=== PATIENT | female | born 1940 | race Caucasian/White ===

== ENCOUNTER → 2016-09-11 | Outpatient (CLI) | payer OTHER ==
[~2016-09-11] MED LIST: ANT25 PO; APR50 PO; ATOR-54 PO; GLC/500 PO; GLIM1TAB2 PO; LISI20TA55 PO; METO50TA17 PO
[2016-09-11 12:42] LABS: BASO % 0.5 %; BASO ABS # 0.03 K/uL (0-0.2); COMPLETE YES; EOS % 3.3 %; HEMATOCRIT 39.8 % (37-47); IG% 0.3 %; LYMPH % 35.4 %; LYMPH ABS # 2.14 K/uL (1.2-3.4); MEAN CELL VOLUME 91.1 fL (80-100); MEAN CORPUSCULAR HEMOGLOBIN 28.4 pg (25-34); MEAN CORPUSCULAR HGB CONC 31.2 g/dl (32-36); MEAN PLATELET VOLUME 11.3 fL (7.4-10.4); MONO % 8.3 %; NEUT % 52.2 %; PLATELET COUNT 181 K/uL (130-400); RED BLOOD COUNT 4.37 M/uL (4.2-5.4); WHITE BLOOD COUNT 6.04 K/uL (4.8-10.8)
[2016-09-11 13:23] LABS: ALT/SGPT 33 U/L (12-78); AST/SGOT 18 U/L (15-37); BLOOD UREA NITROGEN 16 mg/dl (7-18); BUN/CREATININE RATIO 13.5 (10-20); CALCIUM 9.6 mg/dl (8.5-10.1); CARBON DIOXIDE 25 mmol/L (21-32); CHLORIDE 109 mmol/L (98-107); GLUCOSE 134 mg/dl (70-99); POTASSIUM 3.9 mmol/L (3.5-5.1); SODIUM 143 mmol/L (136-145)
[2016-09-11 13:34] LABS: ALB/GLOB RATIO 1.2 (0.9-2); ALKALINE PHOSPHATASE 76 U/L (45-117); CHOLESTEROL 122 mg/dl (0-200); CHOLESTEROL/HDL RATIO 2.2; HDL CHOLESTEROL 56 mg/dl; LDL CHOLESTEROL CALCULATED 42 mg/dl; THYROID STIMULATING HORMONE 0.634 uIu/ml (0.300-4.500); TRIGLYCERIDES 119 mg/dl (0-150); VERY LOW DENSITY LIPOPROT CALC 24 mg/dl
[2016-09-11 13:39] LABS: ESTIMATED AVERAGE GLUCOSE 140 mg/dl; HA1C FLAG Normal (Normal)
== END | disposition home or self-care (01) ==
LOC: C.LABBFT 09:30
PROVIDERS: ATTEND Internal Medicine
DX: E11.9 Type 2 diabetes mellitus without complications (principal)

== ENCOUNTER → 2016-10-07 | Outpatient (CLI) | payer OTHER | END | disposition home or self-care (01) | LOC: C.MAMM 14:25 | PROVIDERS: ATTEND Nurse Practitioner | DX: M85.88 Other specified disorders of bone density and structure, other site (principal); M85.851 Other specified disorders of bone density and structure, right thigh; M85.852 Other specified disorders of bone density and structure, left thigh ==

== ENCOUNTER → 2017-05-15 | Outpatient (CLI) | payer OTHER ==
[2017-05-15 13:21] LABS: HEMOGLOBIN A1C 6.6 % (4.5-5.6)
[2017-05-15 13:54] LABS: ALBUMIN 3.6 gm/dl (3.4-5.0); ALT/SGPT 32 U/L (12-78); BLOOD UREA NITROGEN 19 mg/dl (7-18); CALCIUM 9.5 mg/dl (8.5-10.1); CARBON DIOXIDE 28 mmol/L (21-32); CHOLESTEROL 107 mg/dl (0-200); CREATININE 1.12 mg/dl (0.60-1.20); GLUCOSE 142 mg/dl (70-99); POTASSIUM 4.2 mmol/L (3.5-5.1); SODIUM 142 mmol/L (136-145)
[2017-05-15 13:57] LABS: ALKALINE PHOSPHATASE 81 U/L (45-117); AST/SGOT 15 U/L (15-37); LDL CHOLESTEROL CALCULATED 32 mg/dl
== END | disposition home or self-care (01) ==
LOC: C.LABBFT 10:11
PROVIDERS: ATTEND Nurse Practitioner
DX: E11.9 Type 2 diabetes mellitus without complications (principal)

== ENCOUNTER → 2017-06-29 | Day surgery (SDC) | payer OTHER ==
[2017-06-18 11:32] VITALS: Ht 160 cm; Wt 97.7 kg
[~2017-06-29] VITALS: Ht 160 cm; Wt 97.7 kg
[~2017-06-29] MED LIST changes: +500ML BSS 0.3ML EPI 1:1000PF IRRIG ONE; +ACETAMINOPHEN 325 MG TAB PO PRN; +AMLO-110 PO; +AMVISC PLUS 0.8ML SYRINGE INT OCU ONE; -ANT25 PO; -APR50 PO; +ATOR-22 PO; -ATOR-54 PO; +ATROPINE SULFATE 0.1 MG/ML 5ML SYR IV PRN; +BRIMONIDINE TART 0.2% OP SOLN PER DROP CHARGE ONE; +BSS FLUSH ONE; +ENDOCOAT 0.85ML SYRINGE INT OCU ONE; +EpHEDrine SULFATE INJ 50 MG/ML AMP IV PRN; +EpINEphrine INJ 1MG/ML AMP 1 MG/ML AMP ONE; -GLC/500 PO; +HYDR-4717 PO; +LACTATED RINGER'S 1000ML 500 ML IV SCH; +LIDOCAINE 4% OP SOLN DROP CHARGE ONE; +LIDOCAINE 4% OP SOLN DROP CHARGE OPL SCH; +LIDOCAINE HCL 1% MPF 2 ML VIAL ONE; +METF-384 PO; +METO50TA16 PO; -METO50TA17 PO; +MIDAZOLAM HCL 1 MG/ML 2ML VIAL ONE; +MOXIFLOXACIN OPH SOLN PER DROP CHARGE ONE; +MULTCAP7 PO; +POVIDONE-IODINE OP SOLN 30 ML BTL ONE; +PROPARACAINE 0.5% OP SOLN PER DROP CHARGE OPL SCH; +TOBRAMYCIN/DEXAMETHASONE OPH OINT PER APPLN CHARGE ONE
[2017-06-29] MEDS: PHENYLEPHRINE HCL 2.5% OP SOLN PER DROP CHARGE OPL SCH ×2 (06:51→06:56)
[2017-06-29] MEDS: TROPICAMIDE 1% OP SOLN PER DROP CHARGE OPL SCH ×2 (06:52→06:57)
[2017-06-29] MEDS: CYCLOPENTOLATE HCL 1% OP SOLN PER DROP CHARGE OPL SCH ×2 (06:53→06:58)
[2017-06-29] MEDS: KETOROLAC 0.5% OP SOLN PER DROP CHARGE OPL SCH ×2 (06:54→06:59)
--- NOTE | 2017-06-29 06:54 | History & Physical Bridge - SC ---
H&P Re-Evaluation Bridge Note: I have examined the patient, reviewed the History & Physical and in the interval since the performance of the History & Physical I have noted the following changes of clinical significance: No changes noted
[2017-06-29] MEDS: MOXIFLOXACIN OPH SOLN PER DROP CHARGE OPL SCH ×2 (06:55→07:05)
--- NOTE | 2017-06-29 07:59 | [facility] Operative Report ---
Operative Report Operative Date Jun 29, 2017. Pre-Operative Diagnosis Left Eye Cataracy Post-Operative Diagnosis same Procedure(s) Performed Left Cataract Phacoemulsification With Intraocular Lens Implant Surgeon Dr. Troy Day Coremaking Supervisor Surgeon(s) 0 Estimated Blood Loss 0 Findings cataract left eye Fluids see anesthesia record Specimens none Drains None Anesthesia Type MAC Complication(s) none Disposition no Recovery Room / PACU Indications decreased vision left eye Description of Procedure After informed consent was obtained in the holding area the patient was wheeled back to the operating room where cardiac monitoring leads and oxygen by nasal cannula was administered by Anesthesia. Gentle IV sedation was given, and the patient's left eye was prepped and draped in usual sterile fashion. A wire lid speculum was placed into the left eye and the operating microscope was swung into position. Using 0.12 forceps and a Supersharp blade a paracentesis port was made 2 o'clock hours away from the 3 o'clock position of the patient's left eye. 1% non-preserved Lidocaine was then injected into the anterior chamber for anesthesia. A 2.0 mm keratotome blade was then used to make a shelved clear corneal incision at the 3 o'clock position of the left eye. Amvisc was injected into the anterior chamber and a cystotome and Utrata forceps were used to perform a curvilinear capsulorrhexis. BSS on a hydrodissection cannula was used to hydrodissect the lens nucleus away from the capsular bag. The phacoemulsification handpiece was then used in a stop and chop fashion to remove the lens nucleus. The irrigation and aspiration handpiece was then used to remove the residual cortical material. Amvisc was injected into the capsular bag and anterior chamber and a Bausch [employer] Lomb MX60 18.5 Diopter intraocular lens was injected into the capsular bag. Irrigation and aspiration handpiece was used to remove the residual viscoelastic material. The wounds were hydrated and noted to be watertight. The wire lid speculum was removed from the eye. Vigamox, Brimonidine, and TobraDex ointment were placed on the eye and it was shielded. It should be noted that EndoCoat was used extensively during the case to protect the cornea endothelium. DISPOSITION: The patient tolerated the procedure well and was wheeled to the post anesthesia care unit in stable condition. I attest to the content of the Intraoperative Record and any orders documented therein. Any exceptions are noted below. I attest to the content of the Intraoperative Record and any orders documented therein. Any exceptions are noted below.
--- NOTE | 2017-06-29 08:00 | Discharge Instructions-SurgCtr ---
Discharge Instructions Date of Service Jun 29, 2017. Visit Reason for Visit: Cataract Left Eye Discharge Discharge Diagnosis / Problem: cataract left eye Discharge Goals Goal(s): Improve function Medications Stopped Medications Name(s): metformin Activity Recommendations Activity Limitations: per Instructions/Follow-up section Lifting Limitations: no more than 5 pounds Anesthesia . Post Anesthesia Instructions: If you have had General Anesthesia or IV Sedation: * Do not drive today. * Resume driving when surgeon permits. * Do not make important decisions or sign legal documents today. * Call surgeon for: 1. Temperature elevations greater than 101 degrees F. 2. Uncontrollable pain. 3. Excessive bleeding. 4. Persistent nausea and vomiting. 5. Medication intolerance (nausea, vomiting or rash). * For nausea and vomiting use only clear liquids such as: tea, soda, bouillon until nausea subsides, then gradually increase diet as tolerated. * If you have any concerns or questions, call your surgeon's office. If physician is unavailable and it is an emergency, call 911 or go to the nearest emergency room. . Instructions / Follow-Up Instructions / Follow-Up ACTIVITY RECOMMENDATIONS: * Light activities * You may walk outside, read, watch television. * Mild irritation and blurred vision are common for the first few days, redness around the white part of the eye is common. MEDICATIONS: Resume previous medications unless instructed otherwise by your surgeon. Eye drops (today and tomorrow): Vigamox - one drop in operative eye every 2 hours while awake Prednisolone 1% - one drop in operative eye every 2 hours while awake Prolensa - one drop operative eye 1 times daily SPECIAL CARE INSTRUCTIONS: * If any problems or concerns, please call Dr. Day's office at . * Keep plastic shield taped over eye to sleep at night. * Keep plastic shield taped over eye except to administer eye drops. * Keep plastic shield on until office visit the following day. FOLLOW UP VISIT: Follow-up with Dr. Day in the [place] office as scheduled. If not already scheduled, please call the office at . Diet Recommendations Home Diet: resume previous diet Procedures Procedures Performed: Left Cataract Phacoemulsification With Intraocular Lens Implant Pending Studies Studies pending at discharge: no Medical Emergencies . Who to Call and When: Medical Emergencies: If at any time you feel your situation is an emergency, please call 911 immediately. . Non-Emergent Contact Non-Emergency issues call your: Police Officer Booking . . "Provider Documentation" section prepared by Ishmael Day. .
[2017-06-29 08:02] VITALS: TEMP 36.8
--- NOTE | 2017-06-29 08:23 | Anesthesiology Progress Note ---
Anesthesia Post Op Note Date & Time Jun 29, 2017 at 08:23 Vital Signs Pain Intensity: 0 Vital Signs Past 12 Hours Date Time Temp Pulse Resp B/P (MAP) Pulse Ox O2 Delivery O2 Flow Rate FiO2 06/29/17 08:02 36.8 64 16 169/84 (112) 97 Room Air 06/29/17 06:38 36.9 64 18 172/68 (102) 98 Room Air Notes Mental Status: alert / awake / arousable, participated in evaluation Nausea / Vomiting: adequately controlled Pain: adequately controlled Airway Patency, RR, SpO2: stable & adequate BP & HR: stable & adequate Hydration State: stable & adequate Anesthetic Complications: no major complications apparent
[2017-06-29 08:27] VITALS: BP 151/73; PULSE 55; O2SAT 97
== END | disposition home or self-care (01) ==
LOC: X.SURG 06:26
PROVIDERS: ATTEND Ophthalmology
DX: H25.12 Age-related nuclear cataract, left eye (principal); E11.9 Type 2 diabetes mellitus without complications; I10 Essential (primary) hypertension; E66.9 Obesity, unspecified; E78.00 Pure hypercholesterolemia, unspecified; Z87.891 Personal history of nicotine dependence; Z79.899 Other long term (current) drug therapy

== ENCOUNTER 2020-02-11 11:43 | Inpatient (IN) ==
--- NOTE | 2020-02-11 12:14 | Emergency Department Note ---
History of Present Illness General Chief complaint: Illness Stated complaint: WEAKNESS, SYNCOPE Time Seen by Provider: 02/11/20 12:02 Source: patient, RN notes reviewed and old records reviewed Mode of arrival: EMS Limitations: no limitations History of Present Illness This patient comes in after feeling weak since Thursday. She has had a dry cough as well. No fever or chills. No loss of taste or smell. No nausea vomiting or diarrhea. No dysuria hematuria. No fall or trauma. No chest pain or shortness of breath. She said that she was going to get Covid tested but she was too weak she is just diffusely weak all over. Nonfocal is not left versus right. No headache neck pain or stiffness. No blood or melena in her stool. Her daughter is also sick and had a Covid test however it was inconclusive and she had to get retested. The ambulance had been called out for weakness and when they got there and stood her up, she had a near syncopal/presyncopal episode she feels better at present when she is just sitting there in bed. The nurse came and got me to see her as she was concerned that she had new onset A. fib/flutter Home Medications Medication Instructions Recorded Confirmed Type vitamins A,C,F-lfnn-srlxjl 1 cap PO QAM 09/18/18 02/11/20 History [PreserVision AREDS] metoprolol tartrate 50 mg tablet 50 mg PO BID #180 tab 03/08/19 02/11/20 Rx metformin 500 mg tablet 1,000 mg PO BID #360 tab 06/07/19 02/11/20 Rx atorvastatin 20 mg tablet 20 mg PO HS #90 tab 01/10/20 02/11/20 Rx hydralazine 50 mg tablet 50 mg PO BID #180 tab 01/10/20 02/11/20 Rx glimepiride 1 mg PO QAM 02/11/20 02/11/20 History lisinopril-hydrochlorothiazide 1 tab PO QAM 02/11/20 02/11/20 History Allergies Allergy/AdvReac Type Severity Reaction Status Date / Time No Known Allergies Allergy Verified 02/11/20 13:06 Past Med/Surg History Medical History (Updated 02/11/20 @ 15:15 by Edwin Hall MD) Diabetes type 2, controlled Hyperlipidemia Hypertension DESTINEY (obstructive sleep apnea) Surgical History History of salpingectomy History of Salpingectomy for ectopic Family History Father Coronary heart disease Myocardial infarction Mother Tobacco use Daughter Melanoma Denies family history of Ovarian cancer Prostate cancer Breast cancer Colorectal cancer Social History Smoking Status: Former smoker Tobacco Type: Cigarettes Second Hand Exposure: No; Hx Alcohol Use: No Hx Substance Use: No Preferred Language: Emir[place] Visual Impairment: No Limitations Hearing Ability: Normal marital status: Single Current Living Situation: Family current occupational status: retired Feels Safe at Home: Yes Dental Care, Regularly: Yes Physical Activity Frequency: Does not Exercise Seatbelt Use: always Review of Systems A total of 10 systems reviewed and were otherwise negative Physical Exam Vital Signs Vital Signs - 24 hr 02/11/20 11:55 02/11/20 12:00 02/11/20 12:02 Temperature 36.9 C Temperature Source Oral Pulse Rate 95 H 109 H 98 H Pulse Rate from SpO2 Sensor 94 H 100 H Pulse Rhythm Irregular Respiratory Rate 21 19 21 Respiratory Effort / Characteristics Non-Labored Spontaneous Respiratory Depth Normal Respiratory Pattern Regular Blood Pressure 131/70 135/103 H 131/70 Blood Pressure Mean 90 109 93 Blood Pressure Position Lying Pulse Oximetry 94 95 96 Oxygen Delivery Method Room Air Room Air Room Air Sepsis Recent Fever Within 48 Hours No Sepsis New/Unexplained Change in Mental Status No Sepsis Action Taken by Nursing No Action Required 02/11/20 12:09 Temperature Temperature Source Pulse Rate Pulse Rate from SpO2 Sensor Pulse Rhythm Respiratory Rate Respiratory Effort / Characteristics Respiratory Depth Respiratory Pattern Blood Pressure Blood Pressure Mean Blood Pressure Position Pulse Oximetry 94 Oxygen Delivery Method Room Air Sepsis Recent Fever Within 48 Hours Sepsis New/Unexplained Change in Mental Status Sepsis Action Taken by Nursing General: Well developed well nourished not ill-appearing older female who in no acute distress, breathing comfortably on room air. Normal speech HEENT: Normal cephalic atraumatic. Pupils are equal round and reactive to light. Extraocular movements are intact. Oropharynx is pink with moist mucous membranes. No swelling of the mouth lips or tongue. Neck: Supple with a midline trachea. No meningeal signs or stiffness, no JVD or bruits. No Stridor. Chest: Clear to auscultation bilaterally. No wheezes or rhonchi. No increased work of breathing. Heart: Irregularly rate and rhythm without murmurs or gallops. Abdomen: Soft nontender, nondistended without rebound guarding or rigidity. Extremities: No cyanosis clubbing or edema. No calf tenderness or assymetry Spine/Back. Non tender to palpation. No CVA tenderness Skin: Good turgor without rashes. Neurologic exam: Cranial nerves two through 12 are intact. Motor and sensation are intact and symmetrical throughout. Course Administered Medications Discontinued Medications Sodium Chloride (Nss 1000ml) 1,000 mls @ 999 mls/hr IV .Q1H1M SINCERE Stop: 02/11/20 13:15 Last Infusion: 02/11/20 13:34 Dose: 0 mls/hr Documented by: [id number] Admin: 02/11/20 12:30 Dose: 999 mls/hr Documented by: [id number] Magnesium Sulfate/Dextrose (Magnesium Sulfate / D5w) 1 gm in 100 mls @ 50 mls/hr IV ONE ONE Stop: 02/11/20 15:44 Last Admin: 02/11/20 14:30 Dose: 50 mls/hr Documented by: [id number] Medical Decision Making Differential Diagnosis Covid, arrhythmia, electrolyte or metabolic abnormality, acute coronary syndrome, pulmonary disease, dehydration, electrolyte or metabolic abnormality, need Medical Records Attestation: I reviewed the patient's medical records. Home Medications Current Medication List: was personally reviewed by me Laboratory Data Attestation: I reviewed the patient's lab results. Result diagrams: 02/11/20 12:11 02/11/20 12:11 Lab Results 02/11/20 02/11/20 02/11/20 Range/Units 12:11 12:11 12:24 WBC 5.04 (4.8-10.8) K/uL RBC 4.70 (4.2-5.4) M/uL Hgb 13.5 (12.0-16.0) g/dL Hct 42.3 (37-47) % MCV 90.0 (80-100) fL MCH 28.7 (25-34) pg MCHC 31.9 L (32-36) g/dL RDW Std Deviation 44.8 (36.4-46.3) fL RDW Coeff of Charlene 13.4 (11.5-14.5) % Plt Count 148 (130-400) K/uL MPV 11.7 H (7.4-10.4) fL Immature Gran % (Auto) 0.0 % Neut % (Auto) 81.1 % Lymph % (Auto) 13.9 % [place] % (Auto) 5.0 % Eos % (Auto) 0.0 % Baso % (Auto) 0.0 % Neut # (Auto) 4.09 (1.4-6.5) K/uL Lymph # (Auto) 0.70 L (1.2-3.4) K/uL [place] # (Auto) 0.25 (0.11-0.59) K/uL Eos # (Auto) 0.00 (0-0.5) K/uL Baso # (Auto) 0.00 (0-0.2) K/uL Immature Gran # (Auto) 0.00 (0.00-0.02) K/uL Sodium 138 (136-145) mmol/L Potassium 3.8 (3.5-5.1) mmol/L Chloride 104 (98-107) mmol/L Carbon Dioxide 25 (21-32) mmol/L Anion Gap 9.0 (3-11) BUN 31 H (7-18) mg/dl Creatinine 1.66 H (0.6-1.2) mg/dl Est Cr Clr Drug Dosing 29.5 ml/min Est GFR ( Amer) 33.4 Est GFR (Non-Af Amer) 28.8 BUN/Creatinine Ratio 18.5 (10-20) Glucose 246 H (70-99) mg/dl Lactate 1.8 (0.4-2.0) mmol/L Calcium 9.1 (8.5-10.1) mg/dl Magnesium 1.7 L (1.8-2.4) mg/dl Total Bilirubin 0.5 (0.2-1) mg/dl AST 35 (15-37) U/L ALT 32 (12-78) U/L Alkaline Phosphatase 87 (45-117) U/L Troponin I < 0.015 (0-0.045) ng/ml Total Protein 7.4 (6.4-8.2) gm/dl Albumin 3.3 L (3.4-5.0) gm/dl Globulin 4.1 H (2.5-4.0) gm/dl Albumin/Globulin Ratio 0.8 L (0.9-2) TSH 0.634 (0.300-4.500) uIu/ml Urine Color Urine Appearance (Clear) Urine pH (4.5-7.5) Ur Specific [place] (1.000-1.030) Urine Protein (Negative) Urine Glucose (UA) (Negative) Urine Ketones (Negative) Urine Blood (Negative) Urine Nitrite (Negative) Urine Bilirubin (Negative) Urine Urobilinogen (Negative) Ur Leukocyte Esterase (Negative) Urine WBC (Auto) (0-5) /hpf Urine RBC (Auto) (0-4) /hpf U Hyaline Cast (Auto) (0-5) /lpf U Epithel Cells (Auto) (0-5) /lpf Urine Bacteria (Auto) (Negative) COVID-19 Eval Order SARS-CoV-2, RNA, NAAT (NEGATIVE) 02/11/20 02/11/20 02/11/20 Range/Units 13:35 13:35 14:25 WBC (4.8-10.8) K/uL RBC (4.2-5.4) M/uL Hgb (12.0-16.0) g/dL Hct (37-47) % MCV (80-100) fL MCH (25-34) pg MCHC (32-36) g/dL RDW Std Deviation (36.4-46.3) fL RDW Coeff of Charlene (11.5-14.5) % Plt Count (130-400) K/uL MPV (7.4-10.4) fL Immature Gran % (Auto) % Neut % (Auto) % Lymph % (Auto) % [place] % (Auto) % Eos % (Auto) % Baso % (Auto) % Neut # (Auto) (1.4-6.5) K/uL Lymph # (Auto) (1.2-3.4) K/uL [place] # (Auto) (0.11-0.59) K/uL Eos # (Auto) (0-0.5) K/uL Baso # (Auto) (0-0.2) K/uL Immature Gran # (Auto) (0.00-0.02) K/uL Sodium (136-145) mmol/L Potassium (3.5-5.1) mmol/L Chloride (98-107) mmol/L Carbon Dioxide (21-32) mmol/L Anion Gap (3-11) BUN (7-18) mg/dl Creatinine (0.6-1.2) mg/dl Est Cr Clr Drug Dosing ml/min Est GFR ( Amer) Est GFR (Non-Af Amer) BUN/Creatinine Ratio (10-20) Glucose (70-99) mg/dl Lactate (0.4-2.0) mmol/L Calcium (8.5-10.1) mg/dl Magnesium (1.8-2.4) mg/dl Total Bilirubin (0.2-1) mg/dl AST (15-37) U/L ALT (12-78) U/L Alkaline Phosphatase (45-117) U/L Troponin I (0-0.045) ng/ml Total Protein (6.4-8.2) gm/dl Albumin (3.4-5.0) gm/dl Globulin (2.5-4.0) gm/dl Albumin/Globulin Ratio (0.9-2) TSH (0.300-4.500) uIu/ml Urine Color Yellow Urine Appearance Clear (Clear) Urine pH 5.0 (4.5-7.5) Ur Specific [place] 1.020 (1.000-1.030) Urine Protein Trace H (Negative) Urine Glucose (UA) Trace H (Negative) Urine Ketones 2+ H (Negative) Urine Blood Negative (Negative) Urine Nitrite Negative (Negative) Urine Bilirubin Negative (Negative) Urine Urobilinogen Negative (Negative) Ur Leukocyte Esterase Negative (Negative) Urine WBC (Auto) 1-5 (0-5) /hpf Urine RBC (Auto) 0-4 (0-4) /hpf U Hyaline Cast (Auto) 1-5 (0-5) /lpf U Epithel Cells (Auto) 20-30 H (0-5) /lpf Urine Bacteria (Auto) Negative (Negative) COVID-19 Eval Order Covid19 IDNow atMVTC SARS-CoV-2, RNA, NAAT POSITIVE A* (NEGATIVE) Imaging Data Attestation: I personally reviewed and interpreted this imaging study as follows: My Impression: Chest x-ray: No acute infiltrate, failure, pneumothorax with exception of there is some opacities in the left upper lobe Radiologist's Impression: SINGLE VIEW CHEST CLINICAL HISTORY: Generalized weakness. FINDINGS: An AP, portable, upright chest radiograph is compared to study dated 09/18/2018. The heart is enlarged noting atherosclerotic calcification of the thoracic aorta. The pulmonary vasculature is noncongested. Chronic interstitial thickening is similar to previous. There are subpleural airspace opacities in the left upper lobe as well as mild bibasilar opacities. No large pleural effusion or pneumothorax is seen. The skeletal structures are osteopenic. The bony thorax is grossly intact. IMPRESSION: 1. Cardiomegaly without radiographic evidence of congestive failure. 2. There are mild subpleural opacities in the left upper lobe as well as bibasilar opacities. This could represent atelectasis versus a mild infectious/inflammatory pneumonitis. Clinical correlation will be required. ECG Data Attestation: I personally reviewed and interpreted this ECG as follows: Indication: + weakness Rate (beats per minute): 110 Rhythm: + atrial flutter ECG Intervals/blocks: + Normal QRS and + Normal QT ECG [place]: + Normal ECG ST segments: + Normal ST segments ECG Findings: no PACs and no PVCs Comparison ECG Date: from (09/18/18 ) Change: the following changes noted (a flutter is now present) MDM Narrative This patient comes in as described above. She was placed on a skirt clipper and room C8. Given her recent illness of weakness and cough, we did put her on isolation and tested for Covid. She was placed on a skirt clipper. IV access established multiple blood testing was obtained as well. She was reassessed frequently. She remained stable. She was noted to be in new onset a flutter which was rate controlled. Her creatinine is 1.66 which is up compared to 1.3, this may be prerenal as her BUN is also elevated. She has no white count or fever to suggest infection. She is anemic. Chest x-ray does not suggest congestive heart failure, pneumonia, or pneumothorax. Her troponin was negative and does not suggest acute coronary syndrome. Her blood sugar is mildly elevated at 246 however she is not acidotic. The patient is feeling better, I did talk to her daughter as well on the phone. Her Covid test did come back positive. I do think she needs to be admitted/observed for treatment evaluation she had a weakness and near syncope. I was also repleted her magnesium with 1 g IV. I have consulted the [facility] hospitalist ,Dr. Kitchen, to see the patient in ER for these measures. Continuous cardiac monitoring: An order was placed in the EMR for continuous skirt clipper and was noted to have rate controlled a flutter with variable block with a rate of 98. Impression & Plan COVID-19, Weakness, Atrial flutter, Hypomagnesemia, Syncope Discharge Plan Visit Data Chief Complaint: Illness Stated Complaint: WEAKNESS, SYNCOPE ED Provider: Edwin Hall Discharge Problem: COVID-19, Weakness, Atrial flutter, Hypomagnesemia, Syncope Forms Stand Alone Forms: My [facility] Prescriptions Prescriptions: No Action metoprolol tartrate 50 mg tablet 50 mg PO BID Qty: 180 RF: 3 metformin 500 mg tablet 1,000 mg PO BID Qty: 360 RF: 3 atorvastatin 20 mg tablet 20 mg PO HS Qty: 90 RF: 3 hydralazine 50 mg tablet 50 mg PO BID Qty: 180 RF: 3 PreserVision AREDS [id number] Capsule 1 cap PO QAM RF: 0 glimepiride 1 mg tablet 1 mg PO QAM RF: 0 lisinopril-hydrochlorothiazide 20-25 mg tablet 1 tab PO QAM RF: 0 Discharge Problem: Atrial flutter Qualifiers: Atrial flutter type: unspecified Qualified Code(s): I48.92 - Unspecified atrial flutter Syncope Qualifiers: Syncope type: unspecified Qualified Code(s): R55 - Syncope and collapse
[2020-02-11] MEDS ORDERED: SODIUM CHLORIDE 0.9% 1000ML 1,000 ML IV SCH (12:15)
[2020-02-11 12:47] LABS: Hematocrit (blood only) 42.3 % (37-47); Hemoglobin 13.5 g/dL (12.0-16.0); Lymphocytes % (auto) 13.9 %; Mean Corpuscular Hemoglobin 28.7 pg (25-34); Mean Corpuscular Hgb Conc 31.9 g/dL (32-36); Mean Platelet Volume 11.7 fL (7.4-10.4); Monocytes # (auto) 0.25 K/uL (0.11-0.59); Neutrophils # (auto) 4.09 K/uL (1.4-6.5); Neutrophils % (auto) 81.1 %; Platelet Count 148 K/uL (130-400); RDW Coefficient of Variation 13.4 % (11.5-14.5); RDW Standard Deviation 44.8 fL (36.4-46.3); White Blood Count 5.04 K/uL (4.8-10.8)
--- NOTE | 2020-02-11 13:03 | XRay Report ---
SINGLE VIEW CHEST CLINICAL HISTORY: Generalized weakness. FINDINGS: An AP, portable, upright chest radiograph is compared to study dated 09/18/2018. The heart i s enlarged noting atherosclerotic calcification of the thoracic aorta. The pulmonary vasculature is n oncongested. Chronic interstitial thickening is similar to previous. There are subpleural airspace op acities in the left upper lobe as well as mild bibasilar opacities. No large pleural effusion or pneu mothorax is seen. The skeletal structures are osteopenic. The bony thorax is grossly intact. IMPRESSION: 1. Cardiomegaly without radiographic evidence of congestive failure. 2. There are mild subpleural opacities in the left upper lobe as well as bibasilar opacities. This co uld represent atelectasis versus a mild infectious/inflammatory pneumonitis. Clinical correlation zeke l be required. ACT 112: Negative or not required by law. Electronically signed by: Booker Mendez M.D. 02/11/2020 1:02 PM
[2020-02-11 13:18] LABS: Alanine Aminotransferase 32 U/L (12-78); Albumin Level 3.3 gm/dl (3.4-5.0); Aspartate Aminotransferase 35 U/L (15-37); BUN Creatinine Ratio 18.5 (10-20); Blood Urea Nitrogen 31 mg/dl (7-18); Calcium 9.1 mg/dl (8.5-10.1); Carbon Dioxide 25 mmol/L (21-32); Chloride 104 mmol/L (98-107); Creatinine Clr Calc Pharmacy 29.5 ml/min; Est GFR (African American) 33.4; Est GFR (Non-African American) 28.8; Glucose 246 mg/dl (70-99); Magnesium 1.7 mg/dl (1.8-2.4); Potassium 3.8 mmol/L (3.5-5.1); Sodium 138 mmol/L (136-145)
[2020-02-11 13:30] LABS: Albumin Globulin Ratio 0.8 (0.9-2); Alkaline Phosphatase 87 U/L (45-117); Bilirubin,Total 0.5 mg/dl (0.2-1); Globulin 4.1 gm/dl (2.5-4.0); Thyroid Stimulating Hormone 0.634 uIu/ml (0.300-4.500); Total Protein 7.4 gm/dl (6.4-8.2); Troponin I < 0.015 ng/ml (0-0.045)
[2020-02-11] MEDS ORDERED: MAGNESIUM SULFATE / D5W 1 GM/100 ML BAG IV ONE (13:45)
[2020-02-11 14:40] LABS: Appearance Urine Clear (Clear); Bacteria Urine Automated Negative (Negative); Bilirubin Urine Negative (Negative); Blood Urine Negative (Negative); Color Urine Yellow; Epithelial Cell Urine Auto 20-30 /lpf (0-5); Glucose Urine UA Trace (Negative); Ketones Urine 2+ (Negative); Leukocyte Esterase Urine Negative (Negative); Nitrite Urine Negative (Negative); Protein Urine Trace (Negative); RBC Urine Automated 0-4 /hpf (0-4); Urobilinogen Urine Negative (Negative)
--- NOTE | 2020-02-11 14:52 | History & Physical Report ---
Date of Service February 11, 2020 Assessment & Plan (1) New onset atrial flutter: In setting of SARS-CoV-2 Not yet taken her usual metoprolol today therefore will continue on her usual dose of this for rate control. Anticoagulation to be determined depending on ultrasound venous Doppler TTE TSH 0.634 (2) Severe acute respiratory syndrome coronavirus 2 (SARS-CoV-2) RNA detected: No significant pulmonary symptoms or hypoxia. Generalized fatigue and myalgias. No steroids, remdesivir, convalescent plasma needed. (3) Diabetes type 2, controlled: HbA1c 6.7 in November. HbA1C with AM labs Continue glimepiride 1mg PO daily Hold metformin 1000mg PO BID Novolog for correction coverage (4) Syncope: Monitor for arrhythmia/pauses on telemetry TTE (5) Hypertension: Continue hydralazine 50mg PO BID Hold lisinopril/HCTZ due to raised creatinine and dehydrated state Metoprolol as above (6) DESTINEY (obstructive sleep apnea): Patient denies this diagnosis. Not on CPAP at home. (7) Hyperlipidemia: Continue atorvastatin 20mg PO daily (8) Bilateral calf pain: US venous doppler b/l to r/o DVT (9) DVT prophylaxis: Pending US venous doppler Admission and Anticipated Discharge Date Admission Date: 02/11/2020 History of Present Illness Primary Care Provider: Neville Craig MD Melany Macias is an 79 year old female who presents to the ER with generalized fatigue and weakness. She reports her symptoms ongoing for 1 week including myalgias, sore throat, fatigue, nasal congestion, mild non-productive cough. She reports her daughter who she lives with has a terrible cough and has been tested for COVID-19 but results are not back yet. She denies any fever, chills, abdominal pain or diarrhea. She reports main reason for coming to the ER with just how weak she has become over the last 2 days. Reports this is bilateral, no change in speech/hearing/vision. In the ER she was noted to have atrial flutter which is new onset with a variable block and she was tested positive for SARS-COV-2. She has not taken her medications for a few days. She also reports having asyncopal event when EMS arrived although unable to elaborate on details of this. She denies any chest pain, shortness of breath, palpitaions, claudications or leg swelling. She was referred to medicine for admission and ongoing management of COVID-19 Allergies Allergy/AdvReac Type Severity Reaction Status Date / Time No Known Allergies Allergy Verified 02/11/20 13:06 Home Medications Medication Instructions Recorded Confirmed Type vitamins A,C,[id number] 1 cap PO QAM 09/18/18 02/11/20 History [[facility]er[facility] AREDS] metoprolol tartrate 50 mg tablet 50 mg PO BID #180 tab 03/08/19 02/11/20 Rx metformin 500 mg tablet 1,000 mg PO BID #360 tab 06/07/19 02/11/20 Rx atorvastatin 20 mg tablet 20 mg PO HS #90 tab 01/10/20 02/11/20 Rx hydralazine 50 mg tablet 50 mg PO BID #180 tab 01/10/20 02/11/20 Rx glimepiride 1 mg PO QAM 02/11/20 02/11/20 History lisinopril-hydrochlorothiazide 1 tab PO QAM 02/11/20 02/11/20 History Past Med/Surg History Medical History (Updated 02/12/20 @ 08:07 by Tiago Kitchen MD) Diabetes type 2, controlled Hyperlipidemia Hypertension DESTINEY (obstructive sleep apnea) Surgical History History of salpingectomy History of Salpingectomy for ectopic Family History Father Coronary heart disease Myocardial infarction Mother Tobacco use Daughter Melanoma Denies family history of Ovarian cancer Prostate cancer Breast cancer Colorectal cancer Social History Smoking Status: Former smoker Tobacco Type: Cigarettes Second Hand Exposure: No; Hx Alcohol Use: No Hx Substance Use: No Preferred Language: [place] Island[place] Visual Impairment: No Limitations Hearing Ability: Normal Beliefs That Will Affect Care: None marital status: Single Current Living Situation: Family Current Living Situation Comment: [facility] current occupational status: retired Feels Safe at Home: Yes Dental Care, Regularly: Yes Physical Activity Frequency: Does not Exercise Seatbelt Use: always Assistive Devices: Glasses and Oxygen - Continuous Review of Systems Review of Systems: All systems reviewed & are unremarkable except as noted in HPI & below Constitutional: + body aches, + fatigue and + weakness; no fever and no chills Respiratory: + cough (mild non productive) Physical Exam Constitutional: well developed, well nourished and + obese; no acute distress Eyes: + anicteric sclerae; normal pupil size ENMT: external ear and nose normal, oropharynx normal Neck: trachea midline, no thyromegaly Respiratory: normal respiratory effort, lungs clear to auscultation Cardiovascular: Rate/Rhythm: + tachycardic and + irregularly irregular Heart Sounds: no murmur Vessels: normal peripheral pulses; no JVD Extremities: normal capillary refill and + pedal edema (trace ankle b/l equal) Gastrointestinal (Abdomen): normal bowel sounds, soft, nontender, no he patosplenomegaly Musculoskeletal: no cyanosis or clubbing, extremities motor strength 5/5 Skin: no rashes, warm and dry Neurologic: moves all extremities and awake; no focal motor deficits and not confused Psychiatric: A+Ox3, euthymic affect Genitourinary: no CVA tenderness Results & Data Results & Data ([facility]) Vital Signs (Past 12 Hours) Vital Signs Temp Pulse Resp BP Pulse Ox 02/11/20 12:09 94 02/11/20 12:02 98 H 21 131/70 96 02/11/20 12:00 109 H 19 135/103 H 95 02/11/20 11:55 36.9 C 95 H 21 131/70 94 Diagnostic Findings SINGLE VIEW CHEST IMPRESSION: 1. Cardiomegaly without radiographic evidence of congestive failure. 2. There are mild subpleural opacities in the left upper lobe as well as bibasilar opacities. This could represent atelectasis versus a mild infectious/inflammatory pneumonitis. Clinical correlation will be required. Medications Administered ER Medications given: Magnesium sulphate 1g IV NSS 1L bolus ECG Rate (beats per minute): 110 Rhythm: atrial flutter Findings: no acute ischemic change Comparison ECG Date: from (September 18, 2018) Change: no significant change Code Status & VTE Plan Code Status DNR/DNI as per patient wishes VTE Prophylaxis Plan VTE Prophylaxis will be ordered: Yes PG Care Time/CCT Total # of Minutes Spent Total Time Spent with Patient: Total time spent is greater than 50% in coordination of care (as documented) at patient's floor/unit and/or counseling patient: Coding Level of Care Code 66755 Initial Inpt Care Lvl 3 Diagnoses New onset atrial flutter I48.92 Severe acute respiratory syndrome coronavirus 2 (SARS-CoV-2) RNA detected U07.1 Diabetes type 2, controlled E11.9 Syncope R55 Syncope type: unspecified Hypertension I10 DESTINEY (obstructive sleep apnea) G47.33 Hyperlipidemia E78.5 Bilateral calf pain M79.661; M79.662 DVT prophylaxis Z29.9 (1) Syncope Syncope type: unspecified Qualified Code(s): R55 - Syncope and collapse
[2020-02-11] MEDS ORDERED: METOPROLOL TARTRATE 50 MG TAB PO STA (15:20)
--- NOTE | 2020-02-11 17:38 | Ultrasound Report ---
ULTRASOUND BILATERAL LOWER EXTREMITY VENOUS CLINICAL HISTORY: Bilateral leg pain. COMPARISON STUDY: Right lower extremity venous ultrasound dated 09/18/2018. TECHNIQUE: Portable real-time, grayscale, and color Doppler sonography of the deep veins of the right and left lower extremity was performed from the inguinal crease to the calf. Compression and augment ation were utilized. FINDINGS: There is no sonographic evidence of deep venous thrombosis identified in the right or left lower extremity. The common femoral, superficial femoral, and popliteal veins are patent and normally compressible bilaterally. The greater saphenous vein and the profunda femoris vein at the junction w ith the common femoral vein are clear in both legs. The visualized calf veins are patent bilaterally. IMPRESSION: There is no sonographic evidence of deep venous thrombosis identified in the right or lef t lower extremity. ACT 112: Negative or not required by law. Electronically signed by: Booker Mendez M.D. 02/11/2020 5:36 PM
[2020-02-11] MEDS ORDERED: METOPROLOL TARTRATE 50 MG TAB ONE (18:09)
[2020-02-11] MEDS: APIXABAN 2.5 MG TAB PO SCH (21:01)
[2020-02-11] MEDS: ATORVASTATIN 20 MG TAB PO SCH (21:01)
[2020-02-11] MEDS: METOPROLOL TARTRATE 50 MG TAB PO SCH (21:01)
[2020-02-11] MEDS: hydrALAZINE TAB 50 MG TAB PO SCH (21:01)
[2020-02-12] MEDS: GLIMEPIRIDE 2 MG TAB PO SCH ×2 (07:48→08:39)
[2020-02-12] MEDS ORDERED: GLUCOSE 10 TABS/TUBE PO PRN (07:55)
[2020-02-12] MEDS ORDERED: GLUCOSE 40% GEL 15 GM TUBE PO PRN (07:55)
[2020-02-12] MEDS ORDERED: CARBOHYDRATES FOR HYPOGLYCEMIA PO PRN (07:55)
[2020-02-12] MEDS ORDERED: GLUCAGON FOR INJ 1 MG VIAL SQ PRN (07:55)
[2020-02-12] MEDS ORDERED: DEXTROSE 50% 50 ML SYRINGE IV PRN (07:55)
[2020-02-12 08:58] LABS: Hematocrit (blood only) 35.5 % (37-47); Hemoglobin 11.5 g/dL (12.0-16.0); Immature Granulocytes # (auto) 0.01 K/uL (0.00-0.02); Immature Granulocytes % (auto) 0.2 %; Lymphocytes # (auto) 0.88 K/uL (1.2-3.4); Lymphocytes % (auto) 17.7 %; Mean Corpuscular Hemoglobin 29.2 pg (25-34); Mean Corpuscular Volume 90.1 fL (80-100); Monocytes # (auto) 0.33 K/uL (0.11-0.59); Monocytes % (auto) 6.6 %; Neutrophils # (auto) 3.75 K/uL (1.4-6.5); Neutrophils % (auto) 75.5 %; Platelet Count 141 K/uL (130-400); RDW Coefficient of Variation 13.7 % (11.5-14.5); RDW Standard Deviation 45.7 fL (36.4-46.3); Red Blood Count 3.94 M/uL (4.2-5.4); White Blood Count 4.97 K/uL (4.8-10.8)
[2020-02-12] MEDS ORDERED: LISINOPRIL/HCTZ 20/25MG 1 TAB PO SCH (09:00)
[2020-02-12] MEDS ORDERED: GLIMEPIRIDE 2 MG TAB PO SCH (09:00)
[2020-02-12 09:14] LABS: BUN Creatinine Ratio 17.8 (10-20); C Reactive Protein 9.45 mg/dl (0-0.29); Creatinine Clr Calc Pharmacy 33.6 ml/min; Est GFR (Non-African American) 34.5; Magnesium 1.8 mg/dl (1.8-2.4); Potassium 3.6 mmol/L (3.5-5.1)
[2020-02-12 09:18] LABS: Mean Corpuscular Hgb Conc 32.4 g/dL (32-36); Troponin I 0.031 ng/ml (0-0.045)
[2020-02-12 09:24] LABS: D Dimer 820 ug/L FEU (0-500)
[2020-02-12] MEDS: hydrALAZINE TAB 50 MG TAB PO SCH ×2 (09:52→20:41)
[2020-02-12] MEDS: APIXABAN 2.5 MG TAB PO SCH ×2 (09:52→20:40)
[2020-02-12] MEDS: CEROVITE ADV FORMULA TAB PO SCH (09:52)
[2020-02-12] MEDS: METOPROLOL TARTRATE 50 MG TAB PO SCH ×2 (09:53→20:41)
[2020-02-12] MEDS: INSULIN ASPART 100 UNITS/ML 3 ML PEN SC SCH ×3 (12:25→20:48)
--- NOTE | 2020-02-12 12:44 | Hospitalist Progress Note ---
Date of Service February 12, 2020 Assessment & Plan (1) New onset atrial flutter: In setting of SARS-CoV-2. TSH was 0.634. - Continue metoprolol 50 mg PO BID -> HR under control at present. - Started anticoagulation with apixaban - TTE pending (2) Severe acute respiratory syndrome coronavirus 2 (SARS-CoV-2) RNA detected: No significant pulmonary symptoms or hypoxia. Generalized fatigue and myalgias. - No steroids, remdesivir, convalescent plasma needed. (3) Diabetes type 2, controlled: HbA1c 6.7 in November. HbA1C with AM labs. - Hold oral meds - Novolog for correction coverage (4) Syncope: Monitor for arrhythmia/pauses on telemetry. - TTE as above (5) Hypertension: BP is 145/80 today. - Continue hydralazine 50mg PO BID - Hold lisinopril/HCTZ due to raised creatinine and dehydrated state - Metoprolol as above (6) Hyperlipidemia: - Continue atorvastatin 20mg PO daily (7) DVT prophylaxis: Apixaban Admission and Anticipated Discharge Date Admission Date: February 11, 2020 Subjective Diarrhea and some nausea. Reports no fevers/chills, chest pain, shortness of breath, abdominal pain, nausea, or vomiting. Physical Exam Constitutional: WD/WN, vitals as above Eyes: EOM intact bilaterally; no conjunctival abnormality ENMT: external ear and nose normal, oropharynx normal Neck: trachea midline, no thyromegaly normal visual inspection Respiratory: normal respiratory effort, lungs clear to auscultation no respiratory distress Cardiovascular: RRR, no murmur, no edema Gastrointestinal (Abdomen): Inspection/Auscultation: abdomen normal to inspection; abdomen not distended Musculoskeletal: no cyanosis or clubbing, extremities motor strength 5/5 Skin: no rashes, warm and dry Neurologic: moves all extremities and awake Psychiatric: Orientation: alert, oriented to person and cooperative Results & Data Results & Data ([facility]) Vital Signs (Past 12 Hours) Vital Signs Temp Pulse Pulse Resp BP Pulse Ox 02/12/20 11:43 37.7 C H 74 19 143/80 H 93 02/12/20 07:30 37.3 C 72 94 H 22 147/85 H 96 02/12/20 04:00 36.9 C 87 18 145/89 H 95 02/12/20 02:30 100 H PG Care Time/CCT Total # of Minutes Spent Total Time Spent with Patient: Total time spent is greater than 50% in coordination of care (as documented) at patient's floor/unit and/or counseling patient: Coding Level of Care Code 51763 Subseq Hosp Care Lvl 2 Diagnoses New onset atrial flutter I48.92 Severe acute respiratory syndrome coronavirus 2 (SARS-CoV-2) RNA detected U07.1 Diabetes type 2, controlled E11.9 Syncope R55 Syncope type: unspecified Hypertension I10 Hyperlipidemia E78.5 DVT prophylaxis Z29.9 (1) Syncope Syncope type: unspecified Qualified Code(s): R55 - Syncope and collapse
[2020-02-12] MEDS ORDERED: NORMOSOL-R 500 ML IV ONE (16:31)
[2020-02-12] MEDS: LOPERAMIDE HCL 2 MG CAP PO PRN (16:43)
[2020-02-12] MEDS: ACETAMINOPHEN 325 MG TAB PO PRN (17:33)
[2020-02-12] MEDS: ATORVASTATIN 20 MG TAB PO SCH (20:41)
--- NOTE | 2020-02-13 06:26 | Electrocardiogram Report ---
Test Reason : Blood Pressure : / mmHG Vent. Rate : 110 BPM Atrial Rate : 394 BPM P-R Int : 000 ms QRS Dur : 082 ms QT Int : 348 ms P-R-T Axes : 000 -22 048 degrees QTc Int : 470 ms Atrial fibrillation with rapid ventricular response Left ventricular hypertrophy with repolarization abnormality Abnormal ECG When compared with ECG of 18-SEP-2018 18:09, Atrial fibrillation has replaced Sinus rhythm Non-specific change in ST segment in Inferior leads Confirmed by Messi Louis ([id number]) on 02/13/2020 6:26:34 AM Referred By: ED Confirmed By:Messi Louis
[2020-02-13 06:29] LABS: Estimated Average Glucose 163 mg/dl; Hemoglobin A1C 7.3 % (4.5-5.6)
[2020-02-13 08:32] LABS: Hematocrit (blood only) 37.9 % (37-47); Hemoglobin 12.2 g/dL (12.0-16.0); Mean Corpuscular Hgb Conc 32.2 g/dL (32-36); Mean Corpuscular Volume 90.2 fL (80-100); Mean Platelet Volume 11.8 fL (7.4-10.4); Platelet Count 153 K/uL (130-400); RDW Coefficient of Variation 13.7 % (11.5-14.5); RDW Standard Deviation 45.7 fL (36.4-46.3); White Blood Count 6.94 K/uL (4.8-10.8)
[2020-02-13 09:01] LABS: BUN Creatinine Ratio 16.6 (10-20); Calcium 9.7 mg/dl (8.5-10.1); Creatinine Clr Calc Pharmacy 35.2 ml/min; Est GFR (African American) 42.5; Est GFR (Non-African American) 36.7; Magnesium 1.8 mg/dl (1.8-2.4); Potassium 3.7 mmol/L (3.5-5.1)
[2020-02-13] MEDS: INSULIN ASPART 100 UNITS/ML 3 ML PEN SC SCH ×4 (09:07→21:30)
[2020-02-13] MEDS: METOPROLOL TARTRATE 50 MG TAB PO SCH ×2 (09:09→21:24)
[2020-02-13] MEDS: APIXABAN 2.5 MG TAB PO SCH ×2 (09:10→21:24)
[2020-02-13] MEDS: hydrALAZINE TAB 50 MG TAB PO SCH ×2 (09:10→21:24)
[2020-02-13] MEDS: CEROVITE ADV FORMULA TAB PO SCH (09:10)
--- NOTE | 2020-02-13 14:35 | Hospitalist Progress Note ---
Date of Service February 13, 2020 Assessment & Plan (1) New onset atrial flutter: In setting of SARS-CoV-2. TSH was 0.634. - Continue metoprolol 50 mg PO BID -> HR under control at present. - Started anticoagulation with apixaban - TTE pending - Presently holding off due to Covid. (2) Severe acute respiratory syndrome coronavirus 2 (SARS-CoV-2) RNA detected: Now with hypoxemia, though not much shortness of breath. Generalized fatigue and myalgias. - Start dexamethasone 6 mg PO daily - No remdesivir, convalescent plasma needed. (3) Diabetes type 2, controlled: HbA1c 6.7 in November. HbA1C with AM labs. - Hold oral meds - Novolog for correction coverage - Sugars stable today. Will monitor on steroids. (4) Syncope: Monitor for arrhythmia/pauses on telemetry. - TTE as above (5) Hypertension: BP is 170/80 today. - Continue hydralazine 50mg PO BID - Hold lisinopril/HCTZ due to raised creatinine and dehydrated state - Metoprolol as above (6) Hyperlipidemia: - Continue atorvastatin 20mg PO daily (7) DVT prophylaxis: Apixaban Admission and Anticipated Discharge Date Admission Date: February 11, 2020 Subjective Very tired today. No other complaints. Reports no fevers/chills, chest pain, shortness of breath, abdominal pain, nausea, or vomiting. Physical Exam Constitutional: WD/WN, vitals as above Eyes: EOM intact bilaterally; no conjunctival abnormality ENMT: external ear and nose normal, oropharynx normal Neck: trachea midline, no thyromegaly normal visual inspection Respiratory: normal respiratory effort, lungs clear to auscultation no respiratory distress Cardiovascular: RRR, no murmur, no edema Gastrointestinal (Abdomen): Inspection/Auscultation: abdomen normal to inspection; abdomen not distended Musculoskeletal: no cyanosis or clubbing, extremities motor strength 5/5 Skin: no rashes, warm and dry Neurologic: moves all extremities and awake Psychiatric: Orientation: alert, oriented to person and cooperative Results & Data Results & Data ([facility]) Vital Signs (Past 12 Hours) Vital Signs Temp Pulse Pulse Pulse Resp BP Pulse Ox 02/13/20 10:59 36.6 C 101 H 19 168/73 H 93 02/13/20 08:00 86 02/13/20 07:37 37.1 C 98 H 23 143/99 H 90 02/13/20 04:50 159/88 H 02/13/20 03:58 37.0 C 99 H 18 184/71 H 92 PG Care Time/CCT Total # of Minutes Spent Total Time Spent with Patient: Total time spent is greater than 50% in coordination of care (as documented) at patient's floor/unit and/or counseling patient: Coding Level of Care Code 71400 Subseq Hosp Care Lvl 3 Diagnoses New onset atrial flutter I48.92 Severe acute respiratory syndrome coronavirus 2 (SARS-CoV-2) RNA detected U07.1 Diabetes type 2, controlled E11.9 Syncope R55 Syncope type: unspecified Hypertension I10 Hyperlipidemia E78.5 DVT prophylaxis Z29.9 (1) Syncope Syncope type: unspecified Qualified Code(s): R55 - Syncope and collapse
[2020-02-13] MEDS: ACETAMINOPHEN 325 MG TAB PO PRN (17:24)
[2020-02-13] MEDS: dexAMETHasone 4 MG TAB PO SCH (17:24)
[2020-02-13] MEDS: hydrOXYzine HCl 10 MG TAB PO PRN (21:24)
[2020-02-13] MEDS: ATORVASTATIN 20 MG TAB PO SCH (21:24)
[2020-02-14 07:07] LABS: Hematocrit (blood only) 37.6 % (37-47); Hemoglobin 11.9 g/dL (12.0-16.0); Mean Corpuscular Hemoglobin 28.3 pg (25-34); Mean Corpuscular Hgb Conc 31.6 g/dL (32-36); Mean Corpuscular Volume 89.5 fL (80-100); Mean Platelet Volume 10.8 fL (7.4-10.4); Platelet Count 161 K/uL (130-400); RDW Coefficient of Variation 13.6 % (11.5-14.5); RDW Standard Deviation 44.8 fL (36.4-46.3); White Blood Count 9.49 K/uL (4.8-10.8)
[2020-02-14 07:25] LABS: BUN Creatinine Ratio 22.7 (10-20); Calcium 9.2 mg/dl (8.5-10.1); Creatinine Clr Calc Pharmacy 35.7 ml/min; Est GFR (African American) 43.6; Est GFR (Non-African American) 37.7; Magnesium 1.8 mg/dl (1.8-2.4); Potassium 3.8 mmol/L (3.5-5.1)
[2020-02-14] MEDS: INSULIN ASPART 100 UNITS/ML 3 ML PEN SC SCH ×4 (09:22→21:13)
[2020-02-14] MEDS: hydrALAZINE TAB 50 MG TAB PO SCH ×2 (09:23→21:11)
[2020-02-14] MEDS: APIXABAN 2.5 MG TAB PO SCH (09:24)
[2020-02-14] MEDS: dexAMETHasone 4 MG TAB PO SCH (09:24)
[2020-02-14] MEDS: CEROVITE ADV FORMULA TAB PO SCH (09:24)
[2020-02-14] MEDS: METOPROLOL TARTRATE 50 MG TAB PO SCH ×2 (09:24→21:10)
[2020-02-14] MEDS: LOPERAMIDE HCL 2 MG CAP PO PRN (13:01)
--- NOTE | 2020-02-14 18:26 | Hospitalist Progress Note ---
Date of Service February 14, 2020 Assessment & Plan (1) New onset atrial flutter: In setting of SARS-CoV-2. TSH was 0.634. - Continue metoprolol 50 mg PO BID -> HR under control at present. - Started anticoagulation with apixaban - TTE pending - Presently holding off due to Covid. (2) Severe acute respiratory syndrome coronavirus 2 (SARS-CoV-2) RNA detected: Now with hypoxemia, though not much shortness of breath. Generalized fatigue and myalgias. - Start dexamethasone 6 mg PO daily - No remdesivir, convalescent plasma needed as she is >1 week from symptom onset. (3) Diabetes type 2, controlled: HbA1c was 6.7% in November. HbA1C was 7.3% this admission. - Hold oral meds - Novolog for correction coverage - Sugars higher today. Will tighten sliding scale. (4) Syncope: Monitor for arrhythmia/pauses on telemetry. - TTE as above (5) Hypertension: BP is 155/75 today. - Continue hydralazine 50mg PO BID - Hold lisinopril/HCTZ due to raised creatinine and dehydrated state - Metoprolol as above (6) Hyperlipidemia: - Continue atorvastatin 20mg PO daily (7) DVT prophylaxis: Apixaban Admission and Anticipated Discharge Date Admission Date: February 11, 2020 Subjective Still with upset stomach and diarrhea. Reports no fevers/chills, chest pain, shortness of breath, or vomiting. Physical Exam Constitutional: WD/WN, vitals as above Eyes: EOM intact bilaterally; no conjunctival abnormality ENMT: external ear and nose normal, oropharynx normal Neck: trachea midline, no thyromegaly normal visual inspection Respiratory: normal respiratory effort, lungs clear to auscultation no respiratory distress Cardiovascular: RRR, no murmur, no edema Gastrointestinal (Abdomen): Inspection/Auscultation: abdomen normal to inspection; abdomen not distended Musculoskeletal: no cyanosis or clubbing, extremities motor strength 5/5 Skin: no rashes, warm and dry Neurologic: moves all extremities and awake Psychiatric: Orientation: alert, oriented to person and cooperative Results & Data Results & Data ([place]) Vital Signs (Past 12 Hours) Vital Signs Temp Pulse Pulse Pulse Resp BP Pulse Ox 02/14/20 16:10 73 02/14/20 15:06 36.6 C 90 18 155/76 H 95 02/14/20 11:58 37.1 C 77 18 161/54 H 93 02/14/20 07:46 37.3 C 81 18 154/76 H 95 PG Care Time/CCT Total # of Minutes Spent Total Time Spent with Patient: Total time spent is greater than 50% in coordination of care (as documented) at patient's floor/unit and/or counseling patient: Coding Level of Care Code 95645 Subseq Hosp Care Lvl 3 Diagnoses New onset atrial flutter I48.92 Severe acute respiratory syndrome coronavirus 2 (SARS-CoV-2) RNA detected U07.1 Diabetes type 2, controlled E11.9 Syncope R55 Syncope type: unspecified Hypertension I10 Hyperlipidemia E78.5 DVT prophylaxis Z29.9 (1) Syncope Syncope type: unspecified Qualified Code(s): R55 - Syncope and collapse
[2020-02-14] MEDS: ATORVASTATIN 20 MG TAB PO SCH (21:10)
[2020-02-14] MEDS: APIXABAN 5 MG TABLET PO SCH (21:11)
[2020-02-15 07:52] LABS: Hematocrit (blood only) 36.4 % (37-47); Hemoglobin 11.9 g/dL (12.0-16.0); Mean Corpuscular Hemoglobin 29.3 pg (25-34); Mean Corpuscular Hgb Conc 32.7 g/dL (32-36); Mean Corpuscular Volume 89.7 fL (80-100); Mean Platelet Volume 11.5 fL (7.4-10.4); Platelet Count 179 K/uL (130-400); RDW Coefficient of Variation 13.5 % (11.5-14.5); RDW Standard Deviation 44.4 fL (36.4-46.3); Red Blood Count 4.06 M/uL (4.2-5.4); White Blood Count 10.94 K/uL (4.8-10.8)
[2020-02-15 07:58] LABS: BUN Creatinine Ratio 30.1 (10-20); Calcium 9.7 mg/dl (8.5-10.1); Creatinine Clr Calc Pharmacy 32.5 ml/min; Est GFR (African American) 38.7; Est GFR (Non-African American) 33.4; Magnesium 2.1 mg/dl (1.8-2.4); Phosphorus 2.8 mg/dl (2.5-4.9); Potassium 4.1 mmol/L (3.5-5.1)
[2020-02-15] MEDS: INSULIN ASPART 100 UNITS/ML 3 ML PEN SC SCH ×4 (08:47→22:07)
[2020-02-15] MEDS: hydrALAZINE TAB 50 MG TAB PO SCH ×2 (08:49→19:59)
[2020-02-15] MEDS: METOPROLOL TARTRATE 50 MG TAB PO SCH ×2 (08:49→19:59)
[2020-02-15] MEDS: APIXABAN 5 MG TABLET PO SCH ×2 (08:49→20:00)
[2020-02-15] MEDS: dexAMETHasone 4 MG TAB PO SCH (08:50)
[2020-02-15] MEDS: CEROVITE ADV FORMULA TAB PO SCH (08:50)
--- NOTE | 2020-02-15 14:32 | Hospitalist Progress Note ---
Date of Service February 15, 2020 Assessment & Plan (1) Severe acute respiratory syndrome coronavirus 2 (SARS-CoV-2) RNA detected: Now with hypoxemia, though not much shortness of breath. Generalized fatigue and myalgias. - Start dexamethasone 6 mg PO daily - No remdesivir, convalescent plasma needed as she is >1 week from symptom onset. - Worse today. She is now needing supplemental O2 which is new for her. (2) New onset atrial flutter: In setting of SARS-CoV-2. TSH was 0.634. - Continue metoprolol 50 mg PO BID -> HR under control at present. Back in sinus. - Started anticoagulation with apixaban - TTE pending - Presently holding off due to Covid. (3) Diabetes type 2, controlled: HbA1c was 6.7% in November. HbA1C was 7.3% this admission. - Hold oral meds - Novolog for correction coverage - Sugars higher today: 225 - 275. Will tighten sliding scale. (4) Syncope: Monitor for arrhythmia/pauses on telemetry. - TTE as above (5) Hypertension: BP is 145/55 today. - Continue hydralazine 50mg PO BID - Hold lisinopril/HCTZ due to raised creatinine and dehydrated state - Metoprolol as above (6) Hyperlipidemia: - Continue atorvastatin 20mg PO daily (7) DVT prophylaxis: Apixaban Admission and Anticipated Discharge Date Admission Date: February 11, 2020 Subjective Appetite better, but now needing O2 to breath. No shortness of breath. Physical Exam Constitutional: WD/WN, vitals as above Eyes: EOM intact bilaterally; no conjunctival abnormality ENMT: external ear and nose normal, oropharynx normal Neck: trachea midline, no thyromegaly normal visual inspection Respiratory: normal respiratory effort, lungs clear to auscultation no respiratory distress Cardiovascular: RRR, no murmur, no edema Gastrointestinal (Abdomen): Inspection/Auscultation: abdomen normal to inspection; abdomen not distended Musculoskeletal: no cyanosis or clubbing, extremities motor strength 5/5 Skin: no rashes, warm and dry Neurologic: moves all extremities and awake Psychiatric: Orientation: alert, oriented to person and cooperative Results & Data Results & Data ([facility]) Vital Signs (Past 12 Hours) Vital Signs Temp Pulse Pulse Resp BP Pulse Ox 02/15/20 11:45 36.9 C 65 18 142/54 H 97 02/15/20 08:15 36.7 C 78 19 125/55 L 99 02/15/20 07:47 68 02/15/20 04:42 36.6 C 68 18 133/50 L 93 PG Care Time/CCT Total # of Minutes Spent Total Time Spent with Patient: Total time spent is greater than 50% in coordination of care (as documented) at patient's floor/unit and/or counseling patient: Coding Level of Care Code 71698 Subseq Hosp Care Lvl 2 Diagnoses Severe acute respiratory syndrome coronavirus 2 (SARS-CoV-2) RNA detected U07.1 New onset atrial flutter I48.92 Diabetes type 2, controlled E11.9 Syncope R55 Syncope type: unspecified Hypertension I10 Hyperlipidemia E78.5 DVT prophylaxis Z29.9 (1) Syncope Syncope type: unspecified Qualified Code(s): R55 - Syncope and collapse
[2020-02-15] MEDS: ATORVASTATIN 20 MG TAB PO SCH (19:59)
[2020-02-15] MEDS: hydrOXYzine HCl 10 MG TAB PO PRN (19:59)
[2020-02-16 07:01] LABS: Hematocrit (blood only) 37.8 % (37-47); Mean Corpuscular Hemoglobin 28.6 pg (25-34); Mean Corpuscular Hgb Conc 31.7 g/dL (32-36); Mean Platelet Volume 11.5 fL (7.4-10.4); Platelet Count 213 K/uL (130-400); RDW Coefficient of Variation 13.4 % (11.5-14.5); RDW Standard Deviation 44.7 fL (36.4-46.3); White Blood Count 7.85 K/uL (4.8-10.8)
[2020-02-16 07:30] LABS: BUN Creatinine Ratio 37.1 (10-20); Calcium 10.3 mg/dl (8.5-10.1); Est GFR (African American) 35.2; Est GFR (Non-African American) 30.3; Magnesium 2.3 mg/dl (1.8-2.4); Potassium 4.2 mmol/L (3.5-5.1)
[2020-02-16] MEDS: hydrALAZINE TAB 50 MG TAB PO SCH ×2 (08:42→20:28)
[2020-02-16] MEDS: dexAMETHasone 4 MG TAB PO SCH (08:42)
[2020-02-16] MEDS: CEROVITE ADV FORMULA TAB PO SCH (08:42)
[2020-02-16] MEDS: METOPROLOL TARTRATE 50 MG TAB PO SCH ×2 (08:42→20:29)
[2020-02-16] MEDS: APIXABAN 5 MG TABLET PO SCH ×2 (08:42→20:28)
[2020-02-16] MEDS: INSULIN ASPART 100 UNITS/ML 3 ML PEN SC SCH ×4 (09:33→22:04)
[2020-02-16] MEDS ORDERED: BENZONATATE 100 MG CAPSULE PO PRN (09:56)
[2020-02-16] MEDS ORDERED: NORMOSOL-R 1,000 ML IV ONE (09:56)
--- NOTE | 2020-02-16 18:21 | Hospitalist Progress Note ---
Date of Service February 16, 2020 Assessment & Plan (1) Severe acute respiratory syndrome coronavirus 2 (SARS-CoV-2) RNA detected: Now with hypoxemia, though not much shortness of breath. Generalized fatigue and myalgias. - Start dexamethasone 6 mg PO daily - No remdesivir, convalescent plasma needed as she is >1 week from symptom onset. - She is needing supplemental O2 which is new for her. However, stable today. (2) New onset atrial flutter: In setting of SARS-CoV-2. TSH was 0.634. - Continue metoprolol 50 mg PO BID -> HR under control at present. Back in sinus. - Started anticoagulation with apixaban - TTE pending - Presently holding off due to Covid. (3) Diabetes type 2, controlled: HbA1c was 6.7% in November. HbA1C was 7.3% this admission. - Hold oral meds - Novolog for correction coverage - Sugars higher today: 225 - 285. Will tighten sliding scale again. (4) Syncope: Monitor for arrhythmia/pauses on telemetry. - TTE as above (5) Hypertension: BP is 160/60 today. - Continue hydralazine 50mg PO BID - Hold lisinopril/HCTZ due to raised creatinine and dehydrated state - Metoprolol as above (6) Hyperlipidemia: - Continue atorvastatin 20mg PO daily (7) DVT prophylaxis: Apixaban Admission and Anticipated Discharge Date Admission Date: February 11, 2020 Subjective Doing well today. Hanging in there with good O2 sats. Reports no fevers/chills, chest pain, shortness of breath, abdominal pain, nausea, or vomiting. Physical Exam Constitutional: WD/WN, vitals as above Eyes: EOM intact bilaterally; no conjunctival abnormality ENMT: external ear and nose normal, oropharynx normal Neck: trachea midline, no thyromegaly normal visual inspection Respiratory: normal respiratory effort, lungs clear to auscultation no respiratory distress Cardiovascular: RRR, no murmur, no edema Gastrointestinal (Abdomen): Inspection/Auscultation: abdomen normal to inspection; abdomen not distended Musculoskeletal: no cyanosis or clubbing, extremities motor strength 5/5 Skin: no rashes, warm and dry Neurologic: moves all extremities and awake Psychiatric: Orientation: alert, oriented to person and cooperative Results & Data Results & Data ([facility]) Vital Signs (Past 12 Hours) Vital Signs Temp Pulse Pulse Resp BP Pulse Ox 02/16/20 15:47 36.8 C 73 19 161/61 H 95 02/16/20 11:17 36.6 C 65 20 147/65 H 90 02/16/20 07:39 36.7 C 66 16 147/58 H 94 PG Care Time/CCT Total # of Minutes Spent Total Time Spent with Patient: Total time spent is greater than 50% in coordination of care (as documented) at patient's floor/unit and/or counseling patient: Coding Level of Care Code 42417 Subseq Hosp Care Lvl 2 Diagnoses Severe acute respiratory syndrome coronavirus 2 (SARS-CoV-2) RNA detected U07.1 New onset atrial flutter I48.92 Diabetes type 2, controlled E11.9 Syncope R55 Syncope type: unspecified Hypertension I10 Hyperlipidemia E78.5 DVT prophylaxis Z29.9 (1) Syncope Syncope type: unspecified Qualified Code(s): R55 - Syncope and collapse
[2020-02-16] MEDS: ATORVASTATIN 20 MG TAB PO SCH (20:29)
[2020-02-17 08:12] LABS: Hematocrit (blood only) 37.8 % (37-47); Mean Corpuscular Hemoglobin 28.7 pg (25-34); Mean Corpuscular Hgb Conc 31.7 g/dL (32-36); Mean Corpuscular Volume 90.4 fL (80-100); Mean Platelet Volume 11.1 fL (7.4-10.4); Platelet Count 224 K/uL (130-400); RDW Coefficient of Variation 13.2 % (11.5-14.5); RDW Standard Deviation 43.6 fL (36.4-46.3); Red Blood Count 4.18 M/uL (4.2-5.4); White Blood Count 8.32 K/uL (4.8-10.8)
[2020-02-17 08:43] LABS: BUN Creatinine Ratio 38.3 (10-20); Calcium 10.5 mg/dl (8.5-10.1); Creatinine Clr Calc Pharmacy 34.3 ml/min; Est GFR (African American) 41.4; Est GFR (Non-African American) 35.7; Magnesium 2.3 mg/dl (1.8-2.4); Potassium 4.2 mmol/L (3.5-5.1)
[2020-02-17] MEDS: METOPROLOL TARTRATE 50 MG TAB PO SCH ×2 (09:13→20:58)
[2020-02-17] MEDS: hydrALAZINE TAB 50 MG TAB PO SCH ×2 (09:14→20:57)
[2020-02-17] MEDS: CEROVITE ADV FORMULA TAB PO SCH (09:14)
[2020-02-17] MEDS: dexAMETHasone 4 MG TAB PO SCH (09:14)
[2020-02-17] MEDS: APIXABAN 5 MG TABLET PO SCH ×2 (09:14→20:59)
[2020-02-17] MEDS: INSULIN ASPART 100 UNITS/ML 3 ML PEN SC SCH ×4 (09:16→20:59)
--- NOTE | 2020-02-17 14:53 | Hospitalist Progress Note ---
Date of Service February 17, 2020 Assessment & Plan (1) Severe acute respiratory syndrome coronavirus 2 (SARS-CoV-2) RNA detected: Now with hypoxemia, though not much shortness of breath. Generalized fatigue and myalgias. - Started dexamethasone 6 mg PO daily when she became hypoxemic (End date: 02/22/2020) - No remdesivir, convalescent plasma needed as she is >1 week from symptom onset. - She is needing supplemental O2 which is new for her. However, mostly going back and forth on it from room air to 2L. Will get nocturnal O2 test to check for overnight hypoxemia. - Dispo: I think she is largely ready to go. She felt it was "too soon" today. Hopefully over the weekend either with/without O2. (2) New onset atrial flutter: In setting of SARS-CoV-2. TSH was 0.634. - Continue home metoprolol 50 mg PO BID -> HR under control at present. Back in sinus. - TTE pending - Presently holding off due to Covid. - Started anticoagulation with apixaban -> Would consider Holter on discharge. If she only had one episode of afib due to Covid, she could potentially stop anticoagulation after 6 weeks, but if she has continued paroxysmal afib, she will likely need lifelong AC. (3) Diabetes type 2, controlled: HbA1c was 6.7% in November. HbA1C was 7.3% this admission. - Hold oral meds - Novolog for correction coverage - Sugars stable today: 180 - 285. Will tighten sliding scale again. - Given nearly at-goal A1c, will likely return to home meds on discharge. (4) CKD (chronic kidney disease) stage 3, GFR 30-59 ml/min: Baseline Cr ~1.3 - 1.4 in most recent testing. - At baseline (5) Hypertension: BP is 110/60 today. - Continue hydralazine 50mg PO BID - Hold lisinopril/HCTZ due to raised creatinine and dehydrated state - Metoprolol as above (6) Syncope: Monitor for arrhythmia/pauses on telemetry. - TTE as above (7) Hyperlipidemia: - Continue atorvastatin 20mg PO daily (8) DVT prophylaxis: Apixaban Admission and Anticipated Discharge Date Admission Date: February 11, 2020 Subjective Feeling even better today. More energy. Less shortness of breath. Reports no fevers/chills, chest pain, abdominal pain, nausea, or vomiting. Physical Exam Constitutional: WD/WN, vitals as above Eyes: EOM intact bilaterally; no conjunctival abnormality ENMT: external ear and nose normal, oropharynx normal Neck: trachea midline, no thyromegaly normal visual inspection Respiratory: normal respiratory effort, lungs clear to auscultation no respiratory distress Cardiovascular: RRR, no murmur, no edema Gastrointestinal (Abdomen): Inspection/Auscultation: abdomen normal to inspection; abdomen not distended Musculoskeletal: no cyanosis or clubbing, extremities motor strength 5/5 Skin: no rashes, warm and dry Neurologic: moves all extremities and awake Psychiatric: Orientation: alert, oriented to person and cooperative Results & Data Results & Data ([facility]) Vital Signs (Past 12 Hours) Vital Signs Temp Pulse Resp BP Pulse Ox 02/17/20 11:39 36.5 C 62 20 112/58 L 96 02/17/20 10:26 94 02/17/20 10:07 95 02/17/20 07:30 35.8 C L 70 20 175/64 H 98 02/17/20 03:50 36.6 C 69 20 181/90 H 97 PG Care Time/CCT Total # of Minutes Spent Total Time Spent with Patient: Total time spent is greater than 50% in coordination of care (as documented) at patient's floor/unit and/or counseling patient: Coding Level of Care Code 69193 Subseq Hosp Care Lvl 3 Diagnoses Severe acute respiratory syndrome coronavirus 2 (SARS-CoV-2) RNA detected U07.1 New onset atrial flutter I48.92 Diabetes type 2, controlled E11.9 CKD (chronic kidney disease) stage 3, GFR 30-59 ml/min N18.30 Hypertension I10 Syncope R55 Syncope type: unspecified Hyperlipidemia E78.5 DVT prophylaxis Z29.9 (1) Syncope Syncope type: unspecified Qualified Code(s): R55 - Syncope and collapse
[2020-02-17] MEDS: ATORVASTATIN 20 MG TAB PO SCH (20:57)
--- NOTE | 2020-02-17 23:01 | Electrocardiogram Report ---
Test Reason : Blood Pressure : / mmHG Vent. Rate : 067 BPM Atrial Rate : 067 BPM P-R Int : 140 ms QRS Dur : 088 ms QT Int : 392 ms P-R-T Axes : 005 -22 011 degrees QTc Int : 414 ms Normal sinus rhythm Premature atrial complexes Moderate voltage criteria for LVH, may be normal variant Borderline ECG When compared with ECG of 11-FEB-2020 11:56, Sinus rhythm has replaced Atrial fibrillation Vent. rate has decreased BY 43 BPM QT has shortened Confirmed by Yahir Wray ([id number]) on 02/17/2020 11:00:48 PM Referred By: REFERRED SELF Confirmed By:Yahir Wray
[2020-02-18 07:00] LABS: Calcium 10.3 mg/dl (8.5-10.1); Creatinine Clr Calc Pharmacy 33.6 ml/min; Est GFR (African American) 40.3; Est GFR (Non-African American) 34.8; Magnesium 1.9 mg/dl (1.8-2.4); Potassium 4.2 mmol/L (3.5-5.1)
[2020-02-18 07:11] LABS: Hematocrit (blood only) 37.1 % (37-47); Hemoglobin 11.8 g/dL (12.0-16.0); Mean Corpuscular Hemoglobin 28.6 pg (25-34); Mean Corpuscular Hgb Conc 31.8 g/dL (32-36); Mean Corpuscular Volume 89.8 fL (80-100); Platelet Count 251 K/uL (130-400); RDW Coefficient of Variation 13.1 % (11.5-14.5); RDW Standard Deviation 43.7 fL (36.4-46.3); Red Blood Count 4.13 M/uL (4.2-5.4); White Blood Count 6.75 K/uL (4.8-10.8)
[2020-02-18] MEDS: hydrALAZINE TAB 50 MG TAB PO SCH ×2 (08:37→20:18)
[2020-02-18] MEDS: dexAMETHasone 4 MG TAB PO SCH (08:37)
[2020-02-18] MEDS: CEROVITE ADV FORMULA TAB PO SCH (08:38)
[2020-02-18] MEDS: METOPROLOL TARTRATE 50 MG TAB PO SCH ×2 (08:38→20:19)
[2020-02-18] MEDS: APIXABAN 5 MG TABLET PO SCH ×2 (08:38→20:18)
[2020-02-18] MEDS: INSULIN ASPART 100 UNITS/ML 3 ML PEN SC SCH ×4 (08:40→20:29)
--- NOTE | 2020-02-18 11:28 | Hospitalist Progress Note ---
Date of Service February 18, 2020 Assessment & Plan (1) Severe acute respiratory syndrome coronavirus 2 (SARS-CoV-2) RNA detected: Now with hypoxemia, though not much shortness of breath. Generalized fatigue and myalgias. - Started dexamethasone 6 mg PO daily when she became hypoxemic (End date: 02/22/2020) - No remdesivir, convalescent plasma needed as she is >1 week from symptom onset. - over night pulse ox showed that she needs 2L while sleeping plan for two step tomorrow and discharge to home, she is not feeling well today, nauseated (2) New onset atrial flutter: In setting of SARS-CoV-2. TSH was 0.634. - Continue home metoprolol 50 mg PO BID -> HR under control at present. Back in sinus. downgrade to medical floor today - TTE pending - Presently holding off due to Covid. - Started anticoagulation with apixaban -> Would consider Holter on discharge. If she only had one episode of afib due to Covid, she could potentially stop anticoagulation after 6 weeks, but if she has continued paroxysmal afib, she will likely need lifelong AC. (3) Diabetes type 2, controlled: HbA1c was 6.7% in November. HbA1C was 7.3% this admission. - Hold oral meds - Novolog for correction coverage - Sugar 192 this morning correction factor tightened yesterday, will see how it goes today (4) CKD (chronic kidney disease) stage 3, GFR 30-59 ml/min: Baseline Cr ~1.3 - 1.4 in most recent testing. - At baseline, 1.4 today (5) Hypertension: - Continue hydralazine 50mg PO BID - Metoprolol as above resume Lisinopril (6) Syncope: Monitor for arrhythmia/pauses on telemetry. - TTE as above (7) Hyperlipidemia: - Continue atorvastatin 20mg PO daily (8) DVT prophylaxis: Apixaban Admission and Anticipated Discharge Date Admission Date: February 11, 2020 Subjective patient says "I don't feel well today" when asked why, she said "I don't know, maybe I'm okay" she says she has some nausea, did not want breakfast, says she ate well yesterday no dyspnea at rest, she has a dry cough she had a BM yesterday, no abdominal pain reviewed chart, she had overnight pulse ox that showed she needed 2L oxygen at night reviewed notes, tentative plan to get home this weekend discussed with her about going home tomorrow with oxygen, she thinks that is reasonable Review of Systems Review of Systems: All systems reviewed & are unremarkable except as noted in Subjective Physical Exam Constitutional: WD/WN, vitals as above Neck: trachea midline, no thyromegaly Respiratory: normal respiratory effort, lungs clear to auscultation Cardiovascular: RRR, no murmur, no edema Gastrointestinal (Abdomen): normal bowel sounds, soft, nontender, no hepatosplenomegaly Musculoskeletal: no cyanosis or clubbing, extremities motor strength 5/5 Skin: no rashes, warm and dry Neurologic: patellar DTR's 2+ bilat, sensation intact and PERRL, EOMI, accommodation nl, no face palsy, no dysarthria Psychiatric: A+Ox3, euthymic affect Lymphatic: no cervical or axillary lymphadenopathy Results & Data Results & Data ([facility]) Vital Signs (Past 12 Hours) Vital Signs Temp Pulse Pulse Pulse Resp BP Pulse Ox 02/18/20 07:48 36.6 C 80 18 169/79 H 91 02/18/20 05:41 66 02/18/20 04:11 36.6 C 68 19 166/70 H 91 02/18/20 02:15 64 02/18/20 01:13 67 02/18/20 00:22 37.0 C 60 19 149/62 H 92 Pulse Ox 02/18/20 07:48 02/18/20 05:41 88 L 02/18/20 04:11 02/18/20 02:15 88 L 02/18/20 01:13 02/18/20 00:22 Laboratory Results Laboratory Results - last 24 hr 02/17/20 02/17/20 02/17/20 11:26 16:28 20:30 WBC RBC Hgb Hct MCV MCH MCHC RDW Std Deviation RDW Coeff of Charlene Plt Count MPV Sodium Potassium Chloride Carbon Dioxide Anion Gap BUN Creatinine Est Cr Clr Drug Dosing Est GFR ( Amer) Est GFR (Non-Af Amer) BUN/Creatinine Ratio Glucose POC Glucose 229 H 275 H 239 H Calcium Magnesium 02/18/20 02/18/20 02/18/20 06:03 06:03 07:46 WBC 6.75 RBC 4.13 L Hgb 11.8 L Hct 37.1 MCV 89.8 MCH 28.6 MCHC 31.8 L RDW Std Deviation 43.7 RDW Coeff of Charlene 13.1 Plt Count 251 MPV 11.0 H Sodium 145 Potassium 4.2 Chloride 109 H Carbon Dioxide 31 Anion Gap 5.0 BUN 45 H Creatinine 1.42 H Est Cr Clr Drug Dosing 33.6 Est GFR ( Amer) 40.3 Est GFR (Non-Af Amer) 34.8 BUN/Creatinine Ratio 32.0 H Glucose 197 H POC Glucose 192 H Calcium 10.3 H Magnesium 1.9 Medications Administered Current Inpatient Medications Acetaminophen (Acetaminophen 325 Mg Tab) 650 mg PO Q4H PRN PRN Reason: Pain or Fever Stop: 03/12/20 19:09 Last Admin: 02/13/20 17:24 Dose: 650 mg Documented by: Apixaban (Apixaban 5 Mg Tablet) 5 mg PO BID [facility] Stop: 03/15/20 20:59 Last Admin: 02/18/20 08:38 Dose: 5 mg Documented by: Atorvastatin Calcium (Atorvastatin 20 Mg Tab) 20 mg PO HS [facility] Stop: 03/12/20 20:59 Last Admin: 02/17/20 20:57 Dose: 20 mg Documented by: Benzonatate (Benzonatate 100 Mg Capsule) 100 mg PO TID PRN PRN Reason: Cough Stop: 03/17/20 13:59 Dexamethasone (Dexamethasone 4 Mg Tab) 6 mg PO DAILY [facility] Stop: 03/14/20 14:44 Last Admin: 02/18/20 08:37 Dose: 6 mg Documented by: Dextrose (Dextrose 50% 50 Ml Syringe) 25 - 50 ml IV UD PRN; Protocol PRN Reason: Hypoglycemia Protocol Stop: 03/13/20 07:54 Glucagon (Glucagon For Inj 1 Mg Vial) 1 mg SQ UD PRN; Protocol PRN Reason: Hypoglycemia Protocol Stop: 03/13/20 07:54 Glucose (Glucose 10 Tabs/Tube) 4 - 8 tabs PO UD PRN; Protocol PRN Reason: Hypoglycemia Protocol Stop: 03/13/20 07:54 Glucose (Glucose 40% Gel 15 Gm Tube) 15 - 30 gm PO UD PRN; Protocol PRN Reason: Hypoglycemia Protocol Stop: 03/13/20 07:54 Guaifenesin/Codeine Phosphate (Guaifenesin/Codeine 200mg/20mg 10ml Udc) 10 ml PO Q6H PRN PRN Reason: Cough Stop: 03/17/20 09:55 Hydralazine HCl (Hydralazine Tab 50 Mg Tab) 50 mg PO BID [facility] Stop: 03/12/20 20:59 Last Admin: 02/18/20 08:37 Dose: 50 mg Documented by: Hydroxyzine HCl (Hydroxyzine Hcl 10 Mg Tab) 10 mg PO TID PRN PRN Reason: Anxiety/Agitation Stop: 03/14/20 16:38 Last Admin: 02/15/20 19:59 Dose: 10 mg Documented by: Insulin Aspart (Insulin Aspart 100 Units/Ml 3 Ml Pen) 0 units SC ACHS [facility] Stop: 03/13/20 11:29 Last Admin: 02/18/20 08:40 Dose: 7 units Documented by: Loperamide HCl (Loperamide Hcl 2 Mg Cap) 2 mg PO TID PRN PRN Reason: Diarrhea Stop: 03/13/20 16:30 Last Admin: 02/14/20 13:01 Dose: 2 mg Documented by: Metoprolol Tartrate (Metoprolol Tartrate 50 Mg Tab) 50 mg PO BID [facility] Stop: 03/12/20 20:59 Last Admin: 02/18/20 08:38 Dose: 50 mg Documented by: Miscellaneous (Carbohydrates For Hypoglycemia ) 15 - 30 gm PO UD PRN PRN Reason: Hypoglycemia Protocol Stop: 03/13/20 07:54 Multivitamins/Minerals (Cerovite Adv Formula Tab) 1 tab PO QAM [facility] Stop: 03/13/20 08:59 Last Admin: 02/18/20 08:38 Dose: 1 tab Documented by: PG Care Time/CCT Total # of Minutes Spent Total Time Spent with Patient: Total time spent is greater than 50% in coordination of care (as documented) at patient's floor/unit and/or counseling patient: Coding Level of Care Code 76339 Subseq Hosp Care Lvl 2 Diagnoses Severe acute respiratory syndrome coronavirus 2 (SARS-CoV-2) RNA detected U07.1 New onset atrial flutter I48.92 Diabetes type 2, controlled E11.9 CKD (chronic kidney disease) stage 3, GFR 30-59 ml/min N18.30 Hypertension I10 Syncope R55 Syncope type: unspecified Hyperlipidemia E78.5 DVT prophylaxis Z29.9 (1) Syncope Syncope type: unspecified Qualified Code(s): R55 - Syncope and collapse
[2020-02-18] MEDS: lisinopril 20 MG TAB PO SCH (13:07)
[2020-02-18] MEDS: ATORVASTATIN 20 MG TAB PO SCH (20:19)
[2020-02-19] MEDS: dexAMETHasone 4 MG TAB PO SCH (08:34)
[2020-02-19] MEDS: hydrALAZINE TAB 50 MG TAB PO SCH ×2 (08:34→21:03)
[2020-02-19] MEDS: CEROVITE ADV FORMULA TAB PO SCH (08:35)
[2020-02-19] MEDS: METOPROLOL TARTRATE 50 MG TAB PO SCH ×2 (08:35→21:03)
[2020-02-19] MEDS: APIXABAN 5 MG TABLET PO SCH ×2 (08:35→21:03)
[2020-02-19] MEDS: lisinopril 20 MG TAB PO SCH (08:35)
[2020-02-19] MEDS: INSULIN ASPART 100 UNITS/ML 3 ML PEN SC SCH ×4 (08:50→21:04)
--- NOTE | 2020-02-19 09:53 | Hospitalist Progress Note ---
Date of Service February 19, 2020 Assessment & Plan (1) Severe acute respiratory syndrome coronavirus 2 (SARS-CoV-2) RNA detected: presented with hypoxemia, though not much shortness of breath. Generalized fatigue and myalgias. - treat with dexamethasone 6 mg PO daily (End date: 02/22/2020) - No remdesivir, convalescent plasma needed as she is >1 week from symptom onset. - over night pulse ox showed that she needs 2L while sleeping feeling better but still too weak and scared to go home plan for two step once I know she will be going home, stable on room air at rest right now (2) New onset atrial flutter: In setting of SARS-CoV-2. TSH was 0.634. - Continue home metoprolol 50 mg PO BID -> HR under control at present. Back in sinus. downgrade to medical floor when bed is available - TTE pending - Presently holding off due to Covid. - Started anticoagulation with apixaban -> Would consider Holter on discharge. If she only had one episode of afib due to Covid, she could potentially stop anticoagulation after 6 weeks, but if she has continued paroxysmal afib, she will likely need lifelong AC. (3) Diabetes type 2, controlled: HbA1c was 6.7% in November. HbA1C was 7.3% this admission. - Hold oral meds - Novolog for correction coverage - glucose 140-290 past 24 hours correction factor tightened (4) CKD (chronic kidney disease) stage 3, GFR 30-59 ml/min: Baseline Cr ~1.3 - 1.4 in most recent testing. - At baseline, 1.4 yesterday (5) Hypertension: - Continue hydralazine 50mg PO BID - Metoprolol as above resume Lisinopril, BP better this morning (6) Syncope: Monitor for arrhythmia/pauses on telemetry. - TTE as above (7) Hyperlipidemia: - Continue atorvastatin 20mg PO daily (8) DVT prophylaxis: Apixaban Admission and Anticipated Discharge Date Admission Date: February 11, 2020 Subjective patient says she is better than yesterday, breathing easy, eating better, no nausea she is planning on walking with therapy discussed going home today, she says she is far too weak, very scared to go home no labs today medical status, awaiting a bed upstairs Review of Systems Review of Systems: All systems reviewed & are unremarkable except as noted in Subjective Constitutional: + fatigue and + weakness; no fever Respiratory: + dyspnea on exertion; no cough and no dyspnea Gastrointestinal: no abdominal pain, no nausea, no vomiting, no constipation and no diarrhea/loose stools Physical Exam Constitutional: WD/WN, vitals as above Neck: trachea midline, no thyromegaly Respiratory: normal respiratory effort, lungs clear to auscultation Cardiovascular: RRR, no murmur, no edema Gastrointestinal (Abdomen): normal bowel sounds, soft, nontender, no hepatosplenomegaly Musculoskeletal: no cyanosis or clubbing, extremities motor strength 5/5 Skin: no rashes, warm and dry Neurologic: patellar DTR's 2+ bilat, sensation intact and PERRL, EOMI, accommodation nl, no face palsy, no dysarthria Psychiatric: A+Ox3, euthymic affect Lymphatic: no cervical or axillary lymphadenopathy Results & Data Results & Data ([facility]) Vital Signs (Past 12 Hours) Vital Signs Temp Pulse Resp BP Pulse Ox 02/19/20 08:08 36.4 C L 77 19 150/76 H 92 02/19/20 00:00 37.0 C 63 19 91/65 L 93 Laboratory Results Laboratory Results - last 24 hr 02/18/20 02/18/20 02/18/20 11:26 16:37 20:28 POC Glucose 156 H 294 H 245 H 02/19/20 08:10 POC Glucose 142 H Medications Administered Current Inpatient Medications Acetaminophen (Acetaminophen 325 Mg Tab) 650 mg PO Q4H PRN PRN Reason: Pain or Fever Stop: 03/12/20 19:09 Last Admin: 02/13/20 17:24 Dose: 650 mg Documented by: Apixaban (Apixaban 5 Mg Tablet) 5 mg PO BID [facility] Stop: 03/15/20 20:59 Last Admin: 02/19/20 08:35 Dose: 5 mg Documented by: Atorvastatin Calcium (Atorvastatin 20 Mg Tab) 20 mg PO HS [facility] Stop: 03/12/20 20:59 Last Admin: 02/18/20 20:19 Dose: 20 mg Documented by: Benzonatate (Benzonatate 100 Mg Capsule) 100 mg PO TID PRN PRN Reason: Cough Stop: 03/17/20 13:59 Dexamethasone (Dexamethasone 4 Mg Tab) 6 mg PO DAILY [facility] Stop: 03/14/20 14:44 Last Admin: 02/19/20 08:34 Dose: 6 mg Documented by: Dextrose (Dextrose 50% 50 Ml Syringe) 25 - 50 ml IV UD PRN; Protocol PRN Reason: Hypoglycemia Protocol Stop: 03/13/20 07:54 Glucagon (Glucagon For Inj 1 Mg Vial) 1 mg SQ UD PRN; Protocol PRN Reason: Hypoglycemia Protocol Stop: 03/13/20 07:54 Glucose (Glucose 10 Tabs/Tube) 4 - 8 tabs PO UD PRN; Protocol PRN Reason: Hypoglycemia Protocol Stop: 03/13/20 07:54 Glucose (Glucose 40% Gel 15 Gm Tube) 15 - 30 gm PO UD PRN; Protocol PRN Reason: Hypoglycemia Protocol Stop: 03/13/20 07:54 Guaifenesin/Codeine Phosphate (Guaifenesin/Codeine 200mg/20mg 10ml Udc) 10 ml PO Q6H PRN PRN Reason: Cough Stop: 03/17/20 09:55 Hydralazine HCl (Hydralazine Tab 50 Mg Tab) 50 mg PO BID COUNTS INCLUDE 234 BEDS AT THE [facility] Stop: 03/12/20 20:59 Last Admin: 02/19/20 08:34 Dose: 50 mg Documented by: Hydroxyzine HCl (Hydroxyzine Hcl 10 Mg Tab) 10 mg PO TID PRN PRN Reason: Anxiety/Agitation Stop: 03/14/20 16:38 Last Admin: 02/15/20 19:59 Dose: 10 mg Documented by: Insulin Aspart (Insulin Aspart 100 Units/Ml 3 Ml Pen) 0 units SC ACHS COUNTS INCLUDE 234 BEDS AT THE [facility] Stop: 03/13/20 11:29 Last Admin: 02/19/20 08:50 Dose: 3 units Documented by: Lisinopril (Lisinopril 20 Mg Tab) 20 mg PO QAM COUNTS INCLUDE 234 BEDS AT THE [facility] Stop: 03/19/20 11:59 Last Admin: 02/19/20 08:35 Dose: 20 mg Documented by: Loperamide HCl (Loperamide Hcl 2 Mg Cap) 2 mg PO TID PRN PRN Reason: Diarrhea Stop: 03/13/20 16:30 Last Admin: 02/14/20 13:01 Dose: 2 mg Documented by: Metoprolol Tartrate (Metoprolol Tartrate 50 Mg Tab) 50 mg PO BID COUNTS INCLUDE 234 BEDS AT THE [facility] Stop: 03/12/20 20:59 Last Admin: 02/19/20 08:35 Dose: 50 mg Documented by: Miscellaneous (Carbohydrates For Hypoglycemia ) 15 - 30 gm PO UD PRN PRN Reason: Hypoglycemia Protocol Stop: 03/13/20 07:54 Multivitamins/Minerals (Cerovite Adv Formula Tab) 1 tab PO QAM [facility] Stop: 03/13/20 08:59 Last Admin: 02/19/20 08:35 Dose: 1 tab Documented by: PG Care Time/CCT Total # of Minutes Spent Total Time Spent with Patient: Total time spent is greater than 50% in coordination of care (as documented) at patient's floor/unit and/or counseling patient: Coding Level of Care Code 82990 Subseq Hosp Care Lvl 2 Diagnoses Severe acute respiratory syndrome coronavirus 2 (SARS-CoV-2) RNA detected U07.1 New onset atrial flutter I48.92 Diabetes type 2, controlled E11.9 CKD (chronic kidney disease) stage 3, GFR 30-59 ml/min N18.30 Hypertension I10 Syncope R55 Syncope type: unspecified Hyperlipidemia E78.5 DVT prophylaxis Z29.9 (1) Syncope Syncope type: unspecified Qualified Code(s): R55 - Syncope and collapse
[2020-02-19] MEDS: LOPERAMIDE HCL 2 MG CAP PO PRN (14:07)
[2020-02-19] MEDS: ATORVASTATIN 20 MG TAB PO SCH (21:03)
[2020-02-20] MEDS: METOPROLOL TARTRATE 50 MG TAB PO SCH ×2 (08:39→20:48)
[2020-02-20] MEDS: hydrALAZINE TAB 50 MG TAB PO SCH ×2 (08:39→20:48)
[2020-02-20] MEDS: dexAMETHasone 4 MG TAB PO SCH (08:39)
[2020-02-20] MEDS: lisinopril 20 MG TAB PO SCH (08:40)
[2020-02-20] MEDS: CEROVITE ADV FORMULA TAB PO SCH (08:40)
[2020-02-20] MEDS: APIXABAN 5 MG TABLET PO SCH ×2 (08:40→20:48)
[2020-02-20] MEDS: INSULIN ASPART 100 UNITS/ML 3 ML PEN SC SCH ×4 (08:42→20:49)
[2020-02-20 09:07] LABS: Creatinine Clr Calc Pharmacy 32.9 ml/min; Est GFR (Non-African American) 34.5
--- NOTE | 2020-02-20 16:38 | Hospitalist Progress Note ---
Date of Service February 20, 2020 Assessment & Plan (1) Severe acute respiratory syndrome coronavirus 2 (SARS-CoV-2) RNA detected: presented with hypoxemia, though not much shortness of breath. Generalized fatigue and myalgias. - treat with dexamethasone 6 mg PO daily (End date: 02/22/2020) - No remdesivir, convalescent plasma needed as she is >1 week from symptom onset. - over night pulse ox showed that she needs 2L while sleeping stable on room air the past two days, no distress PT/OT today, ambulated 140 feet but needs max assist with ADL she lives with her daughter will see if she is better tomorrow to go home (2) New onset atrial flutter: In setting of SARS-CoV-2. TSH was 0.634. - Continue home metoprolol 50 mg PO BID -> HR under control at present. Back in sinus. downgrade to medical floor 02/18 - TTE pending - Presently holding off due to Covid. - Started anticoagulation with apixaban -> Would consider Holter on discharge. If she only had one episode of afib due to Covid, she could potentially stop anticoagulation after 6 weeks, but if she has continued paroxysmal afib, she will likely need lifelong AC. (3) Diabetes type 2, controlled: HbA1c was 6.7% in November. HbA1C was 7.3% this admission. - Hold oral meds - Novolog for correction coverage - glucose 160-270 today correction factor tightened (4) CKD (chronic kidney disease) stage 3, GFR 30-59 ml/min: Baseline Cr ~1.3 - 1.4 in most recent testing. - At baseline, 1.4 today (5) Hypertension: - Continue hydralazine 50mg PO BID - Metoprolol as above resume Lisinopril, BP stable today (6) Syncope: Monitor for arrhythmia/pauses on telemetry. - TTE as above (7) Hyperlipidemia: - Continue atorvastatin 20mg PO daily (8) DVT prophylaxis: Apixaban Admission and Anticipated Discharge Date Admission Date: February 11, 2020 Subjective patient was willing to do therapy today, ambulated 140 feet she did a little worse with OT, they recommended SNF level of care/rehab she was oriented and cooperative this morning spoke with her daughter this afternoon, she had concerns about the patient being confused discussed likelihood of hospital delirium vitals stable, no fever, breathing well on room air still I updated her daughter, see how she is doing tomorrow, evaluate for discharge Review of Systems Review of Systems: All systems reviewed & are unremarkable except as noted in Subjective Constitutional: + fatigue and + weakness; no fever Respiratory: no cough and no dyspnea Cardiovascular: no chest pain and no edema Gastrointestinal: no abdominal pain, no nausea, no vomiting, no constipation and no diarrhea/loose stools Physical Exam Constitutional: WD/WN, vitals as above Neck: trachea midline, no thyromegaly Respiratory: normal respiratory effort, lungs clear to auscultation Cardiovascular: RRR, no murmur, no edema Gastrointestinal (Abdomen): normal bowel sounds, soft, nontender, no hepatosplenomegaly Musculoskeletal: no cyanosis or clubbing, extremities motor strength 5/5 Skin: no rashes, warm and dry Neurologic: patellar DTR's 2+ bilat, sensation intact and PERRL, EOMI, accommodation nl, no face palsy, no dysarthria Psychiatric: A+Ox3, euthymic affect Lymphatic: no cervical or axillary lymphadenopathy Results & Data Results & Data ([facility]) Vital Signs (Past 12 Hours) Vital Signs Temp Pulse Resp BP Pulse Ox 02/20/20 16:28 37 C 64 16 119/77 92 02/20/20 12:58 124/71 02/20/20 07:58 36.5 C 73 16 167/61 H 91 Laboratory Results Laboratory Results - last 24 hr 02/19/20 02/20/20 02/20/20 20:37 07:36 07:57 Creatinine 1.43 H Est Cr Clr Drug Dosing 32.9 Est GFR ( Amer) 40.0 Est GFR (Non-Af Amer) 34.5 POC Glucose 224 H 169 H 02/20/20 02/20/20 02/20/20 11:55 17:21 20:27 Creatinine Est Cr Clr Drug Dosing Est GFR ( Amer) Est GFR (Non-Af Amer) POC Glucose 260 H 274 H 213 H Medications Administered Current Inpatient Medications Acetaminophen (Acetaminophen 325 Mg Tab) 650 mg PO Q4H PRN PRN Reason: Pain or Fever Stop: 03/12/20 19:09 Last Admin: 02/13/20 17:24 Dose: 650 mg Documented by: Apixaban (Apixaban 5 Mg Tablet) 5 mg PO BID [facility] Stop: 03/15/20 20:59 Last Admin: 02/20/20 08:40 Dose: 5 mg Documented by: Atorvastatin Calcium (Atorvastatin 20 Mg Tab) 20 mg PO HS [facility] Stop: 03/12/20 20:59 Last Admin: 02/19/20 21:03 Dose: 20 mg Documented by: Benzonatate (Benzonatate 100 Mg Capsule) 100 mg PO TID PRN PRN Reason: Cough Stop: 03/17/20 13:59 Dexamethasone (Dexamethasone 4 Mg Tab) 6 mg PO DAILY [facility] Stop: 03/14/20 14:44 Last Admin: 02/20/20 08:39 Dose: 6 mg Documented by: Dextrose (Dextrose 50% 50 Ml Syringe) 25 - 50 ml IV UD PRN; Protocol PRN Reason: Hypoglycemia Protocol Stop: 03/13/20 07:54 Glucagon (Glucagon For Inj 1 Mg Vial) 1 mg SQ UD PRN; Protocol PRN Reason: Hypoglycemia Protocol Stop: 03/13/20 07:54 Glucose (Glucose 10 Tabs/Tube) 4 - 8 tabs PO UD PRN; Protocol PRN Reason: Hypoglycemia Protocol Stop: 03/13/20 07:54 Glucose (Glucose 40% Gel 15 Gm Tube) 15 - 30 gm PO UD PRN; Protocol PRN Reason: Hypoglycemia Protocol Stop: 03/13/20 07:54 Guaifenesin/Codeine Phosphate (Guaifenesin/Codeine 200mg/20mg 10ml Udc) 10 ml PO Q6H PRN PRN Reason: Cough Stop: 03/17/20 09:55 Hydralazine HCl (Hydralazine Tab 50 Mg Tab) 50 mg PO BID [facility] Stop: 03/12/20 20:59 Last Admin: 02/20/20 08:39 Dose: 50 mg Documented by: Hydroxyzine HCl (Hydroxyzine Hcl 10 Mg Tab) 10 mg PO TID PRN PRN Reason: Anxiety/Agitation Stop: 03/14/20 16:38 Last Admin: 02/15/20 19:59 Dose: 10 mg Documented by: Insulin Aspart (Insulin Aspart 100 Units/Ml 3 Ml Pen) 0 units SC ACHS [facility] Stop: 03/13/20 11:29 Last Admin: 02/20/20 18:39 Dose: 11 units Documented by: Lisinopril (Lisinopril 20 Mg Tab) 20 mg PO QAM [facility] Stop: 03/19/20 11:59 Last Admin: 02/20/20 08:40 Dose: 20 mg Documented by: Loperamide HCl (Loperamide Hcl 2 Mg Cap) 2 mg PO TID PRN PRN Reason: Diarrhea Stop: 03/13/20 16:30 Last Admin: 02/19/20 14:07 Dose: 2 mg Documented by: Metoprolol Tartrate (Metoprolol Tartrate 50 Mg Tab) 50 mg PO BID [facility] Stop: 03/12/20 20:59 Last Admin: 02/20/20 08:39 Dose: 50 mg Documented by: Miscellaneous (Carbohydrates For Hypoglycemia ) 15 - 30 gm PO UD PRN PRN Reason: Hypoglycemia Protocol Stop: 03/13/20 07:54 Multivitamins/Minerals (Cerovite Adv Formula Tab) 1 tab PO QAM [facility] Stop: 03/13/20 08:59 Last Admin: 02/20/20 08:40 Dose: 1 tab Documented by: PG Care Time/CCT Total # of Minutes Spent Total Time Spent with Patient: Total time spent is greater than 50% in coordination of care (as documented) at patient's floor/unit and/or counseling patient: Coding Level of Care Code 31078 Subseq Hosp Care Lvl 2 Diagnoses Severe acute respiratory syndrome coronavirus 2 (SARS-CoV-2) RNA detected U07.1 New onset atrial flutter I48.92 Diabetes type 2, controlled E11.9 CKD (chronic kidney disease) stage 3, GFR 30-59 ml/min N18.30 Hypertension I10 Syncope R55 Syncope type: unspecified Hyperlipidemia E78.5 DVT prophylaxis Z29.9 (1) Syncope Syncope type: unspecified Qualified Code(s): R55 - Syncope and collapse
[2020-02-20] MEDS: ATORVASTATIN 20 MG TAB PO SCH (20:48)
[2020-02-21] MEDS: INSULIN ASPART 100 UNITS/ML 3 ML PEN SC SCH ×4 (08:52→21:23)
[2020-02-21] MEDS: dexAMETHasone 4 MG TAB PO SCH (08:53)
[2020-02-21] MEDS: lisinopril 20 MG TAB PO SCH (08:53)
[2020-02-21] MEDS: hydrALAZINE TAB 50 MG TAB PO SCH ×2 (08:53→21:22)
[2020-02-21] MEDS: CEROVITE ADV FORMULA TAB PO SCH (08:53)
[2020-02-21] MEDS: APIXABAN 5 MG TABLET PO SCH ×2 (08:54→21:22)
[2020-02-21] MEDS: METOPROLOL TARTRATE 50 MG TAB PO SCH ×2 (08:54→21:22)
[2020-02-21 09:05] LABS: Hematocrit (blood only) 38.6 % (37-47); Hemoglobin 12.3 g/dL (12.0-16.0); Mean Corpuscular Hemoglobin 28.7 pg (25-34); Mean Corpuscular Hgb Conc 31.9 g/dL (32-36); Platelet Count 287 K/uL (130-400); RDW Coefficient of Variation 13.3 % (11.5-14.5); RDW Standard Deviation 43.2 fL (36.4-46.3); Red Blood Count 4.29 M/uL (4.2-5.4); White Blood Count 9.41 K/uL (4.8-10.8)
[2020-02-21 09:40] LABS: Alanine Aminotransferase 39 U/L (12-78); Aspartate Aminotransferase 23 U/L (15-37)
--- NOTE | 2020-02-21 16:08 | Hospitalist Progress Note ---
Date of Service February 21, 2020 Assessment & Plan (1) Severe acute respiratory syndrome coronavirus 2 (SARS-CoV-2) RNA detected: presented with hypoxemia, though not much shortness of breath. Generalized fatigue and myalgias. - treat with dexamethasone 6 mg PO daily (End date: 02/22/2020) - No remdesivir, convalescent plasma needed as she is >1 week from symptom onset. - over night pulse ox showed that she needs 2L while sleeping stable on room air the past three days, no distress PT/OT today, ambulated 140 feet but needs max assist with ADL she lives with her daughter make referrals to rehab facilities as she is too weak to be by herself at this time (2) New onset atrial flutter: In setting of SARS-CoV-2. TSH was 0.634. - Continue home metoprolol 50 mg PO BID -> HR under control at present. Back in sinus. downgrade to medical floor 02/18 - TTE pending - Presently holding off due to Covid. - Started anticoagulation with apixaban -> Would consider Holter on discharge. If she only had one episode of afib due to Covid, she could potentially stop anticoagulation after 6 weeks, but if she has continued paroxysmal afib, she will likely need lifelong AC. (3) Diabetes type 2, controlled: HbA1c was 6.7% in November. HbA1C was 7.3% this admission. - Hold oral meds - Novolog for correction coverage - glucose 160-270 today correction factor tightened (4) CKD (chronic kidney disease) stage 3, GFR 30-59 ml/min: Baseline Cr ~1.3 - 1.4 in most recent testing. - At baseline, 1.4 yesterday (5) Hypertension: - Continue hydralazine 50mg PO BID - Metoprolol as above resume Lisinopril, BP stable today 111/62 (6) Syncope: Monitor for arrhythmia/pauses on telemetry. - TTE as above (7) Hyperlipidemia: - Continue atorvastatin 20mg PO daily (8) DVT prophylaxis: Apixaban Admission and Anticipated Discharge Date Admission Date: February 11, 2020 Subjective patient is feeling a little better, eating more, no dyspnea but she is a lot weaker than baseline PT/OT recommend rehab, she and her daughter agree making referrals, stable to go medically Review of Systems Review of Systems: All systems reviewed & are unremarkable except as noted in Subjective Constitutional: + fatigue and + weakness; no fever Respiratory: no cough, no dyspnea and no dyspnea on exertion Gastrointestinal: + early satiety; no abdominal pain, no nausea, no vomiting, no constipation and no diarrhea/loose stools Physical Exam Constitutional: WD/WN, vitals as above Neck: trachea midline, no thyromegaly Respiratory: normal respiratory effort, lungs clear to auscultation Cardiovascular: RRR, no murmur, no edema Gastrointestinal (Abdomen): normal bowel sounds, soft, nontender, no hepatosplenomegaly Musculoskeletal: no cyanosis or clubbing, extremities motor strength 5/5 Skin: no rashes, warm and dry Neurologic: patellar DTR's 2+ bilat, sensation intact and PERRL, EOMI, accommodation nl, no face palsy, no dysarthria Psychiatric: A+Ox3, euthymic affect Lymphatic: no cervical or axillary lymphadenopathy Results & Data Results & Data ([facility]) Vital Signs (Past 12 Hours) Vital Signs Temp Pulse Pulse Resp BP BP Pulse Ox 02/21/20 15:30 37 C 61 16 111/62 94 02/21/20 07:14 37 C 64 18 156/75 H 91 Laboratory Results Laboratory Results - last 24 hr 02/20/20 02/20/20 02/21/20 17:21 20:27 08:01 WBC 9.41 RBC 4.29 Hgb 12.3 Hct 38.6 MCV 90.0 MCH 28.7 MCHC 31.9 L RDW Std Deviation 43.2 RDW Coeff of Charlene 13.3 Plt Count 287 MPV 11.0 H POC Glucose 274 H 213 H AST ALT 02/21/20 02/21/20 02/21/20 08:01 08:19 11:55 WBC RBC Hgb Hct MCV MCH MCHC RDW Std Deviation RDW Coeff of Charlene Plt Count MPV POC Glucose 132 H 246 H AST 23 ALT 39 Medications Administered Current Inpatient Medications Acetaminophen (Acetaminophen 325 Mg Tab) 650 mg PO Q4H PRN PRN Reason: Pain or Fever Stop: 03/12/20 19:09 Last Admin: 02/13/20 17:24 Dose: 650 mg Documented by: Apixaban (Apixaban 5 Mg Tablet) 5 mg PO BID [facility] Stop: 03/15/20 20:59 Last Admin: 02/21/20 08:54 Dose: 5 mg Documented by: Atorvastatin Calcium (Atorvastatin 20 Mg Tab) 20 mg PO HS [facility] Stop: 03/12/20 20:59 Last Admin: 02/20/20 20:48 Dose: 20 mg Documented by: Benzonatate (Benzonatate 100 Mg Capsule) 100 mg PO TID PRN PRN Reason: Cough Stop: 03/17/20 13:59 Dexamethasone (Dexamethasone 4 Mg Tab) 6 mg PO DAILY [facility] Stop: 03/14/20 14:44 Last Admin: 02/21/20 08:53 Dose: 6 mg Documented by: Dextrose (Dextrose 50% 50 Ml Syringe) 25 - 50 ml IV UD PRN; Protocol PRN Reason: Hypoglycemia Protocol Stop: 03/13/20 07:54 Glucagon (Glucagon For Inj 1 Mg Vial) 1 mg SQ UD PRN; Protocol PRN Reason: Hypoglycemia Protocol Stop: 03/13/20 07:54 Glucose (Glucose 10 Tabs/Tube) 4 - 8 tabs PO UD PRN; Protocol PRN Reason: Hypoglycemia Protocol Stop: 03/13/20 07:54 Glucose (Glucose 40% Gel 15 Gm Tube) 15 - 30 gm PO UD PRN; Protocol PRN Reason: Hypoglycemia Protocol Stop: 03/13/20 07:54 Guaifenesin/Codeine Phosphate (Guaifenesin/Codeine 200mg/20mg 10ml Udc) 10 ml PO Q6H PRN PRN Reason: Cough Stop: 03/17/20 09:55 Hydralazine HCl (Hydralazine Tab 50 Mg Tab) 50 mg PO BID [facility] Stop: 03/12/20 20:59 Last Admin: 02/21/20 08:53 Dose: 50 mg Documented by: Hydroxyzine HCl (Hydroxyzine Hcl 10 Mg Tab) 10 mg PO TID PRN PRN Reason: Anxiety/Agitation Stop: 03/14/20 16:38 Last Admin: 02/15/20 19:59 Dose: 10 mg Documented by: Insulin Aspart (Insulin Aspart 100 Units/Ml 3 Ml Pen) 0 units SC ACHS [facility] Stop: 03/13/20 11:29 Last Admin: 02/21/20 13:02 Dose: 13 units Documented by: Lisinopril (Lisinopril 20 Mg Tab) 20 mg PO QAM [facility] Stop: 03/19/20 11:59 Last Admin: 02/21/20 08:53 Dose: 20 mg Documented by: Loperamide HCl (Loperamide Hcl 2 Mg Cap) 2 mg PO TID PRN PRN Reason: Diarrhea Stop: 03/13/20 16:30 Last Admin: 02/19/20 14:07 Dose: 2 mg Documented by: Metoprolol Tartrate (Metoprolol Tartrate 50 Mg Tab) 50 mg PO BID [facility] Stop: 03/12/20 20:59 Last Admin: 02/21/20 08:54 Dose: 50 mg Documented by: Miscellaneous (Carbohydrates For Hypoglycemia ) 15 - 30 gm PO UD PRN PRN Reason: Hypoglycemia Protocol Stop: 03/13/20 07:54 Multivitamins/Minerals (Cerovite Adv Formula Tab) 1 tab PO QAM [facility] Stop: 03/13/20 08:59 Last Admin: 02/21/20 08:53 Dose: 1 tab Documented by: PG Care Time/CCT Total # of Minutes Spent Total Time Spent with Patient: Total time spent is greater than 50% in coordination of care (as documented) at patient's floor/unit and/or counseling patient: Coding Level of Care Code 79212 Subseq Hosp Care Lvl 2 Diagnoses Severe acute respiratory syndrome coronavirus 2 (SARS-CoV-2) RNA detected U07.1 New onset atrial flutter I48.92 Diabetes type 2, controlled E11.9 CKD (chronic kidney disease) stage 3, GFR 30-59 ml/min N18.30 Hypertension I10 Syncope R55 Syncope type: unspecified Hyperlipidemia E78.5 DVT prophylaxis Z29.9 (1) Syncope Syncope type: unspecified Qualified Code(s): R55 - Syncope and collapse
[2020-02-21] MEDS: ATORVASTATIN 20 MG TAB PO SCH (21:22)
[2020-02-22] MEDS: CEROVITE ADV FORMULA TAB PO SCH (09:15)
[2020-02-22] MEDS: APIXABAN 5 MG TABLET PO SCH ×2 (09:15→20:47)
[2020-02-22] MEDS: METOPROLOL TARTRATE 50 MG TAB PO SCH ×2 (09:15→20:47)
[2020-02-22] MEDS: lisinopril 20 MG TAB PO SCH (09:15)
[2020-02-22] MEDS: hydrALAZINE TAB 50 MG TAB PO SCH ×2 (09:15→21:11)
[2020-02-22] MEDS: dexAMETHasone 4 MG TAB PO SCH (09:15)
[2020-02-22] MEDS: INSULIN ASPART 100 UNITS/ML 3 ML PEN SC SCH ×5 (09:17→20:52)
[2020-02-22] MEDS ORDERED: ONDANSETRON INJ 2 MG/ML 2 ML VIAL IV STA (10:29)
[2020-02-22] MEDS ORDERED: SODIUM CHLORIDE 0.9% 1000ML 500 ML IV ONE (10:29)
--- NOTE | 2020-02-22 14:10 | Hospitalist Progress Note ---
Date of Service February 22, 2020 Assessment & Plan (1) Syncope and collapse: occurred 02/21 when walking did not strike head says that her knees/legs gave out, very weak will check CBC and CMP HR and BP stable immediately afterwards would not suspect PE as she is on Eliquis (2) Severe acute respiratory syndrome coronavirus 2 (SARS-CoV-2) RNA detected: presented with hypoxemia, though not much shortness of breath. Generalized fatigue and myalgias. - treat with dexamethasone 6 mg PO daily x 10 days, last day is today - No remdesivir, convalescent plasma needed as she is >1 week from symptom onset. - over night pulse ox showed that she needs 2L while sleeping patient is too weak to go home, plan for rehab on 2L today at rest, try to titrate off eating and drinking better today, food tastes better (3) New onset atrial flutter: In setting of SARS-CoV-2. TSH was 0.634. - Continue home metoprolol 50 mg PO BID -> HR under control at present. Back in sinus. downgrade to medical floor 02/18 - TTE pending - Presently holding off due to Covid. - Started anticoagulation with apixaban -> Would consider Holter on discharge. If she only had one episode of afib due to Covid, she could potentially stop anticoagulation after 6 weeks, but if she has continued paroxysmal afib, she will likely need lifelong AC. (4) Diabetes type 2, controlled: HbA1c was 6.7% in November. HbA1C was 7.3% this admission. - Hold oral meds - Novolog for correction coverage - glucose more elevated today stopping Decadron today so that should help (5) CKD (chronic kidney disease) stage 3, GFR 30-59 ml/min: Baseline Cr ~1.3 - 1.4 in most recent testing. - At baseline, 1.4 yesterday (6) Hypertension: - Continue hydralazine 50mg PO BID - Metoprolol as above resume Lisinopril, BP stable today 111/62 (7) Hyperlipidemia: - Continue atorvastatin 20mg PO daily (8) DVT prophylaxis: Apixaban Admission and Anticipated Discharge Date Admission Date: February 11, 2020 Subjective patient had a brief syncopal episode today when trying to walk she says her knees feel "like rubber" no strength her breathing is stable, no distress, she is on 2L today her appetite is a lot better, she says it is the best food has tasted in a while no labs today, will check CBC and CMP with her syncopal event discussed that we will continue to look for rehab facility Review of Systems Review of Systems: All systems reviewed & are unremarkable except as noted in Subjective Constitutional: + fatigue and + weakness; no fever Respiratory: no cough and no dyspnea Cardiovascular: + syncope; no chest pain Physical Exam Constitutional: WD/WN, vitals as above Neck: trachea midline, no thyromegaly Respiratory: normal respiratory effort, lungs clear to auscultation Cardiovascular: RRR, no murmur, no edema Gastrointestinal (Abdomen): normal bowel sounds, soft, nontender, no hepatosplenomegaly Musculoskeletal: no cyanosis or clubbing, extremities motor strength 5/5 Skin: no rashes, warm and dry Neurologic: patellar DTR's 2+ bilat, sensation intact and PERRL, EOMI, accommodation nl, no face palsy, no dysarthria Psychiatric: A+Ox3, euthymic affect Lymphatic: no cervical or axillary lymphadenopathy Results & Data Results & Data ([facility]) Vital Signs (Past 12 Hours) Vital Signs Temp Pulse Pulse Resp BP Pulse Ox 02/22/20 10:27 92 02/22/20 10:26 36.7 C 82 16 125/61 88 L 02/22/20 07:26 37.1 C 54 L 18 120/72 91 Medications Administered Current Inpatient Medications Acetaminophen (Acetaminophen 325 Mg Tab) 650 mg PO Q4H PRN PRN Reason: Pain or Fever Stop: 03/12/20 19:09 Last Admin: 02/13/20 17:24 Dose: 650 mg Documented by: Apixaban (Apixaban 5 Mg Tablet) 5 mg PO BID [facility] Stop: 03/15/20 20:59 Last Admin: 02/22/20 09:15 Dose: 5 mg Documented by: Atorvastatin Calcium (Atorvastatin 20 Mg Tab) 20 mg PO HS [facility] Stop: 03/12/20 20:59 Last Admin: 02/21/20 21:22 Dose: 20 mg Documented by: Benzonatate (Benzonatate 100 Mg Capsule) 100 mg PO TID PRN PRN Reason: Cough Stop: 03/17/20 13:59 Dexamethasone (Dexamethasone 4 Mg Tab) 6 mg PO DAILY [facility] Stop: 03/14/20 14:44 Last Admin: 02/22/20 09:15 Dose: 6 mg Documented by: Dextrose (Dextrose 50% 50 Ml Syringe) 25 - 50 ml IV UD PRN; Protocol PRN Reason: Hypoglycemia Protocol Stop: 03/13/20 07:54 Glucagon (Glucagon For Inj 1 Mg Vial) 1 mg SQ UD PRN; Protocol PRN Reason: Hypoglycemia Protocol Stop: 03/13/20 07:54 Glucose (Glucose 10 Tabs/Tube) 4 - 8 tabs PO UD PRN; Protocol PRN Reason: Hypoglycemia Protocol Stop: 03/13/20 07:54 Glucose (Glucose 40% Gel 15 Gm Tube) 15 - 30 gm PO UD PRN; Protocol PRN Reason: Hypoglycemia Protocol Stop: 03/13/20 07:54 Guaifenesin/Codeine Phosphate (Guaifenesin/Codeine 200mg/20mg 10ml Udc) 10 ml PO Q6H PRN PRN Reason: Cough Stop: 03/17/20 09:55 Hydralazine HCl (Hydralazine Tab 50 Mg Tab) 50 mg PO BID [facility] Stop: 03/12/20 20:59 Last Admin: 02/22/20 09:15 Dose: 50 mg Documented by: Hydroxyzine HCl (Hydroxyzine Hcl 10 Mg Tab) 10 mg PO TID PRN PRN Reason: Anxiety/Agitation Stop: 03/14/20 16:38 Last Admin: 02/15/20 19:59 Dose: 10 mg Documented by: Insulin Aspart (Insulin Aspart 100 Units/Ml 3 Ml Pen) 0 units SC ACHS [facility] Stop: 03/13/20 11:29 Last Admin: 02/22/20 12:53 Dose: 16 units Documented by: Lisinopril (Lisinopril 20 Mg Tab) 20 mg PO QAM [facility] Stop: 03/19/20 11:59 Last Admin: 02/22/20 09:15 Dose: 20 mg Documented by: Loperamide HCl (Loperamide Hcl 2 Mg Cap) 2 mg PO TID PRN PRN Reason: Diarrhea Stop: 03/13/20 16:30 Last Admin: 02/19/20 14:07 Dose: 2 mg Documented by: Metoprolol Tartrate (Metoprolol Tartrate 50 Mg Tab) 50 mg PO BID [facility] Stop: 03/12/20 20:59 Last Admin: 02/22/20 09:15 Dose: Not Given Documented by: Miscellaneous (Carbohydrates For Hypoglycemia ) 15 - 30 gm PO UD PRN PRN Reason: Hypoglycemia Protocol Stop: 03/13/20 07:54 Multivitamins/Minerals (Cerovite Adv Formula Tab) 1 tab PO QAM [facility] Stop: 03/13/20 08:59 Last Admin: 02/22/20 09:15 Dose: 1 tab Documented by: PG Care Time/CCT Total # of Minutes Spent Total Time Spent with Patient: Total time spent is greater than 50% in coordination of care (as documented) at patient's floor/unit and/or counseling patient: Coding Level of Care Code 66589 Subseq Hosp Care Lvl 2 Diagnoses Syncope and collapse R55 Severe acute respiratory syndrome coronavirus 2 (SARS-CoV-2) RNA detected U07.1 New onset atrial flutter I48.92 Diabetes type 2, controlled E11.9 CKD (chronic kidney disease) stage 3, GFR 30-59 ml/min N18.30 Hypertension I10 Hyperlipidemia E78.5 DVT prophylaxis Z29.9
[2020-02-22 15:48] LABS: Hematocrit (blood only) 37.9 % (37-47); Mean Corpuscular Hemoglobin 28.6 pg (25-34); Mean Corpuscular Hgb Conc 31.7 g/dL (32-36); Mean Corpuscular Volume 90.5 fL (80-100); Mean Platelet Volume 11.5 fL (7.4-10.4); Platelet Count 257 K/uL (130-400); RDW Coefficient of Variation 13.5 % (11.5-14.5); RDW Standard Deviation 44.5 fL (36.4-46.3); Red Blood Count 4.19 M/uL (4.2-5.4); White Blood Count 12.35 K/uL (4.8-10.8)
[2020-02-22 16:19] LABS: Albumin Globulin Ratio 0.7 (0.9-2); Albumin Level 2.6 gm/dl (3.4-5.0); BUN Creatinine Ratio 22.1 (10-20); Bilirubin,Total 0.4 mg/dl (0.2-1); Calcium 9.2 mg/dl (8.5-10.1); Creatinine Clr Calc Pharmacy 24.1 ml/min; Est GFR (African American) 27.8; Globulin 3.6 gm/dl (2.5-4.0); Total Protein 6.2 gm/dl (6.4-8.2)
[2020-02-22 16:29] LABS: Beta-Hydroxybutyrate 1.71 mg/dl (0.2-2.81)
[2020-02-22] MEDS: ATORVASTATIN 20 MG TAB PO SCH (20:47)
[2020-02-23] MEDS: hydrALAZINE TAB 50 MG TAB PO SCH ×2 (08:48→20:00)
[2020-02-23] MEDS: APIXABAN 5 MG TABLET PO SCH ×2 (08:48→20:00)
[2020-02-23] MEDS: METOPROLOL TARTRATE 50 MG TAB PO SCH ×2 (08:48→20:00)
[2020-02-23] MEDS: CEROVITE ADV FORMULA TAB PO SCH (08:48)
[2020-02-23] MEDS: lisinopril 20 MG TAB PO SCH (08:49)
[2020-02-23] MEDS: INSULIN ASPART 100 UNITS/ML 3 ML PEN SC SCH ×4 (08:49→21:23)
[2020-02-23 08:57] LABS: Creatinine Clr Calc Pharmacy 30.7 ml/min; Est GFR (African American) 37.2; Est GFR (Non-African American) 32.1
--- NOTE | 2020-02-23 16:32 | Hospitalist Progress Note ---
Date of Service February 23, 2020 Assessment & Plan (1) Syncope and collapse: occurred 02/21 when walking did not strike head says that her knees/legs gave out, very weak CBC and CMP stable HR and BP stable immediately afterwards would not suspect PE as she is on Eliquis no issues today (2) Severe acute respiratory syndrome coronavirus 2 (SARS-CoV-2) RNA detected: presented with hypoxemia, though not much shortness of breath. Generalized fatigue and myalgias. - treat with dexamethasone 6 mg PO daily x 10 days, last day was 02/21 - No remdesivir, convalescent plasma needed as she is >1 week from symptom onset. - over night pulse ox showed that she needs 2L while sleeping patient is too weak to go home, plan for rehab on room air today, 96% eating and drinking better today, food tastes better stable for discharge, awaiting placement (3) New onset atrial flutter: In setting of SARS-CoV-2. TSH was 0.634. - Continue home metoprolol 50 mg PO BID -> HR under control at present. Back in sinus. downgrade to medical floor 02/18 - TTE pending - Presently holding off due to Covid. - Started anticoagulation with apixaban -> Would consider Holter on discharge. If she only had one episode of afib due to Covid, she could potentially stop anticoagulation after 6 weeks, but if she has continued paroxysmal afib, she will likely need lifelong AC. (4) Diabetes type 2, controlled: HbA1c was 6.7% in November. HbA1C was 7.3% this admission. - Hold oral meds - Novolog for correction coverage stopping Decadron 02/21, sugars are better today, < 200 (5) CKD (chronic kidney disease) stage 3, GFR 30-59 ml/min: Baseline Cr ~1.3 - 1.4 in most recent testing. - At baseline, 1.5 today, was up to 1.9 yesterday, gave her 500cc bolus (6) Hypertension: - Continue hydralazine 50mg PO BID - Metoprolol as above resume Lisinopril, BP stable today 139/84 (7) Hyperlipidemia: - Continue atorvastatin 20mg PO daily (8) DVT prophylaxis: Apixaban Admission and Anticipated Discharge Date Admission Date: February 11, 2020 Subjective patient is feeling much better, much stronger today she says she is eating better her grand daughter has one request, wants her to be home by 03/03/20 to watch [employer] game spoke with CM, referrals made to [facility] and [facility], awaiting answer told CM that she is stable for discharge Review of Systems Review of Systems: All systems reviewed & are unremarkable except as noted in Subjective Physical Exam Constitutional: WD/WN, vitals as above Neck: trachea midline, no thyromegaly Respiratory: normal respiratory effort, lungs clear to auscultation Cardiovascular: RRR, no murmur, no edema Gastrointestinal (Abdomen): normal bowel sounds, soft, nontender, no hepatosplenomegaly Musculoskeletal: no cyanosis or clubbing, extremities motor strength 5/5 Skin: no rashes, warm and dry Neurologic: patellar DTR's 2+ bilat, sensation intact and PERRL, EOMI, accom modation nl, no face palsy, no dysarthria Psychiatric: A+Ox3, euthymic affect Lymphatic: no cervical or axillary lymphadenopathy Results & Data Results & Data ([facility]) Vital Signs (Past 12 Hours) Vital Signs Temp Pulse Resp BP Pulse Ox 02/23/20 10:55 96 02/23/20 07:52 36.6 C 93 H 16 130/67 93 Laboratory Results Laboratory Results - last 24 hr 02/22/20 02/22/20 02/22/20 15:27 17:16 20:50 Creatinine Est Cr Clr Drug Dosing Est GFR ( Amer) Est GFR (Non-Af Amer) POC Glucose 291 H 170 H Beta-Hydroxybutyric Acd 1.71 02/23/20 02/23/20 02/23/20 06:58 08:08 12:03 Creatinine 1.51 H D Est Cr Clr Drug Dosing 30.7 Est GFR ( Amer) 37.2 Est GFR (Non-Af Amer) 32.1 POC Glucose 114 H 196 H Beta-Hydroxybutyric Acd Medications Administered Current Inpatient Medications Acetaminophen (Acetaminophen 325 Mg Tab) 650 mg PO Q4H PRN PRN Reason: Pain or Fever Stop: 03/12/20 19:09 Last Admin: 02/13/20 17:24 Dose: 650 mg Documented by: Apixaban (Apixaban 5 Mg Tablet) 5 mg PO BID [facility] Stop: 03/15/20 20:59 Last Admin: 02/23/20 08:48 Dose: 5 mg Documented by: Atorvastatin Calcium (Atorvastatin 20 Mg Tab) 20 mg PO HS [facility] Stop: 03/12/20 20:59 Last Admin: 02/22/20 20:47 Dose: 20 mg Documented by: Benzonatate (Benzonatate 100 Mg Capsule) 100 mg PO TID PRN PRN Reason: Cough Stop: 03/17/20 13:59 Dextrose (Dextrose 50% 50 Ml Syringe) 25 - 50 ml IV UD PRN; Protocol PRN Reason: Hypoglycemia Protocol Stop: 03/13/20 07:54 Glucagon (Glucagon For Inj 1 Mg Vial) 1 mg SQ UD PRN; Protocol PRN Reason: Hypoglycemia Protocol Stop: 03/13/20 07:54 Glucose (Glucose 10 Tabs/Tube) 4 - 8 tabs PO UD PRN; Protocol PRN Reason: Hypoglycemia Protocol Stop: 03/13/20 07:54 Glucose (Glucose 40% Gel 15 Gm Tube) 15 - 30 gm PO UD PRN; Protocol PRN Reason: Hypoglycemia Protocol Stop: 03/13/20 07:54 Guaifenesin/Codeine Phosphate (Guaifenesin/Codeine 200mg/20mg 10ml Udc) 10 ml PO Q6H PRN PRN Reason: Cough Stop: 03/17/20 09:55 Hydralazine HCl (Hydralazine Tab 50 Mg Tab) 50 mg PO BID [facility] Stop: 03/12/20 20:59 Last Admin: 02/23/20 08:48 Dose: 50 mg Documented by: Hydroxyzine HCl (Hydroxyzine Hcl 10 Mg Tab) 10 mg PO TID PRN PRN Reason: Anxiety/Agitation Stop: 03/14/20 16:38 Last Admin: 02/15/20 19:59 Dose: 10 mg Documented by: Insulin Aspart (Insulin Aspart 100 Units/Ml 3 Ml Pen) 0 units SC ACHS [facility] Stop: 03/13/20 11:29 Last Admin: 02/23/20 13:21 Dose: 11 units Documented by: Lisinopril (Lisinopril 20 Mg Tab) 20 mg PO QAM [facility] Stop: 03/19/20 11:59 Last Admin: 02/23/20 08:49 Dose: 20 mg Documented by: Loperamide HCl (Loperamide Hcl 2 Mg Cap) 2 mg PO TID PRN PRN Reason: Diarrhea Stop: 03/13/20 16:30 Last Admin: 02/19/20 14:07 Dose: 2 mg Documented by: Metoprolol Tartrate (Metoprolol Tartrate 50 Mg Tab) 50 mg PO BID [facility] Stop: 03/12/20 20:59 Last Admin: 02/23/20 08:48 Dose: 50 mg Documented by: Miscellaneous (Carbohydrates For Hypoglycemia ) 15 - 30 gm PO UD PRN PRN Reason: Hypoglycemia Protocol Stop: 03/13/20 07:54 Multivitamins/Minerals (Cerovite Adv Formula Tab) 1 tab PO QAM [facility] Stop: 03/13/20 08:59 Last Admin: 02/23/20 08:48 Dose: 1 tab Documented by: PG Care Time/CCT Total # of Minutes Spent Total Time Spent with Patient: Total time spent is greater than 50% in coordination of care (as documented) at patient's floor/unit and/or counseling patient: Coding Level of Care Code 74328 Subseq Hosp Care Lvl 2 Diagnoses Syncope and collapse R55 Severe acute respiratory syndrome coronavirus 2 (SARS-CoV-2) RNA detected U07.1 New onset atrial flutter I48.92 Diabetes type 2, controlled E11.9 CKD (chronic kidney disease) stage 3, GFR 30-59 ml/min N18.30 Hypertension I10 Hyperlipidemia E78.5 DVT prophylaxis Z29.9
[2020-02-23] MEDS: ATORVASTATIN 20 MG TAB PO SCH (20:00)
[2020-02-24] MEDS: METOPROLOL TARTRATE 50 MG TAB PO SCH ×2 (08:47→22:14)
[2020-02-24] MEDS: lisinopril 20 MG TAB PO SCH (08:47)
[2020-02-24] MEDS: hydrALAZINE TAB 50 MG TAB PO SCH ×2 (08:47→22:14)
[2020-02-24] MEDS: CEROVITE ADV FORMULA TAB PO SCH (08:47)
[2020-02-24] MEDS: APIXABAN 5 MG TABLET PO SCH ×2 (08:47→22:15)
[2020-02-24] MEDS: INSULIN ASPART 100 UNITS/ML 3 ML PEN SC SCH ×4 (08:50→22:16)
--- NOTE | 2020-02-24 12:45 | Hospitalist Progress Note ---
Date of Service February 24, 2020 Assessment & Plan (1) Syncope and collapse: occurred 02/21 when walking did not strike head says that her knees/legs gave out, very weak CBC and CMP stable HR and BP stable immediately afterwards would not suspect PE as she is on Eliquis no issues for two days plan for rehab facility on discharge (2) Severe acute respiratory syndrome coronavirus 2 (SARS-CoV-2) RNA detected: presented with hypoxemia, though not much shortness of breath. Generalized fatigue and myalgias. - treat with dexamethasone 6 mg PO daily x 10 days, last day was 02/21 - No remdesivir, convalescent plasma needed as she is >1 week from symptom onset. - over night pulse ox showed that she needs 2L while sleeping patient is too weak to go home, plan for rehab on room air for days eating and drinking better, food tastes better stable for discharge, awaiting placement (3) New onset atrial flutter: In setting of SARS-CoV-2. TSH was 0.634. - Continue home metoprolol 50 mg PO BID -> HR under control at present. Back in sinus. downgrade to medical floor 02/18 - TTE pending - Presently holding off due to Covid. - Started anticoagulation with apixaban -> Would consider Holter on discharge. If she only had one episode of afib due to Covid, she could potentially stop anticoagulation after 6 weeks, but if she has continued paroxysmal afib, she will likely need lifelong AC. (4) Diabetes type 2, controlled: HbA1c was 6.7% in November. HbA1C was 7.3% this admission. - Hold oral meds - Novolog for correction coverage stopping Decadron 02/21, sugars are 150-250 today (5) CKD (chronic kidney disease) stage 3, GFR 30-59 ml/min: Baseline Cr ~1.3 - 1.4 in most recent testing. - At baseline, 1.5 02/22 (6) Hypertension: - Continue hydralazine 50mg PO BID - Metoprolol as above resume Lisinopril, BP stable today 125/66 (7) Hyperlipidemia: - Continue atorvastatin 20mg PO daily (8) DVT prophylaxis: Apixaban Admission and Anticipated Discharge Date Admission Date: February 11, 2020 Subjective patient says she feels a little worse than yesterday, has ups and downs she had some diarrhea this morning, attributes it to possible dairy in hot chocolate as she is lactose intolerant she is eating okay, no fever, breathing well on room air discussed possible discharge this weekend if accepted to rehab Review of Systems Review of Systems: All systems reviewed & are unremarkable except as noted in Subjective Respiratory: no cough and no dyspnea Cardiovascular: no chest pain Gastrointestinal: + diarrhea/loose stools; no abdominal pain, no nausea, no vomiting and no constipation Physical Exam Constitutional: WD/WN, vitals as above Neck: trachea midline, no thyromegaly Respiratory: normal respiratory effort, lungs clear to auscultation Cardiovascular: RRR, no murmur, no edema Gastrointestinal (Abdomen): normal bowel sounds, soft, nontender, no hepat osplenomegaly Musculoskeletal: no cyanosis or clubbing, extremities motor strength 5/5 Skin: no rashes, warm and dry Neurologic: patellar DTR's 2+ bilat, sensation intact and PERRL, EOMI, accommodation nl, no face palsy, no dysarthria Psychiatric: A+Ox3, euthymic affect Lymphatic: no cervical or axillary lymphadenopathy Results & Data Results & Data ([facility]) Vital Signs (Past 12 Hours) Vital Signs Temp Pulse BP Pulse Ox 02/24/20 08:07 36.6 C 61 125/66 92 Laboratory Results Laboratory Results - last 24 hr 02/23/20 02/23/20 02/24/20 16:51 20:53 08:32 POC Glucose 135 H 122 H 158 H 02/24/20 12:13 POC Glucose 250 H Medications Administered Current Inpatient Medications Acetaminophen (Acetaminophen 325 Mg Tab) 650 mg PO Q4H PRN PRN Reason: Pain or Fever Stop: 03/12/20 19:09 Last Admin: 02/13/20 17:24 Dose: 650 mg Documented by: Apixaban (Apixaban 5 Mg Tablet) 5 mg PO BID [facility] Stop: 03/15/20 20:59 Last Admin: 02/24/20 08:47 Dose: 5 mg Documented by: Atorvastatin Calcium (Atorvastatin 20 Mg Tab) 20 mg PO HS [facility] Stop: 03/12/20 20:59 Last Admin: 02/23/20 20:00 Dose: 20 mg Documented by: Benzonatate (Benzonatate 100 Mg Capsule) 100 mg PO TID PRN PRN Reason: Cough Stop: 03/17/20 13:59 Dextrose (Dextrose 50% 50 Ml Syringe) 25 - 50 ml IV UD PRN; Protocol PRN Reason: Hypoglycemia Protocol Stop: 03/13/20 07:54 Glucagon (Glucagon For Inj 1 Mg Vial) 1 mg SQ UD PRN; Protocol PRN Reason: Hypoglycemia Protocol Stop: 03/13/20 07:54 Glucose (Glucose 10 Tabs/Tube) 4 - 8 tabs PO UD PRN; Protocol PRN Reason: Hypoglycemia Protocol Stop: 03/13/20 07:54 Glucose (Glucose 40% Gel 15 Gm Tube) 15 - 30 gm PO UD PRN; Protocol PRN Reason: Hypoglycemia Protocol Stop: 03/13/20 07:54 Guaifenesin/Codeine Phosphate (Guaifenesin/Codeine 200mg/20mg 10ml Udc) 10 ml PO Q6H PRN PRN Reason: Cough Stop: 03/17/20 09:55 Hydralazine HCl (Hydralazine Tab 50 Mg Tab) 50 mg PO BID [facility] Stop: 03/12/20 20:59 Last Admin: 02/24/20 08:47 Dose: 50 mg Documented by: Hydroxyzine HCl (Hydroxyzine Hcl 10 Mg Tab) 10 mg PO TID PRN PRN Reason: Anxiety/Agitation Stop: 03/14/20 16:38 Last Admin: 02/15/20 19:59 Dose: 10 mg Documented by: Insulin Aspart (Insulin Aspart 100 Units/Ml 3 Ml Pen) 0 units SC ACHS [facility] Stop: 03/13/20 11:29 Last Admin: 02/24/20 08:50 Dose: 4 units Documented by: Lisinopril (Lisinopril 20 Mg Tab) 20 mg PO QAM [facility] Stop: 03/19/20 11:59 Last Admin: 02/24/20 08:47 Dose: 20 mg Documented by: Loperamide HCl (Loperamide Hcl 2 Mg Cap) 2 mg PO TID PRN PRN Reason: Diarrhea Stop: 03/13/20 16:30 Last Admin: 02/19/20 14:07 Dose: 2 mg Documented by: Metoprolol Tartrate (Metoprolol Tartrate 50 Mg Tab) 50 mg PO BID [facility] Stop: 03/12/20 20:59 Last Admin: 02/24/20 08:47 Dose: 50 mg Documented by: Miscellaneous (Carbohydrates For Hypoglycemia ) 15 - 30 gm PO UD PRN PRN Reason: Hypoglycemia Protocol Stop: 03/13/20 07:54 Multivitamins/Minerals (Cerovite Adv Formula Tab) 1 tab PO QAM [facility] Stop: 03/13/20 08:59 Last Admin: 02/24/20 08:47 Dose: 1 tab Documented by: PG Care Time/CCT Total # of Minutes Spent Total Time Spent with Patient: Total time spent is greater than 50% in coordination of care (as documented) at patient's floor/unit and/or counseling patient: Coding Level of Care Code 55912 Subseq Hosp Care Lvl 2 Diagnoses Syncope and collapse R55 Severe acute respiratory syndrome coronavirus 2 (SARS-CoV-2) RNA detected U07.1 New onset atrial flutter I48.92 Diabetes type 2, controlled E11.9 CKD (chronic kidney disease) stage 3, GFR 30-59 ml/min N18.30 Hypertension I10 Hyperlipidemia E78.5 DVT prophylaxis Z29.9
[2020-02-24] MEDS: ATORVASTATIN 20 MG TAB PO SCH (22:15)
[2020-02-25] MEDS: APIXABAN 5 MG TABLET PO SCH ×2 (08:05→21:28)
[2020-02-25] MEDS: hydrALAZINE TAB 50 MG TAB PO SCH (08:06)
[2020-02-25] MEDS: CEROVITE ADV FORMULA TAB PO SCH (08:06)
[2020-02-25] MEDS: lisinopril 20 MG TAB PO SCH (08:06)
[2020-02-25] MEDS: METOPROLOL TARTRATE 50 MG TAB PO SCH ×2 (08:07→21:30)
[2020-02-25] MEDS: INSULIN ASPART 100 UNITS/ML 3 ML PEN SC SCH ×4 (09:01→21:29)
--- NOTE | 2020-02-25 15:44 | Hospitalist Progress Note ---
Date of Service February 25, 2020 Assessment & Plan (1) Syncope and collapse: occurred 02/21 when walking in the hospital did not strike head says that her knees/legs gave out, very weak CBC and CMP stable HR and BP stable immediately afterwards would not suspect PE as she is on Eliquis no issues for several days plan for rehab facility on discharge No recurrence, no lightheadedness Showered independently today (2) Severe acute respiratory syndrome coronavirus 2 (SARS-CoV-2) RNA detected: presented with hypoxemia, though not much shortness of breath. Generalized fatigue and myalgias. - treated with dexamethasone 6 mg PO daily x 10 days, last day was 02/21 - No remdesivir, convalescent plasma needed as she was >1 week from symptom onset. - over night pulse ox showed that she needs 2L while sleeping patient is too weak to go home, plan for rehab on room air for days eating and drinking better, food tastes better stable for discharge, awaiting placement (3) New onset atrial flutter: In setting of SARS-CoV-2. TSH was 0.634. - Continue home metoprolol 50 mg PO BID -> HR under control at present. Back in sinus. downgrade to medical floor 02/18 - TTE pending - Presently holding off due to Covid. Needs ECHO as outpatient - Started anticoagulation with apixaban -> Would consider Holter on discharge. If she only had one episode of afib due to Covid, she could potentially stop anticoagulation after 6 weeks, but if she has continued paroxysmal afib, she will likely need lifelong AC. (4) Diabetes type 2, controlled: HbA1c was 6.7% in November. HbA1C was 7.3% this admission. - Hold oral meds - Novolog for correction coverage stopped Decadron 02/21, sugars are improving Could restart metformin on discharge (5) CKD (chronic kidney disease) stage 3, GFR 30-59 ml/min: Baseline Cr ~1.3 - 1.4 in most recent testing. - At baseline, 1.5 02/22 -Avoid nephrotoxins -renally dose meds when appropriate -follow BMP periodically (6) Hypertension: BPs were high initially, now quite low at times - can lower hydralazine to 25mg PO BID - Metoprolol as above resumed Lisinopril, but still holding HCTZ (7) Hyperlipidemia: - Continue atorvastatin 20mg PO daily (8) DVT prophylaxis: Apixaban Dispo-stable medically for discharge--> awaiting rehabplacement, insurance closed over the weekend Admission and Anticipated Discharge Date Admission Date: February 11, 2020 Subjective Doing very well today, having a great day. Denies CP or SOB, no abd pain or nausea, no diarrhea. Is eating and drinking, ambulating, feels stronger. Took a shower today Review of Systems Review of Systems: All systems reviewed & are unremarkable except as noted in HPI & below Physical Exam Constitutional: WD/WN, vitals as above Eyes: + anicteric sclerae ENMT: external ear and nose normal, oropharynx normal Neck: trachea midline, no thyromegaly Respiratory: normal respiratory effort, lungs clear to auscultation Cardiovascular: RRR, no murmur, no edema Chest (Breasts): Chest: normal inspection of chest Gastrointestinal (Abdomen): normal bowel sounds, soft, nontender, no hepatosplenomegaly Musculoskeletal: Extremities: extremities normal to inspection; no cyanosis and no clubbing Skin: no rashes, warm and dry Neurologic: moves all extremities and awake; no focal motor deficits Psychiatric: A+Ox3, euthymic affect Lymphatic: no lymphedema Results & Data Results & Data ([facility]) Vital Signs (Past 12 Hours) Vital Signs Temp Pulse Pulse Resp BP BP Pulse Ox 02/25/20 15:23 37.1 C 65 16 104/54 L 97 02/25/20 13:04 67 101/67 98 02/25/20 07:25 36.7 C 85 20 114/75 94 Laboratory Results 02/25/20 02/25/20 02/24/20 Range/Units 12:15 07:57 20:39 POC Glucose 224 H 171 H 175 H (70-99) mg/dl 02/24/20 Range/Units 17:13 POC Glucose 108 H (70-99) mg/dl PG Care Time/CCT Total # of Minutes Spent Total Time Spent with Patient: Total time spent is greater than 50% in coordination of care (as documented) at patient's floor/unit and/or counseling patient: Coding Level of Care Code 99005 Subseq Hosp Care Lvl 2 Diagnoses Syncope and collapse R55 Severe acute respiratory syndrome coronavirus 2 (SARS-CoV-2) RNA detected U07.1 New onset atrial flutter I48.92 Diabetes type 2, controlled E11.9 CKD (chronic kidney disease) stage 3, GFR 30-59 ml/min N18.30 Hypertension I10 Hyperlipidemia E78.5 DVT prophylaxis Z29.9
[2020-02-25] MEDS: ATORVASTATIN 20 MG TAB PO SCH (21:28)
[2020-02-25] MEDS: hydrALAZINE HCL 25 MG TAB PO SCH (21:30)
[2020-02-25] MEDS ORDERED: MICONAZOLE NITRATE POWDER 43 GM EXT PRN (22:11)
[2020-02-26] MEDS: INSULIN ASPART 100 UNITS/ML 3 ML PEN SC SCH ×4 (08:40→20:30)
[2020-02-26] MEDS: APIXABAN 5 MG TABLET PO SCH ×2 (08:42→20:16)
[2020-02-26] MEDS: METOPROLOL TARTRATE 50 MG TAB PO SCH ×2 (08:43→20:16)
[2020-02-26] MEDS: hydrALAZINE HCL 25 MG TAB PO SCH ×2 (08:43→20:16)
[2020-02-26] MEDS: CEROVITE ADV FORMULA TAB PO SCH (08:44)
[2020-02-26] MEDS: lisinopril 20 MG TAB PO SCH (08:44)
[2020-02-26 09:31] LABS: Creatinine Clr Calc Pharmacy 30.1 ml/min; Est GFR (African American) 36.3; Est GFR (Non-African American) 31.3
[2020-02-26] MEDS: ATORVASTATIN 20 MG TAB PO SCH (20:15)
[2020-02-26] MEDS: ACETAMINOPHEN 325 MG TAB PO PRN (20:18)
--- NOTE | 2020-02-26 21:33 | Hospitalist Progress Note ---
Date of Service February 26, 2020 Assessment & Plan (1) Syncope and collapse: occurred 02/21 when walking in the hospital did not strike head says that her knees/legs gave out, very weak CBC and CMP stable HR and BP stable immediately afterwards would not suspect PE as she is on Eliquis no issues for several days plan for rehab facility on discharge No recurrence, no lightheadedness (2) Severe acute respiratory syndrome coronavirus 2 (SARS-CoV-2) RNA detected: presented with hypoxemia, though not much shortness of breath. Generalized fatigue and myalgias. - treated with dexamethasone 6 mg PO daily x 10 days, last day was 02/21 - No remdesivir, convalescent plasma needed as she was >1 week from symptom onset. - over night pulse ox showed that she needs 2L while sleeping, however she has not been using this lately and is doing well patient is too weak to go home, plan for rehab on room air for days eating and drinking better, food tastes better stable for discharge, awaiting placement She can now come off precautions as symptoms have been ongoing since 02/03 approximately (3) New onset atrial flutter: In setting of SARS-CoV-2. TSH was 0.634. - Continue home metoprolol 50 mg PO BID -> HR under control at present. Back in sinus on examination. downgraded to medical floor 02/18 - TTE pending - Presently holding off due to Covid. Needs ECHO as outpatient - Started anticoagulation with apixaban -> Would consider Holter on discharge. If she only had one episode of afib due to Covid, she could potentially stop anticoagulation after 6 weeks, but if she has continued paroxysmal afib, she will likely need lifelong AC. (4) Diabetes type 2, controlled: HbA1c was 6.7% in November. HbA1C was 7.3% this admission. - Hold oral meds - Novolog for correction coverage stopped Decadron 02/21, sugars are improving Could restart metformin on discharge (5) CKD (chronic kidney disease) stage 3, GFR 30-59 ml/min: Baseline Cr ~1.3 - 1.4 in most recent testing. - At baseline, 1.5 02/22 -Avoid nephrotoxins -renally dose meds when appropriate -follow BMP periodically (6) Hypertension: BPs were high initially, then were quite low at times -Decreased dose of hydralazine to 25mg PO BID and now blood pressures are normal - Metoprolol as above resumed Lisinopril, but still holding HCTZ (7) Hyperlipidemia: - Continue atorvastatin 20mg PO daily (8) DVT prophylaxis: Apixaban Dispo-stable medically for discharge--> awaiting rehab placement, insurance closed over the weekend Admission and Anticipated Discharge Date Admission Date: February 11, 2020 Subjective Feels very well. Denies chest pain or shortness of breath, not lightheaded. Feels stronger than yesterday. Review of Systems Review of Systems: All systems reviewed & are unremarkable except as noted in HPI & below Physical Exam Constitutional: WD/WN, vitals as above Eyes: + anicteric sclerae Neck: trachea midline, no thyromegaly Respiratory: normal respiratory effort, lungs clear to auscultation Cardiovascular: RRR, no murmur, no edema Chest (Breasts): Chest: normal inspection of chest Gastrointestinal (Abdomen): normal bowel sounds, soft, nontender, no hepatosplenomegaly Musculoskeletal: Extremities: extremities normal to inspection; no cyanosis and no clubbing Skin: no rashes, warm and dry Neurologic: moves all extremities and awake; no focal motor deficits Psychiatric: A+Ox3, euthymic affect Lymphatic: no lymphedema Results & Data Results & Data ([facility]) Vital Signs (Past 12 Hours) Vital Signs Temp Pulse Pulse Resp BP Pulse Ox 02/26/20 20:12 36.6 C 75 18 120/75 95 02/26/20 15:12 37 C 69 18 119/60 94 02/26/20 13:27 66 101/36 L PG Care Time/CCT Total # of Minutes Spent Total Time Spent with Patient: Total time spent is greater than 50% in coordination of care (as documented) at patient's floor/unit and/or counseling patient: Coding Level of Care Code 81539 Subseq Hosp Care Lvl 2 Diagnoses Syncope and collapse R55 Severe acute respiratory syndrome coronavirus 2 (SARS-CoV-2) RNA detected U07.1 New onset atrial flutter I48.92 Diabetes type 2, controlled E11.9 CKD (chronic kidney disease) stage 3, GFR 30-59 ml/min N18.30 Hypertension I10 Hyperlipidemia E78.5 DVT prophylaxis Z29.9
[2020-02-27] MEDS: hydrALAZINE HCL 25 MG TAB PO SCH ×2 (08:26→21:24)
[2020-02-27] MEDS: APIXABAN 5 MG TABLET PO SCH ×2 (08:27→21:24)
[2020-02-27] MEDS: lisinopril 20 MG TAB PO SCH (08:27)
[2020-02-27] MEDS: METOPROLOL TARTRATE 50 MG TAB PO SCH ×2 (08:27→21:24)
[2020-02-27] MEDS: CEROVITE ADV FORMULA TAB PO SCH (08:27)
[2020-02-27] MEDS: INSULIN ASPART 100 UNITS/ML 3 ML PEN SC SCH ×4 (08:29→21:26)
[2020-02-27] MEDS: ATORVASTATIN 20 MG TAB PO SCH (21:24)
--- NOTE | 2020-02-27 22:42 | Hospitalist Progress Note ---
Date of Service February 27, 2020 Assessment & Plan (1) Severe acute respiratory syndrome coronavirus 2 (SARS-CoV-2) RNA detected: presented with hypoxemia, though not much shortness of breath. Generalized fatigue and myalgias. - treated with dexamethasone 6 mg PO daily x 10 days, last day was 02/21 - No remdesivir, convalescent plasma needed as she was >1 week from symptom onset. - over night pulse ox showed that she needs 2L while sleeping, however she has not been using this lately and is doing well She became generally deconditioned and weak due to her illness and prolonged hospitalization-plan for rehab on room air for days eating and drinking better, food tastes better stable for discharge, awaiting placement She has since come off airborne and contact precautions as symptoms have been ongoing since 02/03 approximately (2) New onset atrial flutter: In setting of SARS-CoV-2. TSH was 0.634. - Continue home metoprolol 50 mg PO BID -> HR under control at present. Back in sinus on examination. downgraded to medical floor 02/18 - TTE pending - Presently holding off due to Covid. Needs ECHO now that she is off airborne precautions-we will check tomorrow - Started anticoagulation with apixaban -> Would consider Holter on discharge. If she only had one episode of afib due to Covid, she could potentially stop anticoagulation after 6 weeks, but if she has continued paroxysmal afib, she will likely need lifelong AC. (3) Syncope and collapse: occurred 02/21 when walking in the hospital did not strike head says that her knees/legs gave out, very weak CBC and CMP stable HR and BP stable immediately afterwards would not suspect PE as she is on Eliquis no issues for several days plan for rehab facility on discharge No recurrence, no lightheadedness (4) Diabetes type 2, controlled: HbA1c was 6.7% in November. HbA1C was 7.3% this admission. - Hold oral meds - Novolog for correction coverage is going to be taken down today given hyperglycemia Will restart metformin tomorrow-creatinine is 1.5 (5) CKD (chronic kidney disease) stage 3, GFR 30-59 ml/min: Baseline Cr ~1.3 - 1.4 in most recent testing. - At baseline, 1.5 02/25 -Avoid nephrotoxins -renally dose meds when appropriate -follow BMP periodically (6) Hypertension: BPs were high initially, then were quite low at times -Decreased dose of hydralazine to 25mg PO BID and now blood pressures are normal -Continue metoprolol as above resumed Lisinopril, but still holding HCTZ (7) Hyperlipidemia: - Continue atorvastatin 20mg PO daily (8) DVT prophylaxis: Apixaban Dispo-stable medically for discharge--> awaiting rehab placement, referral made to [facility] and [facility] PT/OT repeat evaluations needed Admission and Anticipated Discharge Date Admission Date: February 11, 2020 Subjective Patient feeling very well today. No chest pain or shortness of breath. She is eating well. No nausea. She is ambulating to the bathroom and back but has not worked with physical therapy in many days. No lightheadedness. Review of Systems Review of Systems: All systems reviewed & are unremarkable except as noted in HPI & below Physical Exam Constitutional: WD/WN, vitals as above Eyes: + anicteric sclerae Neck: trachea midline, no thyromegaly Respiratory: normal respiratory effort, lungs clear to auscultation Cardiovascular: RRR, no murmur, no edema Chest (Breasts): Chest: normal inspection of chest Gastrointestinal (Abdomen): normal bowel sounds, soft, nontender, no hepatosplenomegaly Musculoskeletal: Extremities: extremities normal to inspection; no cyanosis and no clubbing Skin: no rashes, warm and dry Neurologic: moves all extremities and awake; no focal motor deficits Psychiatric: A+Ox3, euthymic affect Lymphatic: no lymphedema Results & Data Results & Data ([facility]) Vital Signs (Past 12 Hours) Vital Signs Temp Pulse Resp BP BP Pulse Ox 02/27/20 21:23 64 116/56 L 02/27/20 15:48 36.9 C 70 16 123/63 93 Laboratory Results 02/27/20 02/27/20 02/27/20 Range/Units 20:31 18:15 08:02 POC Glucose 246 H 110 H 199 H (70-99) mg/dl PG Care Time/CCT Total # of Minutes Spent Total Time Spent with Patient: Total time spent is greater than 50% in coordination of care (as documented) at patient's floor/unit and/or counseling patient: Coding Level of Care Code 86424 Subseq Hosp Care Lvl 2 Diagnoses Severe acute respiratory syndrome coronavirus 2 (SARS-CoV-2) RNA detected U07.1 New onset atrial flutter I48.92 Syncope and collapse R55 Diabetes type 2, controlled E11.9 CKD (chronic kidney disease) stage 3, GFR 30-59 ml/min N18.30 Hypertension I10 Hyperlipidemia E78.5 DVT prophylaxis Z29.9
[2020-02-28 06:49] LABS: Basophils # (auto) 0.01 K/uL (0-0.2); Basophils % (auto) 0.2 %; Eosinophils # (auto) 0.09 K/uL (0-0.5); Eosinophils % (auto) 1.5 %; Hematocrit (blood only) 33.8 % (37-47); Hemoglobin 10.9 g/dL (12.0-16.0); Immature Granulocytes # (auto) 0.03 K/uL (0.00-0.02); Immature Granulocytes % (auto) 0.5 %; Lymphocytes # (auto) 1.55 K/uL (1.2-3.4); Lymphocytes % (auto) 26.5 %; Mean Corpuscular Hemoglobin 29.3 pg (25-34); Mean Corpuscular Hgb Conc 32.2 g/dL (32-36); Mean Corpuscular Volume 90.9 fL (80-100); Mean Platelet Volume 12.2 fL (7.4-10.4); Monocytes # (auto) 0.46 K/uL (0.11-0.59); Monocytes % (auto) 7.9 %; Neutrophils % (auto) 63.4 %; Platelet Count 186 K/uL (130-400); RDW Coefficient of Variation 14.2 % (11.5-14.5); RDW Standard Deviation 46.9 fL (36.4-46.3); Red Blood Count 3.72 M/uL (4.2-5.4); White Blood Count 5.84 K/uL (4.8-10.8)
[2020-02-28 07:23] LABS: BUN Creatinine Ratio 22.1 (10-20); Calcium 8.9 mg/dl (8.5-10.1); Creatinine Clr Calc Pharmacy 29.1 ml/min; Est GFR (African American) 34.9; Est GFR (Non-African American) 30.1; Potassium 4.1 mmol/L (3.5-5.1)
[2020-02-28] MEDS: hydrALAZINE HCL 25 MG TAB PO SCH ×2 (08:07→21:13)
[2020-02-28] MEDS: lisinopril 20 MG TAB PO SCH (08:07)
[2020-02-28] MEDS: METOPROLOL TARTRATE 50 MG TAB PO SCH ×2 (08:07→21:13)
[2020-02-28] MEDS: APIXABAN 5 MG TABLET PO SCH ×2 (08:07→21:13)
[2020-02-28] MEDS: CEROVITE ADV FORMULA TAB PO SCH (08:07)
[2020-02-28] MEDS: metFORMIN HCL 500 MG TAB PO SCH ×2 (08:26→17:38)
[2020-02-28] MEDS: INSULIN ASPART 100 UNITS/ML 3 ML PEN SC SCH ×4 (08:35→21:19)
--- NOTE | 2020-02-28 17:06 | XCELERA ---
[id number]
[2020-02-28] MEDS ORDERED: ZOLPIDEM TARTRATE 5 MG TAB PO PRN (21:00)
[2020-02-28] MEDS: ATORVASTATIN 20 MG TAB PO SCH (21:13)
--- NOTE | 2020-02-28 21:49 | Hospitalist Progress Note ---
Date of Service February 28, 2020 Assessment & Plan (1) Severe acute respiratory syndrome coronavirus 2 (SARS-CoV-2) RNA detected: presented with hypoxemia, though not much shortness of breath. Generalized fatigue and myalgias. - treated with dexamethasone 6 mg PO daily x 10 days, last day was 02/21 - No remdesivir, convalescent plasma needed as she was >1 week from symptom onset. - over night pulse ox showed that she needs 2L while sleeping, however she has not been using this lately and is doing well now off oxygen She became generally deconditioned and weak due to her illness and prolonged hospitalization-plan for rehab on room air for many days eating and drinking better, food tastes better stable for discharge, awaiting placement She has since come off airborne and contact precautions as symptoms have been ongoing since 02/03 approximately (2) New onset atrial flutter: In setting of SARS-CoV-2. TSH was 0.634. - Continue home metoprolol 50 mg PO BID -> HR under control at present. Back in sinus on examination. downgraded to medical floor 02/18 -Echo is normal - Started anticoagulation with apixaban -> Would consider Holter on discharge. If she only had one episode of afib due to Covid, she could potentially stop anticoagulation after 6 weeks, but if she has continued paroxysmal afib, she will likely need lifelong AC. (3) Syncope and collapse: occurred 02/21 when walking in the hospital did not strike head says that her knees/legs gave out, very weak CBC and CMP stable HR and BP stable immediately afterwards would not suspect PE as she is on Eliquis no issues for several days plan for rehab facility on discharge No recurrence, no lightheadedness (4) Diabetes type 2, controlled: HbA1c was 6.7% in November. HbA1C was 7.3% this admission. - Novolog for correction coverage Restarted metformin -creatinine is 1.5 (5) CKD (chronic kidney disease) stage 3, GFR 30-59 ml/min: Baseline Cr ~1.3 - 1.4 in most recent testing. - At baseline, 1.5 02/25 -Avoid nephrotoxins -renally dose meds when appropriate -follow BMP periodically as an outpatient (6) Hypertension: BPs were high initially, then were quite low at times -Decreased dose of hydralazine to 25mg PO BID and now blood pressures are normal -Continue metoprolol as above resumed Lisinopril, but still holding HCTZ (7) Hyperlipidemia: - Continue atorvastatin 20mg PO daily (8) DVT prophylaxis: Apixaban Dispo-stable medically for discharge--> awaiting rehab placement, referral made to [facility] and [facility]-awaiting insurance authorization approval PT/OT evaluations appreciated-recommending rehab Admission and Anticipated Discharge Date Admission Date: February 11, 2020 Subjective Patient was seen twice today. In the first occasion in the morning she was doing very well and had no complaints at all. Denies chest pain heart palpitations, shortness of breath. No nausea or vomiting. She is ambulating with some imbalance. She still feels generally much weaker than her baseline. I then was called back to see her in the evening as she was quite frustrated with not being discharged to rehab yet and was considering leaving the hospital and going home. We talked for a while about her frustration and she decided she would stay and wait for placement in rehab. She was also requesting something for sleep. Review of Systems Review of Systems: All systems reviewed & are unremarkable except as noted in HPI & below Physical Exam Constitutional: WD/WN, vitals as above Eyes: + anicteric sclerae Neck: trachea midline, no thyromegaly Respiratory: normal respiratory effort, lungs clear to auscultation Cardiovascular: RRR, no murmur, no edema Chest (Breasts): Chest: normal inspection of chest Gastrointestinal (Abdomen): normal bowel sounds, soft, nontender, no hepatosplenomegaly Musculoskeletal: Extremities: extremities normal to inspection; no cyanosis and no clubbing Skin: no rashes, warm and dry Neurologic: moves all extremities and awake; no focal motor deficits Psychiatric: A+Ox3, euthymic affect Lymphatic: no lymphedema Results & Data Results & Data ([facility]) Vital Signs (Past 12 Hours) Vital Signs Temp Pulse Resp BP BP Pulse Ox 02/28/20 21:05 66 105/64 02/28/20 15:36 36.8 C 62 17 104/65 96 Laboratory Results 02/28/20 02/28/20 02/28/20 Range/Units 20:37 17:04 12:05 WBC (4.8-10.8) K/uL RBC (4.2-5.4) M/uL Hgb (12.0-16.0) g/dL Hct (37-47) % MCV (80-100) fL MCH (25-34) pg MCHC (32-36) g/dL RDW Std Deviation (36.4-46.3) fL RDW Coeff of Charlene (11.5-14.5) % Plt Count (130-400) K/uL MPV (7.4-10.4) fL Immature Gran % (Auto) % Neut % (Auto) % Lymph % (Auto) % [place] % (Auto) % Eos % (Auto) % Baso % (Auto) % Neut # (Auto) (1.4-6.5) K/uL Lymph # (Auto) (1.2-3.4) K/uL [place] # (Auto) (0.11-0.59) K/uL Eos # (Auto) (0-0.5) K/uL Baso # (Auto) (0-0.2) K/uL Immature Gran # (Auto) (0.00-0.02) K/uL Sodium (136-145) mmol/L Potassium (3.5-5.1) mmol/L Chloride (98-107) mmol/L Carbon Dioxide (21-32) mmol/L Anion Gap (3-11) BUN (7-18) mg/dl Creatinine (0.6-1.2) mg/dl Est Cr Clr Drug Dosing ml/min Est GFR ( Amer) Est GFR (Non-Af Amer) BUN/Creatinine Ratio (10-20) Glucose (70-99) mg/dl POC Glucose 127 H 168 H 137 H (70-99) mg/dl Calcium (8.5-10.1) mg/dl 02/28/20 02/28/20 02/28/20 Range/Units 08:00 05:50 05:50 WBC 5.84 (4.8-10.8) K/uL RBC 3.72 L (4.2-5.4) M/uL Hgb 10.9 L (12.0-16.0) g/dL Hct 33.8 L (37-47) % MCV 90.9 (80-100) fL MCH 29.3 (25-34) pg MCHC 32.2 (32-36) g/dL RDW Std Deviation 46.9 H (36.4-46.3) fL RDW Coeff of Charlene 14.2 (11.5-14.5) % Plt Count 186 (130-400) K/uL MPV 12.2 H (7.4-10.4) fL Immature Gran % (Auto) 0.5 % Neut % (Auto) 63.4 % Lymph % (Auto) 26.5 % [place] % (Auto) 7.9 % Eos % (Auto) 1.5 % Baso % (Auto) 0.2 % Neut # (Auto) 3.70 (1.4-6.5) K/uL Lymph # (Auto) 1.55 (1.2-3.4) K/uL [place] # (Auto) 0.46 (0.11-0.59) K/uL Eos # (Auto) 0.09 (0-0.5) K/uL Baso # (Auto) 0.01 (0-0.2) K/uL Immature Gran # (Auto) 0.03 H (0.00-0.02) K/uL Sodium 142 (136-145) mmol/L Potassium 4.1 (3.5-5.1) mmol/L Chloride 112 H (98-107) mmol/L Carbon Dioxide 26 (21-32) mmol/L Anion Gap 4.0 (3-11) BUN 35 H (7-18) mg/dl Creatinine 1.59 H (0.6-1.2) mg/dl Est Cr Clr Drug Dosing 29.1 ml/min Est GFR ( Amer) 34.9 Est GFR (Non-Af Amer) 30.1 BUN/Creatinine Ratio 22.1 H (10-20) Glucose 168 H (70-99) mg/dl POC Glucose 220 H (70-99) mg/dl Calcium 8.9 (8.5-10.1) mg/dl PG Care Time/CCT Total # of Minutes Spent Total Time Spent with Patient: Total time spent is greater than 50% in coordination of care (as documented) at patient's floor/unit and/or counseling patient: Coding Level of Care Code 94175 Subseq Hosp Care Lvl 2 Diagnoses Severe acute respiratory syndrome coronavirus 2 (SARS-CoV-2) RNA detected U07.1 New onset atrial flutter I48.92 Syncope and collapse R55 Diabetes type 2, controlled E11.9 CKD (chronic kidney disease) stage 3, GFR 30-59 ml/min N18.30 Hypertension I10 Hyperlipidemia E78.5 DVT prophylaxis Z29.9
[2020-02-29] MEDS: INSULIN ASPART 100 UNITS/ML 3 ML PEN SC SCH ×4 (08:48→20:59)
[2020-02-29] MEDS: APIXABAN 5 MG TABLET PO SCH ×2 (08:49→20:57)
[2020-02-29] MEDS: METOPROLOL TARTRATE 50 MG TAB PO SCH ×2 (08:49→20:57)
[2020-02-29] MEDS: hydrALAZINE HCL 25 MG TAB PO SCH ×2 (08:50→20:57)
[2020-02-29] MEDS: CEROVITE ADV FORMULA TAB PO SCH (08:50)
[2020-02-29] MEDS: lisinopril 20 MG TAB PO SCH (08:50)
[2020-02-29] MEDS: metFORMIN HCL 500 MG TAB PO SCH ×2 (08:50→17:50)
--- NOTE | 2020-02-29 19:10 | Hospitalist Progress Note ---
Date of Service February 29, 2020 Assessment & Plan (1) Severe acute respiratory syndrome coronavirus 2 (SARS-CoV-2) RNA detected: presented with hypoxemia, though not much shortness of breath. Generalized fatigue and myalgias. - treated with dexamethasone 6 mg PO daily x 10 days, last day was 02/21 - No remdesivir, convalescent plasma needed as she was >1 week from symptom onset. - over night pulse ox showed that she needs 2L while sleeping, however she has not been using this lately and is doing well now off oxygen She became generally deconditioned and weak due to her illness and prolonged hospitalization-plan for rehab on room air for many days eating and drinking better, food tastes better stable for discharge, awaiting placement She has since come off airborne and contact precautions as symptoms have been ongoing since 02/03 approximately (2) New onset atrial flutter: In setting of SARS-CoV-2. TSH was 0.634. - Continue home metoprolol 50 mg PO BID -> HR under control at present. Back in sinus on examination. downgraded to medical floor 02/18 -Echo is normal - Started anticoagulation with apixaban -> Plan for Holter on discharge. If she only had one episode of afib due to Covid, she could potentially stop anticoagulation after 6 weeks, but if she has continued paroxysmal afib, she will likely need lifelong AC. (3) Syncope and collapse: occurred 02/21 when walking in the hospital did not strike head says that her knees/legs gave out, very weak CBC and CMP stable HR and BP stable immediately afterwards would not suspect PE as she is on Eliquis no issues for several days plan for rehab facility on discharge No recurrence, no lightheadedness (4) Diabetes type 2, controlled: HbA1c was 6.7% in November. HbA1C was 7.3% this admission. - Novolog for correction coverage Restarted metformin -creatinine is 1.5 (5) CKD (chronic kidney disease) stage 3, GFR 30-59 ml/min: Baseline Cr ~1.3 - 1.4 in most recent testing. - At baseline, 1.5 02/25 -Avoid nephrotoxins -renally dose meds when appropriate -follow BMP periodically as an outpatient (6) Hypertension: BPs were high initially, then were quite low at times -Decreased dose of hydralazine to 25mg PO BID and now blood pressures are normal -Continue metoprolol as above resumed Lisinopril, but discontinued HCTZ (7) Hyperlipidemia: - Continue atorvastatin 20mg PO daily (8) DVT prophylaxis: Apixaban Dispo-stable medically for discharge--> awaiting rehab placement, referral made to [facility]-awaiting insurance authorization approval PT/OT evaluations appreciated-recommending rehab Admission and Anticipated Discharge Date Admission Date: February 11, 2020 Subjective Pt feeling well, nothing new. No CP/SOB, no nausea, eating well, remains frustrated that she is not going to rehab yet Review of Systems Review of Systems: All systems reviewed & are unremarkable except as noted in HPI & below Physical Exam Constitutional: WD/WN, vitals as above Eyes: + anicteric sclerae Neck: trachea midline, no thyromegaly Respiratory: normal respiratory effort, lungs clear to auscultation Cardiovascular: RRR, no murmur, no edema Chest (Breasts): Chest: normal inspection of chest Gastrointestinal (Abdomen): normal bowel sounds, soft, nontender, no hepatosplenomegaly Musculoskeletal: Extremities: extremities normal to inspection; no cyanosis and no clubbing Skin: no rashes, warm and dry Neurologic: moves all extremities and awake; no focal motor deficits Psychiatric: A+Ox3, euthymic affect Lymphatic: no lymphedema Results & Data Results & Data ([facility]) Vital Signs (Past 12 Hours) Vital Signs Temp Pulse Resp BP Pulse Ox 02/29/20 07:36 36.7 C 61 16 148/77 H 95 Laboratory Results 02/28/20 05:50 02/28/20 05:50 PG Care Time/CCT Total # of Minutes Spent Total Time Spent with Patient: Total time spent is greater than 50% in coordination of care (as documented) at patient's floor/unit and/or counseling patient: Coding Level of Care Code 14249 Subseq Hosp Care Lvl 1 Diagnoses Severe acute respiratory syndrome coronavirus 2 (SARS-CoV-2) RNA detected U07.1 New onset atrial flutter I48.92 Syncope and collapse R55 Diabetes type 2, controlled E11.9 CKD (chronic kidney disease) stage 3, GFR 30-59 ml/min N18.30 Hypertension I10 Hyperlipidemia E78.5 DVT prophylaxis Z29.9
[2020-02-29] MEDS: ATORVASTATIN 20 MG TAB PO SCH (20:57)
[2020-03-01 07:34] VITALS: TEMP 98.1; O2SAT 95
[2020-03-01] MEDS: lisinopril 20 MG TAB PO SCH (08:32)
[2020-03-01] MEDS: METOPROLOL TARTRATE 50 MG TAB PO SCH (08:32)
[2020-03-01] MEDS: APIXABAN 5 MG TABLET PO SCH (08:33)
[2020-03-01] MEDS: CEROVITE ADV FORMULA TAB PO SCH (08:33)
[2020-03-01] MEDS: hydrALAZINE HCL 25 MG TAB PO SCH (08:33)
[2020-03-01] MEDS: metFORMIN HCL 500 MG TAB PO SCH (08:33)
[2020-03-01] MEDS: INSULIN ASPART 100 UNITS/ML 3 ML PEN SC SCH ×2 (08:48→12:46)
[2020-03-01] MEDS: LOPERAMIDE HCL 2 MG CAP PO PRN (12:46)
--- NOTE | 2020-03-01 12:46 | Discharge Summary ---
Date of Service March 01, 2020 Admission HPI Per Admitting Provider Melany Macias is an 79 year old female who presents to the ER with generalized fatigue and weakness. She reports her symptoms ongoing for 1 week including myalgias, sore throat, fatigue, nasal congestion, mild non-productive cough. She reports her daughter who she lives with has a terrible cough and has been tested for COVID-19 but results are not back yet. She denies any fever, chills, abdominal pain or diarrhea. She reports main reason for coming to the ER with just how weak she has become over the last 2 days. Reports this is bilateral, no change in speech/hearing/vision. In the ER she was noted to have atrial flutter which is new onset with a variable block and she was tested positive for SARS-COV-2. She has not taken her medications for a few days. She also reports having asyncopal event when EMS ar rived although unable to elaborate on details of this. She denies any chest pain, shortness of breath, palpitaions, claudications or leg swelling. She was referred to medicine for admission and ongoing management of COVID-19 Principal Diagnosis Covid-19 pneumonia, acute respiratory failure with hypoxia, new onset atrial flutter Discharge Exam Constitutional WD/WN, vitals as above Eyes + anicteric sclerae Neck trachea midline, no thyromegaly Respiratory normal respiratory effort, lungs clear to auscultation Cardiovascular RRR, no murmur, no edema Chest (Breasts) Chest: normal inspection of chest Gastrointestinal (Abdomen) normal bowel sounds, soft, nontender, no hepatosplenomegaly Musculoskeletal Extremities: extremities normal to inspection; no cyanosis and no clubbing Skin no rashes, warm and dry Neurologic moves all extremities and awake; no focal motor deficits Psychiatric A+Ox3, euthymic affect Lymphatic no lymphedema Discharge Data Allergies Allergy/AdvReac Type Severity Reaction Status Date / Time No Known Allergies Allergy Verified 02/11/20 13:06 Consultations 02/11/20 13:56 ED Decision to Admit Stat Ordered Studies 02/11/20 15:33 US venous doppler LE BI Stat Chest x-ray Echocardiogram Hospital Course (1) Severe acute respiratory syndrome coronavirus 2 (SARS-CoV-2) RNA detected: presented with hypoxemia, though not much shortness of breath. Generalized fatigue and myalgias. - treated with dexamethasone 6 mg PO daily x 10 days, last day was 02/21 - No remdesivir, convalescent plasma needed as she was >1 week from symptom onset. - over night pulse ox showed that she needs 2L while sleeping, however she has not been using this lately and is doing well now off oxygen She became generally deconditioned and weak due to her illness and prolonged hospitalization-plan for rehab on room air for many days eating and drinking better, food tastes better stable for discharge, going to rehab today She has since come off airborne and contact precautions as symptoms have been ongoing since 02/03 approximately (2) New onset atrial flutter: In setting of SARS-CoV-2. TSH was 0.634. - Continue home metoprolol 50 mg PO BID -> HR under control at present. Back in sinus on examination. downgraded to medical floor 02/18 -Echo is normal - Started anticoagulation with apixaban -> Plan for Holter after discharge. If she only had one episode of afib due to Covid, she could potentially stop anticoagulation after 6 weeks, but if she has continued paroxysmal afib, she will likely need lifelong AC. (3) Syncope and collapse: occurred 02/21 when walking in the hospital did not strike head says that her knees/legs gave out, very weak CBC and CMP stable HR and BP stable immediately afterwards would not suspect PE as she is on Eliquis no issues for several days plan for rehab facility on discharge No recurrence, no lightheadedness (4) Diabetes type 2, controlled: HbA1c was 6.7% in November. HbA1C was 7.3% this admission. - Novolog for correction coverage Restarted metformin -creatinine is 1.5 (5) CKD (chronic kidney disease) stage 3, GFR 30-59 ml/min: Baseline Cr ~1.3 - 1.4 in most recent testing. - At baseline, 1.5 02/25 -Avoid nephrotoxins -renally dose meds when appropriate -follow BMP periodically as an outpatient (6) Hypertension: BPs were high initially, then were quite low at times -Decreased dose of hydralazine to 25mg PO BID and now blood pressures are normal -Continue metoprolol as above resumed Lisinopril, but discontinued HCTZ (7) Hyperlipidemia: - Continue atorvastatin 20mg PO daily (8) DVT prophylaxis: Apixaban Dispo-stable medically for discharge--> going to [facility] today Total Time Total Time Spent Total Time Spent (In Minutes): 35 minutes Total Time Includes: Examination of the Patient, Discharge Planning and Medication Reconciliation Discharge Plan Discharge Items Patient Disposition: Transfer Custodial Fac Reason For Visit: NEW ONSET ATRIAL FLUTTER, SARS-COV-2 POSITIVE Discharge Diagnosis: Atrial flutter, COVID-19 Pneumonia, Acute respiratory failure with hypoxia Condition on Discharge: Good Activity: As commented below Lifting: Gradually increase as tolerated Exercise/Sports: Gradually increase as tolerated Weightbearing: Full weightbearing Non-emergency contact: Primary Care Provider Call non-emergency contact if: you have any medication questions Follow-up/Referrals: Neville Craig III, MD [Primary Care Provider] - Diet: Heart Healthy Addtl Attending Provider Instructions: You were admitted for COVID Pneumonia and atrial flutter. You had improvement in both and now need rehab to improve your generalized weakness. Please follow up with your PCP after discharge from rehab. It is recommended that you have a 30 day cardiac event monitor to look for more atrial flutter to see if you need to continue on the blood thinner or not. Pending Studies at Discharge: No Stand-Alone Forms: My [facility] Skilled Items Patient informed of condition?: Yes DNR: Yes Discharge Level of Care: Skilled Communicable Disease: No Discharge Prognosis: Improving Lines: None Urinary Catheter: No Medications and DC Order Prescriptions: New Eliquis 5 mg Tablet 5 mg PO BID Qty: 60 RF: 0 lisinopril 20 mg Tablet 20 mg PO QAM Qty: 30 RF: 0 hydralazine 25 mg Tablet 25 mg PO BID Qty: 60 RF: 0 Continued metoprolol tartrate 50 mg tablet 50 mg PO BID Qty: 180 RF: 3 metformin 500 mg tablet 1,000 mg PO BID Qty: 360 RF: 3 atorvastatin 20 mg tablet 20 mg PO HS Qty: 90 RF: 3 PreserVision AREDS [id number] Capsule 1 cap PO QAM RF: 0 glimepiride 1 mg tablet 1 mg PO QAM RF: 0 Discontinued hydralazine 50 mg tablet 50 mg PO BID Qty: 180 RF: 3 lisinopril-hydrochlorothiazide 20-25 mg tablet 1 tab PO QAM RF: 0 Discharge Orders: Discharge Order (Routine); Ordered 03/01/20 Ordered By: Claudia Pena/Other Patient Handouts: Managing Type 2 Diabetes, Apixaban oral tablets Admission Data Admit Date/Time: 02/11/20 14:58 Attending Provider: Claudia Brewer Admit Provider: Tiago Kitchen Primary Care Provider: Neville Craig III Other Providers: Bharat Canales ; Tiago Kitchen ; [facility] ; [facility], ; [place] Other Interventions: Discharge Summary Assessment (RN) Last Done: 03/01/20 14:18 Coding Level of Care Code D/C Day Management >30 mins Diagnoses Severe acute respiratory syndrome coronavirus 2 (SARS-CoV-2) RNA detected U07.1 New onset atrial flutter I48.92 Syncope and collapse R55 Diabetes type 2, controlled E11.9 CKD (chronic kidney disease) stage 3, GFR 30-59 ml/min N18.30 Hypertension I10 Hyperlipidemia E78.5 DVT prophylaxis Z29.9
[2020-03-01 14:22] VITALS: BP 106/67; PULSE 71
== END 2020-03-01 15:55 | DRG 308 ==
LOC: ED 11:43 → 2E 14:58 → SUATTDRO 14:58 → 2E 18:24 → 3E 02-19 13:13 → 3W 02-26 21:27

== ENCOUNTER 2021-01-04 05:53 | Observation (INO) ==
[2021-01-04] MEDS ORDERED: ACETAMINOPHEN 500 MG TAB PO STA (06:30)
[2021-01-04 07:05] LABS: Basophils # (auto) 0.02 K/uL (0-0.2); Basophils % (auto) 0.3 %; Eosinophils # (auto) 0.18 K/uL (0-0.5); Eosinophils % (auto) 2.3 %; Hematocrit (blood only) 36.4 % (37-47); Hemoglobin 11.5 g/dL (12.0-16.0); Immature Granulocytes # (auto) 0.02 K/uL (0.00-0.02); Immature Granulocytes % (auto) 0.3 %; Lymphocytes # (auto) 1.25 K/uL (1.2-3.4); Lymphocytes % (auto) 15.6 %; Mean Corpuscular Hemoglobin 28.5 pg (25-34); Mean Corpuscular Hgb Conc 31.6 g/dL (32-36); Mean Corpuscular Volume 90.1 fL (80-100); Mean Platelet Volume 11.1 fL (7.4-10.4); Monocytes # (auto) 0.49 K/uL (0.11-0.59); Monocytes % (auto) 6.1 %; Neutrophils # (auto) 6.03 K/uL (1.4-6.5); Neutrophils % (auto) 75.4 %; Platelet Count 216 K/uL (130-400); RDW Coefficient of Variation 14.2 % (11.5-14.5); RDW Standard Deviation 47.2 fL (36.4-46.3); Red Blood Count 4.04 M/uL (4.2-5.4); White Blood Count 7.99 K/uL (4.8-10.8)
[2021-01-04 07:15] LABS: Partial Thromboplastin Ratio 0.9; Partial Thromboplastin Time 22.8 Seconds (21.0-31.0); Prothrombin Time 10.2 Seconds (9.0-12.0)
--- NOTE | 2021-01-04 07:18 | Emergency Department Note ---
Impression & Plan Hypoxia, Headache, SOB (shortness of breath), Hypomagnesemia ED Provider Note NAME: ALEKSANDRA GARCIA AGE: 80 SEX: F : 1940 ARRIVES VIA: Ambulance INFORMANT: Patient, EMS ED PROVIDER(S): Keven Genao DO CHIEF COMPLAINT: Headache HPI: The patient is an 80-year-old female who presented to the emergency department by ambulance for an evaluation of headache. Patient noticed a headache which was occipital in nature. She denies having any fever. The patient has a history of COVID-19 infection in January of last year. She has had no recent trauma. She called 911 this morning. She denies having any chest pain or difficulty breathing. She denies having any abdominal discomfort but does complain of nausea. She denies having any unilateral weakness. The patient has not been seen by her primary care physician for the symptoms. She states that this time her headache is mild. She did receive nitroglycerin prior to arrival and was noted to have elevated blood pressure. ROS: See above HPI for pertinent positives & negatives. A total of 10 systems reviewed and were otherwise negative. PAST MEDICAL HISTORY: See Below PAST SURGICAL HISTORY: See Below FAMILY HISTORY: See Below SOCIAL HISTORY: See Below HOME MEDICATIONS: See Below ALLERGIES: See Below VITALS: See Below PHYSICAL EXAMINATION: GENERAL: Patient is awake alert in no acute distress patient is resting comfortably and showing no signs of anxiety EYES: The conjunctivae are clear. The pupils are round and reactive. EARS, NOSE, MOUTH AND THROAT: The nose is without any evidence of any deformity. NECK: The neck is nontender and supple. RESPIRATORY: Diminished breath sounds are noted throughout. There is no tachypn ea or conversational dyspnea. Fine rales noted at both bases. CARDIOVASCULAR: Regular rate and rhythm noted there no murmurs rubs or gallops normal S1 normal S2. GASTROINTESTINAL: The abdomen is soft. Abdomen is nontender. MUSCULOSKELETAL/EXTREMITIES: There is no evidence of gross deformity full range of motion is noted in the hips and shoulders. SKIN: Trace pedal edema was noted bilaterally. NEUROLOGIC: Patient is awake alert and oriented x3 strength is symmetric patellar reflexes are 2+ bilaterally MEDICAL DECISION MAKING: The patient is an 80-year-old female who presented to the emergency department for an evaluation of difficulty breathing and headache. The patient has a history of COVID-19 infection and thought that that was the reason why she was having the symptoms. She denied having any nausea or vomiting. Lung sounds did reveal some rales at both bases. She was very hypertensive. She was ordered her outpatient medications. She was also treated with IV magnesium in the emergency department. I discussed the patient's laboratory and radiographic studies with her. She continued to have hypoxia and her chest x-ray did not show a clear reason for this. For this reason CT of the chest was obtained after D-dimer was found to be elevated. Given her continued hypoxia [facility] have agreed to evaluate the patient in the emergency department for further management and disposition. Triage Nursing notes reviewed. Prior medical records reviewed Vital Signs: reviewed and remarkable for hypoxia and hypertension. Differential diagnosis: Migraine headache, meningitis, sinusitis, CO exposure, ICH, SAH, infection, tumor, headache, sinus thrombosis, arterial dissection, as well as other pathologies. ER treatment provided: See below Diagnostics interpreted by me: ECG: EKG was obtained in the emergency department. My interpretation is normal sinus rhythm at 92 bpm. There is no ectopy. There is no acute ST segment abnormalities noted. This was compared to a tracing from February 152019. No significant changes were noted. Cardiac Monitoring: An order was placed for continuous cardiac monitoring. The monitor shows a rate of 70 bpm with sinus rhythm. Laboratory studies: As stated above and show below. Imaging studies: See below Consultation(s): I discussed this case with Dr. Epperson who is on-call with the [facility] hospitalist group. They will evaluate the patient in the emergency department. Past Med/Surg History Medical History (Updated 01/04/21 @ 13:39 by Keven Genao DO) Atrial flutter (02/11/20) Paroxysmal COVID-19 (02/11/20) required hospitalization [facility] x 3 weeks Diabetes type 2, controlled History of basal cell carcinoma (11/2018) Hyperlipidemia Hypertension Lipoma of back s/p removal Morbid obesity Nontoxic multinodular goiter DESTINEY (obstructive sleep apnea) Osteopenia Surgical History (Updated 01/04/21 @ 12:16 by Tiago Epperson) History of salpingectomy History of Salpingectomy for ectopic Hx laparoscopic cholecystectomy Family History (Updated 01/04/21 @ 12:18 by Tiago Epperson) Father , age 69 Coronary heart disease Myocardial infarction Mother , age 92 Tobacco use Lung cancer suspected just prior to her Daughter Melanoma Grandmother (Paternal) Stroke Denies family history of Ovarian cancer Prostate cancer Breast cancer FH: brain aneurysm Colorectal cancer Social History (Updated 01/04/21 @ 12:19 by Tiago Epperson) Smoking Status: Never smoker Tobacco Type: Cigarettes Second Hand Exposure: No; Hx Alcohol Use: No Hx Substance Use: No Preferred Language: Indonesian Visual Impairment: No Limitations Hearing Ability: Normal Beliefs That Will Affect Care: None marital status: Current Living Situation: Family Current Living Situation Comment: Daughter Jocelyne current occupational status: retired 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 [employer] How many Children do You have: 3 Feels Safe at Home: Yes Dental Care, Regularly: Yes Physical Activity Frequency: Does not Exercise Seatbelt Use: always Assistive Devices: Glasses Allergies Allergies Allergy/AdvReac Type Severity Reaction Status Date / Time No Known Allergies Allergy Verified 01/04/21 07:30 Home Meds Home Medications Medication Instructions Recorded Confirmed vitamins A,C,A-wspc-fiawnr 14,320 1 cap PO QAM 09/18/18 01/04/21 unit-226 mg-200 unit capsule (PreserVision AREDS) glimepiride 1 mg tablet 1 mg PO QAM 01/04/21 01/04/21 Previous Rx's Medication Instructions Recorded metoprolol tartrate 50 mg tablet 50 mg PO BID #180 tab 04/06/20 metformin 500 mg tablet 1,000 mg PO BID #360 tab 07/05/20 lisinopril 20 mg tablet 20 mg PO QAM #90 tab 11/23/20 atorvastatin 20 mg tablet 20 mg PO HS #90 tab 01/03/21 hydralazine 25 mg tablet 25 mg PO BID #60 tab 01/03/21 Results & Data (ED) Vital Signs Vital Signs - 24 hr 01/04/21 06:03 01/04/21 06:07 01/04/21 06:33 Temperature 37 C Temperature Source Oral Pulse Rate 91 H 69 Pulse Rate [Finger] 82 Pulse Rate from SpO2 Sensor Respiratory Rate 18 18 18 Respiratory Effort / Characteristics Non-Labored Spontaneous Non-Labored Spontaneous Respiratory Depth Normal Normal Respiratory Pattern Regular Blood Pressure 190/84 H Blood Pressure [Left Arm] 190/84 H Blood Pressure Mean 119 Blood Pressure Mean [Left Arm] 119 Blood Pressure Position [Left Arm] Pulse Oximetry 97 97 99 Oxygen Delivery Method Nasal Cannula Nasal Cannula Nasal Cannula Oxygen Flow Rate 4 4 4 Sepsis Recent Fever Within 48 Hours No Sepsis New/Unexplained Change in Mental Status N/A Sepsis Action Taken by Nursing No Action Required 01/04/21 07:12 01/04/21 07:20 01/04/21 07:23 Temperature Temperature Source Pulse Rate 70 59 L Pulse Rate [Finger] 63 Pulse Rate from SpO2 Sensor 71 59 L Respiratory Rate 27 H 17 18 Respiratory Effort / Characteristics Respiratory Depth Respiratory Pattern Blood Pressure Blood Pressure [Left Arm] 176/72 H Blood Pressure Mean Blood Pressure Mean [Left Arm] 106 Blood Pressure Position [Left Arm] Pulse Oximetry 100 100 99 Oxygen Delivery Method Nasal Cannula Oxygen Flow Rate 4 Sepsis Recent Fever Within 48 Hours Sepsis New/Unexplained Change in Mental Status Sepsis Action Taken by Nursing 01/04/21 07:30 01/04/21 07:40 01/04/21 07:50 Temperature Temperature Source Pulse Rate 69 65 63 Pulse Rate [Finger] Pulse Rate from SpO2 Sensor 69 64 63 Respiratory Rate 15 21 21 Respiratory Effort / Characteristics Respiratory Depth Respiratory Pattern Blood Pressure Blood Pressure [Left Arm] Blood Pressure Mean Blood Pressure Mean [Left Arm] Blood Pressure Position [Left Arm] Pulse Oximetry 100 100 100 Oxygen Delivery Method Oxygen Flow Rate Sepsis Recent Fever Within 48 Hours Sepsis New/Unexplained Change in Mental Status Sepsis Action Taken by Nursing 01/04/21 08:00 01/04/21 08:10 01/04/21 08:20 Temperature Temperature Source Pulse Rate 75 65 72 Pulse Rate [Finger] Pulse Rate from SpO2 Sensor 71 67 67 Respiratory Rate 23 18 21 Respiratory Effort / Characteristics Respiratory Depth Respiratory Pattern Blood Pressure Blood Pressure [Left Arm] Blood Pressure Mean Blood Pressure Mean [Left Arm] Blood Pressure Position [Left Arm] Pulse Oximetry 100 98 92 Oxygen Delivery Method Oxygen Flow Rate Sepsis Recent Fever Within 48 Hours Sepsis New/Unexplained Change in Mental Status Sepsis Action Taken by Nursing 01/04/21 08:24 01/04/21 08:30 01/04/21 08:40 Temperature Temperature Source Pulse Rate 67 63 Pulse Rate [Finger] 66 Pulse Rate from SpO2 Sensor 69 63 Respiratory Rate 16 25 H 24 Respiratory Effort / Characteristics Respiratory Depth Respiratory Pattern Blood Pressure Blood Pressure [Left Arm] 188/71 H Blood Pressure Mean Blood Pressure Mean [Left Arm] 110 Blood Pressure Position [Left Arm] Pulse Oximetry 97 92 93 Oxygen Delivery Method Room Air Oxygen Flow Rate Sepsis Recent Fever Within 48 Hours Sepsis New/Unexplained Change in Mental Status Sepsis Action Taken by Nursing 01/04/21 08:50 01/04/21 09:00 01/04/21 09:10 Temperature Temperature Source Pulse Rate 70 64 71 Pulse Rate [Finger] Pulse Rate from SpO2 Sensor 66 64 67 Respiratory Rate 23 18 22 Respiratory Effort / Characteristics Respiratory Depth Respiratory Pattern Blood Pressure 207/73 H Blood Pressure [Left Arm] Blood Pressure Mean 117 Blood Pressure Mean [Left Arm] Blood Pressure Position [Left Arm] Pulse Oximetry 97 99 99 Oxygen Delivery Method Oxygen Flow Rate Sepsis Recent Fever Within 48 Hours Sepsis New/Unexplained Change in Mental Status Sepsis Action Taken by Nursing 01/04/21 09:20 01/04/21 09:30 01/04/21 09:40 Temperature Temperature Source Pulse Rate 65 66 62 Pulse Rate [Finger] Pulse Rate from SpO2 Sensor 61 64 61 Respiratory Rate 23 23 22 Respiratory Effort / Characteristics Respiratory Depth Respiratory Pattern Blood Pressure Blood Pressure [Left Arm] Blood Pressure Mean Blood Pressure Mean [Left Arm] Blood Pressure Position [Left Arm] Pulse Oximetry 99 100 99 Oxygen Delivery Method Oxygen Flow Rate Sepsis Recent Fever Within 48 Hours Sepsis New/Unexplained Change in Mental Status Sepsis Action Taken by Nursing 01/04/21 09:50 01/04/21 10:09 01/04/21 10:10 Temperature Temperature Source Pulse Rate 61 Pulse Rate [Finger] 80 Pulse Rate from SpO2 Sensor 61 77 Respiratory Rate 22 18 Respiratory Effort / Characteristics Respiratory Depth Respiratory Pattern Blood Pressure Blood Pressure [Left Arm] 196/84 H Blood Pressure Mean Blood Pressure Mean [Left Arm] 121 Blood Pressure Position [Left Arm] Pulse Oximetry 99 98 95 Oxygen Delivery Method Room Air Oxygen Flow Rate Sepsis Recent Fever Within 48 Hours Sepsis New/Unexplained Change in Mental Status Sepsis Action Taken by Nursing 01/04/21 10:11 01/04/21 11:00 01/04/21 11:10 Temperature Temperature Source Pulse Rate 70 Pulse Rate [Finger] Pulse Rate from SpO2 Sensor 75 80 73 Respiratory Rate 24 Respiratory Effort / Characteristics Respiratory Depth Respiratory Pattern Blood Pressure Blood Pressure [Left Arm] Blood Pressure Mean Blood Pressure Mean [Left Arm] Blood Pressure Position [Left Arm] Pulse Oximetry 97 96 98 Oxygen Delivery Method Oxygen Flow Rate Sepsis Recent Fever Within 48 Hours Sepsis New/Unexplained Change in Mental Status Sepsis Action Taken by Nursing 01/04/21 11:11 01/04/21 11:27 01/04/21 11:30 Temperature Temperature Source Pulse Rate 63 61 Pulse Rate [Finger] 78 Pulse Rate from SpO2 Sensor 67 58 L Respiratory Rate 16 22 18 Respiratory Effort / Characteristics Respiratory Depth Respiratory Pattern Blood Pressure Blood Pressure [Left Arm] 220/89 H Blood Pressure Mean Blood Pressure Mean [Left Arm] 132 Blood Pressure Position [Left Arm] Lying Pulse Oximetry 94 98 96 Oxygen Delivery Method Room Air Oxygen Flow Rate Sepsis Recent Fever Within 48 Hours Sepsis New/Unexplained Change in Mental Status Sepsis Action Taken by Nursing 01/04/21 11:40 01/04/21 11:50 01/04/21 12:00 Temperature Temperature Source Pulse Rate 66 60 63 Pulse Rate [Finger] Pulse Rate from SpO2 Sensor 62 60 61 Respiratory Rate 21 21 18 Respiratory Effort / Characteristics Respiratory Depth Respiratory Pattern Blood Pressure Blood Pressure [Left Arm] Blood Pressure Mean Blood Pressure Mean [Left Arm] Blood Pressure Position [Left Arm] Pulse Oximetry 88 L 88 L 92 Oxygen Delivery Method Oxygen Flow Rate Sepsis Recent Fever Within 48 Hours Sepsis New/Unexplained Change in Mental Status Sepsis Action Taken by Nursing 01/04/21 12:11 01/04/21 12:20 01/04/21 12:30 Temperature Temperature Source Pulse Rate 71 66 75 Pulse Rate [Finger] Pulse Rate from SpO2 Sensor 69 65 72 Respiratory Rate 20 28 H 22 Respiratory Effort / Characteristics Respiratory Depth Respiratory Pattern Blood Pressure 248/101 H Blood Pressure [Left Arm] Blood Pressure Mean 150 Blood Pressure Mean [Left Arm] Blood Pressure Position [Left Arm] Pulse Oximetry 97 97 97 Oxygen Delivery Method Oxygen Flow Rate Sepsis Recent Fever Within 48 Hours Sepsis New/Unexplained Change in Mental Status Sepsis Action Taken by Nursing 01/04/21 12:40 01/04/21 13:32 Temperature Temperature Source Pulse Rate 70 Pulse Rate [Finger] Pulse Rate from SpO2 Sensor Respiratory Rate 17 Respiratory Effort / Characteristics Respiratory Depth Respiratory Pattern Blood Pressure 190/78 H Blood Pressure [Left Arm] Blood Pressure Mean 115 Blood Pressure Mean [Left Arm] Blood Pressure Position [Left Arm] Pulse Oximetry Oxygen Delivery Method Oxygen Flow Rate Sepsis Recent Fever Within 48 Hours Sepsis New/Unexplained Change in Mental Status Sepsis Action Taken by Longterm Medications Current Medication List: was personally reviewed by me Laboratory Data Attestation: I reviewed the patient's lab results. Result diagrams: 01/04/21 06:10 01/04/21 06:10 Lab Results 01/04/21 01/04/21 01/04/21 Range/Units 06:10 06:10 06:10 WBC 7.99 (4.8-10.8) K/uL RBC 4.04 L (4.2-5.4) M/uL Hgb 11.5 L (12.0-16.0) g/dL Hct 36.4 L (37-47) % MCV 90.1 (80-100) fL MCH 28.5 (25-34) pg MCHC 31.6 L (32-36) g/dL RDW Std Deviation 47.2 H (36.4-46.3) fL RDW Coeff of Charlene 14.2 (11.5-14.5) % Plt Count 216 (130-400) K/uL MPV 11.1 H (7.4-10.4) fL Immature Gran % (Auto) 0.3 % Neut % (Auto) 75.4 % Lymph % (Auto) 15.6 % Garza % (Auto) 6.1 % Eos % (Auto) 2.3 % Baso % (Auto) 0.3 % Neut # (Auto) 6.03 (1.4-6.5) K/uL Lymph # (Auto) 1.25 (1.2-3.4) K/uL Garza # (Auto) 0.49 (0.11-0.59) K/uL Eos # (Auto) 0.18 (0-0.5) K/uL Baso # (Auto) 0.02 (0-0.2) K/uL Immature Gran # (Auto) 0.02 (0.00-0.02) K/uL PT 10.2 (9.0-12.0) Seconds INR 1.0 (0.9-1.1) APTT 22.8 (21.0-31.0) Seconds PTT Ratio 0.9 D-Dimer (0-500) ug/L FEU Sodium 141 (136-145) mmol/L Potassium 4.0 (3.5-5.1) mmol/L Chloride 109 H (98-107) mmol/L Carbon Dioxide 24 (21-32) mmol/L Anion Gap 8.0 (3-11) BUN 16 (7-18) mg/dl Creatinine 1.24 H (0.6-1.2) mg/dl Est Cr Clr Drug Dosing 39.6 ml/min Est GFR ( Amer) 47.2 ml/min Est GFR (Non-Af Amer) 40.7 ml/min BUN/Creatinine Ratio 12.8 (10-20) Glucose 209 H (70-99) mg/dl Calcium 9.8 (8.5-10.1) mg/dl Magnesium 1.5 L (1.8-2.4) mg/dl Total Bilirubin 0.5 (0.2-1) mg/dl AST 30 (15-37) U/L ALT 40 (12-78) U/L Alkaline Phosphatase 88 (45-117) U/L Troponin I 0.024 (0-0.045) ng/ml Total Protein 7.0 (6.4-8.2) gm/dl Albumin 3.4 (3.4-5.0) gm/dl Globulin 3.6 (2.5-4.0) gm/dl Albumin/Globulin Ratio 0.9 (0.9-2) TSH 0.825 (0.300-4.500) uIu/ml Urine Color Urine Appearance (Clear) Urine pH (4.5-7.5) Ur Specific [place] (1.000-1.030) Urine Protein (Negative) Urine Glucose (UA) (Negative) Urine Ketones (Negative) Urine Blood (Negative) Urine Nitrite (Negative) Urine Bilirubin (Negative) Urine Urobilinogen (Negative) Ur Leukocyte Esterase (Negative) Urine WBC (Auto) (0-5) /hpf Urine RBC (Auto) (0-4) /hpf U Hyaline Cast (Auto) (0-5) /lpf U Epithel Cells (Auto) (0-5) /lpf Urine Bacteria (Auto) (Negative) COVID-19 Eval Order SARS-CoV-2 (PCR) (Negative) Influenza Type A Ag (Neg) Influ A Molecular Assay Influenza Type B Ag (Neg) Influ B Molecular Assay RSV (Molecular) (Negative) 01/04/21 01/04/21 01/04/21 Range/Units 06:10 08:02 12:06 WBC (4.8-10.8) K/uL RBC (4.2-5.4) M/uL Hgb (12.0-16.0) g/dL Hct (37-47) % MCV (80-100) fL MCH (25-34) pg MCHC (32-36) g/dL RDW Std Deviation (36.4-46.3) fL RDW Coeff of Charlene (11.5-14.5) % Plt Count (130-400) K/uL MPV (7.4-10.4) fL Immature Gran % (Auto) % Neut % (Auto) % Lymph % (Auto) % Garza % (Auto) % Eos % (Auto) % Baso % (Auto) % Neut # (Auto) (1.4-6.5) K/uL Lymph # (Auto) (1.2-3.4) K/uL Garza # (Auto) (0.11-0.59) K/uL Eos # (Auto) (0-0.5) K/uL Baso # (Auto) (0-0.2) K/uL Immature Gran # (Auto) (0.00-0.02) K/uL PT (9.0-12.0) Seconds INR (0.9-1.1) APTT (21.0-31.0) Seconds PTT Ratio D-Dimer 1120 H* (0-500) ug/L FEU Sodium (136-145) mmol/L Potassium (3.5-5.1) mmol/L Chloride (98-107) mmol/L Carbon Dioxide (21-32) mmol/L Anion Gap (3-11) BUN (7-18) mg/dl Creatinine (0.6-1.2) mg/dl Est Cr Clr Drug Dosing ml/min Est GFR ( Amer) ml/min Est GFR (Non-Af Amer) ml/min BUN/Creatinine Ratio (10-20) Glucose (70-99) mg/dl Calcium (8.5-10.1) mg/dl Magnesium (1.8-2.4) mg/dl Total Bilirubin (0.2-1) mg/dl AST (15-37) U/L ALT (12-78) U/L Alkaline Phosphatase (45-117) U/L Troponin I (0-0.045) ng/ml Total Protein (6.4-8.2) gm/dl Albumin (3.4-5.0) gm/dl Globulin (2.5-4.0) gm/dl Albumin/Globulin Ratio (0.9-2) TSH (0.300-4.500) uIu/ml Urine Color Yellow Urine Appearance Clear (Clear) Urine pH 6.0 (4.5-7.5) Ur Specific [place] 1.013 (1.000-1.030) Urine Protein Trace H (Negative) Urine Glucose (UA) Negative (Negative) Urine Ketones Trace H (Negative) Urine Blood Negative (Negative) Urine Nitrite Negative (Negative) Urine Bilirubin Negative (Negative) Urine Urobilinogen Negative (Negative) Ur Leukocyte Esterase Negative (Negative) Urine WBC (Auto) 1-5 (0-5) /hpf Urine RBC (Auto) 0-4 (0-4) /hpf U Hyaline Cast (Auto) 1-5 (0-5) /lpf U Epithel Cells (Auto) 5-10 H (0-5) /lpf Urine Bacteria (Auto) Negative (Negative) COVID-19 Eval Order SARS-CoV-2 (PCR) (Negative) Influenza Type A Ag (Neg) Influ A Molecular Assay Cancelled Influenza Type B Ag (Neg) Influ B Molecular Assay Cancelled RSV (Molecular) Negative (Negative) 01/04/21 01/04/21 01/04/21 Range/Units 12:06 Unknown Unknown WBC (4.8-10.8) K/uL RBC (4.2-5.4) M/uL Hgb (12.0-16.0) g/dL Hct (37-47) % MCV (80-100) fL MCH (25-34) pg MCHC (32-36) g/dL RDW Std Deviation (36.4-46.3) fL RDW Coeff of Charlene (11.5-14.5) % Plt Count (130-400) K/uL MPV (7.4-10.4) fL Immature Gran % (Auto) % Neut % (Auto) % Lymph % (Auto) % Garza % (Auto) % Eos % (Auto) % Baso % (Auto) % Neut # (Auto) (1.4-6.5) K/uL Lymph # (Auto) (1.2-3.4) K/uL Garza # (Auto) (0.11-0.59) K/uL Eos # (Auto) (0-0.5) K/uL Baso # (Auto) (0-0.2) K/uL Immature Gran # (Auto) (0.00-0.02) K/uL PT (9.0-12.0) Seconds INR (0.9-1.1) APTT (21.0-31.0) Seconds PTT Ratio D-Dimer (0-500) ug/L FEU Sodium (136-145) mmol/L Potassium (3.5-5.1) mmol/L Chloride (98-107) mmol/L Carbon Dioxide (21-32) mmol/L Anion Gap (3-11) BUN (7-18) mg/dl Creatinine (0.6-1.2) mg/dl Est Cr Clr Drug Dosing ml/min Est GFR ( Amer) ml/min Est GFR (Non-Af Amer) ml/min BUN/Creatinine Ratio (10-20) Glucose (70-99) mg/dl Calcium (8.5-10.1) mg/dl Magnesium (1.8-2.4) mg/dl Total Bilirubin (0.2-1) mg/dl AST (15-37) U/L ALT (12-78) U/L Alkaline Phosphatase (45-117) U/L Troponin I (0-0.045) ng/ml Total Protein (6.4-8.2) gm/dl Albumin (3.4-5.0) gm/dl Globulin (2.5-4.0) gm/dl Albumin/Globulin Ratio (0.9-2) TSH (0.300-4.500) uIu/ml Urine Color Urine Appearance (Clear) Urine pH (4.5-7.5) Ur Specific [place] (1.000-1.030) Urine Protein (Negative) Urine Glucose (UA) (Negative) Urine Ketones (Negative) Urine Blood (Negative) Urine Nitrite (Negative) Urine Bilirubin (Negative) Urine Urobilinogen (Negative) Ur Leukocyte Esterase (Negative) Urine WBC (Auto) (0-5) /hpf Urine RBC (Auto) (0-4) /hpf U Hyaline Cast (Auto) (0-5) /lpf U Epithel Cells (Auto) (0-5) /lpf Urine Bacteria (Auto) (Negative) COVID-19 Eval Order Covid19 at [facility] SARS-CoV-2 (PCR) NEGATIVE (Negative) Influenza Type A Ag Neg for Influ A (Neg) Influ A Molecular Assay Influenza Type B Ag Neg for Influ B (Neg) Influ B Molecular Assay RSV (Molecular) (Negative) Administered Medications Discontinued Medications Acetaminophen (Acetaminophen 500 Mg Tab) 1,000 mg PO NOW STA Stop: 01/04/21 06:31 Last Admin: 01/04/21 06:39 Dose: 1,000 mg Documented by: [id number] Hydralazine HCl (Hydralazine Hcl 25 Mg Tab) 25 mg PO NOW STA Stop: 01/04/21 11:55 Last Admin: 01/04/21 12:28 Dose: 25 mg Documented by: [id number] Magnesium Sulfate/Dextrose (Magnesium Sulfate / D5w) 1 gm in 100 mls @ 100 mls/hr IV Q1H SINCERE Stop: 01/04/21 10:03 Last Infusion: 01/04/21 10:20 Dose: 0 mls/hr Documented by: [id number] Admin: 01/04/21 09:20 Dose: 100 mls/hr Documented by: [id number] Infusion: 01/04/21 09:20 Dose: 0 mls/hr Documented by: [id number] Admin: 01/04/21 08:20 Dose: 100 mls/hr Documented by: [id number] Ioversol (Optiray 320 125ml) 120 ml IV ONCE ONE Stop: 01/04/21 10:53 Last Admin: 01/04/21 11:12 Dose: Not Given Documented by: [id number] Ioversol (Optiray 320 125ml) 120 ml IV ONCE ONE Stop: 01/04/21 10:55 Last Admin: 01/04/21 10:54 Dose: 120 ml Documented by: [id number] Lisinopril (Lisinopril 20 Mg Tab) 20 mg PO NOW STA Stop: 01/04/21 11:55 Last Admin: 01/04/21 12:28 Dose: 20 mg Documented by: [id number] Metoprolol Tartrate (Metoprolol Tartrate 50 Mg Tab) 50 mg PO NOW STA Stop: 01/04/21 11:55 Last Admin: 01/04/21 12:28 Dose: 50 mg Documented by: [id number] Imaging Data Radiologist's Impression: Head CT 01/04/21 06:30 CT head/brain wo con CLINICAL HISTORY: ALMEIDA Technique: Contiguous axial CT images of the head were acquired from the base of the skull to the vertex without intravenous contrast administration. Images were viewed in brain, subdural and bone windows. Automated dose lowering techniques and/or adjustment according to patient size were utilized for this exam. Comparison: Comparison is made to CT head 09/18/2018 Findings: Areas of decreased attenuation are present in the periventricular and subcortical white matter bilaterally consistent with small vessel ischemic disease. Generalized cerebral atrophy with commensurate enlargement of the ventricles, sulci, and cisterns is also present. There is no acute intracranial hemorrhage or evidence of acute territorial infarction. No shift of the midline structures, mass effect, or extra-axial abnormalities are shown. Atherosclerotic calcifications are present in the intracranial segments of the internal carotid arteries. A mucous retention cyst seen on the left. The orbits appear normal. There are no acute fractures of the calvaria or scalp swelling. Impression: No acute intracranial hemorrhage, no evidence of acute territorial infarction or other acute intracranial disease process. ACT 112: Negative or not required by law. Electronically signed by: Vj Villatoro M.D. 01/04/2021 7:27 AM Chest X-Ray 01/04/21 06:31 XR chest 1V portable HISTORY: 80 years-old Female weakness acute weakness COMPARISON: Chest radiograph 02/11/2020 TECHNIQUE: Portable AP view of the chest FINDINGS: Cardiac silhouette is enlarged, unchanged. Calcified plaque of the thoracic aorta. Mild interstitial coarsening of the lung bases. No pneumothorax, large pleural effusion or overt pulmonary edema. Degenerative changes of the shoulders and spine. IMPRESSION: 1. Cardiomegaly without pulmonary edema. 2. Interstitial coarsening of the lung bases suggests atelectasis/scarring, mildly progressed from comparison. Pneumonitis considered less likely. ACT 112: Negative or not required by law. The above report was generated using voice recognition software. It may contain grammatical, syntax or spelling errors. Electronically signed by: Edward Chapa M.D. 01/04/2021 8:05 AM Chest CTA 01/04/21 09:32 CT angio chest PE protocol CLINICAL HISTORY: PE TECHNIQUE: Multidetector row helical CT of the chest was performed. Coronal and sagittal reformations were obtained. Automated dose lowering techniques and/or adjustment according to patient size were utilized for this exam. Comparison: None available at the time of this dictation. FINDINGS: Lungs and pleura: Atelectasis is seen in the dependent portion of the bilateral lungs. Tracheomalacia is seen. Heart and pericardium: There is cardiomegaly without evidence of pericardial effusion. Vessels: No evidence of pulmonary embolism. Mediastinum and derrell: Multiple mediastinal lymph nodes are seen, largest measu ring 12 mm in short axis. Chest wall and lower neck: A large calcified right thyroid nodule is seen measuring 24 mm. Abdomen: Patient is status post cholecystectomy. A hiatal hernia is seen. Bones: Degenerative changes in the thoracic spine. IMPRESSION: 1. No evidence of pulmonary embolism. 2. Cardiomegaly is noted. 3. Multiple enlarged mediastinal lymph nodes, clinical correlation is recommended. 4. Multiple thyroid nodules. If not previously evaluated, a nonemergent thyroid ultrasound can be performed. ACT 112: Negative or not required by law. Electronically signed by: Vj Villatoro M.D. 01/04/2021 11:08 AM Discharge Plan Visit Data Chief Complaint: Shortness of Breath/Dyspnea Stated Complaint: RESP DISTRESS ED Provider: Keven Genao ED Midlevel Provider: Jaciel Barnard Discharge Problem: Hypoxia, Headache, SOB (shortness of breath), Hypomagnesemia Patient Disposition: Being Evaluated by Hospitalist Forms Stand Alone Forms: My [employer] Prescriptions Prescriptions: No Action metoprolol tartrate 50 mg tablet 50 mg PO BID Qty: 180 RF: 3 metformin 500 mg tablet 1,000 mg PO BID Qty: 360 RF: 3 lisinopril 20 mg tablet 20 mg PO QAM Qty: 90 RF: 3 atorvastatin 20 mg tablet 20 mg PO HS Qty: 90 RF: 3 hydralazine 25 mg tablet 25 mg PO BID Qty: 60 RF: 5 PreserVision AREDS [id number] Capsule 1 cap PO QAM RF: 0 glimepiride 1 mg tablet 1 mg PO QAM RF: 0 Referrals Referrals: Neville Craig III, MD [Primary Care Provider] -
--- NOTE | 2021-01-04 07:29 | CT Scan Report ---
CT head/brain wo con CLINICAL HISTORY: ALMEIDA Technique: Contiguous axial CT images of the head were acquired from the base of the skull to the reymundo phylicia without intravenous contrast administration. Images were viewed in brain, subdural and bone [facility] . Automated dose lowering techniques and/or adjustment according to patient size were utilized for this exam. Comparison: Comparison is made to CT head 09/18/2018 Findings: Areas of decreased attenuation are present in the periventricular and subcortical white matter bilate rally consistent with small vessel ischemic disease. Generalized cerebral atrophy with commensurate e nlargement of the ventricles, sulci, and cisterns is also present. There is no acute intracranial hem orrhage or evidence of acute territorial infarction. No shift of the midline structures, mass effect, or extra-axial abnormalities are shown. Atherosclerotic calcifications are present in the intracran ial segments of the internal carotid arteries. A mucous retention cyst seen on the left. The orbits appear normal. There are no acute fractures of the calvaria or scalp swelling. Impression: No acute intracranial hemorrhage, no evidence of acute territorial infarction or other acute intracra nial disease process. ACT 112: Negative or not required by law. Electronically signed by: Vj Villatoro M.D. 01/04/2021 7:27 AM
[2021-01-04 07:30] LABS: Albumin Level 3.4 gm/dl (3.4-5.0); BUN Creatinine Ratio 12.8 (10-20); Calcium 9.8 mg/dl (8.5-10.1); Creatinine Clr Calc Pharmacy 39.6 ml/min; Est GFR (African American) 47.2 ml/min; Est GFR (Non-African American) 40.7 ml/min; Magnesium 1.5 mg/dl (1.8-2.4)
[2021-01-04 07:41] LABS: Albumin Globulin Ratio 0.9 (0.9-2); Bilirubin,Total 0.5 mg/dl (0.2-1); Globulin 3.6 gm/dl (2.5-4.0); Thyroid Stimulating Hormone 0.825 uIu/ml (0.300-4.500); Troponin I 0.024 ng/ml (0-0.045)
--- NOTE | 2021-01-04 08:06 | XRay Report ---
XR chest 1V portable HISTORY: 80 years-old Female weakness acute weakness COMPARISON: Chest radiograph 02/11/2020 TECHNIQUE: Portable AP view of the chest FINDINGS: Cardiac silhouette is enlarged, unchanged. Calcified plaque of the thoracic aorta. Mild interstitial coarsening of the lung bases. No pneumothorax, large pleural effusion or overt pulmonary edema. Degen erative changes of the shoulders and spine. IMPRESSION: 1. Cardiomegaly without pulmonary edema. 2. Interstitial coarsening of the lung bases suggests atelectasis/scarring, mildly progressed from co mparison. Pneumonitis considered less likely. ACT 112: Negative or not required by law. The above report was generated using voice recognition software. It may contain grammatical, syntax o r spelling errors. Electronically signed by: Edward Chapa M.D. 01/04/2021 8:05 AM
[2021-01-04] MEDS: MAGNESIUM SULFATE / D5W 1 GM/100 ML BAG IV SCH ×2 (08:20→09:20)
[2021-01-04 08:47] LABS: Appearance Urine Clear (Clear); Bacteria Urine Automated Negative (Negative); Bilirubin Urine Negative (Negative); Blood Urine Negative (Negative); Color Urine Yellow; Glucose Urine UA Negative (Negative); Ketones Urine Trace (Negative); Leukocyte Esterase Urine Negative (Negative); Nitrite Urine Negative (Negative); Protein Urine Trace (Negative); RBC Urine Automated 0-4 /hpf (0-4); Specific Gravity Urine 1.013 (1.000-1.030); Urobilinogen Urine Negative (Negative)
[2021-01-04 09:31] LABS: D Dimer 1120 ug/L FEU (0-500)
[2021-01-04] MEDS ORDERED: OPTIRAY 320 125ml IV ONE ×2 (10:52→10:54)
--- NOTE | 2021-01-04 11:10 | CT Scan Report ---
CT angio chest PE protocol CLINICAL HISTORY: PE TECHNIQUE: Multidetector row helical CT of the chest was performed. Coronal and sagittal reformations were obtained. Automated dose lowering techniques and/or adjustment according to patient size were u tilized for this exam. Comparison: None available at the time of this dictation. FINDINGS: Lungs and pleura: Atelectasis is seen in the dependent portion of the bilateral lungs. Tracheomalacia is seen. Heart and pericardium: There is cardiomegaly without evidence of pericardial effusion. Vessels: No evidence of pulmonary embolism. Mediastinum and derrell: Multiple mediastinal lymph nodes are seen, largest measuring 12 mm in short axi s. Chest wall and lower neck: A large calcified right thyroid nodule is seen measuring 24 mm. Abdomen: Patient is status post cholecystectomy. A hiatal hernia is seen. Bones: Degenerative changes in the thoracic spine. IMPRESSION: 1. No evidence of pulmonary embolism. 2. Cardiomegaly is noted. 3. Multiple enlarged mediastinal lymph nodes, clinical correlation is recommended. 4. Multiple thyroid nodules. If not previously evaluated, a nonemergent thyroid ultrasound can be pe rformed. ACT 112: Negative or not required by law. Electronically signed by: Vj Villatoro M.D. 01/04/2021 11:08 AM
[2021-01-04] MEDS ORDERED: METOPROLOL TARTRATE 50 MG TAB PO STA (11:54)
[2021-01-04] MEDS ORDERED: hydrALAZINE HCL 25 MG TAB PO STA (11:54)
[2021-01-04] MEDS ORDERED: lisinopril 20 MG TAB PO STA (11:54)
--- NOTE | 2021-01-04 12:01 | History & Physical Report ---
Date of Service January 04, 2021 Assessment & Plan (1) Hypertensive emergency: Plan: BPs are markedly elevated at time of ER presentation. A review of her record shows mild elevations in the past but nothing like today. She had a significant salt load yesterday evening which may have precipitated this. Her headache was likely a manifestation of her HTN emergency. Will need serial troponins to ensure no ACS. Fortunately her creatinine is stable. Was given all of her 3 home BP meds in ER. Reassess her response to such. May need IV therapy if refractory. See #2 below regarding suspicion of acute diastolic CHF in the setting of her HTN emergency. (2) Acute diastolic CHF (congestive heart failure): Plan: I suspect she has mild hypervolemia in the setting of a salt load yesterday and uncontrolled HTN. Last echo was 01/2020 showing preserved EF but grade 1 diastolic dysfunction. Repeat echo requested. Control the HTN. Resume her usual BP meds. Lasix 20mg IV x 1. Follow response. I suspect her nocturnal wheezing overnight may have been pulmonary edema - she does have bibasilar rales on exam, along with peripheral edema. (3) Headache: Plan: Suspect this was due to severe BP elevation at presentation. The headache is now improved s/p magnesium IV and tylenol. She has a normal CT head. She has a normal neurological exam. Monitor carefully for recurrence and consider more imaging (MRI, CTAs, etc) if needed. Control the HTN. COVID neg. RSV/flu neg. I don't believe she is in the beginning of an illness. CTA chest does not show pneumonia or findings suggestive of bronchitis. (4) CKD (chronic kidney disease) stage 3, GFR 30-59 ml/min: Plan: Baseline CrCL 30s; thus, stage 3B. BMP in am given IV contrast given, uncontrolled HTN, etc. (5) Type 2 diabetes mellitus with stage 3 chronic kidney disease and hype rtension: Plan: Does not check BSGs at home. She has elevated glucose of 200 at presentation. Check a1c. Hold metformin. Hold glimepiride. Start lantus 10 units HS - adjust as needed. Start novolog SSI - correction factor 45, carb ratio 1:15. T2DM diet. BSGs ac/hs. (6) Hyperlipidemia: Plan: Cont statin. LDL in 05/2020 was <70. LFTs wnl. (7) Hypertension: Plan: With HTN emergency - see #1 above. Was given her usual meds in the ER by ER attending - metoprolol, lisinopril, and hydralazine. Follow response in ER while awaiting her bed. She may need adjustments in her BP meds. Ideally Mrs Macias is on daily aspirin given her multiple risk factors for CVA, CAD, etc. Start asa 81mg daily. (8) Goiter: Plan: TSH wnl. One of the nodules is calcified and >2cm in size. Should see Endocrinology as outpatient - may need biopsy. I counseled her about the nodules and that she will need an u/s, endo referral, etc in the future. (9) Morbid obesity with BMI of 40.0-44.9, adult: Plan: BMI 40.7 (10) Hypomagnesemia: Plan: was given 2 grams mag sulfate x 1 in ER for mag level 1.5. will recheck mag level in am. (11) DVT prophylaxis: Plan: heparin 7500 units TID due to morbid obesity, weight 101 kg (12) Atrial flutter: Plan: h/o - 01/2020 during her admission for COVID-19 pneumonia. No a.flutter or fib since arrival. Monitor on telemetry. She is not on chronic anticoagulation. History of Present Illness Chief Complaint: headache, nausea, dizzy, weak Primary Care Provider: Neville Craig MD 80yo female with T2DM, h/o paroxysmal a flutter, HTN, and COVID-19 infection 2019 requiring hospitalization. She presents to the hospital with severe headache. It woke her out of her sleep overnight. Location - posterior occiput and neck. She is not one to get headaches. Denies any paresthesias or focal motor weakness although had generalized weakness. Denies any visual change. NO vertigo. NO falls or true ataxia. The headache is now resolved. Had associated nausea - now resolved. No vomiting. No chest pain or abd pain. She felt wheezy in the middle of the night - now improved. Has slight cough - but nothing prominent. Denies myalgias. Denies dysuria or skin rashes. No sick contacts. No travel. Did not take any BP meds before coming. She admits to eating a large bowl of salt and vinegar potato chips right before going to bed last evening. Allergies Allergy/AdvReac Type Severity Reaction Status Date / Time No Known Allergies Allergy Verified 01/04/21 07:30 Home Medications Medication Instructions Recorded Confirmed Type vitamins A,C,H-osbq-zesmwm 14,320 1 cap PO QAM 09/18/18 01/04/21 History unit-226 mg-200 unit capsule (PreserVision AREDS) metoprolol tartrate 50 mg tablet 50 mg PO BID #180 tab 04/06/20 01/04/21 Rx metformin 500 mg tablet 1,000 mg PO BID #360 tab 07/05/20 01/04/21 Rx lisinopril 20 mg tablet 20 mg PO QAM #90 tab 11/23/20 01/04/21 Rx atorvastatin 20 mg tablet 20 mg PO HS #90 tab 01/03/21 01/04/21 Rx hydralazine 25 mg tablet 25 mg PO BID #60 tab 01/03/21 01/04/21 Rx glimepiride 1 mg tablet 1 mg PO QAM 01/04/21 01/04/21 History Past Med/Surg History Medical History (Updated 01/04/21 @ 14:01 by Tiago Epperson) Atrial flutter (02/11/20) Paroxysmal COVID-19 (02/11/20) required hospitalization [facility] x 3 weeks Diabetes type 2, controlled History of basal cell carcinoma (11/2018) Hyperlipidemia Hypertension Lipoma of back s/p removal Morbid obesity Nontoxic multinodular goiter DESTINEY (obstructive sleep apnea) Osteopenia Surgical History (Updated 01/04/21 @ 12:16 by Tiago Epperson) History of salpingectomy History of Salpingectomy for ectopic Hx laparoscopic cholecystectomy Family History (Updated 01/04/21 @ 12:18 by Tiago Epperson) Father , age 69 Coronary heart disease Myocardial infarction Mother , age 92 Tobacco use Lung cancer suspected just prior to her Daughter Melanoma Grandmother (Paternal) Stroke Denies family history of Ovarian cancer Prostate cancer Breast cancer FH: brain aneurysm Colorectal cancer Social History (Updated 01/04/21 @ 12:19 by Tiago Epperson) Smoking Status: Never smoker Tobacco Type: Cigarettes Second Hand Exposure: No; Hx Alcohol Use: No Hx Substance Use: No Preferred Language: Yakut Visual Impairment: No Limitations Hearing Ability: Normal Beliefs That Will Affect Care: None marital status: Current Living Situation: Family Current Living Situation Comment: Daughter Jocelyne current occupational status: retired 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 [employer] How many Children do You have: 3 Feels Safe at Home: Yes Dental Care, Regularly: Yes Physical Activity Frequency: Does not Exercise Seatbelt Use: always Assistive Devices: Glasses Review of Systems Constitutional: + chills (had such early this AM ) and + weakness; no fever, no body aches and no anorexia Eyes: no discharge and no worsening vision Ear, Nose, Mouth, Throat: no ear pain, no nasal discharge and no sore throat Respiratory: + cough (slight) and + dyspnea (slight ) Cardiovascular: + edema (ankles ); no chest pain Gastrointestinal: + nausea; no abdominal pain, no vomiting and no diarrhea/loose stools Genitourinary: no dysuria Musculoskeletal: no joint pain and no myalgia Integumentary: no rash Neurologic: + headache(s); no localized weakness and no loss of sensation Psychiatric: no depression and no anxiety Endocrine: BSGs - does not test Hematologic / Lymphatic: no easy bleeding and no easy bruising Physical Exam Physical Exam: Gen - NAD, pleasant, a/o x 3; obese Eyes - PERRL, lens implants b/l, EOMI, conjunctiva clear HENT - TMs clear b/l, nose clear, throat clear, MMM; no tenderness to palpation on back of head/occiput Neck - mild JVD present, multiple nodules palpated in thyroid; no meningismus or tenderness to palpation or with active ROM Heart - RRR, s1 s2, no murmur Lungs - bibasilar rales, no wheeze, no increased work of breath Abd - soft, NT, ND, BS+, no HSM Ext - 1+ edema b/l, pulses 2+ b/l Neuro - no facial droop, EOMI, speech clear/fluent, strength 5/5 x 4 exts; DTRs 2+ b/l upper and lower extremities; finger/nose/finger maneuver w/o dysmetria b/l; gait not tested Skin - no rash Psych - a/o x 3 Lymph - no cervical lymph nodes b/l Results & Data Results & Data ([facility]) Vital Signs (Past 12 Hours) Vital Signs Temp Pulse Pulse Resp BP BP Pulse Ox 01/04/21 11:11 78 16 220/89 H 94 01/04/21 10:10 80 18 196/84 H 95 01/04/21 08:24 66 16 188/71 H 97 01/04/21 07:23 63 18 176/72 H 99 01/04/21 06:33 69 18 99 01/04/21 06:07 82 18 190/84 H 97 01/04/21 06:03 37 C 91 H 18 190/84 H 97 Laboratory Results Laboratory Results - last 24 hr 01/04/21 01/04/21 01/04/21 06:10 06:10 06:10 WBC 7.99 RBC 4.04 L Hgb 11.5 L Hct 36.4 L MCV 90.1 MCH 28.5 MCHC 31.6 L RDW Std Deviation 47.2 H RDW Coeff of Charlene 14.2 Plt Count 216 MPV 11.1 H Immature Gran % (Auto) 0.3 Neut % (Auto) 75.4 Lymph % (Auto) 15.6 Emanuel % (Auto) 6.1 Eos % (Auto) 2.3 Baso % (Auto) 0.3 Neut # (Auto) 6.03 Lymph # (Auto) 1.25 Emanuel # (Auto) 0.49 Eos # (Auto) 0.18 Baso # (Auto) 0.02 Immature Gran # (Auto) 0.02 PT 10.2 INR 1.0 APTT 22.8 PTT Ratio 0.9 D-Dimer Sodium 141 Potassium 4.0 Chloride 109 H Carbon Dioxide 24 Anion Gap 8.0 BUN 16 Creatinine 1.24 H Est Cr Clr Drug Dosing 39.6 Est GFR ( Amer) 47.2 Est GFR (Non-Af Amer) 40.7 BUN/Creatinine Ratio 12.8 Glucose 209 H Calcium 9.8 Magnesium 1.5 L Total Bilirubin 0.5 AST 30 ALT 40 Alkaline Phosphatase 88 Troponin I 0.024 Total Protein 7.0 Albumin 3.4 Globulin 3.6 Albumin/Globulin Ratio 0.9 TSH 0.825 Urine Color Urine Appearance Urine pH Ur Specific Conklin Urine Protein Urine Glucose (UA) Urine Ketones Urine Blood Urine Nitrite Urine Bilirubin Urine Urobilinogen Ur Leukocyte Esterase Urine WBC (Auto) Urine RBC (Auto) U Hyaline Cast (Auto) U Epithel Cells (Auto) Urine Bacteria (Auto) COVID-19 Eval Order SARS-CoV-2 (PCR) Influenza Type A Ag Influ A Molecular Assay Influenza Type B Ag Influ B Molecular Assay RSV (Molecular) 01/04/21 01/04/21 01/04/21 06:10 08:02 12:06 WBC RBC Hgb Hct MCV MCH MCHC RDW Std Deviation RDW Coeff of Charlene Plt Count MPV Immature Gran % (Auto) Neut % (Auto) Lymph % (Auto) Emanuel % (Auto) Eos % (Auto) Baso % (Auto) Neut # (Auto) Lymph # (Auto) Emanuel # (Auto) Eos # (Auto) Baso # (Auto) Immature Gran # (Auto) PT INR APTT PTT Ratio D-Dimer 1120 H* Sodium Potassium Chloride Carbon Dioxide Anion Gap BUN Creatinine Est Cr Clr Drug Dosing Est GFR ( Amer) Est GFR (Non-Af Amer) BUN/Creatinine Ratio Glucose Calcium Magnesium Total Bilirubin AST ALT Alkaline Phosphatase Troponin I Total Protein Albumin Globulin Albumin/Globulin Ratio TSH Urine Color Yellow Urine Appearance Clear Urine pH 6.0 Ur Specific Conklin 1.013 Urine Protein Trace H Urine Glucose (UA) Negative Urine Ketones Trace H Urine Blood Negative Urine Nitrite Negative Urine Bilirubin Negative Urine Urobilinogen Negative Ur Leukocyte Esterase Negative Urine WBC (Auto) 1-5 Urine RBC (Auto) 0-4 U Hyaline Cast (Auto) 1-5 U Epithel Cells (Auto) 5-10 H Urine Bacteria (Auto) Negative COVID-19 Eval Order SARS-CoV-2 (PCR) Influenza Type A Ag Influ A Molecular Assay Cancelled Influenza Type B Ag Influ B Molecular Assay Cancelled RSV (Molecular) Negative 01/04/21 01/04/21 01/04/21 12:06 Unknown Unknown WBC RBC Hgb Hct MCV MCH MCHC RDW Std Deviation RDW Coeff of Charlene Plt Count MPV Immature Gran % (Auto) Neut % (Auto) Lymph % (Auto) Emanuel % (Auto) Eos % (Auto) Baso % (Auto) Neut # (Auto) Lymph # (Auto) Emanuel # (Auto) Eos # (Auto) Baso # (Auto) Immature Gran # (Auto) PT INR APTT PTT Ratio D-Dimer Sodium Potassium Chloride Carbon Dioxide Anion Gap BUN Creatinine Est Cr Clr Drug Dosing Est GFR ( Amer) Est GFR (Non-Af Amer) BUN/Creatinine Ratio Glucose Calcium Magnesium Total Bilirubin AST ALT Alkaline Phosphatase Troponin I Total Protein Albumin Globulin Albumin/Globulin Ratio TSH Urine Color Urine Appearance Urine pH Ur Specific Conklin Urine Protein Urine Glucose (UA) Urine Ketones Urine Blood Urine Nitrite Urine Bilirubin Urine Urobilinogen Ur Leukocyte Esterase Urine WBC (Auto) Urine RBC (Auto) U Hyaline Cast (Auto) U Epithel Cells (Auto) Urine Bacteria (Auto) COVID-19 Eval Order Covid19 at [facility] SARS-CoV-2 (PCR) NEGATIVE Influenza Type A Ag Neg for Influ A Influ A Molecular Assay Influenza Type B Ag Neg for Influ B Influ B Molecular Assay RSV (Molecular) Diagnostic Findings Head CT 01/04/21 06:30 CT head/brain wo con CLINICAL HISTORY: ALMEIDA Technique: Contiguous axial CT images of the head were acquired from the base of the skull to the vertex without intravenous contrast administration. Images were viewed in brain, subdural and bone windows. Automated dose lowering techniques and/or adjustment according to patient size were utilized for this exam. Comparison: Comparison is made to CT head 09/18/2018 Findings: Areas of decreased attenuation are present in the periventricular and subcortical white matter bilaterally consistent with small vessel ischemic disease. Generalized cerebral atrophy with commensurate enlargement of the ventricles, sulci, and cisterns is also present. There is no acute intracranial hemorrhage or evidence of acute territorial infarction. No shift of the midline structures, mass effect, or extra-axial abnormalities are shown. Atherosclerotic calcifications are present in the intracranial segments of the internal carotid arteries. A mucous retention cyst seen on the left. The orbits appear normal. There are no acute fractures of the calvaria or scalp swelling. Impression: No acute intracranial hemorrhage, no evidence of acute territorial infarction or other acute intracranial disease process. ACT 112: Negative or not required by law. Electronically signed by: Vj Villatoro M.D. 01/04/2021 7:27 AM Chest X-Ray 01/04/21 06:31 XR chest 1V portable HISTORY: 80 years-old Female weakness acute weakness COMPARISON: Chest radiograph 02/11/2020 TECHNIQUE: Portable AP view of the chest FINDINGS: Cardiac silhouette is enlarged, unchanged. Calcified plaque of the thoracic aorta. Mild interstitial coarsening of the lung bases. No pneumothorax, large pleural effusion or overt pulmonary edema. Degenerative changes of the shoulders and spine. IMPRESSION: 1. Cardiomegaly without pulmonary edema. 2. Interstitial coarsening of the lung bases suggests atelectasis/scarring, mildly progressed from comparison. Pneumonitis considered less likely. ACT 112: Negative or not required by law. The above report was generated using voice recognition software. It may contain grammatical, syntax or spelling errors. Electronically signed by: Edward Chapa M.D. 01/04/2021 8:05 AM Chest CTA 01/04/21 09:32 CT angio chest PE protocol CLINICAL HISTORY: PE TECHNIQUE: Multidetector row helical CT of the chest was performed. Coronal and sagittal reformations were obtained. Automated dose lowering techniques and/or adjustment according to patient size were utilized for this exam. Comparison: None available at the time of this dictation. FINDINGS: Lungs and pleura: Atelectasis is seen in the dependent portion of the bilateral lungs. Tracheomalacia is seen. Heart and pericardium: There is cardiomegaly without evidence of pericardial effusion. Vessels: No evidence of pulmonary embolism. Mediastinum and derrell: Multiple mediastinal lymph nodes are seen, largest measuring 12 mm in short axis. Chest wall and lower neck: A large calcified right thyroid nodule is seen m easuring 24 mm. Abdomen: Patient is status post cholecystectomy. A hiatal hernia is seen. Bones: Degenerative changes in the thoracic spine. IMPRESSION: 1. No evidence of pulmonary embolism. 2. Cardiomegaly is noted. 3. Multiple enlarged mediastinal lymph nodes, clinical correlation is recommended. 4. Multiple thyroid nodules. If not previously evaluated, a nonemergent thyroid ultrasound can be performed. ACT 112: Negative or not required by law. Electronically signed by: Vj Villatoro M.D. 01/04/2021 11:08 AM EKG - my reading - NSR, no ST changes, Q waves III and AVF Code Status & VTE Plan Code Status full code PG Care Time/CCT Total # of Minutes Spent Total Time Spent with Patient: Total time spent is greater than 50% in coordination of care (as documented) at patient's floor/unit and/or counseling patient: Coding Level of Care Code 19491 Initial Inpt Care Lvl 3 Diagnoses Hypertensive emergency I16.1 Acute diastolic CHF (congestive heart failure) I50.31 Headache R51.9 CKD (chronic kidney disease) stage 3, GFR 30-59 ml/min N18.30 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 Hypertension I10 Goiter E04.9 DVT prophylaxis Z29.9 Morbid obesity with BMI of 40.0-44.9, adult E66.01; Z68.41 Hypomagnesemia E83.42 Atrial flutter I48.92 Atrial flutter type: unspecified (1) Atrial flutter Atrial flutter type: unspecified Qualified Code(s): I48.92 - Unspecified atrial flutter
[2021-01-04] MEDS ORDERED: MAGNESIUM SULFATE / D5W 1 GM/100 ML BAG IV STA (12:46)
[2021-01-04 13:42] LABS: Estimated Average Glucose 146 mg/dl; Hemoglobin A1C 6.7 % (4.5-5.6)
[2021-01-04] MEDS ORDERED: FUROSEMIDE 40 MG/4 ML VIAL IV ONE (13:58)
[2021-01-04] MEDS ORDERED: NITROGLYCERIN SL 0.4 MG/TAB TAB SL PRN (15:02)
[2021-01-04] MEDS ORDERED: ACETAMINOPHEN 500 MG TAB PO PRN (15:02)
[2021-01-04] MEDS ORDERED: ONDANSETRON INJ 2 MG/ML 2 ML VIAL IV PRN (15:02)
[2021-01-04] MEDS ORDERED: CARBOHYDRATES FOR HYPOGLYCEMIA PO PRN (15:30)
[2021-01-04] MEDS ORDERED: GLUCOSE 40% GEL 15 GM TUBE PO PRN (15:30)
[2021-01-04] MEDS ORDERED: DEXTROSE 50% 50 ML SYRINGE IV PRN (15:30)
[2021-01-04] MEDS ORDERED: GLUCAGON FOR INJ 1 MG VIAL IM PRN (15:30)
[2021-01-04] MEDS ORDERED: GLUCOSE 10 TABS/TUBE PO PRN (15:30)
[2021-01-04] MEDS: ASPIRIN 81 MG ECTAB PO SCH (16:52)
[2021-01-04] MEDS: INSULIN ASPART 100 UNITS/ML 3 ML PEN SC SCH ×2 (16:53→20:48)
--- NOTE | 2021-01-04 18:48 | XCELERA ---
[id number] \\[id number]
[2021-01-04] MEDS: hydrALAZINE TAB 50 MG TAB PO SCH (20:48)
[2021-01-04] MEDS ORDERED: INSULIN GLARGINE SOLOSTAR 100 UNITS/ML 3 ML PEN SC SCH (21:00)
[2021-01-04] MEDS ORDERED: ATORVASTATIN 20 MG TAB PO SCH (21:00)
[2021-01-04] MEDS ORDERED: hydrALAZINE HCL 25 MG TAB PO SCH (21:00)
[2021-01-04] MEDS: METOPROLOL TARTRATE 50 MG TAB PO SCH (22:10)
[2021-01-05] MEDS ORDERED: METOPROLOL TARTRATE 1 MG/ML VIAL IV STA (04:40)
[2021-01-05] MEDS ORDERED: hydrALAZINE HCL 20 MG/ML VIAL IV STA (05:25)
[2021-01-05 05:43] LABS: BUN Creatinine Ratio 10.7 (10-20); Calcium 9.8 mg/dl (8.5-10.1); Creatinine Clr Calc Pharmacy 39.9 ml/min; Est GFR (African American) 47.6 ml/min; Est GFR (Non-African American) 41.1 ml/min; Potassium 3.8 mmol/L (3.5-5.1)
--- NOTE | 2021-01-05 06:12 | Electrocardiogram Report ---
Test Reason : Blood Pressure : / mmHG Vent. Rate : 092 BPM Atrial Rate : 092 BPM P-R Int : 158 ms QRS Dur : 080 ms QT Int : 364 ms P-R-T Axes : 013 -14 048 degrees QTc Int : 450 ms Normal sinus rhythm Inferior infarct , age undetermined Abnormal ECG When compared with ECG of 16-FEB-2020 08:28, Premature atrial complexes are no longer Present T wave inversion no longer evident in Inferior leads Confirmed by Yahir Wray ([id number]) on 01/05/2021 6:12:01 AM Referred By: Confirmed By:Yahir Wray
[2021-01-05] MEDS ORDERED: CEROVITE ADV FORMULA TAB PO SCH (09:00)
[2021-01-05] MEDS ORDERED: lisinopril 20 MG TAB PO SCH (09:00)
[2021-01-05] MEDS: INSULIN ASPART 100 UNITS/ML 3 ML PEN SC SCH ×2 (09:13→12:20)
[2021-01-05] MEDS: ASPIRIN 81 MG ECTAB PO SCH (09:14)
[2021-01-05] MEDS: METOPROLOL TARTRATE 50 MG TAB PO SCH (09:14)
[2021-01-05] MEDS: HEPARIN SOD 5,000 UNIT/0.5 ML VIAL SQ SCH ×2 (09:14→12:21)
[2021-01-05] MEDS ORDERED: hydrALAZINE HCL 25 MG TAB ONE (09:17)
[2021-01-05] MEDS: hydrALAZINE TAB 50 MG TAB PO SCH (09:25)
--- NOTE | 2021-01-05 14:56 | Discharge Summary ---
Date of Service January 05, 2021 Admission HPI Per Admitting Provider 80yo female with T2DM, h/o paroxysmal a flutter, HTN, and COVID-19 infection 2019 requiring hospitalization. She presents to the hospital with severe headache. It woke her out of her sleep overnight. Location - posterior occiput and neck. She is not one to get headaches. Denies any paresthesias or focal motor weakness although had generalized weakness. Denies any visual change. NO vertigo. NO falls or true ataxia. Headache resolved at the time of admission. Had associated nausea - now resolved. No vomiting. No chest pain or abd pain. She felt wheezy in the middle of the night - now improved. Has slight cough - but nothing prominent. Denies myalgias. Denies dysuria or skin rashes. No sick contacts. No travel. Did not take any BP meds before coming. She admits to eating a large bowl of salt and vinegar potato chips right before going to bed last evening. Admission Exam Per Admitting Provider Gen - NAD, pleasant, a/o x 3; obese Eyes - PERRL, lens implants b/l, EOMI, conjunctiva clear HENT - TMs clear b/l, nose clear, throat clear, MMM; no tenderness to palpation on back of head/occiput Neck - mild JVD present, multiple nodules palpated in thyroid; no meningismus or tenderness to palpation or with active ROM Heart - RRR, s1 s2, no murmur Lungs - bibasilar rales, no wheeze, no increased work of breath Abd - soft, NT, ND, BS+, no HSM Ext - 1+ edema b/l, pulses 2+ b/l Neuro - no facial droop, EOMI, speech clear/fluent, strength 5/5 x 4 exts; DTRs 2+ b/l upper and lower extremities; finger/nose/finger maneuver w/o dysmetria b/l; gait not tested Skin - no rash Psych - a/o x 3 Lymph - no cervical lymph nodes b/l Principal Diagnosis 1. Hypertensive emergency 2. Acute diastolic CHF 3. Headache d/t #1 - resolved w/o recurrence 4. Goiter - will require o/p follow up 5. Hypomagnesemia - replaced/resolved Chronic Medical Problems: 1. CKD Stage 3 2. T2DM 3. HLD 4. HTN 5. Paroxysmal Atrial Fibrillation 6. Morbid Obesity, BMI 40.7 Discharge Exam Vital Signs Temp Pulse Pulse Resp BP Pulse Ox 01/05/21 15:05 37.1 C 69 17 142/60 H 95 01/05/21 13:07 69 17 142/60 H 95 01/05/21 13:00 70 17 142/60 H 95 01/05/21 09:09 37.1 C 70 17 165/63 H 95 01/05/21 06:52 68 179/61 H 01/05/21 05:49 59 L 01/05/21 05:25 57 L 183/76 H 01/05/21 04:00 36.8 C 74 16 204/74 H 95 01/05/21 00:02 36.8 C 62 17 155/49 H 95 01/04/21 19:22 36.8 C 64 58 L 20 172/72 H 96 01/04/21 15:54 36.9 C 63 17 211/83 H 94 GENERAL: 80 yo obese elderly WF. Pleasant, cooperative. NAD. LUNGS: Clear to auscultation bilaterally. No accessory muscle use. No W/R/R. CARDIOVASCULAR: Irregularly irregular. No M/G/R. No JVD. ABDOMEN: Soft, non-tender and non-distended. No palpable masses. Bowel sounds normoactive x 4 quad. EXTREMITIES: No edema. Non-tender. Peripheral pulses +2/4. NEUROLOGIC: A&O x3. PSYCHIATRIC: Cooperative. Appropriate mood and affect. SKIN: Warm, dry, intact. No rashes or lesions. Discharge Data Allergies Allergy/AdvReac Type Severity Reaction Status Date / Time No Known Allergies Allergy Verified 01/04/21 07:30 Consultations None Procedures Performed None Ordered Studies Head CT 01/04/21 06:30 CT head/brain wo con CLINICAL HISTORY: ALMEIDA Technique: Contiguous axial CT images of the head were acquired from the base of the skull to the vertex without intravenous contrast administration. Images were viewed in brain, subdural and bone windows. Automated dose lowering techniques and/or adjustment according to patient size were utilized for this exam. Comparison: Comparison is made to CT head 09/18/2018 Findings: Areas of decreased attenuation are present in the periventricular and subcortical white matter bilaterally consistent with small vessel ischemic disease. Generalized cerebral atrophy with commensurate enlargement of the ventricles, sulci, and cisterns is also present. There is no acute intracranial hemorrhage or evidence of acute territorial infarction. No shift of the midline structures, mass effect, or extra-axial abnormalities are shown. Athero sclerotic calcifications are present in the intracranial segments of the internal carotid arteries. A mucous retention cyst seen on the left. The orbits appear normal. There are no acute fractures of the calvaria or scalp swelling. Impression: No acute intracranial hemorrhage, no evidence of acute territorial infarction or other acute intracranial disease process. ACT 112: Negative or not required by law. Electronically signed by: Vj Villatoro M.D. 01/04/2021 7:27 AM Chest X-Ray 01/04/21 06:31 XR chest 1V portable HISTORY: 80 years-old Female weakness acute weakness COMPARISON: Chest radiograph 02/11/2020 TECHNIQUE: Portable AP view of the chest FINDINGS: Cardiac silhouette is enlarged, unchanged. Calcified plaque of the thoracic aorta. Mild interstitial coarsening of the lung bases. No pneumothorax, large pleural effusion or overt pulmonary edema. Degenerative changes of the shoulders and spine. IMPRESSION: 1. Cardiomegaly without pulmonary edema. 2. Interstitial coarsening of the lung bases suggests atelectasis/scarring, mildly progressed from comparison. Pneumonitis considered less likely. ACT 112: Negative or not required by law. The above report was generated using voice recognition software. It may contain grammatical, syntax or spelling errors. Electronically signed by: Edward Chapa M.D. 01/04/2021 8:05 AM Chest CTA 01/04/21 09:32 CT angio chest PE protocol CLINICAL HISTORY: PE TECHNIQUE: Multidetector row helical CT of the chest was performed. Coronal and sagittal reformations were obtained. Automated dose lowering techniques and/or adjustment according to patient size were utilized for this exam. Comparison: None available at the time of this dictation. FINDINGS: Lungs and pleura: Atelectasis is seen in the dependent portion of the bilateral lungs. Tracheomalacia is seen. Heart and pericardium: There is cardiomegaly without evidence of pericardial effusion. Vessels: No evidence of pulmonary embolism. Mediastinum and derrell: Multiple mediastinal lymph nodes are seen, largest measuring 12 mm in short axis. Chest wall and lower neck: A large calcified right thyroid nodule is seen measuring 24 mm. Abdomen: Patient is status post cholecystectomy. A hiatal hernia is seen. Bones: Degenerative changes in the thoracic spine. IMPRESSION: 1. No evidence of pulmonary embolism. 2. Cardiomegaly is noted. 3. Multiple enlarged mediastinal lymph nodes, clinical correlation is recommended. 4. Multiple thyroid nodules. If not previously evaluated, a nonemergent thyroid ultrasound can be performed. ACT 112: Negative or not required by law. Electronically signed by: Vj Villatoro M.D. 01/04/2021 11:08 AM EKG -NSR, no ST changes, Q waves III and AVF Echocardiogram: 01/04/2021 1. Normal LV size and systolic function. EF 55-60%. No regional wall motion abnormalities. Mild concentric LVH. 2. Severe left atrial dilation. 3. Mild mitral regurgitation. 4. Normal estimated right ventricular systolic pressure. 5. No significant change from prior study on 02/28/2020. Hospital Course (1) Hypertensive emergency: BPs are markedly elevated at time of ER presentation. A review of her record shows mild elevations in the past but nothing like today. She had a significant salt load yesterday evening which may have precipitated this. Her headache was likely a manifestation of her HTN emergency. Serial troponins ordered, pt had one that was slightly elevated at 0.061; however, this was felt to be reflective of demand ischemia in the setting of hypertensive emergency. Given all BP meds in ED as well as a dose of Lasix IV. Hydralazine adjusted/increased to 50mg BID. Pt's BP today greatly improved and acceptable for discharge with outpatient follow up. Would advise cardiology follow up as an outpatient -- may want to consider outpatient stress test/stress echo given slight bump in trop. See #2 below regarding suspicion of acute diastolic CHF in the setting of her HTN emergency. (2) Acute diastolic CHF (congestive heart failure): Mild hypervolemia suspected in the setting of a salt load yesterday and uncontrolled HTN. Last echo was 01/2020 showing preserved EF but grade 1 d iastolic dysfunction. Repeat echo ordered with results as noted above. Given a dose of IV Lasix 20mg x1 with good diuresis. (3) Headache: Suspect this was due to severe BP elevation at presentation which improved s/p magnesium IV and tylenol in ED. Head CT negative. No further headache complaints today. (4) CKD (chronic kidney disease) stage 3, GFR 30-59 ml/min: Baseline CrCL 30s; thus, stage 3B. Follow up BMP this AM reflects ongoing stable renal function. (5) 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: Does not check BSGs at home. She has elevated glucose of 200 at presentation. Oral meds held (metformin and glimepiride). Started on lantus 10 units HS. Started on novolog SSI - correction factor 45, carb ratio 1:15. T2DM diet. BSGs ac/hs. Follow up ha1c this admission 6.7%. Can resume home regimen at home. Would recommend checking blood sugars, particular fasting in AM, once daily. (6) Hyperlipidemia: Cont statin. LDL in 05/2020 was <70. LFTs wnl. (7) Hypertension: With HTN emergency - see #1 above. Was given her usual meds in the ER by ER attending - metoprolol, lisinopril, and hydralazine. Follow response in ER while awaiting her bed. Hydralazine increased to 50mg BID. Has multiple risk factors for CAD/CVA, would recommend daily Aspirin 81mg daily. (8) Goiter: TSH wnl. One of the nodules is calcified and >2cm in size. Should see Endocrinology as outpatient - may need biopsy. Will need an u/s, endo referral which can be arranged by her PCP as an outpatient. (9) Morbid obesity with BMI of 40.0-44.9, adult: BMI 40.7 - would advise diet modification, light aerobic exercise to induce weight loss. (10) Hypomagnesemia: was given 2 grams mag sulfate x 1 in ER for mag level 1.5 and this morning repeat mag 2.0. (11) Atrial flutter: h/o - 01/2020 during her admission for COVID-19 pneumonia. On my exam, patient in atrial fibrillation with CVR. Her [id number] score 6, HAS-BLED 2. Patient should be started on chronic anticoagulation. Will start her on Eliquis 5mg BID as an outpatient. Echo performed this admission. Cardiology follow up as an outpatient. Patient is medically and hemodynamically stable for discharge home today with outpatient follow up. Total Time Total Time Spent Total Time Spent (In Minutes): <30 minutes Discharge Plan Discharge Items Patient Disposition: Home - Self-Care Reason For Visit: HYPERTENSIVE EMERGENCY Discharge Diagnosis: Uncontrolled blood pressure Activity: Resume your previous activity Non-emergency contact: Primary Care Provider Call non-emergency contact if: you have any medication questions and your symptoms worsen Follow-up/Referrals: Neville Craig III, MD [Primary Care Provider] - Yahir Wray MD [Physician] - (Follow up within 1-2 weeks. Mildly elevated trop, hypertensive urgency. ) Diet: Carb Consistent or DM2 and Heart Healthy Addtl Attending Provider Instructions: 1. Take all medications as directed. 2. Note change in Hydralazine dose from 25mg to 50mg twice daily. Monitor blood pressure at home. 3. Start taking blood thinner: Eliquis, for intermittent irregular heart rhythm. 4. Follow up with cardiology within 1-2 weeks. Would benefit from stress test/stress echo. 5. Will require referral to endocrine for f/u thyroid nodules and future biopsy. 6. Follow up with family doctor within 1 week of discharge. Pending Studies at Discharge: No Stand-Alone Forms: My [facility] [place] [employer], Smoking Cessation Medications and DC Order Prescriptions: New hydralazine 50 mg Tablet 50 mg PO BID Qty: 60 RF: 0 Eliquis 5 mg tablet 5 mg PO BID Qty: 60 RF: 0 Continued metoprolol tartrate 50 mg tablet 50 mg PO BID Qty: 180 RF: 3 metformin 500 mg tablet 1,000 mg PO BID Qty: 360 RF: 3 lisinopril 20 mg tablet 20 mg PO QAM Qty: 90 RF: 3 atorvastatin 20 mg tablet 20 mg PO HS Qty: 90 RF: 3 PreserVision AREDS [id number] Capsule 1 cap PO QAM RF: 0 glimepiride 1 mg tablet 1 mg PO QAM RF: 0 Discontinued hydralazine 25 mg tablet 25 mg PO BID Qty: 60 RF: 5 Discharge Orders: Discharge Order (Routine); Ordered 01/05/21 Ordered By: Kristina Pena/Other Patient Handouts: Blood Pressure Check Steps Admission Data Admit Date/Time: 01/04/21 13:03 Attending Provider: Cristopher Quintana Admit Provider: Tiago Epperson Primary Care Provider: Neville Craig III Other Providers: Tiago Epperson Other Interventions: Discharge Summary Assessment (RN) Last Done: 01/05/21 15:05 Coding Level of Care Code D/C DAY MANAGEMENT >30 MINS Diagnoses Hypertensive emergency I16.1 Acute diastolic CHF (congestive heart failure) I50.31 Headache R51.9 CKD (chronic kidney disease) stage 3, GFR 30-59 ml/min N18.30 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 Hypertension I10 Goiter E04.9 Morbid obesity with BMI of 40.0-44.9, adult E66.01; Z68.41 Hypomagnesemia E83.42 Atrial flutter I48.92 Atrial flutter type: unspecified
== END 2021-01-05 15:49 | disposition home or self-care (01) | DRG 304 ==
LOC: ED 05:53 → EDINP 13:03 → SUATTDRO 13:03 → INTOOBSV 13:03 → EDINP 15:01

== ENCOUNTER 2022-09-12 10:48 | Inpatient (IN) ==
[2022-09-12] MEDS ORDERED: ONDANSETRON INJ 2 MG/ML 2 ML VIAL IV STA (11:27)
--- NOTE | 2022-09-12 11:27 | Emergency Department Note ---
History of Present Illness General Chief complaint: Hypertension Stated complaint: DIZZINESS Time Seen by Provider: 09/12/22 11:15 History of Present Illness Provider complaint: Headache nausea dizziness Onset (ago): hour(s) 4 Maximum Pain Intensity: 4 82-year-old female presents emergency department for headache nausea and dizziness. Patient reports her symptoms began at 7 AM. Patient reports she is on Eliquis. Patient is on 3 different hypertensive medications metoprolol lisinopril and hydralazine. Patient states she did take them this morning. Patient is diabetic. She reports no chest pain or difficulty breathing. She reports nausea. No vomiting. No abdominal pain. Home Medications Medication Instructions Recorded Confirmed Type vitamins A,C,K-sqoq-tiipau 4,296 1 cap PO QAM 09/18/18 09/12/22 History mcg-226 mg-90 mg capsule (PreserVision AREDS) lisinopril 20 mg tablet 20 mg PO BID #180 tabs 02/10/22 09/12/22 Rx hydralazine 50 mg tablet 50 mg PO BID #180 tabs 02/21/22 09/12/22 Rx apixaban 5 mg tablet (Eliquis) 5 mg PO BID #180 tabs 03/13/22 09/12/22 Rx atorvastatin 20 mg tablet 20 mg PO HS #100 tabs 06/19/22 09/12/22 Rx metformin 500 mg tablet 1,000 mg PO BID #400 tabs 06/19/22 09/12/22 Rx metoprolol tartrate 50 mg tablet 50 mg PO BID #200 tabs 06/19/22 09/12/22 Rx chlorthalidone 25 mg tablet 25 mg PO DAILY #90 tabs 08/04/22 09/12/22 Rx glimepiride 1 mg tablet 1 mg PO QAM #90 tabs 08/04/22 09/12/22 Rx Allergies Allergy/AdvReac Type Severity Reaction Status Date / Time No Known Allergies Allergy Verified 09/01/22 14:18 Past Med/Surg History Medical History COVID-19 (02/11/20) required hospitalization [facility] 3 weeks History of basal cell carcinoma (11/2018) Hyperlipidemia Hypertension Lipoma of back s/p removal Morbid obesity Nontoxic multinodular goiter DESTINEY (obstructive sleep apnea) Osteopenia Syncope and collapse Surgical History History of salpingectomy History of Salpingectomy for ectopic Hx laparoscopic cholecystectomy Family History Father , age 69 Coronary heart disease Myocardial infarction Mother , age 92 Tobacco use Lung cancer suspected just prior to her Daughter Melanoma Grandmother (Paternal) Stroke Denies family history of Ovarian cancer Prostate cancer Breast cancer FH: brain aneurysm Colorectal cancer Social History Smoking Status: Former smoker Tobacco Type: Cigarettes Second Hand Exposure: No; Do You Dip or Chew Tobacco: No; Hx Alcohol Use: No Hx Substance Use: No Preferred Language: Occitan Communication Ability: Effective Visual Impairment: No Limitations Hearing Ability: Normal Ampoule Inspector Required: No Beliefs That Will Affect Care: None marital status: Current Living Situation: Family Current Living Situation Comment: Daughter Jocelyne current occupational status: retired current occupation: [employer] How many Children do You have: 3 Feels Safe at Home: Yes Diet: regular caffeine: Yes Dental Care, Regularly: Yes Physical Activity Frequency: Does not Exercise Seatbelt Use: always Assistive Devices: Glasses Physical Exam Vital Signs Vital Signs - 24 hr 09/12/22 11:06 09/12/22 12:01 09/12/22 12:30 Temperature 36.8 C Temperature Source Oral Pulse Rate 69 82 69 Pulse Rate [Apical] Pulse Rate from SpO2 Sensor Pulse Rhythm Regular Regular Pulse Strength Normal Respiratory Rate 19 17 Respiratory Effort / Characteristics Non-Labored Spontaneous Respiratory Depth Normal Respiratory Pattern Regular Blood Pressure 176/79 H Blood Pressure [Left Arm] Blood Pressure Mean 111 Blood Pressure Mean [Left Arm] Blood Pressure Position Lying Pulse Oximetry 97 97 Oxygen Delivery Method Room Air Room Air Sepsis Recent Fever Within 48 Hours No Sepsis New/Unexplained Change in Mental Status N/A Sepsis Action Taken by Nursing No Action Required 09/12/22 11:14 09/12/22 11:30 09/12/22 12:00 Temperature Temperature Source Pulse Rate 68 79 81 Pulse Rate [Apical] Pulse Rate from SpO2 Sensor 69 73 80 Pulse Rhythm Pulse Strength Respiratory Rate 20 20 21 Respiratory Effort / Characteristics Respiratory Depth Respiratory Pattern Blood Pressure 188/81 H 161/79 H 185/111 H Blood Pressure [Left Arm] Blood Pressure Mean 116 106 135 Blood Pressure Mean [Left Arm] Blood Pressure Position Pulse Oximetry 97 98 94 Oxygen Delivery Method Room Air Room Air Room Air Sepsis Recent Fever Within 48 Hours Sepsis New/Unexplained Change in Mental Status Sepsis Action Taken by Nursing 09/12/22 12:29 09/12/22 13:01 09/12/22 14:00 Temperature Temperature Source Pulse Rate 71 65 67 Pulse Rate [Apical] Pulse Rate from SpO2 Sensor 68 68 62 Pulse Rhythm Pulse Strength Respiratory Rate 18 20 18 Respiratory Effort / Characteristics Respiratory Depth Respiratory Pattern Blood Pressure 156/62 H 153/69 H 133/78 Blood Pressure [Left Arm] Blood Pressure Mean 93 97 96 Blood Pressure Mean [Left Arm] Blood Pressure Position Pulse Oximetry 97 94 98 Oxygen Delivery Method Room Air Sepsis Recent Fever Within 48 Hours Sepsis New/Unexplained Change in Mental Status Sepsis Action Taken by Nursing 09/12/22 14:32 09/12/22 15:01 09/12/22 15:31 Temperature Temperature Source Pulse Rate 62 64 77 Pulse Rate [Apical] Pulse Rate from SpO2 Sensor 73 60 65 Pulse Rhythm Pulse Strength Respiratory Rate 16 23 20 Respiratory Effort / Characteristics Respiratory Depth Respiratory Pattern Blood Pressure 152/59 H 167/51 H 171/69 H Blood Pressure [Left Arm] Blood Pressure Mean 90 89 103 Blood Pressure Mean [Left Arm] Blood Pressure Position Pulse Oximetry 95 91 95 Oxygen Delivery Method Room Air Sepsis Recent Fever Within 48 Hours Sepsis New/Unexplained Change in Mental Status Sepsis Action Taken by Nursing 09/12/22 15:55 09/12/22 16:14 09/12/22 16:48 Temperature Temperature Source Pulse Rate 65 Pulse Rate [Apical] Pulse Rate from SpO2 Sensor 66 67 Pulse Rhythm Pulse Strength Respiratory Rate 17 Respiratory Effort / Characteristics Respiratory Depth Respiratory Pattern Blood Pressure 182/76 H 180/76 H 181/85 H Blood Pressure [Left Arm] Blood Pressure Mean 111 110 117 Blood Pressure Mean [Left Arm] Blood Pressure Position Pulse Oximetry 96 97 98 Oxygen Delivery Method Sepsis Recent Fever Within 48 Hours Sepsis New/Unexplained Change in Mental Status Sepsis Action Taken by Nursing 09/12/22 17:01 09/12/22 18:18 09/12/22 18:30 Temperature Temperature Source Pulse Rate 76 70 Pulse Rate [Apical] 69 Pulse Rate from SpO2 Sensor 88 Pulse Rhythm Pulse Strength Respiratory Rate 20 18 20 Respiratory Effort / Characteristics Non-Labored Respiratory Depth Normal Respiratory Pattern Regular Blood Pressure 184/84 H 137/87 Blood Pressure [Left Arm] 162/84 H Blood Pressure Mean 117 103 Blood Pressure Mean [Left Arm] 110 Blood Pressure Position Pulse Oximetry 96 96 96 Oxygen Delivery Method Room Air Room Air Sepsis Recent Fever Within 48 Hours Sepsis New/Unexplained Change in Mental Status Sepsis Action Taken by Nursing Physical Exam GENERAL: oriented to person, place, and time. appears well-developed and well- nourished. HENT: Exam performed. - Head: Normocephalic and atraumatic. EYES: Conjunctivae and EOM are normal. Right eye exhibits no discharge. Left eye exhibits no discharge. No scleral icterus. NECK: Normal range of motion. Neck supple. No JVD present. CV: Normal rate, regular rhythm, normal heart sounds and intact distal pulses. There is no peripheral edema. Palpable radial pulses bue. PULM/CHEST: Effort normal and breath sounds normal. No respiratory distress. No stridor. no wheezes. no rales. ABD: The abdomen is soft. There is no tenderness. NEURO: Motor and sensation grossly intact. SKIN: Skin is warm and dry. He is not diaphoretic. PSYCH: normal mood and affect. Behavior is normal. Judgment and thought content normal. Course Course 1115: The patient was evaluated in room B12. A complete history and physical exam was performed Administered Medications Sodium Chloride (Nss) 500 mls @ 125 mls/hr IV .Q4H SINCERE Stop: 10/12/22 11:29 Last Infusion: 09/12/22 16:10 Dose: 0 mls/hr Documented By: Admin: 09/12/22 11:47 Dose: 125 mls/hr Documented By: CHRISSY Discontinued Medications Acetaminophen (Acetaminophen 325 Mg Tab) 650 mg PO NOW STA Stop: 09/12/22 11:39 Last Admin: 09/12/22 11:46 Dose: 650 mg Documented By: CHRISSY Hydralazine HCl (Hydralazine Tab 50 Mg Tab) 50 mg PO NOW STA Stop: 09/12/22 17:13 Last Admin: 09/12/22 17:46 Dose: 50 mg Documented By: CHRISSY Magnesium Sulfate/Dextrose (Magnesium Sulfate / D5w) 1 gm in 100 mls @ 100 mls/hr IV Q1H SINCERE Stop: 09/12/22 14:25 Last Admin: 09/12/22 14:55 Dose: Not Given Documented By: CHRISSY Magnesium Sulfate/Dextrose (Magnesium Sulfate / D5w) 1 gm in 100 mls @ 100 mls/hr IV NOW STA Stop: 09/12/22 13:29 Last Infusion: 09/12/22 14:55 Dose: 0 mls/hr Documented By: Admin: 09/12/22 12:41 Dose: 100 mls/hr Documented By: CHRISSY Magnesium Sulfate/Dextrose (Magnesium Sulfate / D5w) 1 gm in 100 mls @ 100 mls/hr IV NOW STA Stop: 09/12/22 17:16 Last Infusion: 09/12/22 17:51 Dose: 0 mls/hr Documented By: Admin: 09/12/22 16:43 Dose: 100 mls/hr Documented By: CHRISSY Labetalol HCl (Labetalol Hcl Iv 5 Mg/Ml 20ml) 10 mg IV NOW STA Stop: 09/12/22 16:19 Last Admin: 09/12/22 17:27 Dose: Not Given Documented By: CHRISSY Meclizine HCl (Meclizine Hcl 25 Mg Tab) 25 mg PO NOW STA Stop: 09/12/22 16:18 Last Admin: 09/12/22 16:43 Dose: 25 mg Documented By: CHRISSY Ondansetron HCl (Ondansetron Inj 2 Mg/Ml 2 Ml Vial) 4 mg IV NOW STA Stop: 09/12/22 11:28 Last Admin: 09/12/22 12:33 Dose: Not Given Documented By: CHRISSY Medical Decision Making Laboratory Data Attestation: I reviewed the patient's lab results. 09/12/22 11:22 09/12/22 11:20 Lab Results 09/12/22 09/12/22 09/12/22 Range/Units 11:20 11:22 11:22 WBC 6.27 (4.8-10.8) K/ul RBC 3.90 L (4.20-5.40) M/uL Hgb 11.4 L (12.0-16.0) g/dl Hct 36.4 L (37.0-47.0) % MCV 93.3 (80.0-100.0) fL MCH 29.2 (25.0-34.0) pg MCHC 31.3 L (32.0-36.0) g/dL RDW Std Deviation 50.8 H (36.4-46.3) fL RDW Coeff of Charlene 14.8 H (11.5-14.5) % Plt Count 167 (130-400) K/uL MPV 11.4 (9.4-12.4) fL Immature Gran % (Auto) 0.3 % Neut % (Auto) 68.7 % Lymph % (Auto) 21.5 % Lane % (Auto) 5.7 % Eos % (Auto) 3.3 % Baso % (Auto) 0.5 % Neut # (Auto) 4.30 (1.40-6.50) K/uL Lymph # (Auto) 1.35 (1.2-3.4) K/uL Lane # (Auto) 0.36 (0.11-0.59) K/uL Eos # (Auto) 0.21 (0-0.50) K/uL Baso # (Auto) 0.03 (0-0.2) K/uL Immature Gran # (Auto) 0.02 (0.01-0.20) K/uL PT 11.6 (9.0-12.0) Seconds INR 1.1 (0.9-1.1) APTT 24.2 (21.0-31.0) Seconds PTT Ratio 0.9 Sodium 143 (136-145) mmol/L Potassium 4.7 (3.5-5.1) mmol/L Chloride 111 H (98-107) mmol/L Carbon Dioxide 24 (21-32) mmol/L Anion Gap 8 (3-11) BUN 20 (6-23) mg/dl Creatinine 1.37 H (0.6-1.2) mg/dl Est Cr Clr Drug Dosing 33.9 ml/min Est GFR ( Amer) 41.2 ml/min Est GFR (Non-Af Amer) 35.6 ml/min BUN/Creatinine Ratio 14.6 (10-20) Glucose 187 H (70-99(Fasting)) mg/dl Calcium 10.1 (8.6-10.3) mg/dl Magnesium 1.4 L (1.7-2.4) mg/dl Troponin I High Sens 12.5 (0-14) pg/ml Lipase 22 (11-82) U/L SARS-CoV-2, RNA, NAAT (NEGATIVE) 09/12/22 Range/Units 17:45 WBC (4.8-10.8) K/ul RBC (4.20-5.40) M/uL Hgb (12.0-16.0) g/dl Hct (37.0-47.0) % MCV (80.0-100.0) fL MCH (25.0-34.0) pg MCHC (32.0-36.0) g/dL RDW Std Deviation (36.4-46.3) fL RDW Coeff of Charlene (11.5-14.5) % Plt Count (130-400) K/uL MPV (9.4-12.4) fL Immature Gran % (Auto) % Neut % (Auto) % Lymph % (Auto) % Lane % (Auto) % Eos % (Auto) % Baso % (Auto) % Neut # (Auto) (1.40-6.50) K/uL Lymph # (Auto) (1.2-3.4) K/uL Lane # (Auto) (0.11-0.59) K/uL Eos # (Auto) (0-0.50) K/uL Baso # (Auto) (0-0.2) K/uL Immature Gran # (Auto) (0.01-0.20) K/uL PT (9.0-12.0) Seconds INR (0.9-1.1) APTT (21.0-31.0) Seconds PTT Ratio Sodium (136-145) mmol/L Potassium (3.5-5.1) mmol/L Chloride (98-107) mmol/L Carbon Dioxide (21-32) mmol/L Anion Gap (3-11) BUN (6-23) mg/dl Creatinine (0.6-1.2) mg/dl Est Cr Clr Drug Dosing ml/min Est GFR ( Amer) ml/min Est GFR (Non-Af Amer) ml/min BUN/Creatinine Ratio (10-20) Glucose (70-99(Fasting)) mg/dl Calcium (8.6-10.3) mg/dl Magnesium (1.7-2.4) mg/dl Troponin I High Sens (0-14) pg/ml Lipase (11-82) U/L SARS-CoV-2, RNA, NAAT NEGATIVE (NEGATIVE) Imaging Data Radiologist's Impression: Chest X-Ray 09/12/22 11:21 XR chest 1V portable CLINICAL HISTORY: Chest pain, nonspecific TECHNIQUE: Single frontal radiograph of the chest was obtained. Comparison: Comparison is made to chest radiograph 05/13/2022 FINDINGS: Exam is limited by underpenetration. Cardiomegaly is noted. The lungs are clear. No evidence of pleural effusion or pneumothorax. IMPRESSION: No acute chest disease. Cardiomegaly is noted. ACT 112: Negative or not required by law. Electronically signed by: Vj Villatoro M.D. 09/12/2022 11:[address] 09/12/22 11:21 CT head/brain wo con CLINICAL HISTORY: 82 years-old Female with morgan. Acute headache TECHNIQUE: Multiple axial CT images of the head were obtained without contrast. A dose lowering technique was utilized adhering to the principles of ALARA. CT DOSE: 625.80 mGy.cm COMPARISON: 01/04/2021 FINDINGS: No acute intracranial hemorrhage, midline shift, intracranial mass, hydrocephalus, territorial ischemia or abnormal extra-axial collection. Involutional changes with chronic microvascular ischemic disease. Mildly motion degraded exam. Cerebral vascular calcifications. The calvarium is intact. Prior bilateral lens repair. Polypoid mucosal thickening of the left maxillary sinus. Mastoid air cells are clear. IMPRESSION: No acute intracranial abnormality. ACT 112: Negative or not required by law. The above report was generated using voice recognition software. It may contain grammatical, syntax or spelling errors. Electronically signed by: Edward Chapa M.D. 09/12/2022 12:01 PM ECG Data Attestation: I personally reviewed and interpreted this ECG as follows: Rate (beats per minute): 71 Rhythm: + sinus with SA ECG Intervals/blocks: + Normal MO and + Normal QT-c ECG ST segments: + Normal ST segments Additional Comments: QRS 78 MDM Narrative Cardiac monitoring: An order was placed for continuous cardiac monitoring. The monitor shows a rate of 70 with sinus rhythm interpreted by me Vital signs stable. CT of the head was completed and negative. CT was conducted within 6 hours of symptom onset effectively ruling out SAH. Patient's magnesium was low. Magnesium was repleted in the emergency department. Initially the patient felt fine to go home but at time of discharge patient became hypotensive states she feels very unsteady on her feet. Patient will be admitted to the [facility] hospitalist team for hypomagnesemia Dr. Kitchen's team notified. Impression & Plan Headache, Hypertension, Hypomagnesemia Discharge Plan Visit Data Chief Complaint: Hypertension Stated Complaint: DIZZINESS ED Provider: Jadiel Perry Discharge Problem: Headache, Hypertension, Hypomagnesemia Patient Disposition: Admitted As Inpatient Discharge Instructions Jean/Other Patient Handouts: Self-Care for Headaches, Hypertension Dc, Hypomagnesemia Dc Forms Stand Alone Forms: My [facility], Virtual Emergency Department, Important Visit Information Prescriptions Prescriptions: No Action lisinopril 20 mg tablet 20 mg PO BID Qty: 180 3RF hydralazine 50 mg tablet 50 mg PO BID Qty: 180 3RF atorvastatin 20 mg tablet 20 mg PO HS Qty: 100 3RF metformin 500 mg tablet 1,000 mg PO BID Qty: 400 3RF metoprolol tartrate 50 mg tablet 50 mg PO BID Qty: 200 3RF glimepiride 1 mg tablet 1 mg PO QAM Qty: 90 3RF chlorthalidone 25 mg tablet 25 mg PO DAILY Qty: 90 3RF Eliquis 5 mg tablet 5 mg PO BID Qty: 180 3RF PreserVision AREDS [id number] Capsule 1 cap PO QAM Referrals Referrals: Lucretia Costa CRNP [Primary Care Provider] - (Follow-up in 1-7 days.)
[2022-09-12] MEDS ORDERED: ACETAMINOPHEN 325 MG TAB PO STA (11:38)
[2022-09-12] MEDS: SODIUM CHLORIDE 0.9% 500 ML IV SCH (11:47)
[2022-09-12 11:54] LABS: Basophils # (auto) 0.03 K/uL (0-0.2); Basophils % (auto) 0.5 %; Eosinophils # (auto) 0.21 K/uL (0-0.50); Eosinophils % (auto) 3.3 %; Hematocrit (blood only) 36.4 % (37.0-47.0); Hemoglobin 11.4 g/dl (12.0-16.0); Immature Granulocytes # (auto) 0.02 K/uL (0.01-0.20); Immature Granulocytes % (auto) 0.3 %; Lymphocytes # (auto) 1.35 K/uL (1.2-3.4); Lymphocytes % (auto) 21.5 %; Mean Corpuscular Hemoglobin 29.2 pg (25.0-34.0); Mean Corpuscular Hgb Conc 31.3 g/dL (32.0-36.0); Mean Corpuscular Volume 93.3 fL (80.0-100.0); Mean Platelet Volume 11.4 fL (9.4-12.4); Monocytes # (auto) 0.36 K/uL (0.11-0.59); Monocytes % (auto) 5.7 %; Neutrophils % (auto) 68.7 %; Platelet Count 167 K/uL (130-400); RDW Coefficient of Variation 14.8 % (11.5-14.5); RDW Standard Deviation 50.8 fL (36.4-46.3); White Blood Count 6.27 K/ul (4.8-10.8)
--- NOTE | 2022-09-12 12:00 | XRay Report ---
XR chest 1V portable CLINICAL HISTORY: Chest pain, nonspecific TECHNIQUE: Single frontal radiograph of the chest was obtained. Comparison: Comparison is made to chest radiograph 05/13/2022 FINDINGS: Exam is limited by underpenetration. Cardiomegaly is noted. The lungs are clear. No evidence of pleur al effusion or pneumothorax. IMPRESSION: No acute chest disease. Cardiomegaly is noted. ACT 112: Negative or not required by law. Electronically signed by: Vj Villatoro M.D. 09/12/2022 11:57 AM
--- NOTE | 2022-09-12 12:02 | CT Scan Report ---
CT head/brain wo con CLINICAL HISTORY: 82 years-old Female with morgan. Acute headache TECHNIQUE: Multiple axial CT images of the head were obtained without contrast. A dose lowering tech nique was utilized adhering to the principles of ALARA. CT DOSE: 625.80 mGy.cm COMPARISON: 01/04/2021 FINDINGS: No acute intracranial hemorrhage, midline shift, intracranial mass, hydrocephalus, territorial ischem ia or abnormal extra-axial collection. Involutional changes with chronic microvascular ischemic disea se. Mildly motion degraded exam. Cerebral vascular calcifications. The calvarium is intact. Prior bilateral lens repair. Polypoid mucosal thickening of the left maxilla ry sinus. Mastoid air cells are clear. IMPRESSION: No acute intracranial abnormality. ACT 112: Negative or not required by law. The above report was generated using voice recognition software. It may contain grammatical, syntax o r spelling errors. Electronically signed by: Edward Chapa M.D. 09/12/2022 12:01 PM
[2022-09-12 12:11] LABS: BUN Creatinine Ratio 14.6 (10-20); Calcium 10.1 mg/dl (8.6-10.3); Creatinine Clr Calc Pharmacy 33.9 ml/min; Est GFR (African American) 41.2 ml/min; Est GFR (Non-African American) 35.6 ml/min; Magnesium 1.4 mg/dl (1.7-2.4); Potassium 4.7 mmol/L (3.5-5.1)
[2022-09-12 12:18] LABS: Troponin I High Sensitivity 12.5 pg/ml (0-14)
[2022-09-12 12:23] LABS: INR 1.1 (0.9-1.1); Partial Thromboplastin Ratio 0.9; Partial Thromboplastin Time 24.2 Seconds (21.0-31.0); Prothrombin Time 11.6 Seconds (9.0-12.0)
[2022-09-12] MEDS ORDERED: MAGNESIUM SULFATE / D5W 1 GM/100 ML BAG IV SCH (12:26)
[2022-09-12] MEDS ORDERED: MAGNESIUM SULFATE / D5W 1 GM/100 ML BAG IV STA ×2 (12:30→16:17)
[2022-09-12] MEDS ORDERED: MECLIZINE HCL 25 MG TAB PO STA (16:17)
[2022-09-12] MEDS ORDERED: LABETALOL HCL IV 5 MG/ML 20ML IV STA (16:18)
--- NOTE | 2022-09-12 16:33 | History & Physical Report ---
Date of Service September 12, 2022 Assessment & Plan (1) Hypertension: Plan: -Admit to med/tele -Currently stable with BP of 184/84 without labetalol given in the ED -At this time it appears that the patient's HTN was likely due to her taking her BP prior to taking her am antihypertensives -She initially noticed a headache and left-arm numbness, the numbness quickly resolved, she has been without other focal symptoms since -BP has been controlled while in the ED without antihypertensives, it appears that her am antihypertensives likely took effect by the time she arrived -CT of the head is negative, no focal neuro defects on exam, no signs of end organ damage -Low suspicion for ischemic or embolic stroke at this time as she is non-focal on exam and has not missed a dose of her eliquis -Will give her HS dose of hydralazine now, then continue all hypertensives as prescribed at this time -q4h neuro checks -Continue Eliquis, will cover DVT PPX -HH, DMII diet -AM CBC, BMP, Mag (2) Headache: Plan: -Patient had a moderate headache upon waking this am, has almost entirely resolved at the time of admission -Likely related to her HTN, no signs of infection or neurologic defects -PRN tylenol (3) Left arm numbness: Plan: -Resolved -Likely due to lying on the arm while sleeping -Symmetrical sensation and motor function in the BL upper extremities (4) Weakness: Plan: -Patient feels generally weak since this am but has been able to ambulate to the bathroom without issue -She states that she is concerned to go home tonight and become hypertensive again -Wishes to stay overnight to ensure her BP is controlled -Will have her evaluated by PT/OT tomorrow (5) Hypomagnesemia: Plan: -1.4 in the ED today -Has been a chronic issue for her, is also on chlorthalidone -S/P 2gm IV mag sulfate in the ED, ordered another 2 gms to be given on admission -Monitor am mag level, could consider discharging on PO mag prior to adission -Continue to monitor on tele (6) Paroxysmal atrial fibrillation: Plan: -Stable -Continue eliquis and metoprolol (7) 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: Plan: -Hold metformin and glimepiride -A1c last month was 8.9 -Patient states she was started on Jardiance approximately 2 months ago but was taken off as her BSG fell too low -Monitor BSG ACHS, goal is 110-160 -5 units lantus BID, CF of 50, CR of 15 -HH, DMII diet -Adjust regimen as needed (8) Hyperlipidemia: Plan: -Conitnue statin Plan The patient was discussed with Dr. Kitchen at the time of the admission History of Present Illness Chief Complaint: HTN, dizziness, headache Primary Care Provider: LUCY Hubbard Melany is an 82 year old female with a PMH significant for PAF on Eliquis, HTN, DMII, DESTINEY, multiple thyroid goiters, stage 3 CKD, and hypomagnesemia who presented to the [facility] ED on 09/12 via EMS due to hypertension, dizziness, and headache upon waking this am. In the ED the patient was noted to be hypertensive at 188/81 but otherwise stable. Labs were significant for a worsening chronic anemia and mag of 1.4. CT head wo con was read as "No acute intracranial abnormality". Chest xray was read as "No acute chest disease. Cardiomegaly is noted.". Prior to admission the patient was given 2gm IV mag sulfate, ordered 2 additional bags of 1gm Mag-sulfate, 650 mg Tylenol, was ordered 10 mg IV labetalol, and given 25 mg Meclizine. At the time of the exam the patient was sitting in bed in no acute distress with her daughter sitting bedside. The patient is very independent at baseline, lives at home alone in a 2 story home, and is able to complete her ADL's independently. This am she states she woke and noticed she felt dizzy, she denies the room spinning. She also noted a mild-moderate headache but denies any changes in vision, hearing, taste, smell, unilateral weakness. She had a transient episode of left arm numbness which quickly resolved after waking, she believes that she was lying on the left arm while sleeping. She took her BP and states that her systolic BP was 200. Her only other symptom was some She was able to walk downstairs and took all of her am medications, besides her metformin. This would have included her chlorthalidone, lisinopril, hydralazine, and metoprolol. At the present time the patient's symptoms have mainly resolved. She has not had any other paresthesias since her left arm numbness when waking. She has a very slight headache. She has been able to walk to the bathroom multiple times without fall but states that she does not feel safe enough to return home tonight and would prefer to be observed overnight. When asked, she states that she has had episodes like this in the past when her BP is very high, her BP has been difficult to control in the past. We discussed code status, she wishes to be a DNR/DNI and for her daughter to make medical decisions for her if she cannot make them herself. Please refer to Dr. Kitchen's attestation for any changes to the treatment plan Allergies Allergy/AdvReac Type Severity Reaction Status Date / Time No Known Allergies Allergy Verified 09/01/22 14:18 Home Medications Medication Instructions Recorded Confirmed Type vitamins A,C,[id number] 4,296 1 cap PO QAM 09/18/18 09/12/22 History mcg-226 mg-90 mg capsule (PreserVision AREDS) lisinopril 20 mg tablet 20 mg PO BID #180 tabs 02/10/22 09/12/22 Rx hydralazine 50 mg tablet 50 mg PO BID #180 tabs 02/21/22 09/12/22 Rx apixaban 5 mg tablet (Eliquis) 5 mg PO BID #180 tabs 03/13/22 09/12/22 Rx atorvastatin 20 mg tablet 20 mg PO HS #100 tabs 06/19/22 09/12/22 Rx metformin 500 mg tablet 1,000 mg PO BID #400 tabs 06/19/22 09/12/22 Rx metoprolol tartrate 50 mg tablet 50 mg PO BID #200 tabs 06/19/22 09/12/22 Rx chlorthalidone 25 mg tablet 25 mg PO DAILY #90 tabs 08/04/22 09/12/22 Rx glimepiride 1 mg tablet 1 mg PO QAM #90 tabs 08/04/22 09/12/22 Rx Past Med/Surg History Medical History COVID-19 (02/11/20) required hospitalization [facility] x 3 weeks History of basal cell carcinoma (11/2018) Hyperlipidemia Hypertension Lipoma of back s/p removal Morbid obesity Nontoxic multinodular goiter DESTINEY (obstructive sleep apnea) Osteopenia Syncope and collapse Surgical History History of salpingectomy History of Salpingectomy for ectopic Hx laparoscopic cholecystectomy Family History Father , age 69 Coronary heart disease Myocardial infarction Mother , age 92 Tobacco use Lung cancer suspected just prior to her Daughter Melanoma Grandmother (Paternal) Stroke Denies family history of Ovarian cancer Prostate cancer Breast cancer FH: brain aneurysm Colorectal cancer Social History Smoking Status: Former smoker Tobacco Type: Cigarettes Second Hand Exposure: No; Do You Dip or Chew Tobacco: No; Hx Alcohol Use: No Hx Substance Use: No Preferred Language: Icelandic Communication Ability: Effective Visual Impairment: No Limitations Hearing Ability: Normal [place] Operator Required: No Beliefs That Will Affect Care: None marital status: Current Living Situation: Family Current Living Situation Comment: [facility] current occupational status: retired 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 [employer] How many Children do You have: 3 Other Information That Helps Us Care for You: No Feels Safe at Home: Yes Safety Concerns: Feels Safe At This Time Diet: regular caffeine: Yes Dental Care, Regularly: Yes Physical Activity Frequency: Does not Exercise Seatbelt Use: always Assistive Devices: Glasses Assistive Devices Comment: Reading glasses, not prescription Physical Exam Physical Exam: Physical Exam: General: In no acute distress, stated age, well-nourished, good hygiene, non- toxic appearing HEENT: Normocephalic, atraumatic, no scleral icterus, pupils around round, symmetrical, and reactive to light, moist mucus membranes, trachea midline, no thyromegaly Chest/Pulm: No respiratory distress, symmetrical chest expansion, clear breath sounds throughout Cardiac: irregular rate and rhythm, no murmurs noted Abdomen: Negative for ascites and bruising, normoactive bowel sounds, soft, non-tender to palpation throughout Musculoskeletal: Symmetrical and without signs of acute trauma, upper and lower extremities with full ROM, no atrophy, spasticity, or flaccidity Extremities: Radial, dorsalis pedis, and posterior tibial pulses are intact and symmetrical, no edema noted in the BL LE's Skin: Warm, dry, no rashes , lesions, or scars noted Neuro: Alert and oriented to person, place, month, year, and president, no focal defects, CN II-XII tested and intact, negative cerebellar and pronator drift BL, symmetrical strength in the BL upper and lower extremities, no tremors noted Psych: No acute distress, calm and cooperative during the exam Results & Data Results & Data Vital Signs (Past 12 Hours) Vital Signs Temp Pulse Resp BP Pulse Ox O2 Del Method 09/12/22 14:32 62 16 152/59 H 95 Room Air 09/12/22 14:00 67 18 133/78 98 Room Air 09/12/22 13:01 65 20 153/69 H 94 09/12/22 12:29 71 18 156/62 H 97 09/12/22 12:00 81 21 185/111 H 94 Room Air 09/12/22 11:30 79 20 161/79 H 98 Room Air 09/12/22 11:14 68 20 188/81 H 97 Room Air 09/12/22 12:30 69 17 97 Room Air 09/12/22 12:01 82 09/12/22 11:06 36.8 C 69 19 176/79 H 97 Room Air Laboratory Results Abnormal lab results 09/12/22 09/12/22 Range/Units 11:20 11:22 RBC 3.90 L (4.20-5.40) M/uL Hgb 11.4 L (12.0-16.0) g/dl Hct 36.4 L (37.0-47.0) % MCHC 31.3 L (32.0-36.0) g/dL RDW Std Deviation 50.8 H (36.4-46.3) fL RDW Coeff of Charlene 14.8 H (11.5-14.5) % Chloride 111 H (98-107) mmol/L Creatinine 1.37 H (0.6-1.2) mg/dl Glucose 187 H (70-99(Fasting)) mg/dl Magnesium 1.4 L (1.7-2.4) mg/dl Diagnostic Findings Chest X-Ray 09/12/22 11:21 XR chest 1V portable CLINICAL HISTORY: Chest pain, nonspecific TECHNIQUE: Single frontal radiograph of the chest was obtained. Comparison: Comparison is made to chest radiograph 05/13/2022 FINDINGS: Exam is limited by underpenetration. Cardiomegaly is noted. The lungs are clear. No evidence of pleural effusion or pneumothorax. IMPRESSION: No acute chest disease. Cardiomegaly is noted. ACT 112: Negative or not required by law. Electronically signed by: Vj Villatoro M.D. 09/12/2022 11:[address] 09/12/22 11:21 CT head/brain wo con CLINICAL HISTORY: 82 years-old Female with morgan. Acute headache TECHNIQUE: Multiple axial CT images of the head were obtained without contrast. A dose lowering technique was utilized adhering to the principles of ALARA. CT DOSE: 625.80 mGy.cm COMPARISON: 01/04/2021 FINDINGS: No acute intracranial hemorrhage, midline shift, intracranial mass, hydrocephalus, territorial ischemia or abnormal extra-axial collection. Inv olutional changes with chronic microvascular ischemic disease. Mildly motion degraded exam. Cerebral vascular calcifications. The calvarium is intact. Prior bilateral lens repair. Polypoid mucosal t hickening of the left maxillary sinus. Mastoid air cells are clear. IMPRESSION: No acute intracranial abnormality. ACT 112: Negative or not required by law. The above report was generated using voice recognition software. It may contain grammatical, syntax or spelling errors. Electronically signed by: Edward Chapa M.D. 09/12/2022 12:01 PM ECG Additional Comments: Sinus rhythm with Premature atrial complexes with Aberrant conduction Cannot rule out Anterior infarct (cited on or before 13-MAY-2022) Abnormal ECG When compared with ECG of 13-MAY-2022 14:32, Premature ventricular complexes are no longer Present Code Status & VTE Plan Code Status DNR/DNI VTE Prophylaxis Plan VTE Prophylaxis will be ordered: Yes Supervising Physician Co-Signing Physician Notes I personally saw and examined the patient. I verified all ocampo points and agree with Suraj Castro PA-C with the following exceptions and/or additions: 82 year old female presents to the ER with headache, feeling unbalanced and high blood pressure at home. No room spinning. She reports similar symptoms perhaps once a month. On ambulatory trial in the ER she was still having problems with her balance therefore requested admission as was not felt to be safe to return home. Since admission she reports feeling mostly back to her baseline but not yet had PT/OT evaluations. O/E CN 2-> 12 intact, no lateralizing weakness HS irregular rhythm, regular rate, no murmurs, Chest CTAB, Abdo SNT A/P Ambulatory dysfunction - PT/OT evals, no acute pathology suspected as appears to be back to her baseline, possibly related to intermittent hypertension PG Care Time/CCT Total # of Minutes Spent Total Time Spent with Patient: Total time spent is greater than 50% in coordination of care (as documented) at patient's floor/unit and/or counseling patient: Coding [place] [address] INT INP/OBS CARE 2MIN Patient Type Established Medical Decision Making Moderate Complexity Diagnoses Hypertension I10 Hypertension type: unspecified Headache R51.9 Headache chronicity pattern: unspecified pattern Headache type: unspecified Intractability: not intractable Left arm numbness R20.0 Weakness R53.1 Hypomagnesemia E83.42 Paroxysmal atrial fibrillation I48.0 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 (1) Hypertension Hypertension type: unspecified Qualified Code(s): I10 - Essential (primary) hypertension (2) Headache Headache chronicity pattern: unspecified pattern Headache type: unspecified Intractability: not intractable Qualified Code(s): R51.9 - Headache, unspecified
[2022-09-12] MEDS ORDERED: DEXTROSE 50% 50 ML SYRINGE IV PRN (16:45)
[2022-09-12] MEDS ORDERED: GLUCOSE 40% GEL 15 GM TUBE PO PRN (16:45)
[2022-09-12] MEDS ORDERED: GLUCOSE 10 TAB/TUBE PO PRN (16:45)
[2022-09-12] MEDS ORDERED: GLUCAGON FOR INJ 1 MG VIAL SQ PRN (16:45)
[2022-09-12] MEDS ORDERED: CARBOHYDRATES FOR HYPOGLYCEMIA PO PRN (16:45)
[2022-09-12] MEDS ORDERED: hydrALAZINE TAB 50 MG TAB PO STA (17:12)
--- NOTE | 2022-09-12 17:49 | Electrocardiogram Report ---
Test Reason : Blood Pressure : / mmHG Vent. Rate : 071 BPM Atrial Rate : 071 BPM P-R Int : 164 ms QRS Dur : 078 ms QT Int : 386 ms P-R-T Axes : 033 -07 048 degrees QTc Int : 419 ms Sinus rhythm with Premature atrial complexes with Aberrant conduction Abnormal ECG When compared with ECG of 13-MAY-2022 14:32, Premature ventricular complexes are no longer Present Confirmed by Stuart Olmos ([id number]) on 09/12/2022 5:49:11 PM Referred By: REFERRED SELF Confirmed By:Cecilio Olmos
[2022-09-12] MEDS: APIXABAN 5 MG TABLET PO SCH (22:14)
[2022-09-12] MEDS: ATORVASTATIN 20 MG TAB PO SCH (22:14)
[2022-09-12] MEDS: INSULIN ASPART PER UNIT CHARGE SC SCH (22:15)
[2022-09-12] MEDS: lisinopril 20 MG TAB PO SCH (22:15)
[2022-09-12] MEDS: METOPROLOL TARTRATE 50 MG TAB PO SCH (22:16)
[2022-09-12] MEDS: CHLORTHALIDONE 25 MG TAB PO SCH (22:17)
[2022-09-12] MEDS: ACETAMINOPHEN 325 MG TAB PO PRN (22:29)
[2022-09-12] MEDS: LANTUS PER UNIT CHARGE SQ SCH (22:31)
--- NOTE | 2022-09-13 07:59 | Hospitalist Progress Note ---
Date of Service September 13, 2022 Assessment & Plan (1) Hypertension: (2) Headache: (3) Weakness: (4) Hypomagnesemia: (5) Paroxysmal atrial fibrillation: (6) 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: (7) Hyperlipidemia: Plan #Hypertension Stablized this on home medications AM 131/76 Chlorthalidone 25mg PO daily Hydralazine 50mg PO BID Lisinopril 20mg PO BID Metoprolol tartrate 50mg PO BID Negative head CT, low risk for embolic dx Non-focal neuro exam #Headache Largely resolved PRN Tylenol #Hypomagnesemia 1.5-->1.4 Will continue to replete as necessary #Weakness Generally ambulates well on her own but concerned about her elevated BP and weakness she felt prior to admission PT Evaluate and Treat #Paroxysmal A-Fib stable continue metoprolol and eliquis #T2DM A1c 8.9 in July, Lantus 5U #HLD continue atorvastatin 20mg Admission and Anticipated Discharge Date Admission Date: September 12, 2022 Supervising Physician Co-Signing Physician Notes I personally examined the patient and verified all ocampo points of history and exam, discussed case, and agree with decision making and plan documented by Dr. Melissa. Patient with an episode of dizziness and nausea this afternoon. Blood pressure has been improved. Will have PT evaluation tomorrow and likely discharge. John Mosley is an 82 year old female with a PMH significant for PAF on Eliquis, HTN, T2DM, DESTINEY, multiple thyroid goiters, stage 3 CKD, and hypomagnesemia was admitted on 09/12 due to hypertension, dizziness, and headache upon waking this am. In the ED the patient was noted to be hypertensive at 188/81 but otherwise stable. Labs were significant for a worsening chronic anemia and mag of 1.4. CT head w/o con was read as "No acute intracranial abnormality". Chest xray was read as "No acute chest disease. Cardiomegaly is noted.". Prior to admission the patient was given 2gm IV mag sulfate, ordered 2 additional bags of 1gm Mag- sulfate, 650 mg Tylenol, was ordered 10 mg IV labetalol, and given 25 mg Meclizine. This am she states she woke and noticed she felt dizzy, she denies the room spinning. She also noted a mild-moderate headache but denies any changes in vision, hearing, taste, smell, unilateral weakness. She took her BP and states that her systolic BP was 200. She was able to walk downstairs and took all of her am medications, besides her metformin, including chlorthalidone, lisinopril, hydralazine, and metoprolol. She has a very slight headache. She has been able to walk to the bathroom multiple times without fall but states that she does not feel safe enough to return home tonight and would prefer to be observed overnight. The patient is very independent at baseline, lives at home alone in a 2 story home, and is able to complete her ADL's independently. When asked, she states that she has had episodes like this in the past when her BP is very high, her BP has been difficult to control in the past. This am: resting comfortably in bed in NAD, feeling "100%" better. Feels that she is ready to go home. She is ambulating on her own. No difficulties with bowel or bladder. This afternoon had an episode of dizziness upon standing and agreed to stay another night to be observed. Hoping to see PT in the AM prior to discharge. Patient is DNR/DNI Review of Systems Review of Systems: Reviewed, see HPI Physical Exam Physical Exam: General: patient resting comfortably, NAD, non-toxic in appearance, AA&O x 4, answers questions appropriately and follows commands. Skin: warm, dry, intact, no rashes or lesions HEENT: NC/AT, PERRL, EOMI, anicteric sclera, conjunctiva without injection, external ear normal to inspection and nontender, nares patent, moist mucus membranes, dentition intact, no oropharyngeal lesions, neck supple, trachea midline, no LAD, no thyromegaly, no JVD Heart: +S1/S2, regular, no m/r/g Lungs: equal air entry bilaterally, no rales/rhonchi/wheezes Abd: +BS, soft, NT/ND, no masses/organomegaly/ascites Ext: warm, 2+ pulses in UE/LE bilaterally, no clubbing/cyanosis or edema Neuro: nonfocal, patient AA&O x 4, speech intact, no facial droop, moving all extremities on command with equal strength 5/5 Results & Data Results & Data Vital Signs (Past 12 Hours) Vital Signs Temp Pulse Pulse Pulse Resp BP Pulse Ox 09/13/22 04:10 36.7 C 82 18 144/82 H 94 09/12/22 20:50 36.7 C 82 18 144/82 H 94 09/12/22 20:50 09/12/22 22:59 77 09/12/22 20:59 68 09/13/22 02:00 36.6 C 65 18 143/56 H 94 09/12/22 23:23 36.5 C 70 18 165/76 H 95 Pulse Ox O2 Del Method O2 Del Method 09/13/22 04:10 Room Air 09/12/22 20:50 Room Air 09/12/22 20:50 94 Room Air 09/12/22 22:59 09/12/22 20:59 09/13/22 02:00 Room Air 09/12/22 23:23 Room Air Laboratory Results Abnormal lab results 09/12/22 09/12/22 09/12/22 Range/Units 11:20 11:22 21:36 RBC 3.90 L (4.20-5.40) M/uL Hgb 11.4 L (12.0-16.0) g/dl Hct 36.4 L (37.0-47.0) % MCHC 31.3 L (32.0-36.0) g/dL RDW Std Deviation 50.8 H (36.4-46.3) fL RDW Coeff of Charlene 14.8 H (11.5-14.5) % Chloride 111 H (98-107) mmol/L Creatinine 1.37 H (0.6-1.2) mg/dl Glucose 187 H (70-99(Fasting)) mg/dl POC Glucose 149 H (70-99) mg/dl Magnesium 1.4 L (1.7-2.4) mg/dl Resident Activity Tracking Resident Involvement: Resident Care Provided Care Provided: Adult Hospital Medicine (1) Hypertension Hypertension type: unspecified Qualified Code(s): I10 - Essential (primary) hypertension (2) Headache Headache chronicity pattern: unspecified pattern Headache type: unspecified Intractability: not intractable Qualified Code(s): R51.9 - Headache, unspecified
[2022-09-13 08:38] LABS: Basophils # (auto) 0.03 K/uL (0-0.2); Basophils % (auto) 0.5 %; Eosinophils # (auto) 0.23 K/uL (0-0.50); Eosinophils % (auto) 3.8 %; Hematocrit (blood only) 35.2 % (37.0-47.0); Hemoglobin 11.1 g/dl (12.0-16.0); Immature Granulocytes # (auto) 0.03 K/uL (0.01-0.20); Immature Granulocytes % (auto) 0.5 %; Lymphocytes # (auto) 1.92 K/uL (1.2-3.4); Lymphocytes % (auto) 31.7 %; Mean Corpuscular Hemoglobin 28.6 pg (25.0-34.0); Mean Corpuscular Hgb Conc 31.5 g/dL (32.0-36.0); Mean Corpuscular Volume 90.7 fL (80.0-100.0); Mean Platelet Volume 11.3 fL (9.4-12.4); Monocytes # (auto) 0.55 K/uL (0.11-0.59); Monocytes % (auto) 9.1 %; Neutrophils # (auto) 3.29 K/uL (1.40-6.50); Neutrophils % (auto) 54.4 %; Platelet Count 178 K/uL (130-400); RDW Coefficient of Variation 14.6 % (11.5-14.5); RDW Standard Deviation 47.9 fL (36.4-46.3); Red Blood Count 3.88 M/uL (4.20-5.40); White Blood Count 6.05 K/ul (4.8-10.8)
[2022-09-13] MEDS: CHLORTHALIDONE 25 MG TAB PO SCH (08:40)
[2022-09-13] MEDS: hydrALAZINE TAB 50 MG TAB PO SCH ×2 (08:40→20:32)
[2022-09-13] MEDS: METOPROLOL TARTRATE 50 MG TAB PO SCH ×2 (08:41→20:27)
[2022-09-13] MEDS: lisinopril 20 MG TAB PO SCH ×2 (08:41→20:27)
[2022-09-13] MEDS: APIXABAN 5 MG TABLET PO SCH ×2 (08:41→20:29)
[2022-09-13] MEDS: INSULIN ASPART PER UNIT CHARGE SC SCH ×4 (08:46→20:41)
[2022-09-13] MEDS: LANTUS PER UNIT CHARGE SQ SCH ×2 (08:46→20:40)
[2022-09-13 08:52] LABS: BUN Creatinine Ratio 14.2 (10-20); Calcium 9.8 mg/dl (8.6-10.3); Creatinine Clr Calc Pharmacy 29.3 ml/min; Est GFR (African American) 35.5 ml/min; Est GFR (Non-African American) 30.6 ml/min; Magnesium 1.9 mg/dl (1.7-2.4); Potassium 4.6 mmol/L (3.5-5.1)
[2022-09-13] MEDS: ACETAMINOPHEN 325 MG TAB PO PRN ×2 (08:52→20:48)
[2022-09-13] MEDS ORDERED: MAGNESIUM SULFATE / D5W 1 GM/100 ML BAG IV ONE (09:26)
--- NOTE | 2022-09-13 10:47 | Discharge Summary ---
Date of Service September 13, 2022 Admission HPI Per Admitting Provider Melany is an 82 year old female with a PMH significant for PAF on Eliquis, HTN, DMII, DESTINEY, multiple thyroid goiters, stage 3 CKD, and hypomagnesemia who presented to the [facility] ED on 09/12 via EMS due to hypertension, dizziness, and headache upon waking this am. In the ED the patient was noted to be hypertensive at 188/81 but otherwise stable. Labs were significant for a worsening chronic anemia and mag of 1.4. CT head wo con was read as "No acute intracranial abnormality". Chest xray was read as "No acute chest disease. Cardiomegaly is noted.". Prior to admission the patient was given 2gm IV mag sulfate, ordered 2 additional bags of 1gm Mag-sulfate, 650 mg Tylenol, was ordered 10 mg IV labetalol, and given 25 mg Meclizine. At the time of the exam the patient was sitting in bed in no acute distress with her daughter sitting bedside. The patient is very independent at baseline, lives at home alone in a 2 story home, and is able to complete her ADL's independently. This am she states she woke and noticed she felt dizzy, she denies the room spinning. She also noted a mild-moderate headache but denies any changes in vision, hearing, taste, smell, unilateral weakness. She had a transient episode of left arm numbness which quickly resolved after waking, she believes that she was lying on the left arm while sleeping. She took her BP and states that her systolic BP was 200. Her only other symptom was some She was able to walk downstairs and took all of her am medications, besides her metformin. This would have included her chlorthalidone, lisinopril, hydralazine, and metoprolol. At the present time the patient's symptoms have mainly resolved. She has not had any other paresthesias since her left arm numbness when waking. She has a very slight headache. She has been able to walk to the bathroom mul tiple times without fall but states that she does not feel safe enough to return home tonight and would prefer to be observed overnight. When asked, she states that she has had episodes like this in the past when her BP is very high, her BP has been difficult to control in the past. We discussed code status, she wishes to be a DNR/DNI and for her daughter to make medical decisions for her if she c annot make them herself. Please refer to Dr. Kitchen's attestation for any changes to the treatment plan Admission Exam (Per Admitting) Constitutional General:In no acute distress, stated age, well-nourished, good hygiene, non- toxic appearing HEENT:Normocephalic, atraumatic, no scleral icterus, pupils around round, symmetrical, and reactive to light, moist mucus membranes, trachea midline, no thyromegaly Chest/Pulm:No respiratory distress, symmetrical chest expansion, clear breath sounds throughout Cardiac:irregular rate and rhythm, no murmurs noted Abdomen:Negative for ascites and bruising, normoactive bowel sounds, soft, non-tender to palpation throughout Musculoskeletal:Symmetrical and without signs of acute trauma, upper and lower extremities with full ROM, no atrophy, spasticity, or flaccidity Extremities:Radial, dorsalis pedis, and posterior tibial pulses are intact and symmetrical, no edema noted in the BL LE's Skin:Warm, dry, no rashes , lesions, or scars noted Neuro:Alert and oriented to person, place, month, year, and president, no focal defects, CN II-XII tested and intact, negative cerebellar and pronator drift BL, symmetrical strength in the BL upper and lower extremities, no tremors noted Psych:No acute distress, calm and cooperative during the exam General: patient resting comfortably, NAD, non-toxic in appearance, AA&O x 4, answers questions appropriately and follows commands. Skin: warm, dry, intact, no rashes or lesions HEENT: NC/AT, anicteric sclera, conjunctiva without injection, external ear normal to inspection, nares patent, moist mucus membranes, dentition intact, neck supple, trachea midline, no thyromegaly, no JVD Heart: +S1/S2, regular, no m/r/g Lungs: equal air entry bilaterally, no rales/rhonchi/wheezes Abd: +BS, soft, NT/ND, no masses/organomegaly/ascites Ext: warm, no clubbing/cyanosis or edema Neuro: nonfocal, patient AA&O x 4, speech intact, no facial droop, moving all extremities on command. Discharge Data Consultations 09/12/22 16:18 ED Decision to Admit Stat Hospital Course (1) Hypertension: (2) Headache: (3) Weakness: (4) Hypomagnesemia: (5) Paroxysmal atrial fibrillation: (6) 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: (7) Hyperlipidemia: Plan 82 yo female admitted to [facility] on 09/12/22 and found to have hypertensive urgency associated with headache and mild weakness. CT of the head was negative. Her weakness and headache resolved shortly after presentation to the ED. She was found to be hypomagnesemic and this was repleted appropriately. Patient did not feel comfortable going home from the ER, she was admitted overnight for observation. Upon encounter in the morning of 09/13/22 she stated her symptoms had completely resolved. Her blood pressure was normalized. The patient was ambulating on her own. Her magnesium was low normal and she received one further repletion dose. Encouraged appropriate hydration. Consider trialing off of hydralazine for fewer hypotensive episode. #Hypertension Stablized this on home medications AM 131/76 Chlorthalidone 25mg PO daily Hydralazine 50mg PO BID Lisinopril 20mg PO BID Metoprolol tartrate 50mg PO BID Negative head CT, low risk for embolic dx Non-focal neuro exam #Headache Largely resolved PRN Tylenol #Hypomagnesemia 1.5-->1.4 Will continue to replete as necessary #Weakness Generally ambulates well on her own but concerned about her elevated BP and weakness she felt prior to admission #Paroxysmal A-Fib stable continue metoprolol and eliquis #T2DM A1c 8.9 in July ISS, Lantus 5U #HLD continue atorvastatin 20mg Supervising Physician Co-Signing Physician Notes I personally examined the patient and verified all ocampo points of history and exam, discussed case, and agree with decision making with Dr Melissa Feeling better and would like to go home. Discussed fluid intake at homea little bit hard to tell, but it seems like she probably takes in between 30 and 40 ounces of noncaffeinated fluid a day at the most. Overall acute malaise has resolved. Chronic lightheadedness intermittent. Vitals noted, in general she is awake and alert pleasant no distress. HEENT normocephalic atraumatic mucous membranes moist. Breathing unlabored no accessory muscle use good effort. Skin shows no rashes no pallor or icterus. Neuro without focal deficits. Acute malaiseextensive work-up fortunately reassuringsuspect given her relatively poor p.o. fluid intake at baseline, combined with much increased activity getting ready for a camping tripshe was probably dehydrated and rundown. This has improved. Chronic intermittent lightheadedseems most likely to have a contribution from her chronic dehydration above, but also highly suspicious that her hydralazine, and/or chlorthalidone may be playing a role. For now we will do things stepwisesuggested that at first she get up to 60 ounces of fluid intake a day. Follow closely with PCP, discussed that a reasonable strategy would be to stop the hydralazine and see if the symptoms resolve, and if not, consider stopping chlorthalidone and seeing if the symptoms resolved. If alternate antihypertensives need to be added, could do so in the ones that are less likely to cause lightheadedness or similar symptoms. Hypertensiondiscussed ranges of control, and reasonable control, discussed hypertensive urgency/crises and what to watch for, and try to offer active reassurance that she does not appear to have had any such things. Resident Activity Tracking Resident Involvement: Resident Care Provided Care Provided: Adult Hospital Medicine
[2022-09-13] MEDS ORDERED: ONDANSETRON INJ 2 MG/ML 2 ML VIAL IV STA (12:22)
[2022-09-13] MEDS: ATORVASTATIN 20 MG TAB PO SCH (20:28)
[2022-09-13] MEDS: MELATONIN 3 MG TAB PO PRN (21:45)
[2022-09-14] MEDS: ACETAMINOPHEN 325 MG TAB PO PRN ×2 (01:06→23:14)
--- NOTE | 2022-09-14 08:02 | Hospitalist Progress Note ---
Date of Service September 14, 2022 Assessment & Plan (1) Hypertension: (2) Headache: (3) Weakness: (4) Hypomagnesemia: (5) Paroxysmal atrial fibrillation: (6) 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: (7) Hyperlipidemia: Plan #Weakness/Dizziness so far no clear clinical reason for this Will order TSH, T4/T3,PTH, UA and f/u in AM #Hypertension Stablized this on home medications AM 131/76 Chlorthalidone 25mg PO daily Hydralazine 50mg PO BID Lisinopril 20mg PO BID Metoprolol tartrate 50mg PO BID Negative head CT, low risk for embolic dx Non-focal neuro exam #Headache Largely resolved PRN Tylenol #Hypomagnesemia 1.5-->1.4 Will continue to replete as necessary #Weakness Generally ambulates well on her own but concerned about her elevated BP and weakness she felt prior to admission PT Evaluate and Treat #Paroxysmal A-Fib Had runs of PACs vs afib this morning Will check EKG continue metoprolol and eliquis #T2DM A1c 8.9 in July, Lantus 5U #HLD continue atorvastatin 20mg Admission and Anticipated Discharge Date Admission Date: September 12, 2022 Supervising Physician Co-Signing Physician Notes I personally examined the patient and verified all ocampo points of history and exam, discussed case, and agree with decision making and plan documented by Dr. Melissa. Patient continues to endorse intermittent feeling of unease, she states she feels dizzy when sitting or standing, blood pressure has been elevated as well. ECG was performed with no acute changes. Patient was able to have evaluation by physical therapy, they are recommending home with home health, there is a concern for fall risk due to orthostasis. Patient currently on lisinopril, chlorthalidone, hydralazine, for her antihypertensive regimen, following with nephrology and PCP, as well as metoprolol for PAF. Agree with laboratory work-up as above. John Mosley is an 82 year old female with a PMH significant for PAF on Eliquis, HTN, T2DM, DESTINEY, multiple thyroid goiters, stage 3 CKD, and hypomagnesemia was admitted on 09/12 due to hypertension, dizziness, and headache upon waking this am. In the ED the patient was noted to be hypertensive at 188/81 but otherwise stable. Labs were significant for a worsening chronic anemia and mag of 1.4. CT head w/o con was read as "No acute intracranial abnormality". Chest xray was read as "No acute chest disease. Cardiomegaly is noted.". Prior to admission the patient was given 2gm IV mag sulfate, ordered 2 additional bags of 1gm Mag- sulfate, 650 mg Tylenol, was ordered 10 mg IV labetalol, and given 25 mg Meclizine. She took her BP and states that her systolic BP was 200. She was able to walk downstairs and took all of her am medications, besides her metformin, including chlorthalidone, lisinopril, hydralazine, and metoprolol. She has a very slight headache. She has been able to walk to the bathroom multiple times without fall but states that she does not feel safe enough to return home tonight and would prefer to be observed overnight. The patient is very independent at baseline, lives at home alone in a 2 story home, and is able to complete her ADL's independently. When asked, she states that she has had episodes like this in the past when her BP is very high, her BP has been difficult to control in the past. This am: resting comfortably in bed in NAD, feeling poorly this morning. Continues to experience dizziness described as lightheadedness and weakness. When revisited this afternoon, the patient was feeling better. Her daughter was at the bedside. She understood that she would stay one additional night for further workup with anticipated dc tomorrow if results are unremarkable and patient feels ready. Pt was able to see her this afternoon and felt she was Patient is DNR/DNI Review of Systems Review of Systems: reviewed, see HPI Physical Exam Physical Exam: General: patient resting comfortably, NAD, non-toxic in appearance, AA&O x 4, answers questions appropriately and follows commands. Skin: warm, dry, intact, no rashes or lesions HEENT: NC/AT, anicteric sclera, conjunctiva without injection, external ear normal to inspection, nares patent, moist mucus membranes, dentition intact, neck supple, trachea midline, no thyromegaly, no JVD Heart: +S1/S2, regular, no m/r/g Lungs: equal air entry bilaterally, no rales/rhonchi/wheezes Abd: +BS, soft, NT/ND, no masses/organomegaly/ascites Ext: warm, no clubbing/cyanosis or edema Neuro: nonfocal, patient AA&O x 4, speech intact, no facial droop, moving all extremities on command. Results & Data Results & Data Vital Signs (Past 12 Hours) Vital Signs Temp Pulse Pulse Resp BP Pulse Ox O2 Del Method 09/14/22 07:24 65 09/13/22 21:59 74 09/14/22 02:48 36.6 C 71 18 133/84 96 Room Air 09/13/22 22:36 36.5 C 59 L 18 136/76 95 Room Air 09/13/22 23:26 Room Air Resident Activity Tracking Resident Involvement: Resident Care Provided Care Provided: Adult Hospital Medicine (1) Hypertension Hypertension type: unspecified Qualified Code(s): I10 - Essential (primary) hypertension (2) Headache Headache chronicity pattern: unspecified pattern Headache type: unspecified Intractability: not intractable Qualified Code(s): R51.9 - Headache, unspecified
[2022-09-14] MEDS: INSULIN ASPART PER UNIT CHARGE SC SCH ×4 (08:29→20:44)
[2022-09-14] MEDS: LANTUS PER UNIT CHARGE SQ SCH ×2 (08:30→20:54)
[2022-09-14] MEDS: hydrALAZINE TAB 50 MG TAB PO SCH ×2 (08:31→20:53)
[2022-09-14] MEDS: APIXABAN 5 MG TABLET PO SCH ×2 (08:31→20:53)
[2022-09-14] MEDS: lisinopril 20 MG TAB PO SCH ×2 (08:31→20:53)
[2022-09-14] MEDS: METOPROLOL TARTRATE 50 MG TAB PO SCH ×2 (08:32→20:53)
[2022-09-14] MEDS: CHLORTHALIDONE 25 MG TAB PO SCH (08:32)
[2022-09-14 10:32] LABS: Basophils # (auto) 0.03 K/uL (0-0.2); Basophils % (auto) 0.5 %; Eosinophils # (auto) 0.17 K/uL (0-0.50); Hematocrit (blood only) 34.3 % (37.0-47.0); Hemoglobin 10.8 g/dl (12.0-16.0); Immature Granulocytes # (auto) 0.02 K/uL (0.01-0.20); Immature Granulocytes % (auto) 0.4 %; Lymphocytes # (auto) 1.05 K/uL (1.2-3.4); Lymphocytes % (auto) 18.5 %; Mean Corpuscular Hemoglobin 28.7 pg (25.0-34.0); Mean Corpuscular Hgb Conc 31.5 g/dL (32.0-36.0); Mean Corpuscular Volume 91.2 fL (80.0-100.0); Mean Platelet Volume 10.9 fL (9.4-12.4); Monocytes # (auto) 0.43 K/uL (0.11-0.59); Monocytes % (auto) 7.6 %; Neutrophils # (auto) 3.97 K/uL (1.40-6.50); Platelet Count 165 K/uL (130-400); RDW Coefficient of Variation 14.3 % (11.5-14.5); Red Blood Count 3.76 M/uL (4.20-5.40); White Blood Count 5.67 K/ul (4.8-10.8)
[2022-09-14 10:46] LABS: BUN Creatinine Ratio 13.7 (10-20); Calcium 10.2 mg/dl (8.6-10.3); Creatinine Clr Calc Pharmacy 32.7 ml/min; Est GFR (African American) 40.5 ml/min; Magnesium 1.6 mg/dl (1.7-2.4); Potassium 4.1 mmol/L (3.5-5.1)
--- NOTE | 2022-09-14 12:43 | Electrocardiogram Report ---
Test Reason : Blood Pressure : / mmHG Vent. Rate : 061 BPM Atrial Rate : 061 BPM P-R Int : 176 ms QRS Dur : 074 ms QT Int : 394 ms P-R-T Axes : 046 027 042 degrees QTc Int : 396 ms Sinus rhythm with Premature atrial complexes in a pattern of bigeminy Otherwise normal ECG When compared with ECG of 12-SEP-2022 11:03, Minimal criteria for Anterior infarct are no longer Present Confirmed by Keven Guy ([id number]) on 09/14/2022 12:43:34 PM Referred By: REFERRED SELF Confirmed By:Keven Guy
[2022-09-14 12:50] LABS: Alanine Aminotransferase 15 U/L (7-52); Albumin Globulin Ratio 1.6 (0.9-2); Albumin Level 3.9 gm/dl (3.4-5.0); Alkaline Phosphatase 60 U/L (34-104); Anion Gap 7 (3-11); Aspartate Aminotransferase 15 U/L (13-39); BUN Creatinine Ratio 13.2 (10-20); Bilirubin,Total 0.5 mg/dl (0.2-1.0); Blood Urea Nitrogen 17 mg/dl (6-23); C Reactive Protein < 0.50 mg/dl (0-0.5); Calcium 10.4 mg/dl (8.6-10.3); Carbon Dioxide 23 mmol/L (21-32); Chloride 110 mmol/L (98-107); Creatinine Clr Calc Pharmacy 35.2 ml/min; Est GFR (African American) 44.3 ml/min; Est GFR (Non-African American) 38.3 ml/min; Globulin 2.5 gm/dl (2.5-4.0); Glucose 167 mg/dl (70-99(Fasting)); Potassium 4.3 mmol/L (3.5-5.1); Sodium 140 mmol/L (136-145); Total Protein 6.4 gm/dl (6.0-8.3)
[2022-09-14 13:15] LABS: Lyme Ab IgG w/WB Rflx Negative (Negative); Lyme Ab IgM w/WB Rflx Negative (Negative)
[2022-09-14] MEDS: SODIUM CHLORIDE 0.9% 500 ML IV SCH (15:06)
[2022-09-14] MEDS ORDERED: MELOXICAM 7.5 MG TAB PO SCH (16:45)
[2022-09-14] MEDS: MELATONIN 3 MG TAB PO PRN (20:53)
[2022-09-14] MEDS: ATORVASTATIN 20 MG TAB PO SCH (20:53)
[2022-09-15 02:06] LABS: Appearance Urine Clear (Clear); Bacteria Urine Automated Negative (Negative); Bilirubin Urine Negative (Negative); Blood Urine Negative (Negative); Color Urine Yellow; Epithelial Cell Urine Auto 20-30 /lpf (0-5); Glucose Urine UA Negative (Negative); Ketones Urine Trace (Negative); Leukocyte Esterase Urine 2+ (Negative); Nitrite Urine Negative (Negative); Protein Urine Negative (Negative); RBC Urine Automated 0-4 /hpf (0-4); Specific Gravity Urine 1.019 (1.000-1.030); Urobilinogen Urine Negative (Negative)
[2022-09-15] MEDS: ACETAMINOPHEN 325 MG TAB PO PRN ×2 (05:41→09:28)
--- NOTE | 2022-09-15 08:04 | Hospitalist Progress Note ---
Date of Service September 15, 2022 Assessment & Plan (1) Hypertension: (2) Headache: (3) Weakness: (4) Hypomagnesemia: (5) Paroxysmal atrial fibrillation: (6) 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: (7) Hyperlipidemia: Plan #Weakness/Dizziness so far no clear clinical reason for this Will order TSH, T4/T3,PTH, UA and f/u in AM #Hypertension Stablized this on home medications AM 131/76 Chlorthalidone 25mg PO daily Hydralazine 50mg PO BID Lisinopril 20mg PO BID Metoprolol tartrate 50mg PO BID Negative head CT, low risk for embolic dx Non-focal neuro exam #Headache Largely resolved PRN Tylenol #Hypomagnesemia 1.5-->1.4 Will continue to replete as necessary #Weakness Generally ambulates well on her own but concerned about her elevated BP and weakness she felt prior to admission PT Evaluate and Treat #Paroxysmal A-Fib Had runs of PACs vs afib this morning Will check EKG continue metoprolol and eliquis #T2DM A1c 8.9 in July, Lantus 5U #HLD continue atorvastatin 20mg Admission and Anticipated Discharge Date Admission Date: September 12, 2022 Supervising Physician Co-Signing Physician Notes I personally examined the patient and verified all ocampo points of history and exam, discussed case, and agree with decision making with Dr Melissa see dc summary John Mosley is an 82 year old female with a PMH significant for PAF on Eliquis, HTN, T2DM, DESTINEY, multiple thyroid goiters, stage 3 CKD, and hypomagnesemia was admitted on 09/12 due to hypertension, dizziness, and headache upon waking this am. In the ED the patient was noted to be hypertensive at 188/81 but otherwise stable. Labs were significant for a worsening chronic anemia and mag of 1.4. CT head w/o con was read as "No acute intracranial abnormality". Chest xray was read as "No acute chest disease. Cardiomegaly is noted.". Prior to admission the patient was given 2gm IV mag sulfate, ordered 2 additional bags of 1gm Mag- sulfate, 650 mg Tylenol, was ordered 10 mg IV labetalol, and given 25 mg Meclizine. She took her BP and states that her systolic BP was 200. She was able to walk downstairs and took all of her am medications, besides her metformin, including chlorthalidone, lisinopril, hydralazine, and metoprolol. She has a very slight headache. She has been able to walk to the bathroom multiple times without fall but states that she does not feel safe enough to return home tonight and would prefer to be observed overnight. The patient is very independent at baseline, lives at home alone in a 2 story home, and is able to complete her ADL's independently. When asked, she states that she has had episodes like this in the past when her BP is very high, her BP has been difficult to control in the past. This am: resting comfortably in bed in NAD, feeling poorly this morning. Continues to experience dizziness described as lightheadedness and weakness. When revisited this afternoon, the patient was feeling better. Her daughter was at the bedside. She understood that she would stay one additional night for further workup with anticipated dc tomorrow if results are unremarkable and patient feels ready. Pt was able to see her this afternoon and felt she was Patient is DNR/DNI Review of Systems Review of Systems: reviewed, see HPI Physical Exam Physical Exam: General: patient resting comfortably, NAD, non-toxic in appearance, AA&O x 4, answers questions appropriately and follows commands. Skin: warm, dry, intact, no rashes or lesions HEENT: NC/AT, anicteric sclera, conjunctiva without injection, external ear normal to inspection, nares patent, moist mucus membranes, dentition intact, neck supple, trachea midline, no thyromegaly, no JVD Heart: +S1/S2, regular, no m/r/g Lungs: equal air entry bilaterally, no rales/rhonchi/wheezes Abd: +BS, soft, NT/ND, no masses/organomegaly/ascites Ext: warm, no clubbing/cyanosis or edema Neuro: nonfocal, patient AA&O x 4, speech intact, no facial droop, moving all extremities on command. Results & Data Results & Data Vital Signs (Past 12 Hours) Vital Signs Temp Pulse Pulse Resp BP BP Pulse Ox 09/15/22 04:08 36.5 C 61 18 135/74 97 09/14/22 23:50 68 09/14/22 23:50 36.6 C 59 L 18 123/77 94 O2 Del Method 09/15/22 04:08 Room Air 09/14/22 23:50 09/14/22 23:50 Room Air Resident Activity Tracking Resident Involvement: Resident Care Provided Care Provided: Adult Hospital Medicine (1) Hypertension Hypertension type: unspecified Qualified Code(s): I10 - Essential (primary) hypertension (2) Headache Headache chronicity pattern: unspecified pattern Headache type: unspecified Intractability: not intractable Qualified Code(s): R51.9 - Headache, unspecified
[2022-09-15 08:09] LABS: Basophils # (auto) 0.03 K/uL (0-0.2); Basophils % (auto) 0.5 %; Eosinophils # (auto) 0.27 K/uL (0-0.50); Eosinophils % (auto) 4.3 %; Hematocrit (blood only) 35.6 % (37.0-47.0); Hemoglobin 11.2 g/dl (12.0-16.0); Immature Granulocytes # (auto) 0.02 K/uL (0.01-0.20); Immature Granulocytes % (auto) 0.3 %; Lymphocytes % (auto) 28.8 %; Mean Corpuscular Hemoglobin 28.6 pg (25.0-34.0); Mean Corpuscular Hgb Conc 31.5 g/dL (32.0-36.0); Mean Platelet Volume 11.2 fL (9.4-12.4); Neutrophils # (auto) 3.63 K/uL (1.40-6.50); Neutrophils % (auto) 58.1 %; Platelet Count 174 K/uL (130-400); RDW Coefficient of Variation 14.2 % (11.5-14.5); RDW Standard Deviation 46.9 fL (36.4-46.3); Red Blood Count 3.91 M/uL (4.20-5.40); White Blood Count 6.25 K/ul (4.8-10.8)
[2022-09-15 08:22] LABS: BUN Creatinine Ratio 14.4 (10-20); Calcium 10.3 mg/dl (8.6-10.3); Creatinine Clr Calc Pharmacy 27.2 ml/min; Est GFR (African American) 36.1 ml/min; Est GFR (Non-African American) 31.1 ml/min; Magnesium 1.5 mg/dl (1.7-2.4); Phosphorus 4.1 mg/dl (2.5-4.9); Potassium 4.2 mmol/L (3.5-5.1)
[2022-09-15] MEDS: lisinopril 20 MG TAB PO SCH (08:26)
[2022-09-15] MEDS: CHLORTHALIDONE 25 MG TAB PO SCH (08:26)
[2022-09-15] MEDS: APIXABAN 5 MG TABLET PO SCH (08:26)
[2022-09-15] MEDS: METOPROLOL TARTRATE 50 MG TAB PO SCH (08:26)
[2022-09-15] MEDS: hydrALAZINE TAB 50 MG TAB PO SCH (08:26)
[2022-09-15] MEDS: LANTUS PER UNIT CHARGE SQ SCH (08:32)
[2022-09-15] MEDS: INSULIN ASPART PER UNIT CHARGE SC SCH ×3 (08:32→12:17)
[2022-09-15 08:38] LABS: T3 Free 2.96 pg/ml (2.3-4.2); Thyroid Stimulating Hormone 0.771 uIu/ml (0.300-4.500)
[2022-09-15 08:41] LABS: T4 Free Thyroxine 1.19 ng/dl (0.61-1.60)
[2022-09-15 08:51] LABS: Vitamin D, 25 Hydrox 29.5 ng/ml (30-100)
--- NOTE | 2022-09-15 18:42 | Billing Data ---
Date of Service September 15, 2022 Coding Level of Care Code 43069 INP/OBS DISCH >30 MIN
--- NOTE | 2022-09-15 18:43 | Billing Data ---
Date of Service September 15, 2022 Coding Level of Care Code 49397 INP/OBS DISCH >30 MIN
[2022-09-17 19:28] LABS: Magnesium, Random Urine 110 mg/g creat (22-130)
[2022-09-18 03:11] LABS: Babesia microti DNA Not Detected (Not Detected)
== END 2022-09-15 14:30 | disposition home or self-care (01) | DRG 305 ==
LOC: ED 10:48 → 2N 16:45 → SUATTDRO 16:45 → 2N 20:06

== ENCOUNTER 2022-09-27 15:08 | Inpatient (IN) ==
[2022-09-27] MEDS ORDERED: ONDANSETRON INJ 2 MG/ML 2 ML VIAL IV STA (15:43)
[2022-09-27] MEDS ORDERED: LORazepam 2 MG/1 ML VIAL IV STA (15:52)
[2022-09-27 15:57] LABS: Basophils # (auto) 0.04 K/uL (0-0.2); Basophils % (auto) 0.4 %; Eosinophils # (auto) 0.28 K/uL (0-0.50); Eosinophils % (auto) 3.1 %; Hematocrit (blood only) 34.7 % (37.0-47.0); Hemoglobin 10.8 g/dl (12.0-16.0); Immature Granulocytes # (auto) 0.06 K/uL (0.01-0.20); Immature Granulocytes % (auto) 0.7 %; Lymphocytes # (auto) 2.66 K/uL (1.2-3.4); Lymphocytes % (auto) 29.2 %; Mean Corpuscular Hemoglobin 28.6 pg (25.0-34.0); Mean Corpuscular Hgb Conc 31.1 g/dL (32.0-36.0); Mean Platelet Volume 11.6 fL (9.4-12.4); Monocytes # (auto) 0.56 K/uL (0.11-0.59); Monocytes % (auto) 6.2 %; Neutrophils % (auto) 60.4 %; Platelet Count 223 K/uL (130-400); RDW Coefficient of Variation 14.6 % (11.5-14.5); RDW Standard Deviation 48.7 fL (36.4-46.3); Red Blood Count 3.77 M/uL (4.20-5.40)
[2022-09-27 16:22] LABS: Alanine Aminotransferase 24 U/L (7-52); Albumin Globulin Ratio 1.2 (0.9-2); Albumin Level 3.8 gm/dl (3.4-5.0); Alkaline Phosphatase 65 U/L (34-104); Anion Gap 11 (3-11); BUN Creatinine Ratio 17.9 (10-20); Bilirubin,Total 0.4 mg/dl (0.2-1.0); Blood Urea Nitrogen 26 mg/dl (6-23); Calcium 9.7 mg/dl (8.6-10.3); Carbon Dioxide 18 mmol/L (21-32); Chloride 111 mmol/L (98-107); Est GFR (African American) 38.5 ml/min; Est GFR (Non-African American) 33.2 ml/min; Globulin 3.1 gm/dl (2.5-4.0); Glucose 199 mg/dl (70-99(Fasting)); Sodium 140 mmol/L (136-145); Total Protein 6.9 gm/dl (6.0-8.3)
--- NOTE | 2022-09-27 16:27 | CT Scan Report ---
CT SCAN OF THE BRAIN WITHOUT IV CONTRAST CLINICAL HISTORY: Trauma. Fall. Dizziness. COMPARISON STUDY: CT of the brain dated 09/12/2022. TECHNIQUE: Unenhanced axial CT scan of the brain is performed from the vertex to the skull base. A do se lowering technique was utilized adhering to the principles of ALARA. FINDINGS: Brain parenchyma: There is age-related involutional change noting mild subcortical and periventricula r microangiopathic disease. There is no hemorrhage, mass effect, or evidence of acute territorial isc hemia by CT criteria. Marroquin-white matter differentiation is preserved. No extra-axial fluid collection is seen. Ventricles, sulci, cisterns: Prominent secondary to involutional change. Intracranial vasculature: There is atherosclerotic calcification of the cavernous carotid and vertebr al arteries. Calvarium: The skeletal structures are osteopenic. No depressed calvarial fracture is identified. Sinuses and mastoids: A 2.1 cm retention cyst is noted in the left maxillary antrum. The visualized p aranasal sinuses are otherwise clear. The mastoid air cells are well pneumatized. Orbits: The bony orbits are grossly intact. There are bilateral ocular lens implants IMPRESSION: There is no hemorrhage, mass effect, or evidence of acute territorial ischemia by CT celestine bland. ACT 112: Negative or not required by law. Electronically signed by: Booker Mendez M.D. 09/27/2022 4:24 PM
--- NOTE | 2022-09-27 16:31 | CT Scan Report ---
CT SCAN OF THE CERVICAL SPINE CLINICAL HISTORY: Trauma. Fall. COMPARISON STUDY: Chest CT dated 01/04/2021. TECHNIQUE: CT scan of the cervical spine is performed from the skull base to the upper thoracic spine . Images are reviewed in the axial, sagittal, and coronal planes. IV contrast was not administered fo r this examination. A dose lowering technique was utilized adhering to the principles of ALARA. CT DOSE: 1171.60 mGy.cm FINDINGS: Skeletal structures: The skeletal structures are osteopenic. There is no evidence of fracture or subl uxation involving the cervical spine. Vertebral body height and alignment are maintained. There is st raightening of the cervical lordosis. Anterior osteophytes are seen throughout. The odontoid process and lateral masses are intact. The atlantoaxial articulation is preserved noting productive degenerat karen change. The spinous processes appear intact. Intervertebral discs: There is moderate disc space narrowing at C5-C6 and C6-C7. The remaining disc s paces appear maintained. Central canal: Posterior disc osteophyte complexes at C5-C6 and C6-C7 may contribute to mild acquired compromise of the central canal. Soft tissues: The prevertebral and paraspinous soft tissues are within normal limits. There is athero sclerotic calcification of the carotid bulbs. The thyroid gland is enlarged and heterogeneous. A 3.0 cm peripherally calcified nodule is noted in the right lobe. This is unchanged from prior chest CT sc ans. Calvarium: The visualized calvarium at the skull base appears intact. Brain parenchyma: Partially visualized brain parenchyma at the skull base is within normal limits. Sinuses and mastoids: The visualized paranasal sinuses are clear. The mastoid air cells are well pneu matized. Lung apices: Clear as visualized. IMPRESSION: 1. There is no evidence of fracture or subluxation involving the cervical spine. 2. Osteopenia and spondylotic change as above. ACT 112: Negative or not required by law. Electronically signed by: Booker Mendez M.D. 09/27/2022 4:29 PM
--- NOTE | 2022-09-27 16:58 | XRay Report ---
SINGLE VIEW CHEST CLINICAL HISTORY: Trauma. FINDINGS: An AP, portable, semierect chest radiograph is compared to study dated 09/12/2022. [facility] is degraded by portable technique and patient rotation. A peripherally calcified right lobe th yroid nodule is unchanged. The heart is enlarged noting atherosclerotic calcification of the thoracic aorta. The pulmonary vasculature is noncongested. Chronic interstitial thickening is similar to prev ious. There is mild bibasilar scarring/atelectasis. The lungs and pleural spaces are otherwise clear. No pneumothorax is seen. The skeletal structures are osteopenic. The bony thorax is grossly intact. IMPRESSION: Cardiomegaly with no active disease in the chest. ACT 112: Negative or not required by law. Electronically signed by: Booker Mendez M.D. 09/27/2022 4:56 PM
[2022-09-27 17:06] LABS: Potassium 4.7 mmol/L (3.5-5.1)
[2022-09-27 18:04] LABS: Appearance Urine Clear (Clear); Bacteria Urine Automated Negative (Negative); Bilirubin Urine Negative (Negative); Blood Urine Negative (Negative); Color Urine Yellow; Glucose Urine UA Negative (Negative); Ketones Urine Trace (Negative); Leukocyte Esterase Urine 1+ (Negative); Nitrite Urine Negative (Negative); Protein Urine Negative (Negative); RBC Urine Automated 0-4 /hpf (0-4); Specific Gravity Urine 1.017 (1.000-1.030); Urobilinogen Urine Negative (Negative)
[2022-09-27] MEDS ORDERED: MECLIZINE 12.5 MG TAB PO STA (18:29)
[2022-09-27 19:23] LABS: Magnesium 1.4 mg/dl (1.7-2.4); Phosphorus 2.6 mg/dl (2.5-4.9)
[2022-09-27] MEDS: MAGNESIUM SULFATE / D5W 1 GM/100 ML BAG IV SCH ×2 (20:01→20:41)
--- NOTE | 2022-09-27 23:35 | History & Physical Report ---
Date of Service September 27, 2022 Assessment & Plan (1) Fall: Plan: Possibly due to pre-syncope versus vertigo? But sounds more like lightheadedness and then she did pass out every time she tried to get up. She is not describing a room spinning sensation She did however have subsequent nausea/vomiting which could still be related to a vasovagal type syncope Orthostatics negative in the ER CT head negative, CT cervical spine negative No other injuries Could be related to hypomagnesemia or dehydration from chlorthalidone? Or GI viral illness causing vasovagal syncope? -Admit to medical floor with telemetry for arrhythmia monitoring -Check echocardiogram -Check troponin -Gave IV fluids in the ER, hold home chlorthalidone and continue maintenance IV fluids -PT/OT consults placed (2) Dizziness: Plan: As above, seems to be more related to vasovagal syncope as opposed to vertigo Hydrated with fluids, hold chlorthalidone Replace magnesium Monitor on telemetry for arrhythmia Echocardiogram (3) CKD (chronic kidney disease) stage 3, GFR 30-59 ml/min: Plan: Creatinine around baseline at 1.4 Okay to continue lisinopril but hold chlorthalidone Avoid nephrotoxins (4) Hypomagnesemia: Plan: Magnesium chronically low-likely secondary to chlorthalidone Replace with 3 g IV magnesium sulfate -Check magnesium level in the morning (5) Hyperlipidemia: Plan: Continue atorvastatin (6) Hypertension: Plan: Blood pressures are actually slightly elevated here but she has not taken in over evening medications Continue home hydralazine, lisinopril, metoprolol, but discontinue chlorthalidone (7) Paroxysmal atrial fibrillation: Plan: In sinus here with frequent PVCs Monitor on telemetry Hold home Eliquis for now due to fall but can restart tomorrow if no evidence of bleeding anywhere (8) 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: Plan: Hold home glimepiride and metformin Supplemental insulin and Accu-Cheks to be ordered Hemoglobin A1c uncontrolled recently checked at 8.9% Plan DVT prophylaxis-SCDs, hold home Eliquis for now due to fall Disposition-admit to medical floor with telemetry, PT/OT consults placed DNR/DNI History of Present Illness Chief Complaint: Lightheadedness, fall Primary Care Provider: Mello Elena, DO This patient is an 82-year-old female with history of HTN, CKD stage III, paroxysmal atrial fibrillation on Eliquis, DESTINEY, DM 2, hyperlipidemia, obesity, who presents to the ER after falling down on the ground due to lightheadedness. She reports trying to get up but she could not and passed out 1 or 2 times. De nies associated chest pain or heart palpitations, no shortness of breath. No recent fevers or chills or coughs or cold symptoms. Her daughter found her and could not get her up and they called for an ambulance. She vomited approximately 5 times between home and the ER in the ambulance. She denies any abdominal pains or diarrhea. In the ER, she was hypertensive and mildly tachycardic, afebrile. Her orthostatic vital signs were negative. She was found to have a nonanion gap metabolic acidosis, stable normocytic anemia, creatinine elevated at 1.4 which is around her baseline but BUN slightly elevated at 26. Blood glucose was mildly elevated. Magnesium was low at 1.4. Troponin was negative. ECGs showed frequent PVCs but no ischemic changes. Her urinalysis showed possible infection and urine culture was sent and pending but she has no urinary symptoms. CT of the head and neck were negative for fractures or bleed. Allergies Allergy/AdvReac Type Severity Reaction Status Date / Time No Known Allergies Allergy Verified 09/27/22 15:36 Home Medications Medication Instructions Recorded Confirmed Type vitamins A,C,K-tzxi-jwlsyn 4,296 1 cap PO QAM 09/18/18 09/27/22 History mcg-226 mg-90 mg capsule (PreserVision AREDS) lisinopril 20 mg tablet 20 mg PO BID #180 tabs 02/10/22 09/27/22 Rx hydralazine 50 mg tablet 50 mg PO BID #180 tabs 02/21/22 09/27/22 Rx apixaban 5 mg tablet (Eliquis) 5 mg PO BID #180 tabs 03/13/22 09/27/22 Rx atorvastatin 20 mg tablet 20 mg PO HS #100 tabs 06/19/22 09/27/22 Rx metformin 500 mg tablet 1,000 mg PO BID #400 tabs 06/19/22 09/27/22 Rx metoprolol tartrate 50 mg tablet 50 mg PO BID #200 tabs 06/19/22 09/27/22 Rx chlorthalidone 25 mg tablet 25 mg PO DAILY #90 tabs 08/04/22 09/27/22 Rx glimepiride 1 mg tablet 1 mg PO QAM #90 tabs 08/04/22 09/27/22 Rx magnesium oxide 400 mg PO BID #60 tabs 09/27/22 Rx ondansetron 4 mg disintegrating 4 mg PO Q6H PRN nausea and 09/27/22 Rx tablet vomiting #10 tabs Past Med/Surg History Medical History COVID-19 (02/11/20) required hospitalization [facility] x 3 weeks History of basal cell carcinoma (11/2018) Hyperlipidemia Hypertension Lipoma of back s/p removal Morbid obesity Nontoxic multinodular goiter DESTINEY (obstructive sleep apnea) Osteopenia Syncope and collapse Surgical History History of salpingectomy History of Salpingectomy for ectopic Hx laparoscopic cholecystectomy Family History Father , age 69 Coronary heart disease Myocardial infarction Mother , age 92 Tobacco use Lung cancer suspected just prior to her Daughter Melanoma Grandmother (Paternal) Stroke Denies family history of Ovarian cancer Prostate cancer Breast cancer FH: brain aneurysm Colorectal cancer Social History Smoking Status: Former smoker Tobacco Type: Cigarettes Second Hand Exposure: No; Do You Dip or Chew Tobacco: No; Tobacco Cessation Education Requested by Patient: No Hx Alcohol Use: No Hx Substance Use: No Preferred Language: Mexican Communication Ability: Effective Visual Impairment: No Limitations Hearing Ability: Normal District [employer] Required: No Beliefs That Will Affect Care: None marital status: Current Living Situation: Family Current Living Situation Comment: Daughter Jocelyne current occupational status: retired 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 [employer] How many Children do You have: 3 Feels Safe at Home: Yes Safety Concerns: Feels Safe At This Time Diet: regular caffeine: Yes Dental Care, Regularly: Yes Physical Activity Frequency: Does not Exercise Seatbelt Use: always Assistive Devices: Glasses Assistive Devices Comment: Reading glasses (not prescription) Review of Systems Review of Systems: All systems reviewed & are unremarkable except as noted in HPI & below Physical Exam Constitutional: WD/WN, vitals as above Eyes: PERRL, conjunctivae normal, anicteric sclerae ENMT: external ear and nose normal, oropharynx normal Neck: trachea midline, no thyromegaly Respiratory: normal respiratory effort, lungs clear to auscultation Cardiovascular: RRR, no murmur, no edema Chest (Breasts): Chest: normal inspection of chest Gastrointestinal (Abdomen): normal bowel sounds, soft, nontender, no hepatosplenomegaly Musculoskeletal: Extremities: extremities normal to inspection; no cyanosis and no clubbing Skin: no rashes, warm and dry Neurologic: moves all extremities and awake; no focal motor deficits Psychiatric: A+Ox3, euthymic affect Lymphatic: no lymphedema Results & Data Results & Data Vital Signs (Past 12 Hours) Vital Signs Temp Pulse Resp BP Pulse Ox O2 Del Method 09/27/22 22:58 71 17 150/77 H 98 Room Air 09/27/22 22:30 20 97 Room Air 09/27/22 21:10 69 13 96 09/27/22 21:01 138/55 L 09/27/22 21:01 67 16 97 09/27/22 21:00 65 15 95 09/27/22 20:50 70 17 98 09/27/22 20:41 94 09/27/22 20:30 66 13 09/27/22 20:20 77 24 09/27/22 20:10 73 17 97 09/27/22 20:00 61 23 92 09/27/22 20:00 133/67 09/27/22 19:50 75 15 85 L 09/27/22 19:40 68 21 91 09/27/22 19:30 70 16 97 09/27/22 19:20 66 11 L 96 09/27/22 19:10 68 13 95 09/27/22 19:01 151/97 H 09/27/22 19:01 71 13 100 09/27/22 19:00 79 15 99 09/27/22 18:50 65 12 98 09/27/22 19:02 74 09/27/22 18:40 77 20 95 09/27/22 18:40 172/73 H 09/27/22 18:37 167/84 H 09/27/22 18:37 76 16 98 09/27/22 18:35 79 18 98 09/27/22 18:35 140/66 09/27/22 18:30 75 18 98 09/27/22 18:20 75 24 95 09/27/22 18:10 76 20 94 09/27/22 18:00 71 17 97 09/27/22 18:00 120/71 09/27/22 17:52 77 14 93 09/27/22 17:40 69 13 95 09/27/22 17:30 84 14 98 09/27/22 17:21 72 25 H 94 09/27/22 17:21 138/63 09/27/22 17:20 73 32 H 91 09/27/22 17:10 74 21 91 09/27/22 17:00 76 25 H 89 L 09/27/22 16:50 75 33 H 88 L 09/27/22 16:40 77 23 92 09/27/22 16:30 82 24 94 09/27/22 16:20 76 13 95 09/27/22 16:19 135/73 09/27/22 16:19 89 18 09/27/22 16:18 78 12 09/27/22 16:00 86 18 09/27/22 15:50 79 24 09/27/22 15:40 91 H 16 09/27/22 15:30 84 9 L 96 09/27/22 15:22 87 21 94 09/27/22 15:22 174/66 H 09/27/22 15:20 90 16 96 09/27/22 15:13 113 H 21 09/27/22 15:43 95 09/27/22 15:21 91 H 09/27/22 14:56 36.4 C L 93 H 20 174/66 H 97 Room Air Laboratory Results CBC, CMP, troponin, urinalysis reviewed Diagnostic Findings Cervical Spine CT 09/27/22 15:43 CT SCAN OF THE CERVICAL SPINE CLINICAL HISTORY: Trauma. Fall. COMPARISON STUDY: Chest CT dated 01/04/2021. TECHNIQUE: CT scan of the cervical spine is performed from the skull base to the upper thoracic spine. Images are reviewed in the axial, sagittal, and coronal planes. IV contrast was not administered for this examination. A dose lowering technique was utilized adhering to the principles of ALARA. CT DOSE: 1171.60 mGy.cm FINDINGS: Skeletal structures: The skeletal structures are osteopenic. There is no evidence of fracture or subluxation involving the cervical spine. Vertebral body height and alignment are maintained. There is straightening of the cervical lordosis. Anterior osteophytes are seen throughout. The odontoid process and lateral masses are intact. The atlantoaxial articulation is preserved noting productive degenerative change. The spinous processes appear intact. Intervertebral discs: There is moderate disc space narrowing at C5-C6 and C6-C7. The remaining disc spaces appear maintained. Central canal: Posterior disc osteophyte complexes at C5-C6 and C6-C7 may contribute to mild acquired compromise of the central canal. Soft tissues: The prevertebral and paraspinous soft tissues are within normal limits. There is atherosclerotic calcification of the carotid bulbs. The thyroid gland is enlarged and heterogeneous. A 3.0 cm peripherally calcified nodule is noted in the right lobe. This is unchanged from prior chest CT scans. Calvarium: The visualized calvarium at the skull base appears intact. Brain parenchyma: Partially visualized brain parenchyma at the skull base is within normal limits. Sinuses and mastoids: The visualized paranasal sinuses are clear. The mastoid air cells are well pneumatized. Lung apices: Clear as visualized. IMPRESSION: 1. There is no evidence of fracture or subluxation involving the cervical spine. 2. Osteopenia and spondylotic change as above. ACT 112: Negative or not required by law. Electronically signed by: Booker Mendez M.D. 09/27/2022 4:29 PM Chest X-Ray 09/27/22 15:43 SINGLE VIEW CHEST CLINICAL HISTORY: Trauma. FINDINGS: An AP, portable, semierect chest radiograph is compared to study dated 09/12/2022. The examination is degraded by portable technique and patient rotation. A peripherally calcified right lobe thyroid nodule is unchanged. The heart is enlarged noting atherosclerotic calcification of the thoracic aorta. The pulmonary vasculature is noncongested. Chronic interstitial thickening is similar to previous. There is mild bibasilar scarring/atelectasis. The lungs and pleural spaces are otherwise clear. No pneumothorax is seen. The skeletal structures are osteopenic. The bony thorax is grossly intact. IMPRESSION: Cardiomegaly with no active disease in the chest. ACT 112: Negative or not required by law. Electronically signed by: Booker Mendez M.D. 09/27/2022 4:[address] 09/27/22 15:43 CT SCAN OF THE BRAIN WITHOUT IV CONTRAST CLINICAL HISTORY: Trauma. Fall. Dizziness. COMPARISON STUDY: CT of the brain dated 09/12/2022. TECHNIQUE: Unenhanced axial CT scan of the brain is performed from the vertex to the skull base. A dose lowering technique was utilized adhering to the principles of ALARA. FINDINGS: Brain parenchyma: There is age-related involutional change noting mild subcortical and periventricular microangiopathic disease. There is no hemorrhage, mass effect, or evidence of acute territorial ischemia by CT criteria. Marroquin-white matter differentiation is preserved. No extra-axial fluid collection is seen. Ventricles, sulci, cisterns: Prominent secondary to involutional change. Intracranial vasculature: There is atherosclerotic calcification of the cavernous carotid and vertebral arteries. Calvarium: The skeletal structures are osteopenic. No depressed calvarial fracture is identified. Sinuses and mastoids: A 2.1 cm retention cyst is noted in the left maxillary antrum. The visualized paranasal sinuses are otherwise clear. The mastoid air cells are well pneumatized. Orbits: The bony orbits are grossly intact. There are bilateral ocular lens implants IMPRESSION: There is no hemorrhage, mass effect, or evidence of acute territorial ischemia by CT criteria. ACT 112: Negative or not required by law. Electronically signed by: Booker Mendez M.D. 09/27/2022 4:24 PM ECG Additional Comments: As per HPI Code Status & VTE Plan Code Status DNR/DNI VTE Prophylaxis Plan VTE Prophylaxis will be ordered: Yes PG Care Time/CCT Total # of Minutes Spent Total Time Spent with Patient: Total time spent is greater than 50% in coordination of care (as documented) at patient's floor/unit and/or counseling patient: Coding Level of Care Code 53681 INT INP/OBS CARE 3/75MIN Diagnoses Fall W19.XXXA Dizziness R42 CKD (chronic kidney disease) stage 3, GFR 30-59 ml/min N18.30 Hypomagnesemia E83.42 Hyperlipidemia E78.5 Hypertension I10 Paroxysmal atrial fibrillation I48.0 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
[2022-09-28 00:04] LABS: Troponin I High Sensitivity 10.9 pg/ml (0-14)
[2022-09-28] MEDS ORDERED: POLYETHYLENE (MIRALAX) 17 GM PACK PO PRN (00:16)
[2022-09-28] MEDS ORDERED: ONDANSETRON INJ 2 MG/ML 2 ML VIAL IV PRN (00:16)
[2022-09-28] MEDS ORDERED: SODIUM CHLORIDE 0.9% 1000ML 1,000 ML IV STA (00:21)
[2022-09-28] MEDS: METOPROLOL TARTRATE 50 MG TAB PO SCH ×3 (00:40→20:07)
[2022-09-28] MEDS ORDERED: GLUCAGON FOR INJ 1 MG VIAL SQ PRN (05:53)
[2022-09-28] MEDS ORDERED: GLUCOSE 10 TAB/TUBE PO PRN (05:53)
[2022-09-28] MEDS ORDERED: GLUCOSE 40% GEL 15 GM TUBE PO PRN (05:53)
[2022-09-28] MEDS ORDERED: CARBOHYDRATES FOR HYPOGLYCEMIA PO PRN (05:53)
[2022-09-28] MEDS ORDERED: DEXTROSE 50% 50 ML SYRINGE IV PRN (05:53)
[2022-09-28 06:07] LABS: Basophils # (auto) 0.04 K/uL (0-0.2); Basophils % (auto) 0.7 %; Eosinophils # (auto) 0.25 K/uL (0-0.50); Eosinophils % (auto) 4.5 %; Hematocrit (blood only) 30.1 % (37.0-47.0); Hemoglobin 9.6 g/dl (12.0-16.0); Immature Granulocytes # (auto) 0.04 K/uL (0.01-0.20); Immature Granulocytes % (auto) 0.7 %; Lymphocytes # (auto) 1.72 K/uL (1.2-3.4); Lymphocytes % (auto) 31.1 %; Mean Corpuscular Hgb Conc 31.9 g/dL (32.0-36.0); Mean Corpuscular Volume 90.9 fL (80.0-100.0); Monocytes # (auto) 0.44 K/uL (0.11-0.59); Neutrophils # (auto) 3.04 K/uL (1.40-6.50); Platelet Count 158 K/uL (130-400); RDW Coefficient of Variation 14.5 % (11.5-14.5); Red Blood Count 3.31 M/uL (4.20-5.40); White Blood Count 5.53 K/ul (4.8-10.8)
[2022-09-28 06:27] LABS: BUN Creatinine Ratio 15.7 (10-20); Calcium 9.3 mg/dl (8.6-10.3); Creatinine Clr Calc Pharmacy 33.3 ml/min; Est GFR (African American) 42.4 ml/min; Est GFR (Non-African American) 36.5 ml/min; Magnesium 1.9 mg/dl (1.7-2.4); Potassium 4.2 mmol/L (3.5-5.1)
[2022-09-28 06:45] LABS: Ferritin 20.3 ng/ml (8-388)
[2022-09-28] MEDS: INSULIN ASPART PER UNIT CHARGE SC SCH ×4 (08:28→20:32)
[2022-09-28 08:29] LABS: Folate (Folic Acid),Ser orPlas 16.42 ng/ml (>5.38)
[2022-09-28] MEDS: hydrALAZINE TAB 50 MG TAB PO SCH ×2 (08:30→20:08)
[2022-09-28] MEDS: lisinopril 20 MG TAB PO SCH ×2 (08:30→20:07)
[2022-09-28] MEDS: CEROVITE ADV FORMULA TAB PO SCH (08:30)
[2022-09-28] MEDS ORDERED: LANTUS PER UNIT CHARGE SQ SCH (09:00)
--- NOTE | 2022-09-28 10:41 | Electrocardiogram Report ---
Test Reason : Blood Pressure : / mmHG Vent. Rate : 088 BPM Atrial Rate : 088 BPM P-R Int : 160 ms QRS Dur : 086 ms QT Int : 372 ms P-R-T Axes : 082 -11 042 degrees QTc Int : 450 ms Sinus rhythm with frequent Premature ventricular complexes Nonspecific ST abnormality Abnormal ECG When compared with ECG of 14-SEP-2022 10:45, Premature ventricular complexes are now Present Premature atrial complexes are no longer Present QT has lengthened Confirmed by Markie Tejeda ([id number]) on 09/28/2022 10:41:33 AM Referred By: Confirmed By:Markie Tejeda
--- NOTE | 2022-09-28 12:55 | Hospitalist Progress Note ---
Date of Service September 28, 2022 Assessment & Plan (1) Fall: Plan: Probably due to orthostatic hypotension. Fortunately there is no serious injuries. Eliquis has been restarted. Chlorthalidone has been discontinued indefinitely. (2) Dizziness: Plan: Resolved. Chlorthalidone has been discontinued on admission . Telemetry (3) CKD (chronic kidney disease) stage 3, GFR 30-59 ml/min: Plan: Monitor intake and output. Serial labs (4) Hypomagnesemia: Plan: Corrected. (5) Hyperlipidemia: Plan: Stable. Continue atorvastatin (6) Hypertension: Plan: Now stable. Chlorthalidone has been discontinued indefinitely. Continue home hydralazine, lisinopril, metoprolol (7) Paroxysmal atrial fibrillation: Plan: Currently in sinus rhythm. Frequent PVCs. Eliquis has been restarted. Telemetry. 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 Scheduled Lantus insulin started on admission has been discontinued due to borderline low glucose. Sliding scale insulin only for now. ADA diet Plan Anticipate discharge to home tomorrow, September 29 Admission and Anticipated Discharge Date Admission Date: September 27, 2022 Subjective Alert and oriented. Currently asymptomatic with stable vital signs. I suspect she had orthostatic hypotension causing syncope at home. Her chlorthalidone was discontinued on admission. Her metformin and glimepiride were placed on hold on admission. Scheduled Lantus therapy was administered but her glucose is on the low side and Lantus will be discontinued at this time. Eliquis has been restarted. OT and PT assessments requested. Mild hypomagnesemia has been corrected. She remains on IV fluids. Hopefully she can go home tomorrow, September 29 off the chlorthalidone indefinitely Review of Systems Review of Systems: Constitutional-no fever or chills ENT-no blurred vision, no double vision, no epistaxis, no sore throat Respiratory-no cough, no wheezing, no shortness of breath Cardiac-no palpitations, no chest pain, no syncope GI-no nausea, vomiting, diarrhea, melena, hematochezia -no urinary retention, no urinary incontinence, no dysuria, no hematuria Musculoskeletal-no joint pain, no muscle tenderness Skin-no bruising, no rashes, no pruritus Neuro-no isolated weakness, no paresthesia, no weakness Psych-no depression, no anxiety Physical Exam Physical Exam: General-alert and oriented x3, no fevers, no chills HEENT-head atraumatic and normocephalic, pupils equal and reactive to light, extraocular muscles intact Neck-no lymphadenopathy or thyromegaly, trachea midline Chest-clear to auscultation percussion. No rales wheezing or rhonchi Cardiac-regular rate and rhythm, normal S1 and S2 Abdomen-normal bowel sounds, nontender, no hepatosplenomegaly Extremities-no cyanosis, clubbing, or edema Neuro-cranial nerves II through XII intact, motor and sensory function within normal limits, strength symmetrical , no focal deficits Psych-normal affect, normal mood Results & Data Results & Data Vital Signs (Past 12 Hours) Vital Signs Temp Pulse Pulse Resp BP Pulse Ox O2 Del Method 09/28/22 11:43 36.8 C 64 20 145/67 H 96 Room Air 09/28/22 09:22 58 L 09/28/22 08:17 36.6 C 55 L 20 135/56 L 95 Room Air 09/28/22 05:23 36.7 C 60 20 134/52 L 95 Room Air Laboratory Results 09/28/22 05:40 09/28/22 05:40 PG Care Time/CCT Total # of Minutes Spent Total Time Spent with Patient: Total time spent is greater than 50% in coordination of care (as documented) at patient's floor/unit and/or counseling patient: Coding Level of Care Code 28722 SUB INP/OBS CARE 3/50MIN Diagnoses Fall W19.XXXA Dizziness R42 CKD (chronic kidney disease) stage 3, GFR 30-59 ml/min N18.30 Hypomagnesemia E83.42 Hyperlipidemia E78.5 Hypertension I10 Paroxysmal atrial fibrillation I48.0 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
[2022-09-28] MEDS: APIXABAN 5 MG TABLET PO SCH ×2 (14:48→20:06)
[2022-09-28] MEDS: ATORVASTATIN 20 MG TAB PO SCH (20:07)
[2022-09-28] MEDS: ACETAMINOPHEN 325 MG TAB PO PRN (23:44)
[2022-09-29 07:01] LABS: Basophils # (auto) 0.03 K/uL (0-0.2); Basophils % (auto) 0.5 %; Eosinophils # (auto) 0.25 K/uL (0-0.50); Eosinophils % (auto) 4.5 %; Hematocrit (blood only) 30.2 % (37.0-47.0); Hemoglobin 9.7 g/dl (12.0-16.0); Immature Granulocytes # (auto) 0.03 K/uL (0.01-0.20); Immature Granulocytes % (auto) 0.5 %; Lymphocytes # (auto) 1.78 K/uL (1.2-3.4); Mean Corpuscular Hemoglobin 29.1 pg (25.0-34.0); Mean Corpuscular Hgb Conc 32.1 g/dL (32.0-36.0); Mean Corpuscular Volume 90.7 fL (80.0-100.0); Mean Platelet Volume 10.8 fL (9.4-12.4); Monocytes # (auto) 0.42 K/uL (0.11-0.59); Monocytes % (auto) 7.5 %; Neutrophils # (auto) 3.06 K/uL (1.40-6.50); Platelet Count 160 K/uL (130-400); RDW Coefficient of Variation 14.6 % (11.5-14.5); RDW Standard Deviation 47.9 fL (36.4-46.3); Red Blood Count 3.33 M/uL (4.20-5.40); White Blood Count 5.57 K/ul (4.8-10.8)
[2022-09-29 07:16] LABS: BUN Creatinine Ratio 13.5 (10-20); Calcium 9.9 mg/dl (8.6-10.3); Creatinine Clr Calc Pharmacy 26.5 ml/min; Est GFR (African American) 31.8 ml/min; Est GFR (Non-African American) 27.4 ml/min; Potassium 4.6 mmol/L (3.5-5.1)
[2022-09-29] MEDS: APIXABAN 5 MG TABLET PO SCH ×2 (08:39→20:06)
[2022-09-29] MEDS: hydrALAZINE TAB 50 MG TAB PO SCH ×2 (08:40→20:06)
[2022-09-29] MEDS: lisinopril 20 MG TAB PO SCH ×2 (08:41→20:07)
[2022-09-29] MEDS: METOPROLOL TARTRATE 50 MG TAB PO SCH ×2 (08:42→20:07)
[2022-09-29] MEDS: CEROVITE ADV FORMULA TAB PO SCH (08:43)
[2022-09-29] MEDS: INSULIN ASPART PER UNIT CHARGE SC SCH ×4 (09:40→21:21)
--- NOTE | 2022-09-29 14:29 | Hospitalist Progress Note ---
Date of Service September 29, 2022 Assessment & Plan (1) Fall: Plan: Patient was admitted after a mechanical fall following an episode of dizziness no acute fractures (2) Dizziness: Plan: Etiology is uncertain, although orthostatics were inconclusive, I will have them repeat it Patient became dizzy again while participating in PT CT head was normal, will obtain MRI brain to r/o stroke 2 DECHO showed mild diastolic dysfunction Cardiology consulted, may need tilt table test (3) CKD (chronic kidney disease) stage 3, GFR 30-59 ml/min: Plan: Monitor intake and output. Serial labs (4) Hypomagnesemia: Plan: Corrected. (5) Hyperlipidemia: Plan: Stable. Continue atorvastatin (6) Hypertension: Plan: Now stable. Chlorthalidone has been discontinued indefinitely. Continue home hydralazine, lisinopril, metoprolol (7) Paroxysmal atrial fibrillation: Plan: Currently in sinus rhythm. Frequent PVCs. Eliquis has been restarted. Telemetry. 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 Scheduled Lantus insulin started on admission has been discontinued due to borderline low glucose. Sliding scale insulin only for now. ADA diet Plan hopefully d/c in the next 24 hrs Admission and Anticipated Discharge Date Admission Date: September 27, 2022 Subjective patient seen and examined, felt dizzy while participating in PT Review of Systems Review of Systems: All systems reviewed are negative, apart from the ones contained in the history. Physical Exam Physical Exam: The patient is awake, alert and oriented 3, well developed and well nourished, normocephalic and atraumatic, lying in bed and in no acute distress. HEENT--PERRL, EOMI, mucous membranes and oropharynx mildly dry Neck--supple. No JVD. No bruits. Thyroid normal, trachea midline, no adenopathy. Heart--normal S1 and S2. No murmurs, rubs or gallops. Lungs--clear bilaterally, no respiratory distress, no accessory muscle use. Abdomen--normal bowel sounds and soft. Mild epigastric and left sided abdominal pain Extremities--no cyanosis or clubbing. No edema. Dermatologic--normal skin turgor, normal color, no abnormal lymph nodes, no rash. Neurologic--cranial nerves II through XII grossly intact. Rheumatologic--normal range of motion. Psychiatric--normal affect. Results & Data Results & Data Vital Signs (Past 12 Hours) Vital Signs Temp Pulse Pulse Resp BP Pulse Ox O2 Del Method 09/29/22 11:33 98.2 F 60 14 146/56 H 96 Room Air 09/29/22 09:15 101 H 159/62 H 09/29/22 07:49 98.2 F 76 14 150/82 H 99 Room Air 09/29/22 04:00 97.9 F 64 20 154/78 H 93 Room Air PG Care Time/CCT Total # of Minutes Spent Total Time Spent with Patient: Total time spent is greater than 50% in coordination of care (as documented) at patient's floor/unit and/or counseling patient: Coding Level of Care Code 27557 SUB INP/OBS CARE 2/35MIN Diagnoses Fall W19.XXXA Dizziness R42 CKD (chronic kidney disease) stage 3, GFR 30-59 ml/min N18.30 Hypomagnesemia E83.42 Hyperlipidemia E78.5 Hypertension I10 Paroxysmal atrial fibrillation I48.0 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 Time Spent (min) 35
--- NOTE | 2022-09-29 15:12 | Cardiology Consultation ---
Date of Consultation September 29, 2022 Assessment & Plan (1) Paroxysmal atrial fibrillation: (2) Fall: (3) Hypertension: (4) Dizziness: (5) Mitral regurgitation: (6) Pulmonary hypertension: Plan ASSESSMENT/PLAN: 1. Paroxysmal atrial fibrillation: Sinus rhythm here. On anticoagulation for stroke risk reduction. Continue beta-mayte. 2. Fall/weakness: No syncope reported. In general, she feels weak. Consider treatment for UTI but defer to primary hospitalist service. Based on conversation today, she denies orthostatic symptoms but did have dizziness while sitting and hypertensive. No obvious cardiac etiology for her fall. 3. Dizziness: She reported dizziness while sitting and hypertensive. 4. Orthostatic hypotension: Orthostatics checked this afternoon reported a systolic blood pressure dropping from 178 to 157 mmHg. Mild orthostatic hypotension on this particular evaluation but previous eval this morning was negative. Remain well-hydrated. Consider compression stockings. 5. Hypertension: Blood pressure has mostly been acceptable however has been a bit more hypertensive this afternoon. Chlorthalidone had been discontinued by primary hospitalist service. Depending on trend, may need to make further adjustments to her antihypertensive regimen. 6. Mitral regurgitation: Nonsevere. Can be monitored as an outpatient. 7. Pulmonary hypertension: Reported on echo. Has reported history of sleep apnea which may be playing a role. She does not appear to be significantly hypervolemic. 8. Abnormal urine culture: Consider treatment per primary hospitalist service. Communicated with Dr. Barr. 9. Disposition: Patient care communicated with primary hospitalist. Follow-up with Dr. Masterson on discharge. Please call with other questions or concerns. Cardiology will sign off at this time. Today's visit was 57 minutes in duration, which includes [id number] time, counseling patient, coordinating care, reviewing multiple records, and completing documentation. Thank you for allowing me to participate in the care of your patient. Please call for any other questions or concerns. Sincerely, Ricky Wray M.D. History of Present Illness Reason for Consultation: "dizziness on ambulation, may need tilt table test" Requesting Physician: Eric Barr MD Attending Physician: Eric Barr MD History of Present Illness Ms. Macias is a very pleasant 82-year-old female with a history significant for paroxysmal atrial fibrillation, hypertension, dyslipidemia, CKD, and type 2 diabetes. Her primary reverser is Dr. Walker. She was hospitalized on 09/27/2022 after falling. According to the H&P, she felt lightheaded but after discussing with her today, she states that she was not lightheaded at that time but her legs became weak and she fell. She denies syncope or near syncope. According to the HPI, she vomited in route to the hospital with EMS. Her orthostatic vitals were reportedly negative. She remembers landing on the floor after her fall and felt dizzy as though the room was spinning. She is certain that the dizziness occurred after falling during our conversation today. Chlorthalidone was discontinued by hospitalist service and she received IV fluids. She continues to do well without syncope or near syncope but today, orthostatic vitals were checked and she was hypertensive with a systolic blood pressure of 200. She admits that she was lightheaded while sitting with a blood pressure of 200 but denies lightheadedness while standing. Yesterday she felt very well but once again today she feels weak. She was able to ambulate into the bathroom to wash up and felt okay with that, other than weak. At home she is able to ambulate and denies chest pain or shortness of breath. Her blood pressure at home is mostly upper 130s/80s per her report today. She denies chest pain, shortness of breath, palpitations, significant edema, or bleeding such as melena, hematochezia, or hematuria. Review of systems: As above. Family history: Father had CA. Social history: Denies smoking. No alcohol. She lives at home with her daughter. She was unaccompanied today. Allergies Allergy/AdvReac Type Severity Reaction Status Date / Time No Known Allergies Allergy Verified 09/27/22 15:36 Home Medications Medication Instructions Recorded Confirmed Type vitamins A,C,D-pwcm-jpoarz 4,296 1 cap PO QAM 09/18/18 09/27/22 History mcg-226 mg-90 mg capsule (PreserVision AREDS) lisinopril 20 mg tablet 20 mg PO BID #180 tabs 02/10/22 09/27/22 Rx hydralazine 50 mg tablet 50 mg PO BID #180 tabs 02/21/22 09/27/22 Rx apixaban 5 mg tablet (Eliquis) 5 mg PO BID #180 tabs 03/13/22 09/27/22 Rx atorvastatin 20 mg tablet 20 mg PO HS #100 tabs 06/19/22 09/27/22 Rx metformin 500 mg tablet 1,000 mg PO BID #400 tabs 06/19/22 09/27/22 Rx metoprolol tartrate 50 mg tablet 50 mg PO BID #200 tabs 06/19/22 09/27/22 Rx glimepiride 1 mg tablet 1 mg PO QAM #90 tabs 08/04/22 09/27/22 Rx magnesium oxide 400 mg PO BID #60 tabs 09/27/22 Rx ondansetron 4 mg disintegrating 4 mg PO Q6H PRN nausea and 09/27/22 Rx tablet vomiting #10 tabs Patient History Medical History COVID-19 (02/11/20) required hospitalization [facility] x 3 weeks History of basal cell carcinoma (11/2018) Hyperlipidemia Hypertension Lipoma of back s/p removal Morbid obesity Nontoxic multinodular goiter DESTINEY (obstructive sleep apnea) Osteopenia Syncope and collapse Surgical History History of salpingectomy History of Salpingectomy for ectopic Hx laparoscopic cholecystectomy Family History Father , age 69 Coronary heart disease Myocardial infarction Mother , age 92 Tobacco use Lung cancer suspected just prior to her Daughter Melanoma Grandmother (Paternal) Stroke Denies family history of Ovarian cancer Prostate cancer Breast cancer FH: brain aneurysm Colorectal cancer Social History Smoking Status: Former smoker Tobacco Type: Cigarettes Second Hand Exposure: No; Do You Dip or Chew Tobacco: No; Hx Alcohol Use: No Hx Substance Use: No Preferred Language: Beninese Communication Ability: Effective Visual Impairment: No Limitations Hearing Ability: Normal Bailiff Required: No Beliefs That Will Affect Care: None marital status: Current Living Situation: Family Current Living Situation Comment: [facility] current occupational status: retired 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 Alert. HEENT: Anicteric sclera. Neck: No JVD. No bruits. Normal carotid upstrokes bilaterally. Cardiac: No ventricular heave. Regular. Normal S1-S2. No murmurs, rubs, or gallops. Pulmonary: Clear to auscultation bilaterally without wheezes, rales, or rhonchi. Abdomen: Soft, nontender, nondistended, with normoactive bowel sounds. No bruits noted. Extremities: 2+ radial pulses bilaterally. 2+ posterior tibialis pulses bilaterally. No significant pitting edema. No cyanosis. Psychiatric: Affect appears appropriate. Results & Data Vital Signs (Past 12 Hours) Vital Signs Temp Pulse Pulse Resp BP Pulse Ox O2 Del Method 09/29/22 11:33 36.8 C 60 14 146/56 H 96 Room Air 09/29/22 09:15 101 H 159/62 H 09/29/22 07:49 36.8 C 76 14 150/82 H 99 Room Air 09/29/22 04:00 36.6 C 64 20 154/78 H 93 Room Air Intake & Output 09/27/22 09/28/22 09/29/22 09/30/22 06:59 06:59 06:59 06:59 Intake Total 400 / 400 1840 / 1840 720 / 720 Output Total 0 / 0 1 / 1 Balance 400 / 400 1840 / 1840 719 / 719 Weight 203 lb 0.732 oz 203 lb 7.787 oz Laboratory Results Laboratory Results - last 24 hr 09/28/22 09/28/22 09/29/22 16:59 20:21 06:34 WBC 5.57 RBC 3.33 L Hgb 9.7 L Hct 30.2 L MCV 90.7 MCH 29.1 MCHC 32.1 RDW Std Deviation 47.9 H RDW Coeff of Charlene 14.6 H Plt Count 160 MPV 10.8 Immature Gran % (Auto) 0.5 Neut % (Auto) 55.0 Lymph % (Auto) 32.0 [place] % (Auto) 7.5 Eos % (Auto) 4.5 Baso % (Auto) 0.5 Neut # (Auto) 3.06 Lymph # (Auto) 1.78 [place] # (Auto) 0.42 Eos # (Auto) 0.25 Baso # (Auto) 0.03 Immature Gran # (Auto) 0.03 Sodium Potassium Chloride Carbon Dioxide Anion Gap BUN Creatinine Est Cr Clr Drug Dosing Est GFR ( Amer) Est GFR (Non-Af Amer) BUN/Creatinine Ratio Glucose POC Glucose 96 113 H Calcium 09/29/22 09/29/22 09/29/22 06:34 08:02 11:35 WBC RBC Hgb Hct MCV MCH MCHC RDW Std Deviation RDW Coeff of Charlene Plt Count MPV Immature Gran % (Auto) Neut % (Auto) Lymph % (Auto) [place] % (Auto) Eos % (Auto) Baso % (Auto) Neut # (Auto) Lymph # (Auto) [place] # (Auto) Eos # (Auto) Baso # (Auto) Immature Gran # (Auto) Sodium 141 Potassium 4.6 Chloride 112 H Carbon Dioxide 25 Anion Gap 4 BUN 23 Creatinine 1.70 H D Est Cr Clr Drug Dosing 26.5 Est GFR ( Amer) 31.8 Est GFR (Non-Af Amer) 27.4 BUN/Creatinine Ratio 13.5 Glucose 116 H POC Glucose 144 H 166 H Calcium 9.9 Diagnostic Findings Telemetry reviewed: Sinus rhythm with PACs and PVCs. Atrial triplets noted. No sustained arrhythmia. ECG personally reviewed from 09/29/2022: Sinus rhythm with PACs and PVCs [address] abnormality. Echo 09/28/2022: LV EF 50 to 55%. Moderate LVH. No regional wall motion abnormalities. Moderate left atrial dilation. Mild to moderate MR. Mild to moderate TR. RVSP 48. HPI reviewed. Labs reviewed: Normal potassium, abnormal renal function, abnormal urine culture for E. coli, chronic anemia, normal transaminase levels, negative high- sensitivity troponin. CT head 09/27/2022: No hemorrhage per radiology. Chest x-ray 09/27/2022: No obvious infiltrate. Image personally reviewed. No active disease in the chest per radiology. Medications Administered Current Inpatient Medications Acetaminophen (Acetaminophen 325 Mg Tab) 650 mg PO Q4H PRN PRN Reason: Pain or Fever Stop: 10/28/22 00:15 Last Admin: 09/28/22 23:44 Dose: 650 mg Apixaban (Apixaban 5 Mg Tablet) 5 mg PO BID SINCERE Stop: 10/28/22 11:29 Last Admin: 09/29/22 08:39 Dose: 5 mg Atorvastatin Calcium (Atorvastatin 20 Mg Tab) 20 mg PO HS SINCERE Stop: 10/28/22 20:59 Last Admin: 09/28/22 20:07 Dose: 20 mg Dextrose (Dextrose 50% 50 Ml Syringe) 25 - 50 ml IV UD PRN; Protocol PRN Reason: Hypoglycemia Protocol Stop: 10/28/22 05:52 Glucagon (Glucagon For Inj 1 Mg Vial) 1 mg SQ UD PRN; Protocol PRN Reason: Hypoglycemia Protocol Stop: 10/28/22 05:52 Glucose (Glucose 10 Tab/Tube) 4 - 8 tab PO UD PRN; Protocol PRN Reason: Hypoglycemia Treatment Stop: 10/28/22 05:52 Glucose (Glucose 40% Gel 15 Gm Tube) 15 - 30 gm PO UD PRN; Protocol PRN Reason: Hypoglycemia Protocol Stop: 10/28/22 05:52 Hydralazine HCl (Hydralazine Tab 50 Mg Tab) 50 mg PO BID SINCERE Stop: 10/28/22 08:59 Last Admin: 09/29/22 08:40 Dose: 50 mg Insulin Aspart (Insulin Aspart Per Unit Charge) 0 units SC ACHS SINCERE Stop: 10/28/22 07:29 Last Admin: 09/29/22 12:49 Dose: Not Given Lisinopril (Lisinopril 20 Mg Tab) 20 mg PO BID SINCERE Stop: 10/28/22 08:59 Last Admin: 09/29/22 08:41 Dose: 20 mg Metoprolol Tartrate (Metoprolol Tartrate 50 Mg Tab) 50 mg PO BID SINCERE Stop: 10/28/22 00:15 Last Admin: 09/29/22 08:42 Dose: 50 mg Miscellaneous (Carbohydrates For Hypoglycemia ) 15 - 30 gm PO UD PRN PRN Reason: Hypoglycemia Protocol Stop: 10/28/22 05:52 Multivitamins/Minerals (Cerovite Adv Formula Tab) 1 tab PO QAM SINCERE Stop: 10/28/22 08:59 Last Admin: 09/29/22 08:43 Dose: 1 tab Ondansetron HCl (Ondansetron Inj 2 Mg/Ml 2 Ml Vial) 4 mg IV Q6H PRN PRN Reason: Nausea Stop: 08/29/23 00:15 Polyethylene Glycol (Polyethylene (Miralax) 17 Gm Pack) 17 gm PO DAILY PRN PRN Reason: Constipation Stop: 10/28/22 00:15 PG Care Time/CCT Total # of Minutes Spent Total Time Spent with Patient: Total time spent is greater than 50% in coordination of care (as documented) at patient's floor/unit and/or counseling patient: Coding Level of Care Code 97196 INT INP/OBS CARE 2/55MIN Diagnoses Paroxysmal atrial fibrillation I48.0 Fall W19.XXXA Hypertension I10 Hypertension type: unspecified Dizziness R42 Mitral regurgitation I34.0 Pulmonary hypertension I27.20 Time Spent (min) 57 (3) Hypertension Hypertension type: unspecified Qualified Code(s): I10 - Essential (primary) hypertension
[2022-09-29] MEDS: CIPROFLOXACIN 500 MG TAB PO SCH (18:17)
[2022-09-29] MEDS: ACETAMINOPHEN 325 MG TAB PO PRN (18:23)
[2022-09-29] MEDS: ATORVASTATIN 20 MG TAB PO SCH (20:06)
--- NOTE | 2022-09-29 21:54 | Emergency Department Note ---
Impression & Plan Hypomagnesemia, Accident due to mechanical fall without injury, Dizziness ED Provider Note CHIEF COMPLAINT: Dizzy, fall, vomited HISTORY OF PRESENT ILLNESS: This 82-year-old female patient past medical history of pulmonary hypertension, falls, hypertension, hypomagnesemia pulmonary nodules, paroxysmal atrial fibrillation, premature supraventricular complexes, obesity, chronic kidney disease, weakness, type 2 diabetes, hyperlipidemia presents to the emergency department after a fall today. Patient states she became dizzy and just went down. She does live at home with her daughter octaviano dwyer her daughter was out on the porch and did not hear the incident. She laid there for approximately 30 minutes before her daughter found her. She was not able to get up and the ambulance was called. Once the ambulance arrived, the patient vomited at the scene, again in the ambulance and upon arrival. She does take apixaban due to history of atrial fibrillation. REVIEW OF SYSTEMS: A review of systems was performed with positives and pertinent negatives listed in the history of present illness. 10 systems were reviewed and are otherwise negative. ALLERGIES: see below MEDICATIONS: see below PMH: see below SOCIAL HISTORY: see below DDx: Closed head injury, intracranial hemorrhage, UTI, dehydration, electrolyte abnormality, CVA, vertigo, among others. PHYSICAL EXAM: Vital signs reviewed. General: Well-appearing elderly, obese 82-year-old female, in no significant distress. HEENT: No scleral icterus, PERRLA, neck supple. Atraumatic. Moist mucous membranes. Cardiovascular: Regular rate and rhythm with occasional ectopy, no extra sounds. Pulmonary: Clear to auscultation bilaterally, normal work of breathing. Abdomen: Soft, nontender, nondistended, positive bowel sounds. Musculoskeletal: Atraumatic, no peripheral edema. Nontender to palpation over the cervical and thoracic spine, cervical collar applied. Neurologic: Patient awake alert and oriented x 3, speech is clear Skin: Warm, dry, no rash EMERGENCY DEPARTMENT COURSE/MDM: Patient was evaluated and appeared to be in no significant distress. External medical records were reviewed. IV access was obtained and laboratory work was drawn. CT imaging of the head and cervical spine was performed and reveals no evidence of acute traumatic findings. Patient cervical collar was removed. Patient was hydrated with normal saline solution. Laboratory work is fairly reassuring. UA was obtained and indicates infection. Patient's daughter mentioned that she has been hypomagnesemic in the past. Magnesium level was ordered and is depleted at 1.4 patient was given 2 g of IV magnesium. UA was pending at the time of my discussion with the impatient team. Pt's daughter did not feel that she could tolerate going home. She was concerned for their safety. Patient's case was discussed with the hospitalist service who will evaluate the patient for admission and further management. MONITORING: An order for cardiac monitoring was placed and the patient is noted to be in a sinus rhythm with PVCs at 75 beats per minute. RADIOLOGY: Chest x-ray to my interpretation reveals evidence of cardiomegaly without congestive change. Head CT to my interpretation reveals no evidence of intracranial pathology, ot herwise defer to radiology. Cervical spine CT per radiology reveals no evidence of acute fracture or dislocation. Please see final reads below. EKG: To my interpretation reveals a sinus rhythm at 88 bpm. Frequent PVCs. Normal ST segments with nonspecific T wave changes. QTc of 450. DISPOSITION: Admit Past Med/Surg History Medical History COVID-19 (02/11/20) required hospitalization [facility] x 3 weeks History of basal cell carcinoma (11/2018) Hyperlipidemia Hypertension Lipoma of back s/p removal Morbid obesity Nontoxic multinodular goiter DESTINEY (obstructive sleep apnea) Osteopenia Syncope and collapse Surgical History History of salpingectomy History of Salpingectomy for ectopic Hx laparoscopic cholecystectomy Family History Father , age 69 Coronary heart disease Myocardial infarction Mother , age 92 Tobacco use Lung cancer suspected just prior to her Daughter Melanoma Grandmother (Paternal) Stroke Denies family history of Ovarian cancer Prostate cancer Breast cancer FH: brain aneurysm Colorectal cancer Social History Smoking Status: Former smoker Tobacco Type: Cigarettes Second Hand Exposure: No; Do You Dip or Chew Tobacco: No; Hx Alcohol Use: No Hx Substance Use: No Preferred Language: Persian Communication Ability: Effective Visual Impairment: No Limitations Hearing Ability: Normal Chain Splitter Required: No Beliefs That Will Affect Care: None marital status: Current Living Situation: Family Current Living Situation Comment: Daughter Jocelyne current occupational status: retired 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 [employer] How many Children do You have: 3 Feels Safe at Home: Yes Diet: regular caffeine: Yes Dental Care, Regularly: Yes Physical Activity Frequency: Does not Exercise Seatbelt Use: always Assistive Devices: None Allergies Allergies Allergy/AdvReac Type Severity Reaction Status Date / Time No Known Allergies Allergy Verified 09/27/22 15:36 Home Meds Home Medications Medication Instructions Recorded Confirmed vitamins A,C,[id number] 4,296 1 cap PO QAM 09/18/18 09/27/22 mcg-226 mg-90 mg capsule (PreserVision AREDS) Previous Rx's Medication Instructions Recorded lisinopril 20 mg tablet 20 mg PO BID #180 tabs 02/10/22 hydralazine 50 mg tablet 50 mg PO BID #180 tabs 02/21/22 apixaban 5 mg tablet (Eliquis) 5 mg PO BID #180 tabs 03/13/22 atorvastatin 20 mg tablet 20 mg PO HS #100 tabs 06/19/22 metformin 500 mg tablet 1,000 mg PO BID #400 tabs 06/19/22 metoprolol tartrate 50 mg tablet 50 mg PO BID #200 tabs 06/19/22 glimepiride 1 mg tablet 1 mg PO QAM #90 tabs 08/04/22 ondansetron 4 mg disintegrating 4 mg PO Q6H PRN nausea and 09/27/22 tablet vomiting #10 tabs ciprofloxacin HCl 500 mg tablet 500 mg PO DAILY 3 days #3 tabs 09/30/22 Results & Data (ED) Home Medications Current Medication List: was personally reviewed by me Laboratory Data Attestation: I reviewed the patient's lab results. 09/29/22 06:34 09/29/22 06:34 Lab Results 09/27/22 09/27/22 09/27/22 Range/Units 14:25 15:22 15:22 WBC 9.10 (4.8-10.8) K/ul RBC 3.77 L (4.20-5.40) M/uL Hgb 10.8 L (12.0-16.0) g/dl Hct 34.7 L (37.0-47.0) % MCV 92.0 (80.0-100.0) fL MCH 28.6 (25.0-34.0) pg MCHC 31.1 L (32.0-36.0) g/dL RDW Std Deviation 48.7 H (36.4-46.3) fL RDW Coeff of Charlene 14.6 H (11.5-14.5) % Plt Count 223 (130-400) K/uL MPV 11.6 (9.4-12.4) fL Immature Gran % (Auto) 0.7 % Neut % (Auto) 60.4 % Lymph % (Auto) 29.2 % Elk % (Auto) 6.2 % Eos % (Auto) 3.1 % Baso % (Auto) 0.4 % Neut # (Auto) 5.50 (1.40-6.50) K/uL Lymph # (Auto) 2.66 (1.2-3.4) K/uL Elk # (Auto) 0.56 (0.11-0.59) K/uL Eos # (Auto) 0.28 (0-0.50) K/uL Baso # (Auto) 0.04 (0-0.2) K/uL Immature Gran # (Auto) 0.06 (0.01-0.20) K/uL Sodium 140 (136-145) mmol/L Potassium TNP Chloride 111 H (98-107) mmol/L Carbon Dioxide 18 L (21-32) mmol/L Anion Gap 11 (3-11) BUN 26 H (6-23) mg/dl Creatinine 1.45 H (0.6-1.2) mg/dl Est Cr Clr Drug Dosing 32.0 ml/min Est GFR ( Amer) 38.5 ml/min Est GFR (Non-Af Amer) 33.2 ml/min BUN/Creatinine Ratio 17.9 (10-20) Glucose 199 H (70-99(Fasting)) mg/dl Calcium 9.7 (8.6-10.3) mg/dl Phosphorus (2.5-4.9) mg/dl Magnesium (1.7-2.4) mg/dl Total Bilirubin 0.4 (0.2-1.0) mg/dl AST TNP ALT 24 (7-52) U/L Alkaline Phosphatase 65 (34-104) U/L Troponin I High Sens (0-14) pg/ml Total Protein 6.9 (6.0-8.3) gm/dl Albumin 3.8 (3.4-5.0) gm/dl Globulin 3.1 (2.5-4.0) gm/dl Albumin/Globulin Ratio 1.2 (0.9-2) Urine Color Urine Appearance (Clear) Urine pH (4.5-7.5) Ur Specific [place] (1.000-1.030) Urine Protein (Negative) Urine Glucose (UA) (Negative) Urine Ketones (Negative) Urine Blood (Negative) Urine Nitrite (Negative) Urine Bilirubin (Negative) Urine Urobilinogen (Negative) Ur Leukocyte Esterase (Negative) Urine WBC (Auto) (0-5) /hpf Urine RBC (Auto) (0-4) /hpf U Hyaline Cast (Auto) (0-5) /lpf U Epithel Cells (Auto) (0-5) /lpf Urine Bacteria (Auto) (Negative) SARS-CoV-2, RNA, NAAT NEGATIVE (NEGATIVE) 09/27/22 09/27/22 Range/Units 16:27 17:45 WBC (4.8-10.8) K/ul RBC (4.20-5.40) M/uL Hgb (12.0-16.0) g/dl Hct (37.0-47.0) % MCV (80.0-100.0) fL MCH (25.0-34.0) pg MCHC (32.0-36.0) g/dL RDW Std Deviation (36.4-46.3) fL RDW Coeff of Charlene (11.5-14.5) % Plt Count (130-400) K/uL MPV (9.4-12.4) fL Immature Gran % (Auto) % Neut % (Auto) % Lymph % (Auto) % Elk % (Auto) % Eos % (Auto) % Baso % (Auto) % Neut # (Auto) (1.40-6.50) K/uL Lymph # (Auto) (1.2-3.4) K/uL Elk # (Auto) (0.11-0.59) K/uL Eos # (Auto) (0-0.50) K/uL Baso # (Auto) (0-0.2) K/uL Immature Gran # (Auto) (0.01-0.20) K/uL Sodium (136-145) mmol/L Potassium 4.7 Chloride (98-107) mmol/L Carbon Dioxide (21-32) mmol/L Anion Gap (3-11) BUN (6-23) mg/dl Creatinine (0.6-1.2) mg/dl Est Cr Clr Drug Dosing ml/min Est GFR ( Amer) ml/min Est GFR (Non-Af Amer) ml/min BUN/Creatinine Ratio (10-20) Glucose (70-99(Fasting)) mg/dl Calcium (8.6-10.3) mg/dl Phosphorus 2.6 (2.5-4.9) mg/dl Magnesium 1.4 L (1.7-2.4) mg/dl Total Bilirubin (0.2-1.0) mg/dl AST 19 ALT (7-52) U/L Alkaline Phosphatase (34-104) U/L Troponin I High Sens 10.9 (0-14) pg/ml Total Protein (6.0-8.3) gm/dl Albumin (3.4-5.0) gm/dl Globulin (2.5-4.0) gm/dl Albumin/Globulin Ratio (0.9-2) Urine Color Yellow Urine Appearance Clear (Clear) Urine pH 6.0 (4.5-7.5) Ur Specific [place] 1.017 (1.000-1.030) Urine Protein Negative (Negative) Urine Glucose (UA) Negative (Negative) Urine Ketones Trace H (Negative) Urine Blood Negative (Negative) Urine Nitrite Negative (Negative) Urine Bilirubin Negative (Negative) Urine Urobilinogen Negative (Negative) Ur Leukocyte Esterase 1+ H (Negative) Urine WBC (Auto) 10-30 H (0-5) /hpf Urine RBC (Auto) 0-4 (0-4) /hpf U Hyaline Cast (Auto) 1-5 (0-5) /lpf U Epithel Cells (Auto) 5-10 H (0-5) /lpf Urine Bacteria (Auto) Negative (Negative) SARS-CoV-2, RNA, NAAT (NEGATIVE) Administered Medications Acetaminophen (Acetaminophen 325 Mg Tab) 650 mg PO Q4H PRN PRN Reason: Pain or Fever Stop: 10/28/22 00:15 Last Admin: 09/30/22 12:59 Dose: 650 mg Documented By: Admin: 09/29/22 18:23 Dose: 650 mg Documented By: Admin: 09/28/22 23:44 Dose: 650 mg Documented By: NICOL Apixaban (Apixaban 5 Mg Tablet) 5 mg PO BID [facility] Stop: 10/28/22 11:29 Last Admin: 09/30/22 08:35 Dose: 5 mg Documented By: Admin: 09/29/22 20:06 Dose: 5 mg Documented By: Admin: 09/29/22 08:39 Dose: 5 mg Documented By: ALESSIA Co-signed By: BARBARA Admin: 09/28/22 20:06 Dose: 5 mg Documented By: Admin: 09/28/22 14:48 Dose: 5 mg Documented By: GREG Atorvastatin Calcium (Atorvastatin 20 Mg Tab) 20 mg PO HS [facility] Stop: 10/28/22 20:59 Last Admin: 09/29/22 20:06 Dose: 20 mg Documented By: Admin: 09/28/22 20:07 Dose: 20 mg Documented By: NICOL Ciprofloxacin (Ciprofloxacin 500 Mg Tab) 500 mg PO DAILY [facility]; Protocol Stop: 10/04/22 16:59 Last Admin: 09/30/22 08:35 Dose: 500 mg Documented By: Admin: 09/29/22 18:17 Dose: 500 mg Documented By: VANESSA Hydralazine HCl (Hydralazine Tab 50 Mg Tab) 50 mg PO BID [facility] Stop: 10/28/22 08:59 Last Admin: 09/30/22 08:35 Dose: 50 mg Documented By: Admin: 09/29/22 20:06 Dose: 50 mg Documented By: Admin: 09/29/22 08:40 Dose: 50 mg Documented By: ALESSIA Co-signed By: BARBARA Admin: 09/28/22 20:08 Dose: 50 mg Documented By: Admin: 09/28/22 08:30 Dose: 50 mg Documented By: GREG Insulin Aspart (Insulin Aspart Per Unit Charge) 0 units SC ACHS [facility] Stop: 10/28/22 07:29 Last Admin: 09/30/22 18:06 Dose: Not Given Documented By: Admin: 09/30/22 12:56 Dose: 1 units Documented By: VANESSA Co-signed By: ALPESH Admin: 09/30/22 08:36 Dose: Not Given Documented By: Admin: 09/29/22 21:21 Dose: 1 units Documented By: NICOL Co-signed By: JENNIE Admin: 09/29/22 18:16 Dose: Not Given Documented By: Admin: 09/29/22 12:49 Dose: Not Given Documented By: ALESSIA Co-signed By: VANESSA Admin: 09/29/22 09:40 Dose: 4 units Documented By: ALESSIA Co-signed By: VANESSA Admin: 09/28/22 20:32 Dose: Not Given Documented By: Admin: 09/28/22 17:53 Dose: Not Given Documented By: Admin: 09/28/22 12:25 Dose: 4 units Documented By: GREG Co-signed By: KATHERINE Admin: 09/28/22 08:28 Dose: Not Given Documented By: GREG Lisinopril (Lisinopril 20 Mg Tab) 20 mg PO BID [facility] Stop: 10/28/22 08:59 Last Admin: 09/30/22 08:35 Dose: 20 mg Documented By: Admin: 09/29/22 20:07 Dose: 20 mg Documented By: Admin: 09/29/22 08:41 Dose: 20 mg Documented By: ALESSIA Co-signed By: BARBARA Admin: 09/28/22 20:07 Dose: 20 mg Documented By: Admin: 09/28/22 08:30 Dose: 20 mg Documented By: GREG Metoprolol Tartrate (Metoprolol Tartrate 50 Mg Tab) 50 mg PO BID [facility] Stop: 10/28/22 00:15 Last Admin: 09/30/22 08:35 Dose: 50 mg Documented By: Admin: 09/29/22 20:07 Dose: 50 mg Documented By: Admin: 09/29/22 08:42 Dose: 50 mg Documented By: ALESSIA Co-signed By: BARBARA Admin: 09/28/22 20:07 Dose: 50 mg Documented By: Admin: 09/28/22 08:30 Dose: 50 mg Documented By: Admin: 09/28/22 00:40 Dose: 50 mg Documented By: NICOL Multivitamins/Minerals (Cerovite Adv Formula Tab) 1 tab PO QAM [facility] Stop: 10/28/22 08:59 Last Admin: 09/30/22 08:35 Dose: 1 tab Documented By: Admin: 09/29/22 08:43 Dose: 1 tab Documented By: ALESSIA Co-signed By: BARBARA Admin: 09/28/22 08:30 Dose: 1 tab Documented By: GREG Discontinued Medications Magnesium Sulfate/Dextrose (Magnesium Sulfate / D5w) 1 gm in 100 mls @ 200 mls/hr IV Q30M [facility] Stop: 09/27/22 20:26 Last Infusion: 09/27/22 21:15 Dose: 0 mls/hr Documented By: Admin: 09/27/22 20:41 Dose: 200 mls/hr Documented By: Infusion: 09/27/22 20:31 Dose: 200 mls/hr Documented By: Admin: 09/27/22 20:01 Dose: 200 mls/hr Documented By: CHRISSY Sodium Chloride (Nss 1000ml) 1,000 mls @ 80 mls/hr IV .[id number] STA Stop: 09/28/22 12:50 Last Infusion: 09/28/22 14:32 Dose: 0 mls/hr Documented By: Admin: 09/28/22 00:22 Dose: 80 mls/hr Documented By: NICOL Lorazepam (Lorazepam 2 Mg/1 Ml Vial) 0.5 mg IV NOW STA Stop: 09/27/22 15:53 Last Admin: 09/27/22 16:00 Dose: 0.5 mg Documented By: CHRISSY Meclizine HCl (Meclizine 12.5 Mg Tab) 12.5 mg PO NOW STA Stop: 09/27/22 18:30 Last Admin: 09/27/22 18:35 Dose: 12.5 mg Documented By: ACC Ondansetron HCl (Ondansetron Inj 2 Mg/Ml 2 Ml Vial) 4 mg IV NOW STA Stop: 09/27/22 15:44 Last Admin: 09/27/22 16:00 Dose: 4 mg Documented By: CHRISSY Discharge Plan Visit Data Chief Complaint: Fall ED Provider: Katia Brasher Discharge Problem: Hypomagnesemia, Accident due to mechanical fall without injury, Dizziness Patient Disposition: Home - Self-Care Condition: Good Discharge Instructions Interventions: ED Discharge Assessment Last Done: 09/27/22 23:48 Accident due to mechanical fall without injury Qualifiers: Encounter type: initial encounter Qualified Code(s): W19.XXXA - Unspecified fall, initial encounter
[2022-09-30 07:27] LABS: Basophils # (auto) 0.03 K/uL (0-0.2); Basophils % (auto) 0.5 %; Eosinophils # (auto) 0.23 K/uL (0-0.50); Eosinophils % (auto) 4.1 %; Hematocrit (blood only) 33.6 % (37.0-47.0); Immature Granulocytes # (auto) 0.02 K/uL (0.01-0.20); Immature Granulocytes % (auto) 0.4 %; Lymphocytes # (auto) 1.46 K/uL (1.2-3.4); Lymphocytes % (auto) 26.3 %; Mean Corpuscular Hemoglobin 29.1 pg (25.0-34.0); Mean Corpuscular Hgb Conc 32.7 g/dL (32.0-36.0); Mean Corpuscular Volume 88.9 fL (80.0-100.0); Mean Platelet Volume 10.9 fL (9.4-12.4); Monocytes % (auto) 7.2 %; Neutrophils # (auto) 3.41 K/uL (1.40-6.50); Neutrophils % (auto) 61.5 %; Platelet Count 166 K/uL (130-400); RDW Coefficient of Variation 14.4 % (11.5-14.5); RDW Standard Deviation 46.6 fL (36.4-46.3); Red Blood Count 3.78 M/uL (4.20-5.40); White Blood Count 5.55 K/ul (4.8-10.8)
[2022-09-30 07:42] LABS: BUN Creatinine Ratio 15.1 (10-20); Calcium 10.1 mg/dl (8.6-10.3); Est GFR (African American) 40.5 ml/min; Potassium 4.3 mmol/L (3.5-5.1)
[2022-09-30] MEDS: CEROVITE ADV FORMULA TAB PO SCH (08:35)
[2022-09-30] MEDS: lisinopril 20 MG TAB PO SCH ×2 (08:35→21:27)
[2022-09-30] MEDS: APIXABAN 5 MG TABLET PO SCH ×2 (08:35→21:25)
[2022-09-30] MEDS: CIPROFLOXACIN 500 MG TAB PO SCH (08:35)
[2022-09-30] MEDS: hydrALAZINE TAB 50 MG TAB PO SCH ×2 (08:35→21:26)
[2022-09-30] MEDS: METOPROLOL TARTRATE 50 MG TAB PO SCH ×2 (08:35→21:27)
[2022-09-30] MEDS: INSULIN ASPART PER UNIT CHARGE SC SCH ×4 (08:36→21:25)
[2022-09-30] MEDS: ACETAMINOPHEN 325 MG TAB PO PRN ×2 (12:59→21:28)
--- NOTE | 2022-09-30 13:36 | Hospitalist Progress Note ---
Date of Service September 30, 2022 Assessment & Plan (1) Fall: Plan: Patient was admitted after a mechanical fall following an episode of dizziness no acute fractures (2) Dizziness: Plan: Etiology is uncertain, although orthostatics were inconclusive, I will have them repeat it Patient became dizzy again while participating in PT CT head was normal, will obtain MRI brain to r/o stroke 2 DECHO showed mild diastolic dysfunction Cardiology consulted, may need tilt table test (3) CKD (chronic kidney disease) stage 3, GFR 30-59 ml/min: Plan: Monitor intake and output. Serial labs (4) Hypomagnesemia: Plan: Corrected. (5) Hyperlipidemia: Plan: Stable. Continue atorvastatin (6) Hypertension: Plan: Now stable. Chlorthalidone has been discontinued indefinitely. Continue home hydralazine, lisinopril, metoprolol (7) Paroxysmal atrial fibrillation: Plan: Currently in sinus rhythm. Frequent PVCs. Eliquis has been restarted. Telemetry. 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 Scheduled Lantus insulin started on admission has been discontinued due to borderline low glucose. Sliding scale insulin only for now. ADA diet (9) UTI (urinary tract infection): Plan: UTI secondary to pansensitive E coli will d/c home on PO ciprofloxacin for 3 more days Plan hopefully d/c in the next 24 hrs Admission and Anticipated Discharge Date Admission Date: September 27, 2022 Subjective patient seen and examined, feels overall better Review of Systems Review of Systems: All systems reviewed are negative, apart from the ones contained in the history. Physical Exam Physical Exam: The patient is awake, alert and oriented 3, well developed and well nourished, normocephalic and atraumatic, lying in bed and in no acute distress. HEENT--PERRL, EOMI, mucous membranes and oropharynx mildly dry Neck--supple. No JVD. No bruits. Thyroid normal, trachea midline, no adenopathy. Heart--normal S1 and S2. No murmurs, rubs or gallops. Lungs--clear bilaterally, no respiratory distress, no accessory muscle use. Abdomen--normal bowel sounds and soft. Mild epigastric and left sided abdominal pain Extremities--no cyanosis or clubbing. No edema. Dermatologic--normal skin turgor, normal color, no abnormal lymph nodes, no rash. Neurologic--cranial nerves II through XII grossly intact. Rheumatologic--normal range of motion. Psychiatric--normal affect. Results & Data Results & Data Vital Signs (Past 12 Hours) Vital Signs Temp Pulse Pulse Resp BP BP Pulse Ox 09/30/22 08:00 70 09/30/22 11:16 98.8 F 93 H 18 133/82 95 09/30/22 07:37 97.9 F 73 16 134/62 96 09/30/22 04:00 98.1 F 69 20 158/75 H 98 O2 Del Method 09/30/22 08:00 09/30/22 11:16 Room Air 09/30/22 07:37 Room Air 09/30/22 04:00 Room Air PG Care Time/CCT Total # of Minutes Spent Total Time Spent with Patient: Total time spent is greater than 50% in coordination of care (as documented) at patient's floor/unit and/or counseling patient: Coding Level of Care Code 13534 SUB INP/OBS CARE 2/35MIN Diagnoses Fall W19.XXXA Dizziness R42 CKD (chronic kidney disease) stage 3, GFR 30-59 ml/min N18.30 Hypomagnesemia E83.42 Hyperlipidemia E78.5 Hypertension I10 Paroxysmal atrial fibrillation I48.0 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 UTI (urinary tract infection) N39.0 Time Spent (min) 35
--- NOTE | 2022-09-30 13:38 | Discharge Summary ---
Date of Service September 30, 2022 Admission HPI Per Admitting Provider This patient is an 82-year-old female with history of HTN, CKD stage III, paroxysmal atrial fibrillation on Eliquis, DESTINEY, DM 2, hyperlipidemia, obesity, who presents to the ER after falling down on the ground due to lightheadedness. She reports trying to get up but she could not and passed out 1 or 2 times. Denies associated chest pain or heart palpitations, no shortness of breath. No recent fevers or chills or coughs or cold symptoms. Her daughter found her and could not get her up and they called for an ambulance. She vomited approximately 5 times between home and the ER in the ambulance. She denies any abdominal pains or diarrhea. In the ER, she was hypertensive and mildly tachycardic, afebrile. Her orthostatic vital signs were negative. She was found to have a nonanion gap metabolic acidosis, stable normocytic anemia, creatinine elevated at 1.4 which is around her baseline but BUN slightly elevated at 26. Blood glucose was mildly elevated. Magnesium was low at 1.4. Troponin was negative. ECGs showed frequent PVCs but no ischemic changes. Her urinalysis showed possible infection and urine culture was sent and pending but she has no urinary symptoms. CT of the head and neck were negative for fractures or bleed. Principal Diagnosis dizziness, UTI Discharge Exam The patient is awake, alert and oriented 3, well developed and well nourished, normocephalic and atraumatic, lying in bed and in no acute distress. HEENT--PERRL, EOMI, mucous membranes and oropharynx mildly dry Neck--supple. No JVD. No bruits. Thyroid normal, trachea midline, no adenopathy. Heart--normal S1 and S2. No murmurs, rubs or gallops. Lungs--clear bilaterally, no respiratory distress, no accessory muscle use. Abdomen--normal bowel sounds and soft. Mild epigastric and left sided abdominal pain Extremities--no cyanosis or clubbing. No edema. Dermatologic--normal skin turgor, normal color, no abnormal lymph nodes, no rash. Neurologic--cranial nerves II through XII grossly intact. Rheumatologic--normal range of motion. Psychiatric--normal affect. Discharge Data Allergies Allergy/AdvReac Type Severity Reaction Status Date / Time No Known Allergies Allergy Verified 09/27/22 15:36 Consultations 09/27/22 21:30 ED Decision to Admit Stat 09/29/22 11:23 Consult Cardiology Routine Ordered Studies 09/27/22 15:43 CT cervical spine wo con Stat CT head/brain wo con Stat Hospital Course (1) Fall: Patient was admitted after a mechanical fall following an episode of dizziness no acute fractures (2) Dizziness: Etiology is uncertain, although orthostatics were inconclusive, I will have them repeat it Patient became dizzy again while participating in PT CT head was normal, will obtain MRI brain to r/o stroke 2 DECHO showed mild diastolic dysfunction Cardiology consulted, may need tilt table test (3) CKD (chronic kidney disease) stage 3, GFR 30-59 ml/min: Monitor intake and output. Serial labs (4) Hypomagnesemia: Corrected. (5) Hyperlipidemia: Stable. Continue atorvastatin (6) Hypertension: Now stable. Chlorthalidone has been discontinued indefinitely. Continue home hydralazine, lisinopril, metoprolol (7) Paroxysmal atrial fibrillation: Currently in sinus rhythm. Frequent PVCs. Eliquis has been restarted. Telemetry. (8) 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: Holding glimepiride and metformin. Scheduled Lantus insulin started on admission has been discontinued due to borderline low glucose. Sliding scale insulin only for now. ADA diet (9) UTI (urinary tract infection): UTI secondary to pansensitive E coli will d/c home on PO ciprofloxacin for 3 more days Plan hopefully d/c in the next 24 hrs Total Time Total Time Spent Total Time Spent (In Minutes): 35 Discharge Plan Discharge Items Patient Disposition: Home - Self-Care Reason For Visit: FALL, DIZZINESS Discharge Diagnosis: dizziness Condition on Discharge: Good Activity: Per Instructions section Non-emergency contact: Primary Care Provider and [employer] Manager Call non-emergency contact if: you have any medication questions Follow-up/Referrals: Mello Elena DO [Primary Care Provider] - 10/07/22 3:00 pm Diet: Regular Addtl Attending Provider Instructions: Please make appointment to follow up with your scoring machine operator as soon as possible. Stop taking Chlorthalidone until you see your scoring machine operator. When you want to get up from a lying position, do so in stages. First sit up at the edge of the bed for a few seconds and then gently stand up and walk Pending Studies at Discharge: No Stand-Alone Forms: [facility], Smoking Cessation Medications and DC Order Prescriptions: New ondansetron 4 mg tablet,disintegrating 4 mg PO Q6H PRN (Reason: nausea and vomiting) Qty: 10 0RF ciprofloxacin HCl 500 mg Tablet 500 mg PO DAILY 3 Days Qty: 3 0RF Continued lisinopril 20 mg tablet 20 mg PO BID Qty: 180 3RF hydralazine 50 mg tablet 50 mg PO BID Qty: 180 3RF atorvastatin 20 mg tablet 20 mg PO HS Qty: 100 3RF metformin 500 mg tablet 1,000 mg PO BID Qty: 400 3RF metoprolol tartrate 50 mg tablet 50 mg PO BID Qty: 200 3RF glimepiride 1 mg tablet 1 mg PO QAM Qty: 90 3RF Eliquis 5 mg tablet 5 mg PO BID Qty: 180 3RF PreserVision AREDS [id number] Capsule 1 cap PO QAM Discontinued chlorthalidone 25 mg tablet 25 mg PO DAILY Qty: 90 3RF Discharge Orders: Discharge Order (Routine); Ordered 09/30/22 Ordered By: Eric Barr Admission Data Admit Date/Time: 09/27/22 23:15 Attending Provider: Eric Barr Admit Provider: Claudia Brewer Primary Care Provider: Mello Elena Other Providers: Claudia Brewer ; Yahir Wray Coding Level of Care Code 72286 INP/OBS DISCH >30 MIN Diagnoses Fall W19.XXXA Dizziness R42 CKD (chronic kidney disease) stage 3, GFR 30-59 ml/min N18.30 Hypomagnesemia E83.42 Hyperlipidemia E78.5 Hypertension I10 Paroxysmal atrial fibrillation I48.0 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 UTI (urinary tract infection) N39.0 Time Spent (min) 35
--- NOTE | 2022-09-30 15:41 | Hospitalist Progress Note ---
Date of Service September 30, 2022 Assessment & Plan (1) Fall: Plan: Patient was admitted after a mechanical fall following an episode of dizziness no acute fractures (2) Dizziness: Plan: Etiology is uncertain, although orthostatics were negative Patient became dizzy again while participating in PT CT head was normal, she declined MRI brain 2 DECHO showed only mild diastolic dysfunction some PVC'c on EKG, has hx of paroxysmal afib Cardiology consulted, no need for tilt table test will consult neurology (3) UTI (urinary tract infection): Plan: UTI secondary to pansensitive E coli will d/c home on PO ciprofloxacin for 3 more days (4) CKD (chronic kidney disease) stage 3, GFR 30-59 ml/min: Plan: Monitor intake and output. Serial labs (5) Hypomagnesemia: Plan: Corrected. (6) Hyperlipidemia: Plan: Stable. Continue atorvastatin (7) Hypertension: Plan: Now stable. Chlorthalidone has been discontinued indefinitely. Continue home hydralazine, lisinopril, metoprolol (8) Paroxysmal atrial fibrillation: Plan: Currently in sinus rhythm. Frequent PVCs. Eliquis has been restarted. Telemetry. (9) Type 2 diabetes mellitus with stage 3 chronic kidney disease and hy pertension: Plan: Holding glimepiride and metformin. Scheduled Lantus insulin started on admission has been discontinued due to borderline low glucose. Sliding scale insulin only for now. ADA diet Plan hopefully d/c in the next 24 hrs Admission and Anticipated Discharge Date Admission Date: September 27, 2022 Subjective patient seen and examined, feels overall better, but still some dizziness Review of Systems Review of Systems: All systems reviewed are negative, apart from the ones contained in the history. Physical Exam Physical Exam: The patient is awake, alert and oriented 3, well developed and well nourished, normocephalic and atraumatic, lying in bed and in no acute distress. HEENT--PERRL, EOMI, mucous membranes and oropharynx mildly dry Neck--supple. No JVD. No bruits. Thyroid normal, trachea midline, no adenopathy. Heart--normal S1 and S2. No murmurs, rubs or gallops. Lungs--clear bilaterally, no respiratory distress, no accessory muscle use. Abdomen--normal bowel sounds and soft. Mild epigastric and left sided abdominal pain Extremities--no cyanosis or clubbing. No edema. Dermatologic--normal skin turgor, normal color, no abnormal lymph nodes, no yoan h. Neurologic--cranial nerves II through XII grossly intact. Rheumatologic--normal range of motion. Psychiatric--normal affect. Results & Data Results & Data Vital Signs (Past 12 Hours) Vital Signs Temp Pulse Pulse Resp BP BP Pulse Ox 09/30/22 15:00 77 09/30/22 14:50 98.1 F 85 18 147/80 H 96 09/30/22 14:29 98.8 F 93 H 18 133/82 134/62 95 09/30/22 08:00 70 09/30/22 11:16 98.8 F 93 H 18 133/82 95 09/30/22 07:37 97.9 F 73 16 134/62 96 09/30/22 04:00 98.1 F 69 20 158/75 H 98 O2 Del Method 09/30/22 15:00 09/30/22 14:50 Room Air 09/30/22 14:29 09/30/22 08:00 09/30/22 11:16 Room Air 09/30/22 07:37 Room Air 09/30/22 04:00 Room Air PG Care Time/CCT Total # of Minutes Spent Total Time Spent with Patient: Total time spent is greater than 50% in coordination of care (as documented) at patient's floor/unit and/or counseling patient: Coding Level of Care Code 20080 SUB INP/OBS CARE 2/35MIN Diagnoses Fall W19.XXXA Dizziness R42 UTI (urinary tract infection) N39.0 CKD (chronic kidney disease) stage 3, GFR 30-59 ml/min N18.30 Hypomagnesemia E83.42 Hyperlipidemia E78.5 Hypertension I10 Paroxysmal atrial fibrillation I48.0 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 Time Spent (min) 35
[2022-09-30] MEDS: ATORVASTATIN 20 MG TAB PO SCH (21:26)
[2022-10-01 07:10] LABS: Basophils # (auto) 0.03 K/uL (0-0.2); Basophils % (auto) 0.4 %; Eosinophils # (auto) 0.41 K/uL (0-0.50); Eosinophils % (auto) 5.6 %; Hematocrit (blood only) 34.7 % (37.0-47.0); Hemoglobin 11.2 g/dl (12.0-16.0); Immature Granulocytes # (auto) 0.03 K/uL (0.01-0.20); Immature Granulocytes % (auto) 0.4 %; Lymphocytes % (auto) 24.5 %; Mean Corpuscular Hemoglobin 28.9 pg (25.0-34.0); Mean Corpuscular Hgb Conc 32.3 g/dL (32.0-36.0); Mean Corpuscular Volume 89.7 fL (80.0-100.0); Mean Platelet Volume 11.8 fL (9.4-12.4); Monocytes # (auto) 0.65 K/uL (0.11-0.59); Monocytes % (auto) 8.8 %; Neutrophils # (auto) 4.43 K/uL (1.40-6.50); Neutrophils % (auto) 60.3 %; Platelet Count 158 K/uL (130-400); RDW Coefficient of Variation 14.6 % (11.5-14.5); RDW Standard Deviation 47.3 fL (36.4-46.3); Red Blood Count 3.87 M/uL (4.20-5.40); White Blood Count 7.35 K/ul (4.8-10.8)
[2022-10-01 07:45] LABS: Magnesium 1.5 mg/dl (1.7-2.4); Potassium 4.2 mmol/L (3.5-5.1)
[2022-10-01 07:50] LABS: BUN Creatinine Ratio 18.9 (10-20); Creatinine Clr Calc Pharmacy 30.1 ml/min; Est GFR (African American) 37.6 ml/min; Est GFR (Non-African American) 32.4 ml/min
[2022-10-01] MEDS: APIXABAN 5 MG TABLET PO SCH (08:14)
[2022-10-01] MEDS: CIPROFLOXACIN 500 MG TAB PO SCH (08:14)
[2022-10-01] MEDS: hydrALAZINE TAB 50 MG TAB PO SCH (08:15)
[2022-10-01] MEDS: lisinopril 20 MG TAB PO SCH (08:16)
[2022-10-01] MEDS: METOPROLOL TARTRATE 50 MG TAB PO SCH (08:18)
[2022-10-01] MEDS: CEROVITE ADV FORMULA TAB PO SCH (08:18)
[2022-10-01] MEDS: ACETAMINOPHEN 325 MG TAB PO PRN (08:26)
[2022-10-01] MEDS: INSULIN ASPART PER UNIT CHARGE SC SCH ×2 (09:27→12:59)
--- NOTE | 2022-10-01 11:22 | Neurology Consultation ---
Date of Consultation October 01, 2022 Assessment & Plan (1) Dizziness: (2) Fall: (3) Hypomagnesemia: Plan Patient had some lightheadedness with a fall and difficulty getting up September 27. Currently on examination she has no focal findings, meningeal signs, or encephalopathy. Although she feels weak in general she does not have any obvious neurologic weakness in any limb. Her episode was nonspecific and I see no evidence of a primary neurologic problem. She declined MRI due to claustrophobia. Recommendations: 1. She could get an open MRI as an outpatient, although this likely will not show anything significant 2. Please contact me if I can be of further assistance with this case otherwise I have no further neurologic testing or treatment recommendations to make at this time. Overall, I spent total of 60 minutes with this case including review of records, review of CT films, Report generation, direct evaluation the patient bedside, discussion of the case with the patient and RN at bedside and doctor Cortney including differential diagnosis and treatment options. History of Present Illness Reason for Consultation: Patient is an 82-year-old, who I was asked to see at the request of Dr. Barr, for neurologic consultation regarding syncope and dizziness. Requesting Physician: Dr. Barr Attending Physician: Eric Barr MD History of Present Illness Patient has a history of pulmonary hypertension, hypertension, paroxysmal atrial fibrillation ( now in normal sinus rhythm on Eliquis ) type 2 diabetes, and dyslipidemia. On September 27, the patient was in her bedroom around 03/05/1999 when she felt very lightheaded (not vertiginous) and went down to the ground. She remembers going down she remembers not being injured and remembers that she could not get up. She tried to get up she felt sick in her stomach and vomited. She is uncertain if she "passed out". She was lightheaded and may have had 2 syncopal events. She came to the emergency room and was admitted. CT scan of the head was unremarkable. Laboratory studies showed a mild anemia, elevated BUN and creatinine, now low magnesium of 1.5. She has a history of low magnesium in the past. Today she feels quite normal with no headache, vertiginous feelings, lightheaded feelings and she has been up multiple times without issue. She has no numbness or weakness of her limbs, vision issues, tinnitus, hearing loss, or cognitive problems. She does feel little bit weak all over in general (mild). She refused an MRI as she is claustrophobic although she would do a "an open MRI". Echocardiogram showed moderate LVH and mild to moderate regurgitation of multiple bouts. Left atrium was moderately dilated. She has been in normal sinus rhythm since in the hospital. Blood pressure is 184/68. She has times of dizziness when her blood pressure is elevated Allergies Allergy/AdvReac Type Severity Reaction Status Date / Time No Known Allergies Allergy Verified 09/27/22 15:36 Home Medications Medication Instructions Recorded Confirmed Type vitamins A,C,K-gvzy-yaraxm 4,296 1 cap PO QAM 09/18/18 09/27/22 History mcg-226 mg-90 mg capsule (PreserVision AREDS) lisinopril 20 mg tablet 20 mg PO BID #180 tabs 02/10/22 09/27/22 Rx hydralazine 50 mg tablet 50 mg PO BID #180 tabs 02/21/22 09/27/22 Rx apixaban 5 mg tablet (Eliquis) 5 mg PO BID #180 tabs 03/13/22 09/27/22 Rx atorvastatin 20 mg tablet 20 mg PO HS #100 tabs 06/19/22 09/27/22 Rx metformin 500 mg tablet 1,000 mg PO BID #400 tabs 06/19/22 09/27/22 Rx metoprolol tartrate 50 mg tablet 50 mg PO BID #200 tabs 06/19/22 09/27/22 Rx glimepiride 1 mg tablet 1 mg PO QAM #90 tabs 08/04/22 09/27/22 Rx ondansetron 4 mg disintegrating 4 mg PO Q6H PRN nausea and 09/27/22 Rx tablet vomiting #10 tabs ciprofloxacin HCl 500 mg tablet 500 mg PO DAILY 3 days #3 tabs 09/30/22 Rx Patient History Medical History COVID-19 (02/11/20) required hospitalization [facility] x 3 weeks History of basal cell carcinoma (11/2018) Hyperlipidemia Hypertension Lipoma of back s/p removal Morbid obesity Nontoxic multinodular goiter DESTINEY (obstructive sleep apnea) Osteopenia Syncope and collapse Surgical History History of salpingectomy History of Salpingectomy for ectopic Hx laparoscopic cholecystectomy Family History Father , age 69 Coronary heart disease Myocardial infarction Mother , age 92 Tobacco use Lung cancer suspected just prior to her Daughter Melanoma Grandmother (Paternal) Stroke Denies family history of Ovarian cancer Prostate cancer Breast cancer FH: brain aneurysm Colorectal cancer Social History Smoking Status: Former smoker Tobacco Type: Cigarettes Second Hand Exposure: No; Do You Dip or Chew Tobacco: No; Hx Alcohol Use: No Hx Substance Use: No Preferred Language: Turkish Communication Ability: Effective Visual Impairment: No Limitations Hearing Ability: Normal Cvir Tech Required: No Beliefs That Will Affect Care: None marital status: Current Living Situation: Family Current Living Situation Comment: [facility] current occupational status: retired 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 [employer] How many Children do You have: 3 Feels Safe at Home: Yes Diet: regular caffeine: Yes Dental Care, Regularly: Yes Physical Activity Frequency: Does not Exercise Seatbelt Use: always Assistive Devices: None Review of Systems Constitutional: + weakness; no fever and no fatigue Eyes: no diplopia, no eye pain and no worsening vision Ear, Nose, Mouth, Throat: no ear pain, no tinnitus, no hearing loss, no dizziness, no snoring, no hoarseness and no dysphagia Respiratory: no cough and no dyspnea Cardiovascular: no chest pain, no palpitations and no lightheadedness Gastrointestinal: no abdominal pain, no nausea and no vomiting Genitourinary: no dysuria, no urinary frequency and no urinary incontinence Musculoskeletal: no back pain, no neck pain, no radicular pain, no joint pain and no myalgia Integumentary: no rash and no lesions Neurologic: + gait abnormality; no localized weakness, no generalized weakness, no tingling, no numbness, no tremor(s), no abnormal movements, no headache(s), no abnormal speech, no confusion and no memory loss Psychiatric: no depression, no irritability, no anxiety, no difficulty concentrating, no confusion and no hallucinations Endocrine: no fatigue and no flushing Hematologic / Lymphatic: no easy bleeding and no easy bruising Allergy / Immunological: no urticaria and no problem reported Exam (Neuro) Physical Exam: The patient is right-handed. The patient is awake, alert, and attentive. Speech is normal without any aphasia or dysarthria. The patient can name objects, repeat phrases, and has normal spontaneous speech. Mentation and thought processes are intact, with orientation to person, place and time, and normal fund of knowledge. Attention and concentration are normal. Mood and affect are normal and appropriate. General appearance and grooming are normal. Short and long-term memory are intact. Pupils are 4 mm bilaterally and reactive to light. Extraocular eye muscles are intact without nystagmus. Visual acuity and visual chaves seem normal grossly to confrontation. There are no deficits to sensation in the face in all 3 distributions of the fifth cranial nerve bilaterally. Corneal reflexes are positive bilaterally. Facial strength and symmetry was normal bilaterally. Hearing seems normal bilaterally. Palate moves well without asymmetry. There is normal sternocleidomastoid and trapezius (shoulder shrug) strength bilaterally. Tongue is midline with good strength bilaterally. Neck has a full range of motion without discomfort. There are no cervical bruits bilaterally. There are no cranial or ocular bruits. Heart is without murmur. There is a regular rhythm and rate. Cervical, thoracic, and lumbar spine are nontender to palpation. Gait is narrow based and very cautious. She medicates better with a walker. Turns are reasonable and stance is reasonable feet together and eyes open. With outstretched arms there is no drift. There are no resting, postural, or action tremors. There is no ataxia with finger to nose testing. There is good facility in the hands. No other abnormal involuntary movements are noted. Motor strength is 5/5 diffusely in the arms bilaterally including deltoids, biceps, triceps, brachioradialis, wrist flexors and extensors, crane oiler, and intrinsic hand muscles. Motor strength is 5/5 diffusely in the legs bilaterally including hip flexors, quadriceps, hamstrings, gastrocnemius, tibialis anterior, tibialis posterior, and Peroneii muscles. Toe extensors are normal and there is good bulk in the extensor digitorum brevis muscles bilaterally. The limbs have good tone without rigidity or spasticity. There is no atrophy noted in the muscles. Muscle bulk is normal, there is no tenderness to palpation, no myotonia to percussion, and no fasciculations seen. Sensory examination is intact to touch and pin throughout all 4 limbs diffusely. Reflexes are 2/4 in the biceps, triceps, and brachioradialis tendons bilaterally. Quadriceps and Achilles tendons are 1/4 bilaterally. There is no clonus bilaterally. Toes are downgoing with plantar stimulation bilaterally. Peripheral pulses are present and of normal quality distally in all 4 limbs. There is no peripheral edema noted in the limbs. Results & Data Vital Signs (Past 12 Hours) Vital Signs Temp Pulse Pulse Pulse Resp BP BP 10/01/22 07:00 76 10/01/22 09:58 10/01/22 07:53 36.6 C 74 16 152/79 H 184/68 H 10/01/22 00:00 73 10/01/22 03:21 36.7 C 61 18 118/50 L Pulse Ox O2 Del Method 10/01/22 07:00 10/01/22 09:58 Room Air 10/01/22 07:53 97 Room Air 10/01/22 00:00 10/01/22 03:21 97 Room Air PG Care Time/CCT Total # of Minutes Spent Total Time Spent with Patient: Total time spent is greater than 50% in coordination of care (as documented) at patient's floor/unit and/or counseling patient: Coding Level of Care Code 84069 INT INP/OBS CARE 2/55MIN Diagnoses Dizziness R42 Fall W19.XXXA Hypomagnesemia E83.42 Time Spent (min) 60
[2022-10-01] MEDS ORDERED: MAGNESIUM OXIDE 400 MG TAB PO ONE (12:50)
--- NOTE | 2022-10-01 13:49 | Discharge Summary ---
Date of Service October 01, 2022 Admission HPI Per Admitting Provider This patient is an 82-year-old female with history of HTN, CKD stage III, paroxysmal atrial fibrillation on Eliquis, DESTINEY, DM 2, hyperlipidemia, obesity, who presents to the ER after falling down on the ground due to lightheadedness. She reports trying to get up but she could not and passed out 1 or 2 times. Denies associated chest pain or heart palpitations, no shortness of breath. No recent fevers or chills or coughs or cold symptoms. Her daughter found her and could not get her up and they called for an ambulance. She vomited approximately 5 times between home and the ER in the ambulance. She denies any abdominal pains or diarrhea. In the ER, she was hypertensive and mildly tachycardic, afebrile. Her orthostatic vital signs were negative. She was found to have a nonanion gap metabolic acidosis, stable normocytic anemia, creatinine elevated at 1.4 which is around her baseline but BUN slightly elevated at 26. Blood glucose was mildly elevated. Magnesium was low at 1.4. Troponin was negative. ECGs showed frequent PVCs but no ischemic changes. Her urinalysis showed possible infection and urine culture was sent and pending but she has no urinary symptoms. CT of the head and neck were negative for fractures or bleed. Principal Diagnosis fall, dizziness Discharge Exam The patient is awake, alert and oriented 3, well developed and well nourished, normocephalic and atraumatic, lying in bed and in no acute distress. HEENT--PERRL, EOMI, mucous membranes and oropharynx mildly dry Neck--supple. No JVD. No bruits. Thyroid normal, trachea midline, no adenopathy. Heart--normal S1 and S2. No murmurs, rubs or gallops. Lungs--clear bilaterally, no respiratory distress, no accessory muscle use. Abdomen--normal bowel sounds and soft. Mild epigastric and left sided abdominal pain Extremities--no cyanosis or clubbing. No edema. Dermatologic--normal skin turgor, normal color, no abnormal lymph nodes, no rash. Neurologic--cranial nerves II through XII grossly intact. Rheumatologic--normal range of motion. Psychiatric--normal affect. Discharge Data Allergies Allergy/AdvReac Type Severity Reaction Status Date / Time No Known Allergies Allergy Verified 09/27/22 15:36 Consultations 09/27/22 21:30 ED Decision to Admit Stat 09/29/22 11:23 Consult Cardiology Routine 09/30/22 15:36 Consult Neurology Routine Ordered Studies 09/27/22 15:43 CT cervical spine wo con Stat CT head/brain wo con Stat Hospital Course (1) Fall: Patient was admitted after a mechanical fall following an episode of dizziness no acute fractures (2) Dizziness: Etiology is uncertain, although orthostatics were negative Patient became dizzy again while participating in PT CT head was normal, she declined MRI brain 2 DECHO showed only mild diastolic dysfunction some PVC'c on EKG, has hx of paroxysmal afib Cardiology consulted, no need for tilt table test Evaluated by neurology, no new recommendations (3) UTI (urinary tract infection): UTI secondary to pansensitive E coli will d/c home on PO ciprofloxacin for 3 more days (4) CKD (chronic kidney disease) stage 3, GFR 30-59 ml/min: Monitor intake and output. Serial labs (5) Hypomagnesemia: Corrected. (6) Hyperlipidemia: Stable. Continue atorvastatin (7) Hypertension: Now stable. Chlorthalidone has been discontinued indefinitely. Continue home hydralazine, lisinopril, metoprolol (8) Paroxysmal atrial fibrillation: Currently in sinus rhythm. Frequent PVCs. Eliquis has been restarted. T elemetry. (9) 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: Holding glimepiride and metformin. Scheduled Lantus insulin started on admissio n has been discontinued due to borderline low glucose. Sliding scale insulin only for now. ADA diet Plan hopefully d/c in the next 24 hrs Total Time Total Time Spent Total Time Spent (In Minutes): 35 Discharge Plan Discharge Items Patient Disposition: Home - Self-Care Reason For Visit: FALL, DIZZINESS Discharge Diagnosis: dizziness Condition on Discharge: Good Activity: Per Instructions section Non-emergency contact: Primary Care Provider and Reimbursement Rep Call non-emergency contact if: you have any medication questions Follow-up/Referrals: Mello Elena DO [Primary Care Provider] - 10/07/22 3:00 pm Diet: Regular Addtl Attending Provider Instructions: Please make appointment to follow up with your field advisor as soon as possible. Stop taking Chlorthalidone until you see your field advisor. When you want to get up from a lying position, do so in stages. First sit up at the edge of the bed for a few seconds and then gently stand up and walk Pending Studies at Discharge: No Stand-Alone Forms: [facility], Smoking Cessation Medications and DC Order Prescriptions: New ondansetron 4 mg tablet,disintegrating 4 mg PO Q6H PRN (Reason: nausea and vomiting) Qty: 10 0RF ciprofloxacin HCl 500 mg Tablet 500 mg PO DAILY 3 Days Qty: 3 0RF magnesium 200 mg tablet 200 mg PO BID 5 Days Qty: 10 0RF Continued lisinopril 20 mg tablet 20 mg PO BID Qty: 180 3RF hydralazine 50 mg tablet 50 mg PO BID Qty: 180 3RF atorvastatin 20 mg tablet 20 mg PO HS Qty: 100 3RF metformin 500 mg tablet 1,000 mg PO BID Qty: 400 3RF metoprolol tartrate 50 mg tablet 50 mg PO BID Qty: 200 3RF glimepiride 1 mg tablet 1 mg PO QAM Qty: 90 3RF Eliquis 5 mg tablet 5 mg PO BID Qty: 180 3RF PreserVision AREDS [id number] Capsule 1 cap PO QAM Discontinued chlorthalidone 25 mg tablet 25 mg PO DAILY Qty: 90 3RF Discharge Orders: Discharge Order (Routine); Ordered 10/01/22 Ordered By: Eric Pena/Other Patient Handouts: Ciprofloxacin Oral Tablet, Urinary Tract Infections in Women Admission Data Admit Date/Time: 09/27/22 23:15 Attending Provider: Eric Barr Admit Provider: Claudia Brewer Primary Care Provider: Mello Elena Other Providers: Claudia Brewer ; Yahir Wray ; Jhoan Perera Other Interventions: Discharge Summary Assessment (RN) Last Done: 10/01/22 12:20 Coding Level of Care Code INP/OBS EV SAME DAY LV 2,70MIN Diagnoses Fall W19.XXXA Dizziness R42 UTI (urinary tract infection) N39.0 CKD (chronic kidney disease) stage 3, GFR 30-59 ml/min N18.30 Hypomagnesemia E83.42 Hyperlipidemia E78.5 Hypertension I10 Paroxysmal atrial fibrillation I48.0 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 Time Spent (min) 35
== END 2022-10-01 15:15 | disposition home or self-care (01) | DRG 690 ==
LOC: ED 15:08 → 2N 23:15 → SUATTDRO 23:15 → 2N 23:48

== ENCOUNTER 2023-07-22 13:24 | Observation (INO) ==
--- NOTE | 2023-07-22 13:30 | ED Triage Note ---
Date of Service July 22, 2023 Provider in Triage Author: Vika Carter History of Present Illness This patient was briefly evaluated while in triage. An abbreviated physical exam was performed. This patient is a 83-year-old Female who presents to the ED for evaluation of weakness. Symptoms ongoing for about 2 weeks. States today, was having difficulty getting out of bed. Started a new medication 1 month ago. Is on Eliquis. Pt. feeling lightheaded and weak. Does have history of "sciatic nerve problems for 3 weeks." Was on steroids. Did call 911 last week for lift assist because fell in tub and couldn't get out. States did not hit her head or injure herself. Physical Exam VITALS: Vitals are noted on the nurse's note and reviewed by myself. GENERAL: This is an 83 year old female, in no acute distress, nondiaphoretic, well-developed well-nourished. SKIN: No obvious rashes, edema, erythema HEAD: Normocephalic atraumatic. EYES: Conjunctivae without injection, sclerae without icterus. NECK: No JVD. LUNGS: No retractions or accessory muscle use. MUSCULOSKELETAL: Presents in a wheelchair. NEURO: Patient was alert and oriented to person place and time. No focal neurological deficits. Initial orders for labs and / or imaging were placed and patient was placed in the waiting area until a bed is available. Please see further documentation for the full ED course.
--- NOTE | 2023-07-22 15:08 | CT Scan Report ---
HEAD CT NONCONTRAST CT DOSE: 800.63 mGy.cm HISTORY: weakness TECHNIQUE: Multiaxial CT images of the head were performed without the use of intravenous contrast. A utomated exposure control was utilized for this study. A dose lowering technique was utilized adheri ng to the principles of ALARA. Comparison: Head CT 09/27/2022. Findings: There is a small retention cyst within the left maxillary sinus which has decreased in size . The mastoid air cells are clear. The calvarium and skull base are intact. There is no mass, hematom a, midline shift, acute infarct. White matter hypodensity is nonspecific but suggestive of microvascu lar ischemic change. The ventricles and sulci demonstrate mild age-related involutional changes. Impression: No acute intracranial abnormality. ACT 112: Negative or not required by law. Electronically signed by: Erik Starks M.D. 07/22/2023 3:07 PM
[2023-07-22 15:35] LABS: Basophils # (auto) 0.05 K/uL (0.00-0.20); Basophils % (auto) 0.5 %; Eosinophils # (auto) 0.52 K/uL (0.00-0.50); Hematocrit (blood only) 42.4 % (37.0-47.0); Hemoglobin 13.4 g/dl (12.0-16.0); Immature Granulocytes # (auto) 0.08 K/uL (0.01-0.20); Immature Granulocytes % (auto) 0.8 %; Lymphocytes # (auto) 2.34 K/uL (1.20-3.40); Lymphocytes % (auto) 22.4 %; Mean Corpuscular Hgb Conc 31.6 g/dL (32.0-36.0); Mean Corpuscular Volume 88.7 fL (80.0-100.0); Mean Platelet Volume 11.3 fL (9.4-12.4); Monocytes # (auto) 0.73 K/uL (0.11-0.59); Neutrophils # (auto) 6.71 K/uL (1.40-6.50); Neutrophils % (auto) 64.3 %; Platelet Count 221 K/uL (130-400); RDW Coefficient of Variation 14.4 % (11.5-14.5); RDW Standard Deviation 46.6 fL (36.4-46.3); Red Blood Count 4.78 M/uL (4.20-5.40); White Blood Count 10.43 K/ul (4.8-10.8)
[2023-07-22] MEDS: SODIUM CHLORIDE 0.9% 500 ML IV SCH (15:40)
[2023-07-22 15:50] LABS: Alanine Aminotransferase 33 U/L (7-52); Albumin Globulin Ratio 1.4 (0.9-2); Albumin Level 3.9 gm/dl (3.4-5.0); Alkaline Phosphatase 78 U/L (34-104); Anion Gap 9 (3-11); Aspartate Aminotransferase 22 U/L (13-39); Bilirubin,Total 0.6 mg/dl (0.2-1.0); Blood Urea Nitrogen 29 mg/dl (6-23); Calcium 10.7 mg/dl (8.6-10.3); Carbon Dioxide 22 mmol/L (21-32); Chloride 108 mmol/L (98-107); Creatine Kinase 20 U/L (26-192); Est GFR (African American) 38.2 ml/min; Globulin 2.8 gm/dl (2.5-4.0); Glucose 191 mg/dl (70-99(Fasting)); Magnesium 1.7 mg/dl (1.7-2.4); Potassium 4.8 mmol/L (3.5-5.1); Sodium 139 mmol/L (136-145); Total Protein 6.7 gm/dl (6.0-8.3)
--- NOTE | 2023-07-22 15:58 | XRay Report ---
XR chest 1V not portable CLINICAL HISTORY: weakness COMPARISON STUDY: Chest radiograph May 03, 2023. Chest CT June 19, 2023. FINDINGS: Lung volumes are normal. Lungs are clear. There is no pneumothorax or pleural effusion. Car diomegaly is again noted. Mediastinal contours are normal. There is no evidence for pulmonary edema. IMPRESSION: No acute cardiopulmonary findings. ACT 112: Negative or not required by law. Electronically signed by: Parker Sinclair M.D. 07/22/2023 3:57 PM
[2023-07-22 16:05] LABS: Thyroid Stimulating Hormone 0.687 uIu/ml (0.300-4.500)
[2023-07-22 16:14] LABS: Adenovirus PCR Not Detected (NotDetected); Bordetella parapertussis PCR Not Detected (NotDetected); Bordetella pertussis PCR Not Detected (NotDetected); Chlamydia pneumoniae PCR Not Detected (NotDetected); Coronavirus 229E PCR Not Detected (NotDetected); Coronavirus CoV-2 (COVID19)PCR Not Detected (NotDetected); Coronavirus HKU1 PCR Not Detected (NotDetected); Coronavirus NL63 PCR Not Detected (NotDetected); Coronavirus OC43PCR Not Detected (NotDetected); Human Metapneumovirus PCR Not Detected (NotDetected); Influenza A PCR Not Detected (NotDetected); Influenza B PCR Not Detected (NotDetected); Mycoplasma pneumoniae PCR Not Detected (NotDetected); Parainfluenza Virus 1 PCR Not Detected (NotDetected); Parainfluenza Virus 2 PCR Not Detected (NotDetected); Parainfluenza Virus 3 PCR Not Detected (NotDetected); Parainfluenza Virus 4 PCR Not Detected (NotDetected); Respiratory Syncytial VirusPCR Not Detected (NotDetected); Rhinovirus/Enterovirus PCR Not Detected (NotDetected)
--- NOTE | 2023-07-22 16:46 | Electrocardiogram Report ---
Test Reason : Blood Pressure : / mmHG Vent. Rate : 079 BPM Atrial Rate : 081 BPM P-R Int : 000 ms QRS Dur : 080 ms QT Int : 370 ms P-R-T Axes : 000 -17 032 degrees QTc Int : 424 ms Atrial fibrillation Minimal voltage criteria for LVH, may be normal variant ( R in aVL ) Inferior infarct (cited on or before 03-MAY-2023) Anterior infarct (cited on or before 03-MAY-2023) Abnormal ECG When compared with ECG of 03-MAY-2023 02:37, No significant change Confirmed by Keven Guy ([id number]) on 07/22/2023 4:45:48 PM Referred By: Confirmed By:Keven Guy
--- NOTE | 2023-07-22 18:09 | Emergency Department Note ---
Impression & Plan Weakness ADMIT ED Provider Note HPI: History obtained from patient and daughter at bedside. The patient is a 83-year-old female who presents the emergency department with chief complaint of weakness. Patient states that over the past several weeks she has had some increased pain in her left lower back that radiates down her left leg. Patient states she has seen a chiropractor as well as her PCP for this, patient states she was placed on steroids that did seem to help with the pain however she still has continued weakness in her lower extremities. Patient states that she can ambulate the way that she normally has but she feels like she has no strength in her legs when she is not ambulating and cannot stand for any extended period of time. Patient's daughter at the bedside states that the patient has been having mobility issues over the past several weeks to the point where she is not able to get around the house very well at all. They are requesting evaluation for inpatient physical therapy. Patient denies any recent fever, on arrival here to the ED the patient is hemodynamically stable, she states she does not currently have any pain. Patient is otherwise in no acute distress ROS: - Per HPI Differential Diagnosis: Degenerative changes of the lumbar spine with sciatica, compression fracture, acute kidney injury/dehydration, viral syndrome, pneumonia, sepsis, urinary tract infection, cauda equina syndrome, Guillain- Oconnor syndrome, amongst other potential pathologies. *Outpatient medications and allergy history reviewed. PE: General: Alert HEENT: Normocephalic, trachea midline Eyes: Extraocular eye movement is intact, no scleral erythema Pulmonary: Clear to auscultation bilaterally, no wheezing Cardio: Regular rate and rhythm GI: Abdomen is soft to palpation : No suprapubic tenderness MSK: No evidence of trauma or malformation of the extremities, no edema Skin: No evidence of rash Neuro: Alert, no focal deficits, motor and sensory function is intact distally in the lower extremities, 5 out of 5 strength with dorsiflexion and plantarflexion of the bilateral lower extremities is appreciated Psychiatric: Cooperative INDEPENDENT INTERPRETATIONS: cardiac monitor: (As interpreted by myself): - An order was placed for continuous cardiac monitoring - Patient was noted to be in atrial fibrillation with a rate of 90 EKG: (As interpreted by myself): Rate: 79 Rhythm: Atrial fibrillation Intervals: Within normal limits ST changes: No ST elevation Time: 03/06/2003 Chest x-ray: (As interpreted by myself): No acute disease Interventions provided in ED: -IV fluid bolus, IV ceftriaxone Medical Decision Making: IV was established and lab work obtained, patient was placed on cardiac cath technician. Lab work shows no leukocytosis, hemoglobin is normal, platelet count is normal, CMP does not show any critical findings, baseline creatinine 1.45, troponin is negative, total CK level is low at 20. Urinalysis shows trace ketones with 2+ leukocyte esterase and pyuria 21-50. Blood cultures were ordered and the patient was treated with a dose of IV Rocephin. CT imaging of the head does not show any evidence of any acute intracranial pathology, CT imaging of the lumbar spine shows evidence of stenosis without fracture. Patient does not have any red flag findings for cauda equina syndrome. Specifically no fever, no urinary incontinence or retention, no saddle anesthesia. Do not think MRI of the lumbar spine is indicated at this time to rule out compression. I discussed all of the above findings with the patient and her daughter at the bedside, they requested admission for PT/OT as the patient is not able to get around the house very well. I discussed the patient's presentation with the on-call hospitalist, Dr. Kat, and the patient was placed for admission in stable condition. Consultants/Discussions held with other healthcare providers: -Hospitalist, Dr. Kat Disposition discussion held by myself with: -Patient and daughter at bedside Diagnosis: 1. Ambulatory dysfunction, acute 2. Spinal stenosis on CT imaging 3. Urinary tract infection, acute 4. Generalized weakness Disposition: Admission Sebastian Spence DO Emergency Medicine Past Med/Surg History Problem List (Updated 07/22/23 @ 22:07 by Sebastian Spence DO) Weakness (Acute) Ambulatory dysfunction Hallucinations Diabetes mellitus with hypoglycemia Macular degeneration, wet Left sided sciatica UTI (urinary tract infection) Pulmonary hypertension Mitral regurgitation Fall Hypomagnesemia (Acute) Accident due to mechanical fall without injury (Acute) Dizziness (Acute) Hypertension (Acute) Vitamin D deficiency Multiple pulmonary nodules determined by computed tomography of lung Premature supraventricular beats Abnormal ECG Paroxysmal atrial fibrillation On ECG 02/11/20 when admitted with Covid-19. Spontaneous conversion to NSR. 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 Hyperlipidemia (Chronic) Hypertension (Chronic) Medical History Hypomagnesemia Headache Lipoma of back Syncope and collapse COVID-19 (02/11/20) History of basal cell carcinoma (11/2018) Morbid obesity Nontoxic multinodular goiter DESTINEY (obstructive sleep apnea) Osteopenia Hypertension Hyperlipidemia Surgical History Hx laparoscopic cholecystectomy History of salpingectomy Family History Father Coronary heart disease Myocardial infarction Mother Tobacco use Lung cancer Daughter Melanoma Grandmother (Paternal) Stroke Denies family history of Ovarian cancer Prostate cancer Breast cancer FH: brain aneurysm Colorectal cancer Social History Smoking Status: Former smoker Tobacco Type: Cigarettes Second Hand Exposure: No; Do You Dip or Chew Tobacco: No; Hx Alcohol Use: No Hx Substance Use: No Preferred Language: Dominican Communication Ability: Effective Visual Impairment: No Limitations Hearing Ability: Normal Spring Maker Required: No Beliefs That Will Affect Care: None marital status: Current Living Situation: Family Current Living Situation Comment: [facility] current occupational status: retired 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 [employer] How many Children do You have: 3 Feels Safe at Home: Yes Diet: regular caffeine: Yes Dental Care, Regularly: Yes Physical Activity Frequency: Does not Exercise Seatbelt Use: always Assistive Devices: None Allergies Allergies Allergy/AdvReac Type Severity Reaction Status Date / Time No Known Allergies Allergy Verified 06/17/23 13:00 Home Meds Home Medications Medication Instructions Recorded Confirmed bevacizumab 25 mg/mL intravenous 25 mg intravitreal UD 03/24/23 07/22/23 solution (Avastin) cholecalciferol (vitamin D3) 25 25 mcg PO DAILY 05/03/23 07/22/23 mcg (1,000 unit) tablet (Vitamin D3) Previous Rx's Medication Instructions Recorded atorvastatin 20 mg tablet 20 mg PO HS #100 tabs 06/19/22 metformin 500 mg tablet 1,000 mg (2 x 500 mg) PO BID #400 06/19/22 tabs metoprolol tartrate 50 mg tablet 50 mg PO BID #200 tabs 06/19/22 magnesium oxide 200 mg PO BID 90 days #180 tabs 10/08/22 hydralazine 50 mg tablet 50 mg PO BID #180 tabs 02/09/23 lisinopril 20 mg tablet 20 mg PO BID #180 tabs 02/09/23 apixaban 5 mg tablet (Eliquis) 5 mg PO BID #180 tabs 03/12/23 ondansetron 4 mg disintegrating 4 mg PO Q6H PRN nausea and 05/14/23 tablet vomiting #20 tabs glipizide 2.5 mg tablet, extended 2.5 mg PO DAILY #90 tabs 06/17/23 release 24 hr blood-glucose sensor (sliceX G7 #1 ea 06/18/23 Sensor device) cyclobenzaprine 5 mg tablet 5 mg PO BID PRN muscle spasm #90 06/26/23 tabs Results & Data (ED) Vital Signs Vital Signs - 24 hr 07/22/23 13:27 07/22/23 13:30 07/22/23 15:43 Temperature 36.2 C L Temperature Source Temporal Artery Scan Pulse Rate 85 Pulse Rate [Left Finger] 81 Pulse Rhythm [Left Finger] Regular Pulse Strength [Left Finger] Normal Respiratory Rate 18 18 Respiratory Effort / Characteristics Non-Labored Non-Labored Respiratory Depth Normal Normal Respiratory Pattern Regular Blood Pressure 120/81 Blood Pressure [Right Arm] 115/78 Blood Pressure Mean 94 Blood Pressure Mean [Right Arm] 90 Pulse Oximetry 97 96 98 Oxygen Delivery Method Room Air Room Air Room Air Sepsis Recent Fever Within 48 Hours No Sepsis New/Unexplained Change in Mental Status N/A Sepsis Action Taken by Nursing No Action Required 07/22/23 19:12 07/22/23 21:49 07/22/23 22:00 Temperature Temperature Source Pulse Rate 94 H Pulse Rate [Left Finger] 82 88 Pulse Rhythm [Left Finger] Pulse Strength [Left Finger] Respiratory Rate 15 19 Respiratory Effort / Characteristics Respiratory Depth Respiratory Pattern Blood Pressure Blood Pressure [Right Arm] 136/98 131/74 Blood Pressure Mean Blood Pressure Mean [Right Arm] 110 93 Pulse Oximetry 91 93 Oxygen Delivery Method Room Air Room Air Sepsis Recent Fever Within 48 Hours Sepsis New/Unexplained Change in Mental Status Sepsis Action Taken by Nursing Laboratory Data 07/22/23 15:07/22/23 15:05 Lab Results 07/22/23 07/22/23 07/22/23 Range/Units 15:05 15:11 18:14 WBC 10.43 (4.8-10.8) K/ul RBC 4.78 (4.20-5.40) M/uL Hgb 13.4 (12.0-16.0) g/dl Hct 42.4 (37.0-47.0) % MCV 88.7 (80.0-100.0) fL MCH 28.0 (25.0-34.0) pg MCHC 31.6 L (32.0-36.0) g/dL RDW Std Deviation 46.6 H (36.4-46.3) fL RDW Coeff of Charlene 14.4 (11.5-14.5) % Plt Count 221 (130-400) K/uL MPV 11.3 (9.4-12.4) fL Immature Gran % (Auto) 0.8 % Neut % (Auto) 64.3 % Lymph % (Auto) 22.4 % [place] % (Auto) 7.0 % Eos % (Auto) 5.0 % Baso % (Auto) 0.5 % Neut # (Auto) 6.71 H (1.40-6.50) K/uL Lymph # (Auto) 2.34 (1.20-3.40) K/uL [place] # (Auto) 0.73 H (0.11-0.59) K/uL Eos # (Auto) 0.52 H (0.00-0.50) K/uL Baso # (Auto) 0.05 (0.00-0.20) K/uL Immature Gran # (Auto) 0.08 (0.01-0.20) K/uL PT Cancelled 11.2 INR Cancelled 1.0 Sodium 139 (136-145) mmol/L Potassium 4.8 (3.5-5.1) mmol/L Chloride 108 H (98-107) mmol/L Carbon Dioxide 22 (21-32) mmol/L Anion Gap 9 (3-11) BUN 29 H (6-23) mg/dl Creatinine 1.45 H (0.6-1.2) mg/dl Est Cr Clr Drug Dosing Not Reportable Est GFR ( Amer) 38.2 ml/min Est GFR (Non-Af Amer) 33.0 ml/min BUN/Creatinine Ratio 20.0 (10-20) Glucose 191 H (70-99(Fasting)) mg/dl Calcium 10.7 H (8.6-10.3) mg/dl Magnesium 1.7 (1.7-2.4) mg/dl Total Bilirubin 0.6 (0.2-1.0) mg/dl AST 22 (13-39) U/L ALT 33 (7-52) U/L Alkaline Phosphatase 78 (34-104) U/L Total Creatine Kinase 20 L (26-192) U/L Troponin I High Sens 12.0 (0-14) pg/ml Total Protein 6.7 (6.0-8.3) gm/dl Albumin 3.9 (3.4-5.0) gm/dl Globulin 2.8 (2.5-4.0) gm/dl Albumin/Globulin Ratio 1.4 (0.9-2) TSH 0.687 (0.300-4.500) uIu/ml Urine Color Urine Appearance (Clear) Urine pH (4.5-7.5) Ur Specific [place] (1.000-1.030) Urine Protein (Negative) Urine Glucose (UA) (Negative) Urine Ketones (Negative) Urine Blood (Negative) Urine Nitrite (Negative) Urine Bilirubin (Negative) Urine Urobilinogen (Negative) Ur Leukocyte Esterase (Negative) Urine WBC (Auto) (0-5) /hpf Urine RBC (Auto) (0-2) /hpf U Hyaline Cast (Auto) (0-2) /lpf U Epithel Cells (Auto) (0-2) /hpf Urine Bacteria (Auto) (None Seen) Adenovirus (PCR) Not Detected (NotDetected) B. pertussis DNA (PCR) Not Detected (NotDetected) B.parapertussis DNA PCR Not Detected (NotDetected) C. pneumoniae DNA (PCR) Not Detected (NotDetected) Coronavirus OC43 (PCR) Not Detected (NotDetected) Coronavirus HKU1 (PCR) Not Detected (NotDetected) Coronavirus 229E (PCR) Not Detected (NotDetected) SARS-CoV-2 (PCR) Not Detected (NotDetected) Coronavirus NL63 (PCR) Not Detected (NotDetected) Human Metapneumovir PCR Not Detected (NotDetected) Influenza Type A (PCR) Not Detected (NotDetected) Influenza Type B (PCR) Not Detected (NotDetected) M. pneumoniae (PCR) Not Detected (NotDetected) Parainfluenza 1 (PCR) Not Detected (NotDetected) Parainfluenza 2 (PCR) Not Detected (NotDetected) Parainfluenza 3 (PCR) Not Detected (NotDetected) Parainfluenza 4 (PCR) Not Detected (NotDetected) RSV (PCR) Not Detected (NotDetected) Entero/Rhino (PCR) Not Detected (NotDetected) 07/22/23 Range/Units 18:30 WBC (4.8-10.8) K/ul RBC (4.20-5.40) M/uL Hgb (12.0-16.0) g/dl Hct (37.0-47.0) % MCV (80.0-100.0) fL MCH (25.0-34.0) pg MCHC (32.0-36.0) g/dL RDW Std Deviation (36.4-46.3) fL RDW Coeff of Charlene (11.5-14.5) % Plt Count (130-400) K/uL MPV (9.4-12.4) fL Immature Gran % (Auto) % Neut % (Auto) % Lymph % (Auto) % [place] % (Auto) % Eos % (Auto) % Baso % (Auto) % Neut # (Auto) (1.40-6.50) K/uL Lymph # (Auto) (1.20-3.40) K/uL [place] # (Auto) (0.11-0.59) K/uL Eos # (Auto) (0.00-0.50) K/uL Baso # (Auto) (0.00-0.20) K/uL Immature Gran # (Auto) (0.01-0.20) K/uL PT INR Sodium (136-145) mmol/L Potassium (3.5-5.1) mmol/L Chloride (98-107) mmol/L Carbon Dioxide (21-32) mmol/L Anion Gap (3-11) BUN (6-23) mg/dl Creatinine (0.6-1.2) mg/dl Est Cr Clr Drug Dosing Est GFR ( Amer) ml/min Est GFR (Non-Af Amer) ml/min BUN/Creatinine Ratio (10-20) Glucose (70-99(Fasting)) mg/dl Calcium (8.6-10.3) mg/dl Magnesium (1.7-2.4) mg/dl Total Bilirubin (0.2-1.0) mg/dl AST (13-39) U/L ALT (7-52) U/L Alkaline Phosphatase (34-104) U/L Total Creatine Kinase (26-192) U/L Troponin I High Sens (0-14) pg/ml Total Protein (6.0-8.3) gm/dl Albumin (3.4-5.0) gm/dl Globulin (2.5-4.0) gm/dl Albumin/Globulin Ratio (0.9-2) TSH (0.300-4.500) uIu/ml Urine Color Yellow Urine Appearance Clear (Clear) Urine pH 5.0 (4.5-7.5) Ur Specific [place] 1.022 (1.000-1.030) Urine Protein Trace H (Negative) Urine Glucose (UA) Negative (Negative) Urine Ketones Trace H (Negative) Urine Blood Negative (Negative) Urine Nitrite Negative (Negative) Urine Bilirubin Negative (Negative) Urine Urobilinogen Negative (Negative) Ur Leukocyte Esterase 2+ H (Negative) Urine WBC (Auto) 21-50 H (0-5) /hpf Urine RBC (Auto) 0-2 (0-2) /hpf U Hyaline Cast (Auto) 3-5 H (0-2) /lpf U Epithel Cells (Auto) 0-2 (0-2) /hpf Urine Bacteria (Auto) None Seen (None Seen) Adenovirus (PCR) (NotDetected) B. pertussis DNA (PCR) (NotDetected) B.parapertussis DNA PCR (NotDetected) C. pneumoniae DNA (PCR) (NotDetected) Coronavirus OC43 (PCR) (NotDetected) Coronavirus HKU1 (PCR) (NotDetected) Coronavirus 229E (PCR) (NotDetected) SARS-CoV-2 (PCR) (NotDetected) Coronavirus NL63 (PCR) (NotDetected) Human Metapneumovir PCR (NotDetected) Influenza Type A (PCR) (NotDetected) Influenza Type B (PCR) (NotDetected) M. pneumoniae (PCR) (NotDetected) Parainfluenza 1 (PCR) (NotDetected) Parainfluenza 2 (PCR) (NotDetected) Parainfluenza 3 (PCR) (NotDetected) Parainfluenza 4 (PCR) (NotDetected) RSV (PCR) (NotDetected) Entero/Rhino (PCR) (NotDetected) Administered Medications Magnesium Sulfate/Dextrose (Magnesium Sulfate / D5w) 1 gm in 100 mls @ 50 mls/hr IV ONE STA Stop: 07/22/23 22:12 Last Admin: 07/22/23 22:04 Dose: 50 mls/hr Documented By: [facility] Discontinued Medications Sodium Chloride (Nss) 500 mls @ 999 mls/hr IV .Q31M SINCERE Stop: 07/22/23 14:00 Last Infusion: 07/22/23 17:52 Dose: Infused Documented By: [facility] Admin: 07/22/23 15:40 Dose: 999 mls/hr Documented By: [facility]ftriaxone Sodium (Rocephin) 1,000 mg in 50 mls @ 100 mls/hr IV NOW STA Stop: 07/22/23 19:41 Last Admin: 07/22/23 21:19 Dose: 100 mls/hr Documented By: [facility] Imaging Data Radiologist's Impression: Chest X-Ray 07/22/23 13:30 XR chest 1V not portable CLINICAL HISTORY: weakness COMPARISON STUDY: Chest radiograph May 03, 2023. Chest CT June 19, 2023. FINDINGS: Lung volumes are normal. Lungs are clear. There is no pneumothorax or pleural effusion. Cardiomegaly is again noted. Mediastinal contours are normal. There is no evidence for pulmonary edema. IMPRESSION: No acute cardiopulmonary findings. ACT 112: Negative or not required by law. Electronically signed by: Parker Sinclair M.D. 07/22/2023 3:[address] 07/22/23 13:[address] DOSE: 800.63 mGy.cm HISTORY: weakness TECHNIQUE: Multiaxial CT images of the head were performed without the use of intravenous contrast. Automated exposure control was utilized for this study. A dose lowering technique was utilized adhering to the principles of ALARA. Comparison: Head CT 09/27/2022. Findings: There is a small retention cyst within the left maxillary sinus which has decreased in size. The mastoid air cells are clear. The calvarium and skull base are intact. There is no mass, hematoma, midline shift, acute infarct. White matter hypodensity is nonspecific but suggestive of microvascular ischemic change. The ventricles and sulci demonstrate mild age-related involutional changes. Impression: No acute intracranial abnormality. ACT 112: Negative or not required by law. Electronically signed by: Erik Starks M.D. 07/22/2023 3:[address] 07/22/23 18:04 CT OF THE LUMBAR SPINE CLINICAL HISTORY: Left lower back pain. COMPARISON STUDY: Lumbar spine radiographs January 31, 2016. CT of the abdomen and pelvis February 01, 2016. TECHNIQUE: Helical axial images of the lumbar spine were obtained. Sagittal and coronal reconstructions were viewed. Automated exposure control was utilized for the study. A dose lowering technique was utilized adhering to the principles of ALARA. FINDINGS: For purposes of numbering on this exam, the L5-S1 disc space is assigned to axial image 329 of 395. There is mild lumbar spine levoscoliosis. Slight anterolisthesis of L4 and L5 is due to facet arthrosis. There are no lumbar spine fractures. No osseous lesions are present. Severe multilevel facet arthrosis is present. Moderate disc space narrowing and osteophytosis with vacuum disc phenomenon at L2-L3 is present. The central canal and neural foramen are suboptimally assessed given CT technique. Suspected moderate to severe central canal stenosis at L2-L3. There is probable moderate central canal stenosis at L3-L4. Paravertebral soft tissues are unremarkable. IMPRESSION: 1. No acute lumbar spine fracture or subluxation. 2. Moderate degenerative disc disease and severe facet arthrosis within the lumbar spine. Suboptimal evaluation of the central canal and neural foramen given CT technique. Suspected moderate to severe central canal stenosis at L2-L3 and moderate central canal stenosis at L3-L4. ACT 112: Negative or not required by law. Electronically signed by: Parker Sinclair M.D. 07/22/2023 7:05 PM Discharge Plan Visit Data Chief Complaint: Weakness Stated Complaint: WEAKNESS ED Provider: Sebastian Spence Discharge Problem: Weakness Forms Stand Alone Forms: [facility] Prescriptions Prescriptions: No Action atorvastatin 20 mg tablet 20 mg PO HS Qty: 100 3RF metformin 500 mg tablet 1,000 mg PO BID Qty: 400 3RF metoprolol tartrate 50 mg tablet 50 mg PO BID Qty: 200 3RF lisinopril 20 mg tablet 20 mg PO BID Qty: 180 3RF hydralazine 50 mg tablet 50 mg PO BID Qty: 180 3RF Eliquis 5 mg tablet 5 mg PO BID Qty: 180 3RF cyclobenzaprine 5 mg tablet 5 mg PO BID PRN (Reason: muscle spasm) Qty: 90 0RF magnesium oxide 200 mg magnesium tablet 200 mg PO BID 90 Days Qty: 180 2RF Avastin 25 mg/mL solution 25 mg intravitreal UD Rx Instructions: as directed ondansetron 4 mg tablet,disintegrating 4 mg PO Q6H PRN (Reason: nausea and vomiting) Qty: 20 0RF glipizide 2.5 mg tablet extended release 24hr 2.5 mg PO DAILY Qty: 90 2RF (DME) Dexcom G7 Sensor Device See Rx Instructions .ROUTE Qty: 1 0RF Rx Instructions: continuous glucose monitoring cholecalciferol (vitamin D3) [Vitamin D3] 25 mcg (1,000 unit) Tablet 25 mcg PO DAILY Referrals Referrals: Mello Elena DO [Primary Care Provider] -
[2023-07-22 18:44] LABS: Appearance Urine Clear (Clear); Bacteria Urine Automated None Seen (None Seen); Bilirubin Urine Negative (Negative); Blood Urine Negative (Negative); Color Urine Yellow; Epithelial Cell Urine Auto 0-2 /hpf (0-2); Glucose Urine UA Negative (Negative); Ketones Urine Trace (Negative); Leukocyte Esterase Urine 2+ (Negative); Nitrite Urine Negative (Negative); Protein Urine Trace (Negative); RBC Urine Automated 0-2 /hpf (0-2); Specific Gravity Urine 1.022 (1.000-1.030); Urobilinogen Urine Negative (Negative); WBC Urine Automated 21-50 /hpf (0-5)
[2023-07-22 18:54] LABS: Prothrombin Time 11.2 Seconds (9.0-12.0)
--- NOTE | 2023-07-22 19:07 | CT Scan Report ---
CT OF THE LUMBAR SPINE CLINICAL HISTORY: Left lower back pain. COMPARISON STUDY: Lumbar spine radiographs January 31, 2016. CT of the abdomen and pelvis January. TECHNIQUE: Helical axial images of the lumbar spine were obtained. Sagittal and coronal reconstruct ions were viewed. Automated exposure control was utilized for the study. A dose lowering technique was utilized adhering to the principles of ALARA. FINDINGS: For purposes of numbering on this exam, the L5-S1 disc space is assigned to axial image 329 of 395. There is mild lumbar spine levoscoliosis. Slight anterolisthesis of L4 and L5 is due to face t arthrosis. There are no lumbar spine fractures. No osseous lesions are present. Severe multilevel f acet arthrosis is present. Moderate disc space narrowing and osteophytosis with vacuum disc phenomeno n at L2-L3 is present. The central canal and neural foramen are suboptimally assessed given CT techni que. Suspected moderate to severe central canal stenosis at L2-L3. There is probable moderate central canal stenosis at L3-L4. Paravertebral soft tissues are unremarkable. IMPRESSION: 1. No acute lumbar spine fracture or subluxation. 2. Moderate degenerative disc disease and severe facet arthrosis within the lumbar spine. Suboptimal evaluation of the central canal and neural foramen given CT technique. Suspected moderate to severe c entral canal stenosis at L2-L3 and moderate central canal stenosis at L3-L4. ACT 112: Negative or not required by law. Electronically signed by: Parker Sinclair M.D. 07/22/2023 7:05 PM
--- NOTE | 2023-07-22 20:01 | History & Physical Report ---
Date of Service July 22, 2023 Assessment & Plan (1) Ambulatory dysfunction: Plan: Worsening ambulatory dysfunction x 2 weeks Patient repeats this to her sciatica (worse in left>right) Lumbar spine CT revealed no acute fracture or subluxation, but noted moderate to severe central canal stenosis at L2/L3 and L3/L4 Fall precautions PT/OT consulted Acetaminophen TID scheduled Flexeril 5mg po BID PRN Lidocaine patch and heat application as needed for low back pain Case management consulted as patient will likely require rehab upon discharge A.m. 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: Plan: Last A1c at 9.2% on 06/17/2023 Hold metformin, glipizide SSI; with target BSG range 110-140mg/dL, CF 45, carb ratio 15 T2DM diet BSG ACHS Adjust regimen as needed (4) Paroxysmal atrial fibrillation: Plan: Rate controlled Continue Eliquis 5 mg BID (Please dose-reduce to 2.5mg BID if Cr rises to >1.5) Continue metoprolol (5) Hypertension: Plan: Continue lisinopril and hold if CrCl<30 Continue hydralazine (6) UTI (urinary tract infection): Plan: Patient recently completed course of Keflex (started on 06/17) for UTI UA +2 leukocyte Estrace on arrival Rocephin 1000 mg IV given in the ED Clinically, patient denies burning with urination Will defer further antibiotics at this time Follow UCx Plan Disposition: Admit to MedSurg DNR/DNI T2DM, AHA diet VTE PPx: On Eliquis History of Present Illness Chief Complaint: Ambulatory dysfunction Primary Care Provider: Mello Elena DO Melany is a pleasant 83-year-old female with PMH of HTN, HLD, T2DM, DESTINEY, CKD stage III, goiter, paroxysmal A-fib, mitral regurgitation, and diabetes melitis. She presented via EMS for worsening weakness and ambulatory dysfunction x 2 weeks, which patient attributes to worsening sciatica. Patient is having difficulty with walking. He tried a course of prednisone x 7 days, as well as muscle relaxers and going to the chiropractor, but this did not help. Pain is in her lower back, and radiates down both legs bilaterally (left worse than right). She occasionally takes Tylenol for pain, but this does not help. Patient is fine when sitting, but it is worse with movements. It is come to the point where patient says her legs give out on her after short periods of movement. Patient's daughter is present at bedside; patient lives with daughter. Daughter reports that she has been less active recently, and will be likely to benefit from rehab. Patient used to volunteer regularly 7 days a week, but became more sedentary after COVID. It should be noted that patient slipped in the tub last week; no LOC; no head strike. Other than this, she has not had any falls. No ambulatory assist devices, but patient reports she does use a cane outside at times. She denies smoking, tobacco use, and alcohol use. Patient took all of her regular morning medications today; only recent change in medication was starting glipizide for her diabetes a couple weeks ago (she says steroids were causing her sugar to go up). No CPAP at night. No supplemental oxygen. Patient's vitals are stable at time of admission. ED course: NSS 500 mL IV Rocephin 1000 mg IV ordered ROS: Patient endorses lightheadedness with walking, ambulatory dysfunction, mild nausea, loss of appetite, loose stools, and numbness/tingling in both legs. Patient denies fever, chills, night-sweats, dizziness, fainting, headaches, changes in vision, chest pain, SOB, cough, abdominal pain, vomiting, changes in urinary/bowel habits, burning with urination, blood in the urine/stool, or saddle anesthesia. Allergies Allergy/AdvReac Type Severity Reaction Status Date / Time No Known Allergies Allergy Verified 06/17/23 13:00 Home Medications Medication Instructions Recorded Confirmed Type atorvastatin 20 mg tablet 20 mg PO HS #100 tabs 06/19/22 07/22/23 Rx metformin 500 mg tablet 1,000 mg (2 x 500 mg) PO BID #400 06/19/22 07/22/23 Rx tabs metoprolol tartrate 50 mg tablet 50 mg PO BID #200 tabs 06/19/22 07/22/23 Rx magnesium oxide 200 mg PO BID 90 days #180 tabs 10/08/22 07/22/23 Rx hydralazine 50 mg tablet 50 mg PO BID #180 tabs 02/09/23 07/22/23 Rx lisinopril 20 mg tablet 20 mg PO BID #180 tabs 02/09/23 07/22/23 Rx apixaban 5 mg tablet (Eliquis) 5 mg PO BID #180 tabs 03/12/23 07/22/23 Rx bevacizumab 25 mg/mL intravenous 25 mg intravitreal UD 03/24/23 07/22/23 History solution (Avastin) cholecalciferol (vitamin D3) 25 25 mcg PO DAILY 05/03/23 07/22/23 History mcg (1,000 unit) tablet (Vitamin D3) ondansetron 4 mg disintegrating 4 mg PO Q6H PRN nausea and 05/14/23 07/22/23 Rx tablet vomiting #20 tabs glipizide 2.5 mg tablet, extended 2.5 mg PO DAILY #90 tabs 06/17/23 07/22/23 Rx release 24 hr blood-glucose sensor (Dexcom G7 #1 ea 06/18/23 06/18/23 Rx Sensor device) cyclobenzaprine 5 mg tablet 5 mg PO BID PRN muscle spasm #90 06/26/23 07/22/23 Rx tabs Past Med/Surg History Problem List (Updated 07/22/23 @ 22:07 by Sebastian Spence DO) Weakness (Acute) Ambulatory dysfunction Hallucinations Diabetes mellitus with hypoglycemia Macular degeneration, wet Left sided sciatica UTI (urinary tract infection) Pulmonary hypertension Mitral regurgitation Fall Hypomagnesemia (Acute) Accident due to mechanical fall without injury (Acute) Dizziness (Acute) Hypertension (Acute) Vitamin D deficiency Multiple pulmonary nodules determined by computed tomography of lung Premature supraventricular beats Abnormal ECG Paroxysmal atrial fibrillation On ECG 02/11/20 when admitted with Covid-19. Spontaneous conversion to NSR. 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 Hyperlipidemia (Chronic) Hypertension (Chronic) Medical History Hypomagnesemia Headache Lipoma of back Syncope and collapse COVID-19 (02/11/20) History of basal cell carcinoma (11/2018) Morbid obesity Nontoxic multinodular goiter DESTINEY (obstructive sleep apnea) Osteopenia Hypertension Hyperlipidemia Surgical History Hx laparoscopic cholecystectomy History of salpingectomy Family History Father Coronary heart disease Myocardial infarction Mother Tobacco use Lung cancer Daughter Melanoma Grandmother (Paternal) Stroke Denies family history of Ovarian cancer Prostate cancer Breast cancer FH: brain aneurysm Colorectal cancer Social History Smoking Status: Former smoker Tobacco Type: Cigarettes Second Hand Exposure: No; Do You Dip or Chew Tobacco: No; Hx Alcohol Use: No Hx Substance Use: No Preferred Language: Tajik Communication Ability: Effective Visual Impairment: No Limitations Hearing Ability: Normal Spray Crew Required: No Beliefs That Will Affect Care: None marital status: Current Living Situation: Family Current Living Situation Comment: [facility] Casanova current occupational status: retired current occupation: [email or web address] How many Children do You have: 3 Feels Safe at Home: Yes Diet: regular caffeine: Yes Dental Care, Regularly: Yes Physical Activity Frequency: Does not Exercise Seatbelt Use: always Assistive Devices: None Review of Systems Review of Systems: See HPI above Physical Exam Physical Exam: General: no acute distress; pleasant affect; non-toxic appearing; well- nourished; cooperative; 98% SpO2 on RA HEENT: normocephalic, atraumatic; no scleral icterus; PERRLA; moist mucus membrane; vision and hearing grossly intact Neck: supple; no lymphadenopathy; trachea midline Skin: warm, dry without signs of tenting; no cyanosis; no rashes, bruising, lesions, or erythema noted CV: chest wall NTP; irregularly irregular rhythm; S1/S2 normal; potential 1/6 systolic ejection murmur auscultated at the second ICS MCL; pulses intact and symmetric at radial, DP, and PT Lungs: no acute respiratory distress; symmetrical chest wall expansion; clear breath sounds across all lung chaves w/o adventitious sounds; no wheezing ABD: Soft, NTP; BS present; no rebound/guarding; no distention MSK: no tics or fasciculations; +1 pitting edema noted in the LEs b/l, nonerythematous; 3/5 left leg strength when lifting from the hip supine; 4/5 right leg strength when lifting in the hip supine; patient demonstrates ability to wiggle toes, plantar/dorsiflex against resistance, and bend the knees bilaterally; full active ROM Neuro: A&Ox3; normal mood and affect; fluent speech; no focal deficits; lower extremities have increased sensitivity; sensation grossly intact in the LEs b/l Results & Data Results & Data Vital Signs (Past 12 Hours) Vital Signs Temp Pulse Pulse Resp BP BP Pulse Ox 07/22/23 19:12 82 15 136/98 91 07/22/23 15:43 81 18 115/78 98 07/22/23 13:30 96 07/22/23 13:27 36.2 C L 85 18 120/81 97 O2 Del Method 07/22/23 19:12 Room Air 07/22/23 15:43 Room Air 07/22/23 13:30 Room Air 07/22/23 13:27 Room Air Laboratory Results Abnormal lab results 07/22/23 07/22/23 Range/Units 15:05 18:30 MCHC 31.6 L (32.0-36.0) g/dL RDW Std Deviation 46.6 H (36.4-46.3) fL Neut # (Auto) 6.71 H (1.40-6.50) K/uL [place] # (Auto) 0.73 H (0.11-0.59) K/uL Eos # (Auto) 0.52 H (0.00-0.50) K/uL Chloride 108 H (98-107) mmol/L BUN 29 H (6-23) mg/dl Creatinine 1.45 H (0.6-1.2) mg/dl Glucose 191 H (70-99(Fasting)) mg/dl Calcium 10.7 H (8.6-10.3) mg/dl Total Creatine Kinase 20 L (26-192) U/L Urine Protein Trace H (Negative) Urine Ketones Trace H (Negative) Ur Leukocyte Esterase 2+ H (Negative) Urine WBC (Auto) 21-50 H (0-5) /hpf U Hyaline Cast (Auto) 3-5 H (0-2) /lpf Diagnostic Findings Chest X-Ray 07/22/23 13:30 XR chest 1V not portable CLINICAL HISTORY: weakness COMPARISON STUDY: Chest radiograph May 03, 2023. Chest CT June 19, 2023. FINDINGS: Lung volumes are normal. Lungs are clear. There is no pneumothorax or pleural effusion. Cardiomegaly is again noted. Mediastinal contours are normal. There is no evidence for pulmonary edema. IMPRESSION: No acute cardiopulmonary findings. ACT 112: Negative or not required by law. Electronically signed by: Parker Sinclair M.D. 07/22/2023 3:[address] 07/22/23 13:[address] DOSE: 800.63 mGy.cm HISTORY: weakness TECHNIQUE: Multiaxial CT images of the head were performed without the use of intravenous contrast. Automated exposure control was utilized for this study. A dose lowering technique was utilized adhering to the principles of ALARA. Comparison: Head CT 09/27/2022. Findings: There is a small retention cyst within the left maxillary sinus which has decreased in size. The mastoid air cells are clear. The calvarium and skull base are intact. There is no mass, hematoma, midline shift, acute infarct. White matter hypodensity is nonspecific but suggestive of microvascular ischemic change. The ventricles and sulci demonstrate mild age-related involutional changes. Impression: No acute intracranial abnormality. ACT 112: Negative or not required by law. Electronically signed by: Erik Starks M.D. 07/22/2023 3:[address] 07/22/23 18:04 CT OF THE LUMBAR SPINE CLINICAL HISTORY: Left lower back pain. COMPARISON STUDY: Lumbar spine radiographs January 31, 2016. CT of the abdomen and pelvis February 01, 2016. TECHNIQUE: Helical axial images of the lumbar spine were obtained. Sagittal and coronal reconstructions were viewed. Automated exposure control was utilized for the study. A dose lowering technique was utilized adhering to the principles of ALARA. FINDINGS: For purposes of numbering on this exam, the L5-S1 disc space is assigned to axial image 329 of 395. There is mild lumbar spine levoscoliosis. Slight anterolisthesis of L4 and L5 is due to facet arthrosis. There are no lumbar spine fractures. No osseous lesions are present. Severe multilevel facet arthrosis is present. Moderate disc space narrowing and osteophytosis with vacuum disc phenomenon at L2-L3 is present. The central canal and neural foramen are suboptimally assessed given CT technique. Suspected moderate to severe central canal stenosis at L2-L3. There is probable moderate central canal stenosis at L3-L4. Paravertebral soft tissues are unremarkable. IMPRESSION: 1. No acute lumbar spine fracture or subluxation. 2. Moderate degenerative disc disease and severe facet arthrosis within the lumbar spine. Suboptimal evaluation of the central canal and neural foramen given CT technique. Suspected moderate to severe central canal stenosis at L2-L3 and moderate central canal stenosis at L3-L4. ACT 112: Negative or not required by law. Electronically signed by: Parker Sinclair M.D. 07/22/2023 7:05 PM ECG Additional Comments: ECG revealed atrial fibrillation at 79 bpm; QTc 424 Code Status & VTE Plan Code Status DNR/DNI VTE Prophylaxis Plan VTE Prophylaxis will be ordered: Yes Supervising Physician Co-Signing Physician Notes Patient seen and examined, chart reviewed, case discussed with PRASAD Lockett and I agree with the assessment and plan as above. In brief, patient is an 83yo female with history of HTN, HLP, DM, DESTINEY and CKD presenting with progressive weakness and back pain and bilateral LE weakness. Progressive - patient has not been able to get up and move much and has not been able to stand for prolonged time either. Denies falls or trauma. Presents with her daughter today. Requesting inpatient rehab On exam she is resting comfortably, NAD Skin - intact, no rash HEENT - MMM, Neck supple Heart - +S1S2, irregularly irregular, no m/r/g Lungs - CTA Abd - +BS, soft, NT/ND Ext - warm, well perfused, sensation intact, MS 5/5 Some tenderness with palpation of left lower lumbar region and paraspinal muscles. Minimal spasm Labs and images reviewed. Lumbar spine CT with moderate degenerative disc disease and severe facet arthrosis within the lumbar spine. Suspect moderate to severe canal stenosis at L2-L3 and moderate canal stenosis at L3-L4 Assessment/Plan Ambulatory dysfunction secondary to lumbar back pain with radiculopathy. No bowel/bladder complaints. MS 5/5 -Pain control with scheduled Tylenol, Flexeril PRN, Lidoderm and Heat -PT/OT evaluation for possible inpatient rehab -Remainder as above PG Care Time/CCT Total # of Minutes Spent Total Time Spent with Patient: Total time spent is greater than 50% in coordination of care (as documented) at patient's floor/unit and/or counseling patient: C[place] [address] INT INP/OBS CARE MIN Patient Type Established Medical Decision Making Moderate Complexity Diagnoses Ambulatory dysfunction R26.2 Fall W19.XXXA 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
[2023-07-22] MEDS ORDERED: GLUCOSE 40% GEL 15 GM TUBE PO PRN (20:28)
[2023-07-22] MEDS ORDERED: GLUCAGON FOR INJ 1 MG VIAL SQ PRN (20:28)
[2023-07-22] MEDS ORDERED: DEXTROSE 50% 50 ML SYRINGE IV PRN (20:28)
[2023-07-22] MEDS ORDERED: CARBOHYDRATES FOR HYPOGLYCEMIA PO PRN (20:28)
[2023-07-22] MEDS ORDERED: GLUCOSE 10 TAB/TUBE PO PRN (20:28)
[2023-07-22] MEDS: cefTRIAXone SODIUM 1,000 MG/50 ML BAG IV STA (21:19)
[2023-07-22] MEDS: MAGNESIUM SULFATE / D5W 1 GM/100 ML BAG IV STA (22:04)
[2023-07-22] MEDS ORDERED: CYCLOBENZAPRINE HCL 5 MG TAB PO PRN (23:04)
[2023-07-22] MEDS: INSULIN ASPART PER UNIT CHARGE SC SCH (23:26)
[2023-07-22] MEDS: hydrALAZINE TAB 50 MG TAB PO SCH (23:44)
[2023-07-22] MEDS: lisinopril 20 MG TAB PO SCH (23:44)
[2023-07-22] MEDS: APIXABAN 5 MG TABLET PO SCH (23:45)
[2023-07-22] MEDS: METOPROLOL TARTRATE 50 MG TAB PO SCH (23:45)
[2023-07-22] MEDS: ATORVASTATIN 20 MG TAB PO SCH (23:45)
[2023-07-22] MEDS: MAGNESIUM OXIDE 400 MG TAB PO SCH (23:45)
[2023-07-22] MEDS: Patient's HEIGHT &/or WEIGHT Needed STA ×2 (23:46)
[2023-07-22] MEDS: LIDOCAINE 5% 1 PATCH TD STA (23:47)
[2023-07-23 07:23] LABS: Basophils # (auto) 0.03 K/uL (0.00-0.20); Basophils % (auto) 0.4 %; Eosinophils # (auto) 0.41 K/uL (0.00-0.50); Eosinophils % (auto) 5.8 %; Hematocrit (blood only) 36.1 % (37.0-47.0); Hemoglobin 11.4 g/dl (12.0-16.0); Immature Granulocytes # (auto) 0.05 K/uL (0.01-0.20); Immature Granulocytes % (auto) 0.7 %; Lymphocytes # (auto) 2.08 K/uL (1.20-3.40); Lymphocytes % (auto) 29.3 %; Mean Corpuscular Hemoglobin 27.9 pg (25.0-34.0); Mean Corpuscular Hgb Conc 31.6 g/dL (32.0-36.0); Mean Corpuscular Volume 88.5 fL (80.0-100.0); Mean Platelet Volume 11.4 fL (9.4-12.4); Monocytes # (auto) 0.64 K/uL (0.11-0.59); Neutrophils # (auto) 3.88 K/uL (1.40-6.50); Neutrophils % (auto) 54.8 %; Platelet Count 155 K/uL (130-400); RDW Coefficient of Variation 14.5 % (11.5-14.5); RDW Standard Deviation 46.2 fL (36.4-46.3); Red Blood Count 4.08 M/uL (4.20-5.40); White Blood Count 7.09 K/ul (4.8-10.8)
[2023-07-23 07:50] LABS: BUN Creatinine Ratio 19.9 (10-20); Calcium 9.9 mg/dl (8.6-10.3); Creatinine Clr Calc Pharmacy 29.7 ml/min; Est GFR (African American) 39.5 ml/min; Est GFR (Non-African American) 34.1 ml/min; Magnesium 1.9 mg/dl (1.7-2.4)
[2023-07-23] MEDS: ACETAMINOPHEN 500 MG TAB PO SCH (08:03)
--- NOTE | 2023-07-23 12:08 | Hospitalist Progress Note ---
Date of Service July 23, 2023 Assessment & Plan (1) Ambulatory dysfunction: Plan: Worsening ambulatory dysfunction x 2 weeks after sciatica flare and feeling like she never recovered Lumbar spine CT: no acute fracture or subluxation, but noted moderate to severe central canal stenosis at L2/L3 and L3/L4 Originally with scheduled Tylenol for pain, but refusing because not in pain - will change to PRN Blood cultures: Pending PT/OT consulted CM following - patient hoping to go to rehab (2) Fall: Plan: Patient reports that she slipped in the bathtub 1 week ago Secondary to slipping on a slippery surface; no LOC; no head strike Head CT revealed no acute findings No prior falls (3) 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: Plan: Last A1c at 9.2% on 06/17/2023 Hold metformin, glipizide SSI; with target BSG range 110-140mg/dL, CF 45, carb ratio 15 BSG ACHS (4) Paroxysmal atrial fibrillation: Plan: Rate controlled Continue Eliquis 5 mg BID (Monitor for dose-reduce to 2.5mg BID if Cr rises to >1.5) Continue metoprolol (5) Hypertension: Plan: Continue hydralazine Lisinopril held due to worsening CrCL BP stable (6) UTI (urinary tract infection): Plan: Patient recently completed course of Keflex (started on 06/17) for UTI UA +2 leukocyte Estrace on arrival --> Rocephin 1000 mg IV given in the ED Clinically asymptomatic, UC with no growth Will not continue antibiotics Plan Disposition: continued inpatient stay waiting PT/OT/possible placement VTE PPx: On Eliquis Offered to updated family members by phone, patient declined this. Admission and Anticipated Discharge Date Admission Date: July 22, 2023 Supervising Physician Co-Signing Physician Notes Attending Attestation - Chart reviewed, care plan d/w MARY Cheung. I agree w/ the ocampo components of her documentation. Tiago Epperson MD Subjective Patient seen resting in bed. reports she had a flare of her siatica treated with steroids and feels like she just has not recovered since does not use a walker at home No siatic pain currently, normal appetite Review of Systems Review of Systems: All systems reviewed & are unremarkable except as noted in Subjective Physical Exam Physical Exam: General: NAD, VS as above Resp: normal respiratory effort, lungs clear to auscultation CV: RRR, no murmur, Abd: normal bowel sounds, non tender, no hepatosplenomegaly Extremities: Moves all extremities, non pitting edema LE Neuro: A&O x3, Skin: intact, no lesions noted Results & Data Results & Data Vital Signs (Past 12 Hours) Vital Signs Temp Pulse Resp BP Pulse Ox O2 Del Method 07/23/23 08:08 36.5 C 81 15 130/83 96 Room Air Laboratory Results CBC and chemistry reviewed PG Care Time/CCT Total # of Minutes Spent Total Time Spent with Patient: Total time spent is greater than 50% in coordination of care (as documented) at patient's floor/unit and/or counseling patient: Coding Level of Care Code 54386 SUB INP/OBS CARE 2/35MIN Diagnoses Ambulatory dysfunction R26.2 Fall W19.XXXA 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
--- NOTE | 2023-07-24 15:21 | Hospitalist Progress Note ---
Date of Service July 24, 2023 Assessment & Plan (1) Ambulatory dysfunction: Plan: Worsening ambulatory dysfunction x 2 weeks after sciatica flare and feeling like she never recovered Lumbar spine CT: no acute fracture or subluxation, but noted moderate to severe central canal stenosis at L2/L3 and L3/L4 - patient states she would not be interested in injections or surgery so will not pursue MRI at this time Originally with scheduled Tylenol for pain, but refusing because not in pain - will change to PRN Blood cultures: no growth 24 hours PT/OT consulted CM following - patient hoping to go to rehab, has steps at home and family is not comfortable taking her home with home health (2) Fall: Plan: Patient reports that she slipped in the bathtub 1 week ago Secondary to slipping on a slippery surface; no LOC; no head strike Head CT revealed no acute findings No prior falls (3) 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: Plan: Last A1c at 9.2% on 06/17/2023 Hold metformin, glipizide SSI; with target BSG range 110-140mg/dL, CF 45, carb ratio 15 BSG ACHS (4) Paroxysmal atrial fibrillation: Plan: Rate controlled Continue Eliquis 5 mg BID (Monitor for dose-reduce to 2.5mg BID if Cr rises to >1.5) Continue metoprolol (5) Hypertension: Plan: Continue hydralazine Lisinopril held due to worsening CrCL BP stable (6) UTI (urinary tract infection): Plan: Patient recently completed course of Keflex (started on 06/17) for UTI UA +2 leukocyte Estrace on arrival --> Rocephin 1000 mg IV given in the ED Clinically asymptomatic, UC with no growth Will not continue antibiotics Plan Disposition: continued inpatient stay waiting to see how patient does over the weekend with PT/OT to potentially be able to apply for auth VTE PPx: On Eliquis Offered to updated family members by phone 07/24, patient declined this. Admission and Anticipated Discharge Date Admission Date: July 22, 2023 Supervising Physician Co-Signing Physician Notes Attending Attestation - Chart reviewed, care plan d/w MARY Cheung. I agree w/ the ocampo components of her documentation. Tiago Epperson MD Subjective patient resting in bed - reports mild hip pain after walking, declines tylenol at this time discussed more invasive management for her sciatic/back pain including injections and surgery and is not interested in either Review of Systems Review of Systems: All systems reviewed & are unremarkable except as noted in Subjective Physical Exam Physical Exam: General: NAD, VS as above Resp: normal respiratory effort, Abd: non tender, Extremities: Moves all extremities, non pitting edema LE Neuro: A&O x3, Skin: intact, no lesions noted Results & Data Results & Data Vital Signs (Past 12 Hours) Vital Signs Temp Pulse Resp BP Pulse Ox O2 Del Method 07/24/23 14:50 36.7 C 87 14 136/74 96 Room Air 07/24/23 07:47 36.6 C 88 16 149/91 H 95 Room Air PG Care Time/CCT Total # of Minutes Spent Total Time Spent with Patient: Total time spent is greater than 50% in coordination of care (as documented) at patient's floor/unit and/or counseling patient: Coding Level of Care Code 18837 SUB INP/OBS CARE 2/35MIN Diagnoses Ambulatory dysfunction R26.2 Fall W19.XXXA 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
[2023-07-24] MEDS: ACETAMINOPHEN 500 MG TAB PO PRN (17:23)
--- NOTE | 2023-07-25 12:06 | Hospitalist Progress Note ---
Date of Service July 25, 2023 Assessment & Plan (1) Ambulatory dysfunction: Plan: Worsening ambulatory dysfunction x 2 weeks after sciatica flare and feeling like she never recovered Lumbar spine CT: no acute fracture or subluxation, but noted moderate to severe central canal stenosis at L2/L3 and L3/L4 - patient states she would not be interested in injections or surgery so will not pursue MRI at this time Originally with scheduled Tylenol for pain, but refusing because not in pain - will change to PRN Blood cultures: no growth 48 hours PT/OT consulted CM following - patient hoping to go to rehab, has steps at home and family is not comfortable taking her home with home health (2) Fall: Plan: Patient reports that she slipped in the bathtub 1 week ago Secondary to slipping on a slippery surface; no LOC; no head strike Head CT revealed no acute findings No prior falls (3) 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 BMP (6) UTI (urinary tract infection): Plan: Patient recently completed course of Keflex (started on 06/17) for UTI UA +2 leukocyte Estrace on arrival --> Rocephin 1000 mg IV given in the ED Clinically asymptomatic, UC with no growth Will not continue antibiotics Plan Disposition: continued inpatient stay waiting to see how patient does over the weekend with PT/OT to potentially be able to apply for auth [facility] PPx: On Eliquis Offered to updated family members by phone 07/24, patient declined this. Admission and Anticipated Discharge Date Admission Date: July 22, 2023 Supervising Physician Co-Signing Physician Notes Attending Attestation - Chart reviewed, care plan d/w MARY Cheung. I agree w/ the ocampo components of her documentation. Tiago Siuta MD Subjective Melany seen resting in bed in room 351. States she has not been out of bed yet today, I encouraged this Denies any hip/sciatic pain today Moving bowels good appetite Review of Systems Review of Systems: All systems reviewed & are unremarkable except as noted in Subjective Physical Exam Physical Exam: General: NAD, VS as above Resp: normal respiratory effort, clear to auscultation cardiac: Regular rate and rhythm Abd: non tender, Extremities: Moves all extremities, non pitting edema LE Neuro: A&O x3, Skin: intact, no lesions noted Results & Data Results & Data Vital Signs (Past 12 Hours) Vital Signs Temp Pulse Resp BP Pulse Ox O2 Del Method 07/25/23 07:11 36.5 C 81 16 134/83 97 Room Air PG Care Time/CCT Total # of Minutes Spent Total Time Spent with Patient: Total time spent is greater than 50% in coordination of care (as documented) at patient's floor/unit and/or counseling patient: Coding Level of Care Code 84593 SUB INP/OBS CARE 2/35MIN Diagnoses Ambulatory dysfunction R26.2 Fall W19.XXXA 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
[2023-07-25] MEDS: MELATONIN 3 MG TAB PO PRN (20:54)
[2023-07-26 07:09] LABS: Anion Gap 8 (3-11); BUN Creatinine Ratio 21.7 (10-20); Blood Urea Nitrogen 34 mg/dl (6-23); Carbon Dioxide 23 mmol/L (21-32); Chloride 108 mmol/L (98-107); Creatinine Clr Calc Pharmacy 26.7 ml/min; Est GFR (African American) 34.7 ml/min; Glucose 153 mg/dl (70-99(Fasting)); Sodium 139 mmol/L (136-145)
--- NOTE | 2023-07-26 12:22 | Hospitalist Progress Note ---
Date of Service July 26, 2023 Assessment & Plan (1) Ambulatory dysfunction: Plan: Worsening ambulatory dysfunction x 2 weeks after sciatica flare and feeling like she never recovered Lumbar spine CT: no acute fracture or subluxation, but noted moderate to severe central canal stenosis at L2/L3 and L3/L4 - patient states she would not be interested in injections or surgery so will not pursue MRI at this time Originally with scheduled Tylenol for pain, but refusing because not in pain - will change to PRN Blood cultures: no growth 48 hours PT/OT consulted CM following - patient hoping to go to rehab, however patient continuing to progress with therapy here. 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: Plan: Last A1c at 9.2% on 06/17/2023 Hold metformin, glipizide SSI; with target BSG range 110-140mg/dL, CF 40, carb ratio 15 BSG ACHS (4) Paroxysmal atrial fibrillation: Plan: Rate controlled Continue Eliquis 5 mg BID (Monitor for dose-reduce to 2.5mg BID if Cr rises to >1.5) Continue metoprolol (5) Hypertension: Plan: Continue hydralazine Lisinopril held due to worsening CrCL - recheck BMP confirms this BP stable (6) UTI (urinary tract infection): Plan: Patient recently completed course of Keflex (started on 06/17) for UTI UA +2 leukocyte Estrace on arrival --> Rocephin 1000 mg IV given in the ED Clinically asymptomatic, UC with no growth Will not continue antibiotics (7) Macular degeneration, wet: Plan: pt requesting her occuvite - this is nonformuarly, replacement vitamins ordered Plan Disposition: continued inpatient stay, waiting a safe place to discharge to [facility] PPx: On Eliquis Offered to updated family members by phone 07/24, patient declined this. Admission and Anticipated Discharge Date Admission Date: July 22, 2023 Supervising Physician Co-Signing Physician Notes Attending Attestation - Chart reviewed, care plan d/w MARY Cheung. I agree w/ the ocampo components of her documentation. Dispo planning. Tiago Epperson MD Subjective seen sitting up in the chair - no pain told her with how well she is doing, unlikely she is going to qualify for rehab. Requesting her ocuvite Review of Systems Review of Systems: All systems reviewed & are unremarkable except as noted in Subjective Physical Exam Physical Exam: General: NAD, VS as above Resp: normal respiratory effort, clear to auscultation cardiac: Regular rate and rhythm Abd: non tender, Extremities: Moves all extremities, non pitting edema LE Neuro: A&O x3, Skin: intact, no lesions noted Results & Data Results & Data Vital Signs (Past 12 Hours) Vital Signs Temp Pulse Resp BP Pulse Ox O2 Del Method 07/26/23 07:30 36.2 C L 81 16 128/80 95 Room Air Laboratory Results BMP reviewed PG Care Time/CCT Total # of Minutes Spent Total Time Spent with Patient: Total time spent is greater than 50% in coordination of care (as documented) at patient's floor/unit and/or counseling patient: Coding Level of Care Code 59668 SUB INP/OBS CARE 2/35MIN Diagnoses Ambulatory dysfunction R26.2 Fall W19.XXXA 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
[2023-07-26] MEDS: CEROVITE ADV FORMULA TAB PO SCH (12:49)
--- NOTE | 2023-07-27 08:40 | Hospitalist Progress Note ---
Date of Service July 27, 2023 Assessment & Plan (1) Ambulatory dysfunction: Plan: Worsening ambulatory dysfunction x 2 weeks after sciatica flare and feeling like she never recovered Patient reports that she slipped in the bathtub 1 week ago Secondary to slipping on a slippery surface; no LOC; no head strike Lumbar spine CT: no acute fracture or subluxation, but noted moderate to severe central canal stenosis at L2/L3 and L3/L4 - patient states she would not be interested in injections or surgery so will not pursue MRI at this time Originally with scheduled Tylenol for pain, but refusing because not in pain - will change to PRN Blood cultures: no growth 48 hours PT/OT consulted denied rehab placement CM following - patient hoping to go to rehab, however patient continuing to progress with therapy here. Home health is likely being arranged for later in the week. Completing the course of diagnostics will check vitamin B12 a.m. 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: Plan: Last A1c at 9.2% on 06/17/2023 Hold metformin, glipizide SSI; with target BSG range 110-140mg/dL, CF 40, carb ratio 15 BSG ACHS (3) Paroxysmal atrial fibrillation: Plan: Rate controlled Continue Eliquis 5 mg BID (Monitor for dose-reduce to 2.5mg BID if Cr rises to >1.5) Continue metoprolol Pt with chronic hypertension, also using hydralazine, holding lisinipril for lopez on ckd3 (4) UTI (urinary tract infection): Plan: Patient recently completed course of Keflex (started on 06/17) for UTI UA +2 leukocyte Estrace on arrival --> culture negative, stopping antibiotics, (5) Macular degeneration, wet: Plan: pt requesting her occuvite - this is nonformuarly, replacement vitamins ordered Plan Disposition: continued inpatient stay, waiting a safe place to discharge to [facility] PPx: On Eliquis Admission and Anticipated Discharge Date Admission Date: July 22, 2023 Subjective Patient is ambulating well and was denied approval for rehab. However patient states that she does not feel well enough to go home she only feels about 50% return to her baseline. She still bothered by excessive fatigue which occurs after she exerts herself for a minimal period of time. Last echocardiogram was from 2022 showing pulmonary hypertension and diastolic dysfunction grade 2 Physical Exam Physical Exam: Awake awake alert appropriate. Card exam is regular without murmurs lungs are clear she has good strength on confrontational testing normal reflexes Results & Data Results & Data Vital Signs (Past 12 Hours) Vital Signs Temp Pulse Resp BP BP Pulse Ox O2 Del Method 07/27/23 07:14 97.3 F L 84 20 125/82 98 Room Air 07/26/23 21:50 97.9 F 89 18 113/75 97 Room Air PG Care Time/CCT Total # of Minutes Spent Total Time Spent with Patient: Total time spent is greater than 50% in coordination of care (as documented) at patient's floor/unit and/or counseling patient: Coding Level of Care Code 64318 SUB INP/OBS CARE 3/50MIN Diagnoses Ambulatory dysfunction R26.2 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
[2023-07-27] MEDS: THIAMINE HCL 200 MG in SODIUM CHLORIDE 0.9% 50 ML IV STA (14:49)
--- NOTE | 2023-07-27 16:58 | XCELERA ---
[id number]
[2023-07-27] MEDS: METOPROLOL TARTRATE 25 MG TAB PO SCH (19:48)
[2023-07-27] MEDS: ONDANSETRON INJ 2 MG/ML 2 ML VIAL IV PRN (20:57)
[2023-07-28] MEDS: THIAMINE HCL 100 MG TAB PO SCH (07:23)
[2023-07-28 08:14] LABS: C Reactive Protein 1.55 mg/dl (0-0.5)
[2023-07-28 08:24] LABS: Cortisol AM 13.65 mcg/dl (6.2-22.6)
[2023-07-28 08:29] LABS: Thyroid Stimulating Hormone 0.496 uIu/ml (0.300-4.500)
[2023-07-28 08:31] LABS: T4 Free Thyroxine 1.49 ng/dl (0.61-1.60)
--- NOTE | 2023-07-28 12:15 | Discharge Summary ---
Date of Service July 28, 2023 Admission HPI Per Admitting Provider Melany is a pleasant 83-year-old female with PMH of HTN, HLD, T2DM, DESTINEY, CKD stage III, goiter, paroxysmal A-fib, mitral regurgitation, and diabetes melitis. She presented via EMS for worsening weakness and ambulatory dysfunction x 2 weeks, which patient attributes to worsening sciatica. Patient is having difficulty with walking. He tried a course of prednisone x 7 days, as well as muscle relaxers and going to the chiropractor, but this did not help. Pain is in her lower back, and radiates down both legs bilaterally (left worse than right). She occasionally takes Tylenol for pain, but this does not help. Pat chung is fine when sitting, but it is worse with movements. It is come to the point where patient says her legs give out on her after short periods of movement. Patient's daughter is present at bedside; patient lives with daughter. Daughter reports that she has been less active recently, and will be likely to benefit from rehab. Patient used to volunteer regularly 7 days a week, but became more sedentary after COVID. It should be noted that patient slipped in the tub last week; no LOC; no head strike. Other than this, she has not had any falls. No ambulatory assist devices, but patient reports she does use a cane outside at times. She denies smoking, tobacco use, and alcohol use. Patient took all of her regular morning medications today; only recent change in medication was starting glipizide for her diabetes a couple weeks ago (she says steroids were causing her sugar to go up). No CPAP at night. No supplemental oxygen. Patient's vitals are stable at time of admission. ED course: NSS 500 mL IV Rocephin 1000 mg IV ordered ROS: Patient endorses lightheadedness with walking, ambulatory dysfunction, mild nausea, loss of appetite, loose stools, and numbness/tingling in both legs. Patient denies fever, chills, night-sweats, dizziness, fainting, headaches, changes in vision, chest pain, SOB, cough, abdominal pain, vomiting, changes in urinary/bowel habits, burning with urination, blood in the urine/stool, or saddle anesthesia. Principal Diagnosis ambulatory dysfunction Discharge Exam Awake awake alert appropriate. Card exam is regular without murmurs lungs are clear Discharge Data Allergies Allergy/AdvReac Type Severity Reaction Status Date / Time No Known Allergies Allergy Verified 06/17/23 13:00 Consultations 07/22/23 19:47 ED Decision to Admit Stat Ordered Studies 07/22/23 13:32 CT head/brain wo con Stat 07/22/23 18:04 CT lumbar spine wo con Stat Hospital Course (1) Ambulatory dysfunction: Worsening ambulatory dysfunction x 2 weeks after sciatica flare and feeling like she never recovered Patient reports that she slipped in the bathtub 1 week ago Secondary to slipping on a slippery surface; no LOC; no head strike Lumbar spine CT: no acute fracture or subluxation, but noted moderate to severe central canal stenosis at L2/L3 and L3/L4 - patient states she would not be interested in injections or surgery so will not pursue MRI at this time Originally with scheduled Tylenol for pain, but refusing because not in pain - will change to PRN Blood cultures: no growth 48 hours PT/OT consulted denied rehab placement CM following - patient hoping to go to rehab, however patient continuing to progress with therapy here. Home health is likely being arranged for later in the week. Completing the course of diagnostics checled vitamin B12 a.m. 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: Last A1c at 9.2% on 06/17/2023 Hold metformin, glipizide (3) Paroxysmal atrial fibrillation: Rate controlled Continue Eliquis 5 mg BID (Monitor for dose-reduce to 2.5mg BID if Cr rises to >1.5) Continue metoprolol Pt with chronic hypertension, also using hydralazine, holding lisinipril for lopez on ckd3 (4) UTI (urinary tract infection): Patient recently completed course of Keflex (started on 06/17) for UTI UA +2 leukocyte Estrace on arrival --> culture negative, stopping antibiotics, (5) Macular degeneration, wet: pt requesting her occuvite - this is nonformuarly, replacement vitamins ordered (6) Fall: Patient reports that she slipped in the bathtub 1 week ago Secondary to slipping on a slippery surface; no LOC; no head strike Head CT revealed no acute findings No prior falls (7) Hypertension: Continue hydralazine Lisinopril held due to worsening CrCL - BP stable even without this medication. Total Time Total Time Spent Total Time Spent (In Minutes): 32 Discharge Plan Discharge Items Patient Disposition: Home - Home Health Services Reason For Visit: AMBULATORY DYSFUNCTION Discharge Diagnosis: ambulatory dysfunction Activity: Resume your previous activity Non-emergency contact: Primary Care Provider Call non-emergency contact if: you have any medication questions Follow-up/Referrals: Mello Elena DO [Primary Care Provider] - 08/05/23 10:30 am (Appointment will be with LUCY Monroe) Diet: Carb Consistent or DM2 and Heart Healthy Addtl Attending Provider Instructions: recommend followup with PCP in 1-2 weeks. Will start home health on . continue to ambulate using rolling walker Pending Studies at Discharge: No Stand-Alone Forms: My [place], Smoking Cessation Medications and DC Order Prescriptions: Continued metformin 500 mg tablet 1,000 mg PO BID Qty: 400 3RF hydralazine 50 mg tablet 50 mg PO BID Qty: 180 3RF Eliquis 5 mg tablet 5 mg PO BID Qty: 180 3RF cyclobenzaprine 5 mg tablet 5 mg PO BID PRN (Reason: muscle spasm) Qty: 90 0RF atorvastatin 20 mg tablet 20 mg PO HS Qty: 100 3RF magnesium oxide 200 mg magnesium tablet 200 mg PO BID 90 Days Qty: 180 2RF Avastin 25 mg/mL solution 25 mg intravitreal UD Rx Instructions: as directed ondansetron 4 mg tablet,disintegrating 4 mg PO Q6H PRN (Reason: nausea and vomiting) Qty: 20 0RF glipizide 2.5 mg tablet extended release 24hr 2.5 mg PO DAILY Qty: 90 2RF (DME) Dexcom G7 Sensor Device See Rx Instructions .ROUTE Qty: 1 0RF Rx Instructions: continuous glucose monitoring cholecalciferol (vitamin D3) [Vitamin D3] 25 mcg (1,000 unit) Tablet 25 mcg PO DAILY Changed metoprolol tartrate 50 mg tablet 25 mg PO BID Qty: 200 3RF Discontinued lisinopril 20 mg tablet 20 mg PO BID Qty: 180 3RF Discharge Orders: Discharge Order (Routine); Ordered 07/28/23 Ordered By: Hemant A Saborio Admission Data Admit Date/Time: 07/22/23 20:49 Attending Provider: Hemant Hyde Admit Provider: Beatriz Kat Primary Care Provider: Mello Elena Other Providers: Beatriz Kat; [place],[facility]; [facility]; [facility] Other Interventions: Discharge Summary Assessment (RN) Last Done: 07/28/23 12:43 Coding Level of Care Code 81991 INP/OBS DISCH >30 MIN Diagnoses Ambulatory dysfunction R26.2 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
== END 2023-07-28 18:09 | disposition home health service (06) | DRG 552 ==
LOC: ED 13:24 → INTOOBSV 20:49 → SUATTDRO 20:49 → 3W 20:49

== ENCOUNTER 2023-08-15 22:37 | Observation (INO) ==
--- NOTE | 2023-08-15 23:14 | Emergency Department Note ---
Impression & Plan Lumbosacral radiculopathy, Ambulatory dysfunction, Acute on chronic renal insufficiency ED Provider Note NAME: ALEKSANDRA GARCIA AGE: 83 SEX: F : 1940 ARRIVES VIA: Ambulance INFORMANT: Patient ED PROVIDER(S): Rafi Alarcon MD CHIEF COMPLAINT: Sciatica, referred. PLAN: Disposition: Home MEDICAL DECISION MAKING: The patient is an 83-year-old woman with a past medical history of hypertension, hyperlipidemia, type 2 diabetes, DESTINEY, CKD, goiter, paroxysmal atrial fibrillation on Eliquis, sciatica have recently admitted to this facility discharged on 07/27 for the same who presents to the emergency department for flare of her sciatica pain in her left lower back extending behind her left leg. Patient reports that the flare occurred when she was walking in her home and twisted. She reports that because of the pain she lay in bed all day. She contacted her PCP office who prescribed a steroid but the patient reports feeling no improvement. The patient now presents to the emergency department after 10 PM for evaluation of persistence of pain. Patient reports she does have a walker at home but has not had a chance to use this today as she lay in bed after the pain began. She reports she tried ice once and has not tried heat. She reports she has taken Tylenol. She denies any loss of bowel control or symptoms of urinary retention. She reports she has been having home physical therapy since her recent admission had been doing well until today. The patient lives with her daughter in her home. On patient's recent admission the patient had a CT of her lumbar spine that demonstrated moderate degenerative disc disease and severe facet arthrosis with lumbar spine. There is suspected moderate to severe central canal stenosis at L2-L3 and moderate central canal stenosis at L3-L4. On evaluation patient is no distress, afebrile stable vital signs. She has mild tenderness of the left lower lumbar region extending distally over the PSIS in the sciatic distribution. She has normal strength of bilateral extremities. There is no clonus. Reflexes within normal limits. We did discuss the typical course of sciatica and the need to avoid strenuous activity but also the need to continue to be active to avoid worsening symptoms as likely occurred today. We reviewed risks of narcotics for this type of recurring pain we also reviewed the risks related to the patient's age. We agreed to proceed with IM dose of Decadron and she was additionally given low-dose oral Valium for muscle relaxation and oral acetaminophen. Upon evaluation patient did have improvement with she was able to ambulate relatively well in her room with the use of a walker to offload back strain. We discussed plan for discharge and home management of symptoms. However, the patient expressed concern that while she could ambulate with a walker here, she reports that she is confident she could not walk up the 14 stairs in her home to get to her bedroom as well as the bathroom where they are home does not have a lower level bathroom. The patient cannot think of any strategies to address these limitations. She did request admission to the hospital. Case was reviewed with case management to see if the patient could be placed directly to rehab in the morning. Unfortunately, patient will require formal PT/OT assessment and therefore will need to be admitted at this time. Given the patient's ambulatory dysfunction where she is unable to function at home she was referred to hospitalist service for admission, PT and likely placement. Case was discussed with Dr. Wheeler [facility] hospitalist, who will evaluate the patient for admission. Triage Nursing notes reviewed. Prior/external medical records reviewed. Vital Signs: reviewed Differential diagnosis: Musculoskeletal, disc herniation, fracture, metastatic disease, cord compression, discitis, sciatica, cauda equina, infection, aortic disease, renal colic, gastrointestinal, as well as other pathologies. ER treatment provided: See below. Laboratory studies: See below Imaging studies: See below Consultation(s): Case was discussed with GRISEL Irizarry hospitalist, who will evaluate the patient for admission. HPI: The patient is an 83-year-old woman with a past medical history of hypertension, hyperlipidemia, type 2 diabetes, DESTINEY, CKD, goiter, paroxysmal atrial fibrillation on Eliquis, sciatica have recently admitted to this facility discharged on 07/27 for the same who presents to the emergency department for flare of her sciatica pain in her left lower back extending behind her left leg. Patient reports that the flare occurred when she was walking in her home and twisted. She reports that because of the pain she lay in bed all day. She contacted her PCP office who prescribed a steroid but the patient reports feeling no improvement. The patient now presents to the emergency department after 10 PM for evaluation of persistence of pain. Patient reports she does have a walker at home but has not had a chance to use this today as she lay in bed after the pain began. She reports she tried ice once and has not tried heat. She reports she has taken Tylenol. She denies any loss of bowel control or symptoms of urinary retention. She reports she has been having home physical therapy since her recent admission had been doing well until today. The patient lives with her daughter in her home. On patient's recent admission the patient had a CT of her lumbar spine that demonstrated moderate degenerative disc disease and severe facet arthrosis with lumbar spine. There is suspected moderate to severe central canal stenosis at L2-L3 and moderate central canal stenosis at L3-L4. ROS: See above HPI for pertinent positives & negatives. A total of 10 systems reviewed and were otherwise negative. VITALS:See Below PHYSICAL EXAMINATION: GENERAL: Awake, alert, in no distress HENT: Normocephalic, atraumatic. Oropharynx unremarkable. EYES: Normal conjunctiva. Sclera non-icteric. NECK: Supple. No nuchal rigidity. FROM. No JVD. RESPIRATORY: Clear to auscultation. CARDIAC: Regular rate, normal rhythm. Extremities warm and well perfused. Pulses equal. ABDOMEN: Soft, non-distended. No tenderness to palpation. No rebound or guarding. No masses. MUSCULOSKELETAL: Chest examination reveals no tenderness. The back is symmetrical on inspection without obvious abnormality. Mild tenderness of the left lower lumbar region extending distally over the PSIS in the sciatic distribution. There is no CVA tenderness to palpation. No joint edema. LOWER EXTREMITIES: Calves are equal size bilaterally and non-tender. No edema. No discoloration. NEURO: Normal sensorium. No sensory or motor deficits noted. 5/5 strength and SILT x 4 extremities. DTRs wnl. No clonus. SKIN: No rash or jaundice noted. Rafi Alarcon MD Past Med/Surg History Problem List Acute kidney injury superimposed on CKD Acute on chronic renal insufficiency (Acute) Ambulatory dysfunction (Acute) Lumbosacral radiculopathy (Acute) Weakness (Acute) Ambulatory dysfunction Hallucinations Diabetes mellitus with hypoglycemia Macular degeneration, wet Left sided sciatica UTI (urinary tract infection) Pulmonary hypertension Mitral regurgitation Fall Hypomagnesemia (Acute) Vitamin D deficiency Multiple pulmonary nodules determined by computed tomography of lung Premature supraventricular beats Abnormal ECG Paroxysmal atrial fibrillation On ECG 12/12/20 when admitted with Covid-19. Spontaneous conversion to NSR. 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 Hyperlipidemia (Chronic) Hypertension (Chronic) Medical History Hypomagnesemia Headache Lipoma of back s/p removal Syncope and collapse COVID-19 (02/11/20) required hospitalization [facility] x 3 weeks History of basal cell carcinoma (11/2018) Morbid obesity Nontoxic multinodular goiter Osteopenia Hypertension Hyperlipidemia Surgical History Hx laparoscopic cholecystectomy History of salpingectomy History of Salpingectomy for ectopic Family History Father , age 69 Coronary heart disease Myocardial infarction Mother , age 92 Tobacco use Lung cancer suspected just prior to her Daughter Melanoma Grandmother (Paternal) Stroke Denies family history of Ovarian cancer Prostate cancer Breast cancer FH: brain aneurysm Colorectal cancer Social History Smoking Status: Never smoker Tobacco Type: Cigarettes Second Hand Exposure: No; Do You Dip or Chew Tobacco: No; Hx Alcohol Use: No Hx Substance Use: No Preferred Language: Andorran Communication Ability: Effective Visual Impairment: No Limitations Hearing Ability: Normal Gas Line Installer Required: No Beliefs That Will Affect Care: None marital status: Current Living Situation: Family Current Living Situation Comment: LIVES WITH DAUGHTER JOSE current occupational status: retired 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 [employer] How many Children do You have: 3 Feels Safe at Home: Yes Diet: regular caffeine: Yes Dental Care, Regularly: Yes Physical Activity Frequency: Does not Exercise Seatbelt Use: always Assistive Devices: Cane Allergies Allergies Allergy/AdvReac Type Severity Reaction Status Date / Time No Known Allergies Allergy Verified 08/05/23 14:10 Home Meds Home Medications Medication Instructions Recorded Confirmed bevacizumab 25 mg/mL intravenous 25 mg intravitreal UD 03/24/23 08/16/23 solution (Avastin) cholecalciferol (vitamin D3) 25 25 mcg PO DAILY 05/03/23 08/16/23 mcg (1,000 unit) tablet (Vitamin D3) lisinopril 20 mg tablet 40 mg PO DAILY 08/16/23 08/16/23 Previous Rx's Medication Instructions Recorded metformin 500 mg tablet 1,000 mg (2 x 500 mg) PO BID #400 06/19/22 tabs magnesium oxide 200 mg PO BID 90 days #180 tabs 10/08/22 hydralazine 50 mg tablet 50 mg PO BID #180 tabs 02/09/23 ondansetron 4 mg disintegrating 4 mg PO Q6H PRN nausea and 05/14/23 tablet vomiting #20 tabs glipizide 2.5 mg tablet, extended 2.5 mg PO DAILY #90 tabs 06/17/23 release 24 hr blood-glucose sensor (Dexcom G7 #1 ea 06/18/23 Sensor device) cyclobenzaprine 5 mg tablet 5 mg PO BID PRN muscle spasm #90 06/26/23 tabs atorvastatin 20 mg tablet 20 mg PO HS #100 tabs 07/28/23 apixaban 2.5 mg tablet 2.5 mg PO BID #180 tabs 08/05/23 metoprolol tartrate 25 mg tablet 25 mg PO BID #180 tabs 08/05/23 methylprednisolone 4 mg tablets in 4 mg PO .COMPLEX #21 ea 08/15/23 a dose pack (Medrol (Neftaly)) Results & Data (ED) Vital Signs Vital Signs - 24 hr 08/15/23 22:41 08/15/23 23:00 08/16/23 00:00 Temperature 36.2 C L Temperature Source Temporal Artery Scan Pulse Rate 78 82 Pulse Rate [Apical] 90 Respiratory Rate 20 14 Respiratory Effort / Characteristics Non-Labored Spontaneous Non-Labored Respiratory Depth Normal Normal Respiratory Pattern Regular Regular Blood Pressure 151/75 H Blood Pressure [Right Arm] 120/64 Blood Pressure Mean 100 Blood Pressure Mean [Right Arm] 82 Blood Pressure Position Lying Pulse Oximetry 96 94 Oxygen Delivery Method Room Air Room Air Sepsis Recent Fever Within 48 Hours No Sepsis New/Unexplained Change in Mental Status N/A Sepsis Action Taken by Nursing No Action Required 08/16/23 01:00 08/16/23 02:00 08/16/23 03:00 Temperature Temperature Source Pulse Rate Pulse Rate [Apical] 94 H 97 H 96 H Respiratory Rate 16 14 14 Respiratory Effort / Characteristics Non-Labored Non-Labored Non-Labored Respiratory Depth Normal Normal Normal Respiratory Pattern Regular Regular Regular Blood Pressure Blood Pressure [Right Arm] 115/75 135/71 142/76 H Blood Pressure Mean Blood Pressure Mean [Right Arm] 88 92 98 Blood Pressure Position Pulse Oximetry 98 94 95 Oxygen Delivery Method Room Air Room Air Room Air Sepsis Recent Fever Within 48 Hours Sepsis New/Unexplained Change in Mental Status Sepsis Action Taken by Nursing Laboratory Data Attestation: I reviewed the patient's lab results. 08/16/23 01:22 08/16/23 01:22 Lab Results 08/16/23 Range/Units 01:22 WBC 9.55 (4.8-10.8) K/ul RBC 4.17 L (4.20-5.40) M/uL Hgb 11.8 L (12.0-16.0) g/dl Hct 37.7 (37.0-47.0) % MCV 90.4 (80.0-100.0) fL MCH 28.3 (25.0-34.0) pg MCHC 31.3 L (32.0-36.0) g/dL RDW Std Deviation 48.8 H (36.4-46.3) fL RDW Coeff of Charlene 14.7 H (11.5-14.5) % Plt Count 207 (130-400) K/uL MPV 11.1 (9.4-12.4) fL Immature Gran % (Auto) 0.5 % Neut % (Auto) 87.6 % Lymph % (Auto) 10.4 % Delta % (Auto) 1.3 % Eos % (Auto) 0.0 % Baso % (Auto) 0.2 % Neut # (Auto) 8.37 H (1.40-6.50) K/uL Lymph # (Auto) 0.99 L (1.20-3.40) K/uL Delta # (Auto) 0.12 (0.11-0.59) K/uL Eos # (Auto) 0.00 (0.00-0.50) K/uL Baso # (Auto) 0.02 (0.00-0.20) K/uL Immature Gran # (Auto) 0.05 (0.01-0.20) K/uL Sodium 139 (136-145) mmol/L Potassium 5.3 H (3.5-5.1) mmol/L Chloride 108 H (98-107) mmol/L Carbon Dioxide 20 L (21-32) mmol/L Anion Gap 11 (3-11) BUN 33 H (6-23) mg/dl Creatinine 2.01 H (0.6-1.2) mg/dl Est Cr Clr Drug Dosing 21.2 ml/min Est GFR ( Amer) 25.8 ml/min Est GFR (Non-Af Amer) 22.2 ml/min BUN/Creatinine Ratio 16.4 (10-20) Glucose 195 H (70-99(Fasting)) mg/dl Calcium 10.7 H (8.6-10.3) mg/dl Magnesium 1.8 (1.7-2.4) mg/dl Total Bilirubin 0.4 (0.2-1.0) mg/dl AST 24 (13-39) U/L ALT 27 (7-52) U/L Alkaline Phosphatase 73 (34-104) U/L Total Creatine Kinase 20 L (26-192) U/L Total Protein 6.9 (6.0-8.3) gm/dl Albumin 3.9 (3.4-5.0) gm/dl Globulin 3.0 (2.5-4.0) gm/dl Albumin/Globulin Ratio 1.3 (0.9-2) Administered Medications Discontinued Medications Acetaminophen (Acetaminophen 500 Mg Tab) 1,000 mg PO NOW STA Stop: 08/15/23 23:13 Last Admin: 08/15/23 23:24 Dose: 1,000 mg Documented By: SHASHI Dexamethasone Sodium Phosphate (DexamethasonePf 10 Mg/Ml Vial) 10 mg IM NOW ONE Stop: 08/15/23 23:12 Last Admin: 08/15/23 23:24 Dose: 10 mg Documented By: SAHSHI Diazepam (Diazepam 2 Mg Tablet) 1 mg PO NOW ONE Stop: 08/15/23 23:13 Last Admin: 08/15/23 23:23 Dose: 1 mg Documented By: SHASHI Sodium Chloride (Nss) 500 mls @ 999 mls/hr IV .Q31M ONE Stop: 08/16/23 03:01 Last Admin: 08/16/23 02:56 Dose: 999 mls/hr Documented By: SHASHI Lidocaine (Lidocaine 5% 1 Patch) 1 patch TD NOW STA Stop: 08/15/23 23:13 Last Admin: 08/15/23 23:23 Dose: 1 patch Documented By: SHASHI Discharge Plan Visit Data Chief Complaint: Leg Injury/Pain Stated Complaint: PAIN HIP TO KNEE ED Provider: Rafi Alarcon Discharge Problem: Lumbosacral radiculopathy, Ambulatory dysfunction, Acute on chronic renal insufficiency Patient Disposition: Admitted As Inpatient Discharge Instructions Interventions: ED Discharge Assessment Last Done: 08/16/23 05:04
[2023-08-15] MEDS: diazePAM 2 MG TABLET PO ONE (23:23)
[2023-08-15] MEDS: LIDOCAINE 5% 1 PATCH TD STA (23:23)
[2023-08-15] MEDS: ACETAMINOPHEN 500 MG TAB PO STA (23:24)
[2023-08-15] MEDS: dexAMETHasone**PF** 10 MG/ML VIAL IM ONE (23:24)
[2023-08-16 02:11] LABS: Basophils # (auto) 0.02 K/uL (0.00-0.20); Basophils % (auto) 0.2 %; Hematocrit (blood only) 37.7 % (37.0-47.0); Hemoglobin 11.8 g/dl (12.0-16.0); Immature Granulocytes # (auto) 0.05 K/uL (0.01-0.20); Immature Granulocytes % (auto) 0.5 %; Lymphocytes # (auto) 0.99 K/uL (1.20-3.40); Lymphocytes % (auto) 10.4 %; Mean Corpuscular Hemoglobin 28.3 pg (25.0-34.0); Mean Corpuscular Hgb Conc 31.3 g/dL (32.0-36.0); Mean Corpuscular Volume 90.4 fL (80.0-100.0); Mean Platelet Volume 11.1 fL (9.4-12.4); Monocytes # (auto) 0.12 K/uL (0.11-0.59); Monocytes % (auto) 1.3 %; Neutrophils # (auto) 8.37 K/uL (1.40-6.50); Neutrophils % (auto) 87.6 %; Platelet Count 207 K/uL (130-400); RDW Coefficient of Variation 14.7 % (11.5-14.5); RDW Standard Deviation 48.8 fL (36.4-46.3); Red Blood Count 4.17 M/uL (4.20-5.40); White Blood Count 9.55 K/ul (4.8-10.8)
[2023-08-16 02:24] LABS: Albumin Globulin Ratio 1.3 (0.9-2); Albumin Level 3.9 gm/dl (3.4-5.0); BUN Creatinine Ratio 16.4 (10-20); Bilirubin,Total 0.4 mg/dl (0.2-1.0); Calcium 10.7 mg/dl (8.6-10.3); Creatinine Clr Calc Pharmacy 21.2 ml/min; Est GFR (African American) 25.8 ml/min; Est GFR (Non-African American) 22.2 ml/min; Magnesium 1.8 mg/dl (1.7-2.4); Potassium 5.3 mmol/L (3.5-5.1); Total Protein 6.9 gm/dl (6.0-8.3)
[2023-08-16] MEDS: SODIUM CHLORIDE 0.9% 500 ML IV ONE (02:56)
--- NOTE | 2023-08-16 04:52 | History & Physical Report ---
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 and Tylenol 1 g p.o. in the ED Dexamethasone 4 mg IV every morning Acetaminophen 650 mg by mouth every 6 hours as needed for mild pain or fever Continue cyclobenzaprine 5 mg p.o. twice daily as needed muscle spasm Continue Lidoderm patch Consult PT/OT Patient may require inpatient rehab Acute kidney injury superimposed on CKD- Creatinine 2.01, with base range 1.38-1.60 Hold lisinopril Received 500 mL normal saline bolus in the ED Continue NSS at 80 mL/h x 1 L Repeat laboratories in the a.m. Paroxysmal atrial fibrillation/hypertension- Continue apixaban, hydralazine and metoprolol tartrate Diabetes mellitus- Hold glipizide and metformin Placed on Accu-Cheks with NovoLog SSI Monitor for possible increase in glucose while on dexamethasone History of Present Illness Chief Complaint: The patient presents to the emergency department with complaint of worsening of her chronic low back pain with radiculopathy, that began this morning, causing her to stay in bed throughout the day, and without significant improvement, she presents to the ED this evening for assessment Primary Care Provider: Mello Elena DO The patient is a 83-year-old female with a past medical history including lumbosacral radiculopathy, ambulatory dysfunction, diabetes mellitus, macular degeneration, pulmonary hypertension, PVCs, PAF, morbid obesity, CKD stage III, hyperlipidemia and hypertension. The patient presents to the emergency department with worsening of her chronic back and lumbosacral radiculopathy pain, and with her family away, would be unable to take care of herself, and presented to the ED for assessment. Allergies Allergy/AdvReac Type Severity Reaction Status Date / Time No Known Allergies Allergy Verified 08/05/23 14:10 Home Medications Medication Instructions Recorded Confirmed Type metformin 500 mg tablet 1,000 mg (2 x 500 mg) PO BID #400 06/19/22 08/16/23 Rx tabs magnesium oxide 200 mg PO BID 90 days #180 tabs 10/08/22 08/16/23 Rx hydralazine 50 mg tablet 50 mg PO BID #180 tabs 02/09/23 08/16/23 Rx bevacizumab 25 mg/mL intravenous 25 mg intravitreal UD 03/24/23 08/16/23 History solution (Avastin) cholecalciferol (vitamin D3) 25 25 mcg PO DAILY 05/03/23 08/16/23 History mcg (1,000 unit) tablet (Vitamin D3) ondansetron 4 mg disintegrating 4 mg PO Q6H PRN nausea and 05/14/23 08/16/23 Rx tablet vomiting #20 tabs glipizide 2.5 mg tablet, extended 2.5 mg PO DAILY #90 tabs 06/17/23 08/16/23 Rx release 24 hr blood-glucose sensor (eDabbacom G7 #1 ea 06/18/23 08/16/23 Rx Sensor device) cyclobenzaprine 5 mg tablet 5 mg PO BID PRN muscle spasm #90 06/26/23 08/16/23 Rx tabs atorvastatin 20 mg tablet 20 mg PO HS #100 tabs 07/28/23 08/16/23 Rx apixaban 2.5 mg tablet 2.5 mg PO BID #180 tabs 08/05/23 08/16/23 Rx metoprolol tartrate 25 mg tablet 25 mg PO BID #180 tabs 08/05/23 08/16/23 Rx methylprednisolone 4 mg tablets in 4 mg PO .COMPLEX #21 ea 08/15/23 08/15/23 Rx a dose pack (Medrol (Neftaly)) lisinopril 20 mg tablet 40 mg PO DAILY 08/16/23 08/16/23 History Past Med/Surg History Problem List (Updated 08/16/23 @ 04:54 by Regan Wheeler MD) Acute kidney injury superimposed on CKD Acute on chronic renal insufficiency (Acute) Ambulatory dysfunction (Acute) Lumbosacral radiculopathy (Acute) Weakness (Acute) Ambulatory dysfunction Hallucinations Diabetes mellitus with hypoglycemia Macular degeneration, wet Left sided sciatica UTI (urinary tract infection) Pulmonary hypertension Mitral regurgitation Fall Hypomagnesemia (Acute) Vitamin D deficiency Multiple pulmonary nodules determined by computed tomography of lung Premature supraventricular beats Abnormal ECG Paroxysmal atrial fibrillation On ECG 02/11/20 when admitted with Covid-19. Spontaneous conversion to NSR. 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 Hyperlipidemia (Chronic) Hypertension (Chronic) Medical History Hypomagnesemia Headache Lipoma of back s/p removal Syncope and collapse COVID-19 (02/11/20) required hospitalization [facility] x 3 weeks History of basal cell carcinoma (11/2018) Morbid obesity Nontoxic multinodular goiter Osteopenia Hypertension Hyperlipidemia Surgical History Hx laparoscopic cholecystectomy History of salpingectomy History of Salpingectomy for ectopic Family History Father , age 69 Coronary heart disease Myocardial infarction Mother , age 92 Tobacco use Lung cancer suspected just prior to her Daughter Melanoma Grandmother (Paternal) Stroke Denies family history of Ovarian cancer Prostate cancer Breast cancer FH: brain aneurysm Colorectal cancer Social History Smoking Status: Never smoker Tobacco Type: Cigarettes Second Hand Exposure: No; Do You Dip or Chew Tobacco: No; Hx Alcohol Use: No Hx Substance Use: No Preferred Language: Martiniquais Communication Ability: Effective Visual Impairment: No Limitations Hearing Ability: Normal [employer] Equipment [employer]airer Required: No Beliefs That Will Affect Care: None marital status: Current Living Situation: Family Current Living Situation Comment: LIVES WITH DAUGHTER JOSE current occupational status: retired 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 [employer] How many Children do You have: 3 Feels Safe at Home: Yes Diet: regular caffeine: Yes Dental Care, Regularly: Yes Physical Activity Frequency: Does not Exercise Seatbelt Use: always Assistive Devices: Cane Review of Systems Review of Systems: The patient denies chest pain, palpitations, shortness of breath, dyspnea on exertion, cough, lower extremity swelling, sore throat, fevers, chills, sweats, weight change, fatigue, nausea, vomiting, diarrhea , constipation, abdominal pain, pelvic pain, blood in urine or stool, dysuria, urinary frequency or urgency, lightheadedness, dizziness, headache, memory loss, loss of consciousness, rash, abnormal bruising or bleeding, focal or generalized weakness, numbness or tingling in arms, generalized arthralgias or myalgias, neck pain, or night sweats. The review of systems is otherwise negative other than for that already noted above, and at least 10 systems have been reviewed. Physical Exam Physical Exam: The patient is awake, alert and oriented 3, well developed and well nourished, normocephalic and atraumatic, lying in bed and in no acute distress. HEENT--PERRL, EOMI, mucous membranes and oropharynx mildly dry. Neck--supple. No JVD. No bruits. Thyroid normal, trachea midline, no adenopathy. Heart--normal S1 and S2. No murmurs, rubs or gallops. Lungs--clear bilaterally, no respiratory distress, no accessory muscle use. Abdomen--normal bowel sounds and soft. Nontender. Nondistended. Obese Extremities--no cyanosis or clubbing. No edema. Dermatologic--normal skin turgor, normal color, no abnormal lymph nodes, no rash. Neurologic--cranial nerves II through XII grossly intact. Rheumatologic--normal range of motion. Psychiatric--normal affect. Results & Data Results & Data Vital Signs (Past 12 Hours) Vital Signs Temp Pulse Pulse Resp BP BP Pulse Ox 08/16/23 04:00 77 16 136/68 98 08/16/23 03:10 95 H 08/16/23 03:00 96 H 14 142/76 H 95 08/16/23 02:00 97 H 14 135/71 94 08/16/23 01:00 94 H 16 115/75 98 08/16/23 00:00 90 14 120/64 94 08/15/23 23:00 82 08/15/23 22:41 36.2 C L 78 20 151/75 H 96 O2 Del Method 08/16/23 04:00 Room Air 08/16/23 03:10 08/16/23 03:00 Room Air 08/16/23 02:00 Room Air 08/16/23 01:00 Room Air 08/16/23 00:00 Room Air 08/15/23 23:00 08/15/23 22:41 Room Air Laboratory Results Laboratory Results WBC 9.55 K/ul (4.8-10.8) 08/16/23 01:22 RBC 4.17 M/uL (4.20-5.40) L 08/16/23 01:22 Hgb 11.8 g/dl (12.0-16.0) L 08/16/23 01:22 Hct 37.7 % (37.0-47.0) 08/16/23 01:22 MCV 90.4 fL (80.0-100.0) 08/16/23 01:22 MCH 28.3 pg (25.0-34.0) 08/16/23 01:22 MCHC 31.3 g/dL (32.0-36.0) L 08/16/23 01:22 RDW Std Deviation 48.8 fL (36.4-46.3) H 08/16/23 01:22 RDW Coeff of Charlene 14.7 % (11.5-14.5) H 08/16/23 01:22 Plt Count 207 K/uL (130-400) 08/16/23 01:22 MPV 11.1 fL (9.4-12.4) 08/16/23 01:22 Immature Gran % (Auto) 0.5 % 08/16/23 01:22 Neut % (Auto) 87.6 % 08/16/23 01:22 Lymph % (Auto) 10.4 % 08/16/23 01:22 Frontier % (Auto) 1.3 % 08/16/23 01:22 Eos % (Auto) 0.0 % 08/16/23 01:22 Baso % (Auto) 0.2 % 08/16/23 01:22 Neut # (Auto) 8.37 K/uL (1.40-6.50) H 08/16/23 01:22 Lymph # (Auto) 0.99 K/uL (1.20-3.40) L 08/16/23 01:22 Frontier # (Auto) 0.12 K/uL (0.11-0.59) 08/16/23 01:22 Eos # (Auto) 0.00 K/uL (0.00-0.50) 08/16/23 01:22 Baso # (Auto) 0.02 K/uL (0.00-0.20) 08/16/23 01:22 Immature Gran # (Auto) 0.05 K/uL (0.01-0.20) 08/16/23 01:22 Sodium 139 mmol/L (136-145) 08/16/23 01:22 Potassium 5.3 mmol/L (3.5-5.1) H 08/16/23 01:22 Chloride 108 mmol/L (98-107) H 08/16/23 01:22 Carbon Dioxide 20 mmol/L (21-32) L 08/16/23 01:22 Anion Gap 11 (3-11) 08/16/23 01:22 BUN 33 mg/dl (6-23) H 08/16/23 01:22 Creatinine 2.01 mg/dl (0.6-1.2) H 08/16/23 01:22 Est Cr Clr Drug Dosing 21.2 ml/min 08/16/23 01:22 Est GFR ( Amer) 25.8 ml/min 08/16/23 01:22 Est GFR (Non-Af Amer) 22.2 ml/min 08/16/23 01:22 BUN/Creatinine Ratio 16.4 (10-20) 08/16/23 01:22 Glucose 195 mg/dl (70-99(Fasting)) H 08/16/23 01:22 Calcium 10.7 mg/dl (8.6-10.3) H 08/16/23 01:22 Magnesium 1.8 mg/dl (1.7-2.4) 08/16/23 01:22 Total Bilirubin 0.4 mg/dl (0.2-1.0) 08/16/23 01:22 AST 24 U/L (13-39) 08/16/23 01:22 ALT 27 U/L (7-52) 08/16/23 01:22 Alkaline Phosphatase 73 U/L (34-104) 08/16/23 01:22 Total Creatine Kinase 20 U/L (26-192) L 08/16/23 01:22 Total Protein 6.9 gm/dl (6.0-8.3) 08/16/23 01:22 Albumin 3.9 gm/dl (3.4-5.0) 08/16/23 01:22 Globulin 3.0 gm/dl (2.5-4.0) 08/16/23 01:22 Albumin/Globulin Ratio 1.3 (0.9-2) 08/16/23 01:22 Code Status & VTE Plan Code Status Full code VTE Prophylaxis Plan VTE Prophylaxis will be ordered: Yes PG Care Time/CCT Total # of Minutes Spent Total Time Spent with Patient: Total time spent is greater than 50% in coordination of care (as documented) at patient's floor/unit and/or counseling patient: Coding Level of Care Code 01799 INT INP/OBS CARE 3/75MIN Diagnoses Lumbosacral radiculopathy M54.17 Ambulatory dysfunction R26.2 Acute kidney injury superimposed on CKD N17.9; N18.9 Paroxysmal atrial fibrillation I48.0 Hypertension I10 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
[2023-08-16] MEDS ORDERED: DEXTROSE 50% 50 ML SYRINGE IV PRN (05:04)
[2023-08-16] MEDS ORDERED: GLUCAGON FOR INJ 1 MG VIAL SQ PRN (05:04)
[2023-08-16] MEDS ORDERED: GLUCOSE 40% GEL 15 GM TUBE PO PRN (05:04)
[2023-08-16] MEDS ORDERED: ONDANSETRON 4 MG OD TAB PO PRN (05:04)
[2023-08-16] MEDS ORDERED: CARBOHYDRATES FOR HYPOGLYCEMIA PO PRN (05:04)
[2023-08-16] MEDS ORDERED: GLUCOSE 10 TAB/TUBE PO PRN (05:04)
[2023-08-16] MEDS: SODIUM CHLORIDE 0.9% 1,000 ML IV SCH (06:09)
--- NOTE | 2023-08-16 07:26 | Hospitalist Progress Note ---
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 Lumbosacral Radiculopathy/Ambulatory dysfunction: -History of chronic lumbosacral radiculopathy, low back pain, ambulatory dysfunction -Patient recently hospitalized in June for ambulatory dysfunction and fall. -CT at that time w/ mod-severe stenosis L2-L3 -No provoking factors this exacerbation. -Given dex 10mg in ER followed by 4mg IV qAM. -Cyclobenzaprine 5mg PO BID for muscle spasm. -Tylenol 650mg PO q6h for pain or fever, lidoderm patch for pain. -Consult PT/OT eval and treat. BIJU on CKD: -Creat 2.01 on admission. Baseline 1.38-1.60 -Holding lisinopril while BIJU -Placed on NSS at 80ml/hr x1L -Repeat renal func in AM. Diabetes mellitus: -Holding home oral medications. -Placed on ACHS, SSI. -Monitor glucose while on dexamethasone. Paroxysmal A fib/HTN/HLD: -Cotninue apixaban, metoprolol, hydralazine, atorvastatin. F/E/N/GI: T2DM diet, heart healthy Code Status: DNR/DNI Dispo: Med telemetry, PT OT eval and treat. Admission and Anticipated Discharge Date Admission Date: August 16, 2023 Supervising Physician Co-Signing Physician Notes I personally examined the patient and verified ocampo points of history and exam, discussed case, and agree with decision making and plan documented by Dr. Ding. Patient reports acute on chronic exacerbation severe left-sided radicular back pain causing difficulty ambulating. Last CT lumbar spine showed moderate DDD with suspected moderate to severe central canal stenosis, should consider MRI for further evaluation if intervention planned. Currently patient on steroids, will be mindful of glycemic control. Patient hopeful that she will be able to attend camp with her family. Awaiting physical therapy recommendations. Subjective Patient seen at the bedside this morning feeling better than before she came to the hospital. She denies any urinary or bowel incontinence or saddle anesthesia. No overnight events. Review of Systems Review of Systems: As per HPI. Physical Exam Constitutional: WD/WN, vitals as above Eyes: PERRL, R eye bloodshot, L eye without abnormalities. Respiratory: normal respiratory effort, lungs clear to auscultation Cardiovascular: Rate/Rhythm: regular rate and regular rhythm Heart Sounds: normal S1 and normal S2 Gastrointestinal (Abdomen): normal bowel sounds, soft, nontender, no hepatosplenomegaly Psychiatric: A+Ox3, euthymic affect Results & Data Results & Data Vital Signs (Past 12 Hours) Vital Signs Temp Pulse Pulse Resp BP BP Pulse Ox 08/16/23 07:11 94 H 08/16/23 06:24 36.7 C 100 H 18 145/84 H 95 08/16/23 06:13 93 H 18 145/84 H 96 08/16/23 05:00 89 18 135/77 95 08/16/23 04:00 77 16 136/68 98 08/16/23 03:10 95 H 08/16/23 03:00 96 H 14 142/76 H 95 08/16/23 02:00 97 H 14 135/71 94 08/16/23 01:00 94 H 16 115/75 98 08/16/23 00:00 90 14 120/64 94 08/15/23 23:00 82 08/15/23 22:41 36.2 C L 78 20 151/75 H 96 O2 Del Method 08/16/23 07:11 08/16/23 06:24 Room Air 08/16/23 06:13 Room Air 08/16/23 05:00 Room Air 08/16/23 04:00 Room Air 08/16/23 03:10 08/16/23 03:00 Room Air 08/16/23 02:00 Room Air 08/16/23 01:00 Room Air 08/16/23 00:00 Room Air 08/15/23 23:00 08/15/23 22:41 Room Air Resident Activity Tracking Resident Involvement: Resident Care Provided Care Provided: Adult Hospital Medicine
[2023-08-16] MEDS: hydrALAZINE TAB 50 MG TAB PO SCH (08:28)
[2023-08-16] MEDS: CHOLECALCIFEROL 25 MCG (1000 UNITS) TAB PO SCH (08:28)
[2023-08-16] MEDS: APIXABAN 2.5 MG TAB PO SCH (08:28)
[2023-08-16] MEDS: METOPROLOL TARTRATE 25 MG TAB PO SCH (08:28)
[2023-08-16] MEDS: MAGNESIUM OXIDE 400 MG TAB PO SCH (08:28)
[2023-08-16] MEDS: dexAMETHasone 4 MG in SYRINGE 0 ML IV SCH (08:52)
[2023-08-16] MEDS: INSULIN ASPART PER UNIT CHARGE SC SCH (09:21)
[2023-08-16 09:39] LABS: Appearance Urine Clear (Clear); Bacteria Urine Automated None Seen (None Seen); Bilirubin Urine Negative (Negative); Blood Urine Negative (Negative); Color Urine Yellow; Glucose Urine UA Negative (Negative); Ketones Urine 1+ (Negative); Leukocyte Esterase Urine 2+ (Negative); Nitrite Urine Negative (Negative); Protein Urine Trace (Negative); RBC Urine Automated 0-2 /hpf (0-2); Specific Gravity Urine 1.027 (1.000-1.030); Urobilinogen Urine Negative (Negative); WBC Urine Automated 21-50 /hpf (0-5)
[2023-08-16] MEDS: CYCLOBENZAPRINE HCL 5 MG TAB PO PRN (19:44)
[2023-08-16] MEDS: ACETAMINOPHEN 325 MG TAB PO PRN (19:44)
[2023-08-16] MEDS: ATORVASTATIN 20 MG TAB PO SCH (21:04)
[2023-08-16] MEDS: LIDOCAINE 5% 1 PATCH TD SCH (21:05)
--- NOTE | 2023-08-17 07:04 | Hospitalist Progress Note ---
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 Lumbosacral Radiculopathy a/w Ambulatory Dysfunction L3 Nerve Distribution - History of chronic lumbosacral radiculopathy, low back pain, ambulatory dysfunction - Patient recently hospitalized in June for ambulatory dysfunction and fall. - CT at that time w/ mod-severe stenosis L2-L3 - No provoking factors this exacerbation. - Given dex 10mg in ER, continue 4mg IV qAM Allowing time for full anti-inflammatory effect - Continue Cyclobenzaprine 5mg PO BID for muscle spasm - Pain Management Continue Tylenol 650 mg PO Q6h Continue Lidoderm patch Add Dilaudid 0.5 mg IV q4h PRN - Continue PT/OT BIJU on CKD: - Cr 2.01 on admission. Baseline 1.38-1.60. - Cr now downtrending - Continue Lisinopril hold - Continue NSS 80 mL/hr Diabetes mellitus: - Holding home oral medications. - Placed on ACHS, SSI. - Monitor glucose while on dexamethasone. Paroxysmal A fib/HTN/HLD: -Continue apixaban, metoprolol, hydralazine, atorvastatin. F/E/N/GI: T2DM diet, heart healthy Code Status: DNR/DNI Dispo: Med telemetry, PT OT eval and treat. Admission and Anticipated Discharge Date Admission Date: August 16, 2023 Supervising Physician Co-Signing Physician Notes I personally examined the patient and verified all ocampo points of history and exam, discussed case, and agree with decision making with Dr Hurst ongoing back and leg pain. Did try to work with therapy. Was not able to do much but tried. Vitals noted, in general she is awake and alert pleasant no distress. HEENT normocephalic atraumatic mucous membranes moist. Breathing unlabored no accessory muscle use good effort. Skin shows no rashes no pallor or icterus. Spinal stenosis with lumbar radiculopathyseems to follow predominantly L3 dermatome only. Steroids, pain control, PT, supportive care. Hopefully can get symptomatic improvement and stave off any need for surgery, at the same time discussed with patient that with her symptoms matching her dermatome and being fairly tight stenosis, it unfortunately could end up being a situation that requires OR. Continue expectant management, steroids, supportive care, PT for now. Otherwise as above. Anticoagulated Subjective Patient states she is not feeling any better than pre-hospital. Ongoing LBP w/ left anterior thigh into left medial leg pain. Denies any urinary or bowel incontinence or saddle anesthesia. No overnight events. Unable to participate in PT OT d/t pain. Review of Systems Review of Systems: As per HPI. Physical Exam Constitutional: WD/WN, vitals as above Respiratory: normal respiratory effort, lungs clear to auscultation Cardiovascular: Rate/Rhythm: regular rate and regular rhythm Heart Sounds: normal S1 and normal S2 Gastrointestinal (Abdomen): normal bowel sounds, soft, nontender, no hepatosplenomegaly Musculoskeletal: Spine: + lumbar spinal tenderness (L3-4) and + paraspinal tenderness; no step off deformity Extremities: full ROM of lower extremities (TTP at medial aspect of LLE) Knee: no deformity, no effusion and no skin erythema Neurologic: Motor/Sensory: no sensory deficit Psychiatric: A+Ox3, euthymic affect Results & Data Results & Data Vital Signs (Past 12 Hours) Vital Signs Temp Pulse Pulse Resp BP BP Pulse Ox 08/17/23 03:48 36.7 C 85 20 124/63 97 08/16/23 23:22 36.9 C 80 18 113/68 97 08/16/23 22:01 89 08/16/23 19:24 36.7 C 121 H 18 131/73 94 O2 Del Method 08/17/23 03:48 Room Air 08/16/23 23:22 Room Air 08/16/23 22:01 08/16/23 19:24 Room Air Resident Activity Tracking Resident Involvement: Resident Care Provided Care Provided: Adult Hospital Medicine
[2023-08-17 07:17] LABS: Albumin Level 3.3 gm/dl (3.4-5.0); BUN Creatinine Ratio 21.4 (10-20); Calcium 10.5 mg/dl (8.6-10.3); Creatinine Clr Calc Pharmacy 26.2 ml/min; Est GFR (African American) 35.5 ml/min; Est GFR (Non-African American) 30.7 ml/min; Phosphorus 3.1 mg/dl (2.5-4.9); Potassium 4.6 mmol/L (3.5-5.1)
[2023-08-17] MEDS: HYDROmorphone INJ 0.5 MG/0.5 ML SYR IV STA (11:51)
[2023-08-17] MEDS: HYDROmorphone INJ 0.5 MG/0.5 ML SYR IV PRN (17:13)
--- NOTE | 2023-08-17 18:21 | Billing Data ---
Date of Service August 17, 2023 Coding Level of Care Code 19503 SUB INP/OBS CARE MIN
[2023-08-18 06:24] LABS: Hematocrit (blood only) 34.3 % (37.0-47.0); Hemoglobin 10.8 g/dl (12.0-16.0); Mean Corpuscular Hemoglobin 28.3 pg (25.0-34.0); Mean Corpuscular Hgb Conc 31.5 g/dL (32.0-36.0); Mean Corpuscular Volume 89.8 fL (80.0-100.0); Mean Platelet Volume 10.9 fL (9.4-12.4); Platelet Count 181 K/uL (130-400); RDW Standard Deviation 47.9 fL (36.4-46.3); Red Blood Count 3.82 M/uL (4.20-5.40); White Blood Count 7.31 K/ul (4.8-10.8)
[2023-08-18 06:31] LABS: BUN Creatinine Ratio 21.4 (10-20); Calcium 10.3 mg/dl (8.6-10.3); Creatinine Clr Calc Pharmacy 30.7 ml/min; Est GFR (African American) 43.2 ml/min; Est GFR (Non-African American) 37.3 ml/min; Potassium 4.3 mmol/L (3.5-5.1)
--- NOTE | 2023-08-18 19:46 | Hospitalist Progress Note ---
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 Lumbosacral Radiculopathy a/w Ambulatory Dysfunction L3 Nerve Distribution - Continue current planoptimistically she may be improved the tiniest bit, pessimistic like she is basically the same as when she came in. Given that it is more of a spinal stenosis radiculopathy than simple disc disease, I am a little more concerned about this not improving, but at the same time we will give it another day or so. If not absolutely no improvement into tomorrow, then might consider Ortho/spine consult. Ongoing PT/OT eval and treat; will almost certainly need rehab on discharge regardless BIJU on CKD: - creatinine now in baseline roughly stage IIIb range Diabetes mellitus: - continue current insulin managementwith only 1 outlier, sugars today have largely been reasonable in spite of the steroids Paroxysmal A fib/HTN/HLD: -Continue apixaban, metoprolol, hydralazine, atorvastatin. A-fib shows rate control stable for transfer to medical, PT/OT eval and treat. Hopefully she will show improvement with ongoing careif not we will need to consult spine surgery. Either way she will almost certainly need rehab after leaving hospital Admission and Anticipated Discharge Date Admission Date: August 16, 2023 Subjective Generally feeling about the same. Optimistically maybe she is feeling the tiniest bit better, but she really cannot say that for sure. Still the same distribution of painacross the front of her leg into the middle of her knee. Did not really do well with therapy. Pain meds help, last long enough, she is asking for dose now. Review of Systems Review of Systems: All systems reviewed & are unremarkable except as noted in HPI & below Physical Exam Physical Exam: In general she is awake and alert pleasant no distress. HEENT normocephalic atraumatic mucous membranes moist. Breathing unlabored no accessory muscle use good effort. Skin without rashes pallor or icterus. Neuro without focal deficits. Results & Data Results & Data Vital Signs (Past 12 Hours) Vital Signs Temp Pulse Pulse Resp BP Pulse Ox O2 Del Method 08/18/23 19:35 98.2 F 86 18 158/93 H 92 Room Air 08/18/23 16:00 98.4 F 85 16 120/69 96 Room Air 08/18/23 14:59 95 H 08/18/23 08:04 Room Air PG Care Time/CCT Total # of Minutes Spent Total Time Spent with Patient: Total time spent is greater than 50% in coordination of care (as documented) at patient's floor/unit and/or counseling patient: Coding Level of Care Code 75745 SUB INP/OBS CARE 3/50MIN Diagnoses Lumbosacral radiculopathy M54.17 Ambulatory dysfunction R26.2 Acute kidney injury superimposed on CKD N17.9; N18.9 Paroxysmal atrial fibrillation I48.0 Hypertension I10 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
--- NOTE | 2023-08-19 06:57 | Hospitalist Progress Note ---
Date of Service August 19, 2023 Assessment & Plan (1) Lumbosacral radiculopathy: (2) Ambulatory dysfunction: (3) Acute kidney injury superimposed on CKD: (4) Paroxysmal atrial fibrillation: (5) Hypertension: (6) 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: (7) Hyperlipidemia: Plan Melany is an 83 year old female with history fo CKD3, DM2, pulmonary hypertension, mitral regurgitation, paroxysmal A Fib, DESTINEY, HTN, and HLD who was admitted for intractable LBP w/ L3 Radiculopathy radiating down the L leg. Lumbosacral Radiculopathy a/w Ambulatory Dysfunction L3 Nerve Distribution - History of chronic lumbosacral radiculopathy, low back pain, ambulatory dysfunction - Patient recently hospitalized in June for ambulatory dysfunction and fall. - CT at that time w/ mod-severe stenosis L2-L3 - No provoking factors this exacerbation. - Given dex 10mg in ER, continue 4mg IV qAM Allowing time for full anti-inflammatory effect - Continue Cyclobenzaprine 5mg PO BID for muscle spasm - Pain Management Continue Tylenol 650 mg PO Q6h Continue Lidoderm patch Add Dilaudid 0.5 mg IV q4h PRN - Continue PT/OT BIJU on CKD: - Cr 2.01 on admission. Baseline 1.38-1.60. - Cr now downtrending - Continue Lisinopril hold - Continue NSS 80 mL/hr Diabetes mellitus: - Holding home oral medications. - Placed on ACHS, SSI. - Monitor glucose while on dexamethasone. Paroxysmal A fib/HTN/HLD: -Continue apixaban, metoprolol, hydralazine, atorvastatin. F/E/N/GI: T2DM diet, heart healthy Code Status: DNR/DNI Dispo: Med telemetry, PT OT eval and treat. Admission and Anticipated Discharge Date Admission Date: August 16, 2023 Subjective Generally feeling about the same. Optimistically maybe she is feeling the tiniest bit better, but she really cannot say that for sure. Still the same distribution of painacross the front of her leg into the middle of her knee. Did not really do well with therapy. Pain meds help, last long enough, she is asking for dose now. Review of Systems Review of Systems: As per HPI. Physical Exam Physical Exam: In general she is awake and alert pleasant no distress. HEENT normocephalic atraumatic mucous membranes moist. Breathing unlabored no accessory muscle use good effort. Skin without rashes pallor or icterus. Neuro without focal deficits. Results & Data Results & Data Vital Signs (Past 12 Hours) Vital Signs Temp Pulse Resp BP Pulse Ox O2 Del Method 08/18/23 23:27 36.7 C 109 H 18 150/74 H 96 Room Air 08/18/23 19:35 36.8 C 86 18 158/93 H 92 Room Air
[2023-08-19] MEDS: oxyCODONE HCL IR 5 MG TAB (IMMEDIATE RELEASE) PO PRN (10:49)
[2023-08-19] MEDS: HYDROmorphone INJ 0.5 MG/0.5 ML SYR IV PRN (12:46)
--- NOTE | 2023-08-19 13:30 | Discharge Summary ---
Date of Service August 19, 2023 Admission HPI Per Admitting Provider The patient is a 83-year-old female with a past medical history including lumbosacral radiculopathy, ambulatory dysfunction, diabetes mellitus, macular degeneration, pulmonary hypertension, PVCs, PAF, morbid obesity, CKD stage III, hyperlipidemia and hypertension. The patient presents to the emergency department with worsening of her chronic back and lumbosacral radiculopathy pain, and with her family away, would be unable to take care of herself, and presented to the ED for assessment. Admission Exam Per Admitting Provider The patient is awake, alert and oriented 3, well developed and well nourished, normocephalic and atraumatic, lying in bed and in no acute distress. HEENT--PERRL, EOMI, mucous membranes and oropharynx mildly dry. Neck--supple. No JVD. No bruits. Thyroid normal, trachea midline, no adenopathy. Heart--normal S1 and S2. No murmurs, rubs or gallops. Lungs--clear bilaterally, no respiratory distress, no accessory muscle use. Abdomen--normal bowel sounds and soft. Nontender. Nondistended. Obese Extremities--no cyanosis or clubbing. No edema. Dermatologic--normal skin turgor, normal color, no abnormal lymph nodes, no rash. Neurologic--cranial nerves II through XII grossly intact. Rheumatologic--normal range of motion. Psychiatric--normal affect. Principal Diagnosis Lumbosacral Radiculopathy (L3) Discharge Exam Constitutional WD/WN, vitals as above Respiratory normal respiratory effort, lungs clear to auscultation Cardiovascular Rate/Rhythm: regular rate and regular rhythm Heart Sounds: normal S1 and normal S2 Gastrointestinal (Abdomen) normal bowel sounds, soft, nontender, no hepatosplenomegaly Musculoskeletal Spine: + lumbar spinal tenderness (L3-4) and + paraspinal tenderness; no step off deformity Extremities: full ROM of lower extremities (TTP at medial aspect of LLE) Knee: no deformity, no effusion and no skin erythema Neurologic Motor/Sensory: no sensory deficit Psychiatric A+Ox3, euthymic affect Discharge Data Allergies Allergy/AdvReac Type Severity Reaction Status Date / Time No Known Allergies Allergy Verified 08/05/23 14:10 Consultations 08/16/23 02:31 ED Decision to Admit Stat Hospital Course (1) Lumbosacral radiculopathy: (2) Ambulatory dysfunction: (3) Acute kidney injury superimposed on CKD: (4) Paroxysmal atrial fibrillation: (5) Hypertension: (6) 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: (7) Hyperlipidemia: Plan Melany is an 83 year old female with history fo CKD3, DM2, pulmonary hypertension, mitral regurgitation, paroxysmal A Fib, DESTINEY, HTN, and HLD who was admitted for intractable LBP w/ L3 Radiculopathy radiating down the L leg. Lumbosacral Radiculopathy a/w Ambulatory Dysfunction L3 Nerve Distribution - Symptoms improved/resolved with steroids, IV pain control, muscle relaxant, and lidocaine patch Transitioned to PO pain management 08/18 - Continue Oxycodone 2.5 mg Q6h, will goal to down titrate as symptoms improve w/ PT - No indication for surgical intervention at this time - Continue PT/OT at acute rehab upon discharge. BIJU on CKD3: - Creatinine now in baseline roughly stage IIIb range Diabetes mellitus: - Glucose remains stable despite steroid dosing - Continue home regimen upon discharge Paroxysmal A fib/HTN/HLD: - Continue apixaban, metoprolol, hydralazine, atorvastatin. - Rate controlled during admission. Code: DNT/DNI Diet: DM2/HH Dispo: Rehab Total Time Total Time Spent Total Time Spent (In Minutes): <30 Discharge Plan Discharge Items Patient Disposition: Transfer Inpatient Rehab Fac Reason For Visit: BIJU ON CKD, LOW BACK PAIN Discharge Diagnosis: L3 Radiculopathy, intractable pain Activity: Per Instructions section Non-emergency contact: Primary Care Provider Call non-emergency contact if: you have any medication questions and your symptoms worsen Follow-up/Referrals: Mello Elena DO [Primary Care Provider] - Diet: Carb Consistent or DM2 and Heart Healthy Addtl Attending Provider Instructions: Melany is an 83 year old female with history fo CKD3, DM2, pulmonary hypertension, mitral regurgitation, paroxysmal A Fib, DESTINEY, HTN, and HLD who was admitted for intractable LBP w/ L3 Radiculopathy radiating down the L leg. Lumbosacral Radiculopathy a/w Ambulatory Dysfunction L3 Nerve Distribution - Symptoms improved/resolved with steroids, IV pain control, muscle relaxant, and lidocaine patch Transitioned to PO pain management 08/18 - Continue Oxycodone 2.5 mg Q6h, will goal to down titrate as symptoms improve w/ PT - No indication for surgical intervention at this time - Continue PT/OT at acute rehab upon discharge. BIJU on CKD3: - Creatinine now in baseline roughly stage IIIb range Diabetes mellitus: - Glucose remains stable despite steroid dosing - Continue home regimen upon discharge Paroxysmal A fib/HTN/HLD: - Continue apixaban, metoprolol, hydralazine, atorvastatin. - Rate controlled during admission. Code: DNT/DNI Diet: DM2/HH Dispo: Rehab Pending Studies at Discharge: No Stand-Alone Forms: My [facility] [employer] Skilled Items Patient informed of condition?: Yes DNR: Yes Discharge Level of Care: Acute rehab Communicable Disease: No Discharge Prognosis: Improving Lines: None Urinary Catheter: No Medications and DC Order Prescriptions: New acetaminophen 325 mg Tablet 650 mg PO Q4H PRN (Reason: fever or pain) 14 Days Qty: 60 0RF oxycodone 5 mg tablet 2.5 mg PO Q6H PRN (Reason: pain) Qty: 10 0RF Continued metformin 500 mg tablet 1,000 mg PO BID Qty: 400 3RF hydralazine 50 mg tablet 50 mg PO BID Qty: 180 3RF cyclobenzaprine 5 mg tablet 5 mg PO BID PRN (Reason: muscle spasm) Qty: 90 0RF atorvastatin 20 mg tablet 20 mg PO HS Qty: 100 3RF magnesium oxide 200 mg magnesium tablet 200 mg PO BID 90 Days Qty: 180 2RF Avastin 25 mg/mL solution 25 mg intravitreal UD Rx Instructions: as directed metoprolol tartrate 25 mg tablet 25 mg PO BID Qty: 180 3RF apixaban 2.5 mg tablet 2.5 mg PO BID Qty: 180 3RF ondansetron 4 mg tablet,disintegrating 4 mg PO Q6H PRN (Reason: nausea and vomiting) Qty: 20 0RF methylprednisolone [Medrol (Neftaly)] 4 mg tablets,dose pack 4 mg PO .COMPLEX Qty: 21 0RF Rx Instructions: take per package directions glipizide 2.5 mg tablet extended release 24hr 2.5 mg PO DAILY Qty: 90 2RF (DME) Dexcom G7 Sensor Device See Rx Instructions .Route Qty: 1 0RF Rx Instructions: continuous glucose monitoring cholecalciferol (vitamin D3) [Vitamin D3] 25 mcg (1,000 unit) Tablet 25 mcg PO DAILY lisinopril 20 mg tablet 40 mg PO DAILY Discharge Orders: Discharge Order (Routine); Ordered 08/19/23 Ordered By: Romario Hurst Admission Data Admit Date/Time: 08/16/23 03:03 Attending Provider: Venu Rizzo Admit Provider: Regan Wheeler Primary Care Provider: Mello Elena Other Providers: [place],[facility]; Regan Wheeler Supervising Physician Co-Signing Physician Notes I personally examined the patient and verified all ocampo points of history and exam, discussed case, and agree with decision making with Dr Hurst Ongoing back and leg painpain medicines do seem to be working better. Still otherwise feeling more or less the same, but we do both feel that she is probably at least a little bit better than she was 2 days ago. Vitals noted, in general she is awake and alert pleasant no distress. HEENT normocephalic atraumatic mucous membranes moist. Breathing unlabored no accessory muscle use good effort. Skin without rashes pallor or icterus. Spinal stenosis with lumbar radiculopathyseems to follow predominantly L3 dermatome only. Steroids, pain control, PT, supportive care. In detailed discussion with patient, we both agree that with her age we would want to avoid surgery unless absolutely necessary, and given that she has shown even a small degree of progress, it is reasonable to continue with conservative care and expectant management. Given the conservative care right now would encompass steroids, pain control, and therapyand given that she would be able to have more therapy at SNF than in the hospitalit seems to make the most sense to continue expectant management/conservative care at [place] [facility]. Ongoing physician follow-up thereif she is showing absolutely no progress, or worsens, we discussed that she could always be directly readmitted back to the hospital and we could get a spine surgery consult expeditiously; at the same time, hopefully given that she has shown a small degree of improvement she will show continuous improvement slowly but surely, and be able to improve from this without the need for surgical intervention. Any type of traction therapy (ideally decompression) would also likely be of benefit if this is available at SNF, or after SNF discharge. Anticoagulated Resident Activity Tracking Resident Involvement: Resident Care Provided Care Provided: Adult [facility] Medicine
--- NOTE | 2023-08-19 17:32 | Billing Data ---
Date of Service August 19, 2023 Coding Level of Care Code 63060 IN/OBS DISCH 30 MIN/LESS
== END 2023-08-19 14:44 | DRG 552 ==
LOC: ED 22:37 → EDINP 08-16 03:03 → INTOOBSV 08-16 03:03 → SUATTDRO 08-16 03:03 → 2N 08-16 05:04

== ENCOUNTER 2023-09-02 18:37 | Inpatient (IN) ==
[2023-09-02 19:57] LABS: Basophils # (auto) 0.02 K/uL (0.00-0.20); Basophils % (auto) 0.2 %; Eosinophils # (auto) 0.17 K/uL (0.00-0.50); Eosinophils % (auto) 1.8 %; Hematocrit (blood only) 40.3 % (37.0-47.0); Immature Granulocytes # (auto) 0.06 K/uL (0.01-0.20); Immature Granulocytes % (auto) 0.6 %; Lymphocytes % (auto) 18.3 %; Mean Corpuscular Hemoglobin 28.7 pg (25.0-34.0); Mean Corpuscular Hgb Conc 32.3 g/dL (32.0-36.0); Mean Platelet Volume 11.7 fL (9.4-12.4); Monocytes # (auto) 0.66 K/uL (0.11-0.59); Monocytes % (auto) 7.1 %; Neutrophils # (auto) 6.68 K/uL (1.40-6.50); Platelet Count 171 K/uL (130-400); Red Blood Count 4.53 M/uL (4.20-5.40); White Blood Count 9.29 K/ul (4.8-10.8)
[2023-09-02 20:10] LABS: Alanine Aminotransferase 31 U/L (7-52); Albumin Globulin Ratio 1.3 (0.9-2); Albumin Level 3.7 gm/dl (3.4-5.0); Alkaline Phosphatase 79 U/L (34-104); Anion Gap 14 (3-11); Aspartate Aminotransferase 18 U/L (13-39); Bilirubin,Total 0.9 mg/dl (0.2-1.0); Blood Urea Nitrogen 24 mg/dl (6-23); Calcium 10.7 mg/dl (8.6-10.3); Carbon Dioxide 22 mmol/L (21-32); Chloride 104 mmol/L (98-107); Est GFR (African American) 39.5 ml/min; Est GFR (Non-African American) 34.1 ml/min; Globulin 2.8 gm/dl (2.5-4.0); Glucose 131 mg/dl (70-99(Fasting)); Potassium 4.5 mmol/L (3.5-5.1); Sodium 140 mmol/L (136-145); Total Protein 6.5 gm/dl (6.0-8.3)
[2023-09-02] MEDS: METOPROLOL TARTRATE 1 MG/ML VIAL IV STA (20:40)
[2023-09-02] MEDS: MoRPHine SULFATE 4 MG/ML 1 ML CARP\\VIAL IV STA (20:51)
[2023-09-02] MEDS: METOPROLOL TARTRATE 25 MG TAB PO STA (20:51)
--- NOTE | 2023-09-02 21:20 | History & Physical Report ---
Date of Service September 02, 2023 Assessment & Plan (1) Ambulatory dysfunction: Plan: 83yo female with longstanding history of ambulatory dysfunction secondary to chronic back pain, lumbosacral radiculopathy. Patient reports worsening bilateral LE weakness and inability to walk up her step into her home. She was discharged from [facility] earlier today. Difficult disposition - patient would ideally wish to return home with PT services but feels that she is not strong enough to safely do so at this time. No worsening back pain - chronic. No bowel or bladder complaints -Will obtain repeat lumbar x-rays - patient did fall several times and reports worsening weakness. No neurologic deficits noted on exam -Scheduled Tylenol 1gm PO TID -Lidoderm patches -Oxycodone PRN -Flexeril PRN -PT/OT (2) Lumbosacral radiculopathy: Plan: Management as above Plan Chronic Medical Conditions Paroxysmal atrial fibrillation - rate controlled. On Eliquis anticoagulation -Continue Eliquis -Continue Metoprolol Hypertension - blood pressure acceptable -Continue Metoprolol, Lisinopril, Hydralazine Hyperlipidemia - chronic. stable -Continue Atorvastatin Diabetes - chronic -ISS History of Present Illness Chief Complaint: intractable back pain, bilateral LE weakness Primary Care Provider: Mello Elena DO Melany Macias is an 83yo female with history of HTN, HLP, DM, PAF and CKD presenting from home with bilateral LE weakness and ongoing back pain. Patient with chronic back pain secondary to lumbosacral radiculopathy. She has had multiple admissions for back pain. Most recently admitted to [facility] 08/15 - 08/19/23 with worsening back pain and inability to care for herself. She was treated with steroids, IV pain medications, muscle relaxers and lidocaine patch. She was ultimately discharged to [facility] on 08/19/23 where she remained until today 09/02/23. She was discharged home. Patient's daughter states that she was so weak that she was unable to walk up her single step to get into her home. Patient is to have home services start in a couple of days but patient's daughter and patient do not feel safe to be at home due to her profound weakness and gait instabilty. Patient had several falls while at [facility]. She also reports she was sitting in a wheelchair for a prolonged period of time which severely exacerbated her back pain. She does feel that her lower extremities are weaker. Her back pain is near baseline. She denies any bowel or bladder complaints or focal numbness/tingling/weakness or radicular symptoms at present. Patient in atrial fibrillation upon arrival with RVR Administered 5mg IV Metoprolol and her evening dose of PO metoprolol with improvement in HR. HR=93 during my encounter ER Course: Morphine Metoprolol PO Metoprolol IV Allergies Allergy/AdvReac Type Severity Reaction Status Date / Time No Known Allergies Allergy Verified 09/02/23 21:26 Home Medications Medication Instructions Recorded Confirmed Type metformin 500 mg tablet 1,000 mg (2 x 500 mg) PO BID #400 06/19/22 09/02/23 Rx tabs magnesium oxide 200 mg PO BID 90 days #180 tabs 10/08/22 09/02/23 Rx hydralazine 50 mg tablet 50 mg PO BID #180 tabs 02/09/23 09/02/23 Rx cholecalciferol (vitamin D3) 25 25 mcg PO DAILY 05/03/23 09/02/23 History mcg (1,000 unit) tablet (Vitamin D3) glipizide 2.5 mg tablet, extended 2.5 mg PO DAILY #90 tabs 06/17/23 09/02/23 Rx release 24 hr blood-glucose sensor (DVS Intelestream G7 #1 ea 06/18/23 08/16/23 Rx Sensor device) cyclobenzaprine 5 mg tablet 5 mg PO BID PRN muscle spasm #90 06/26/23 09/02/23 Rx tabs atorvastatin 20 mg tablet 20 mg PO HS #100 tabs 07/28/23 09/02/23 Rx apixaban 2.5 mg tablet 2.5 mg PO BID #180 tabs 08/05/23 09/02/23 Rx metoprolol tartrate 25 mg tablet 25 mg PO BID #180 tabs 08/05/23 09/02/23 Rx lisinopril 20 mg tablet 40 mg PO DAILY 08/16/23 09/02/23 History oxycodone 5 mg tablet 2.5 mg (1/2 x 5 mg) PO Q6H PRN 08/19/23 09/02/23 Rx pain #10 tabs acetaminophen 325 mg tablet 650 mg PO Q6H PRN PAIN/FEVER 09/02/23 09/02/23 History (Tylenol) lidocaine 4 % topical patch 2 patch topical DAILY 09/02/23 09/02/23 History Past Med/Surg History Problem List Atrial fibrillation with RVR (Acute) Back pain (Acute) Acute kidney injury superimposed on CKD Acute on chronic renal insufficiency (Acute) Ambulatory dysfunction (Acute) Lumbosacral radiculopathy (Acute) Weakness (Acute) Ambulatory dysfunction Hallucinations Diabetes mellitus with hypoglycemia Macular degeneration, wet Left sided sciatica UTI (urinary tract infection) Pulmonary hypertension Mitral regurgitation Fall Hypomagnesemia (Acute) Vitamin D deficiency Multiple pulmonary nodules determined by computed tomography of lung Premature supraventricular beats Abnormal ECG Paroxysmal atrial fibrillation On ECG 02/11/20 when admitted with Covid-19. Spontaneous conversion to NSR. 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 Hyperlipidemia (Chronic) Hypertension (Chronic) Medical History Hypomagnesemia Headache Lipoma of back s/p removal Syncope and collapse COVID-19 (02/11/20) required hospitalization [facility] x 3 weeks History of basal cell carcinoma (11/2018) Morbid obesity Nontoxic multinodular goiter Osteopenia Hypertension Hyperlipidemia Surgical History Hx laparoscopic cholecystectomy History of salpingectomy History of Salpingectomy for ectopic Family History Father , age 69 Coronary heart disease Myocardial infarction Mother , age 92 Tobacco use Lung cancer suspected just prior to her Daughter Melanoma Grandmother (Paternal) Stroke Denies family history of Ovarian cancer Prostate cancer Breast cancer FH: brain aneurysm Colorectal cancer Social History Smoking Status: Never smoker Tobacco Type: Cigarettes Second Hand Exposure: No; Do You Dip or Chew Tobacco: No; Hx Alcohol Use: No Hx Substance Use: No Preferred Language: Hungarian Communication Ability: Effective Visual Impairment: No Limitations Hearing Ability: Normal Pigment Making Supervisor Required: No Beliefs That Will Affect Care: None marital status: Current Living Situation: Family Current Living Situation Comment: LIVES WITH DAUGHTER JOSE current occupational status: retired 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 [employer] How many Children do You have: 3 Other Information That Helps Us Care for You: No Feels Safe at Home: Yes Safety Concerns: Feels Safe At This Time Diet: regular caffeine: Yes Dental Care, Regularly: Yes Physical Activity Frequency: Does not Exercise Seatbelt Use: always Assistive Devices: Walker Assistive Devices Comment: using a walker in hospital Review of Systems Review of Systems: All systems reviewed & are unremarkable except as noted in HPI & below Physical Exam Physical Exam: General: patient resting comfortably, NAD, non-toxic in appearance, AA&O x 4 Skin: warm, dry, intact, no rashes or lesions HEENT: NC/AT, PERRL, EOMI, anicteric sclera, conjunctiva without injection, external ear normal to inspection and nontender, nares patent, moist mucus membranes, dentition intact, no oropharyngeal lesions, neck supple, trachea midline, no LAD, no thyromegaly, no JVD Heart: +S1/S2, irregularly irregular, no m/r/g Lungs: equal air entry bilaterally, no rales/rhonchi/wheezes Abd: +BS, soft, NT/ND, no masses/organomegaly/ascites Ext: warm, 2+ pulses in UE/LE bilaterally, no clubbing/cyanosis or edema Neuro: nonfocal, patient AA&O x 4, speech intact, no facial droop, moving all e xtremities on command with equal strength 5/5 Results & Data Results & Data Vital Signs (Past 12 Hours) Vital Signs Temp Pulse Pulse Resp BP BP Pulse Ox 09/02/23 21:03 100 H 09/02/23 20:40 172 H 152/85 H 09/02/23 20:35 167 H 09/02/23 20:30 94 H 22 85/38 L 97 09/02/23 18:42 36.5 C 102 H 18 122/81 98 O2 Del Method 09/02/23 21:03 09/02/23 20:40 09/02/23 20:35 09/02/23 20:30 09/02/23 18:42 Room Air Laboratory Results Laboratory Results WBC 9.29 K/ul (4.8-10.8) 09/02/23 19:15 RBC 4.53 M/uL (4.20-5.40) 09/02/23 19:15 Hgb 13.0 g/dl (12.0-16.0) 09/02/23 19:15 Hct 40.3 % (37.0-47.0) 09/02/23 19:15 MCV 89.0 fL (80.0-100.0) 09/02/23 19:15 MCH 28.7 pg (25.0-34.0) 09/02/23 19:15 MCHC 32.3 g/dL (32.0-36.0) 09/02/23 19:15 RDW Std Deviation 49.0 fL (36.4-46.3) H 09/02/23 19:15 RDW Coeff of Charlene 15.0 % (11.5-14.5) H 09/02/23 19:15 Plt Count 171 K/uL (130-400) 09/02/23 19:15 MPV 11.7 fL (9.4-12.4) 09/02/23 19:15 Immature Gran % (Auto) 0.6 % 09/02/23 19:15 Neut % (Auto) 72.0 % 09/02/23 19:15 Lymph % (Auto) 18.3 % 09/02/23 19:15 Carter % (Auto) 7.1 % 09/02/23 19:15 Eos % (Auto) 1.8 % 09/02/23 19:15 Baso % (Auto) 0.2 % 09/02/23 19:15 Neut # (Auto) 6.68 K/uL (1.40-6.50) H 09/02/23 19:15 Lymph # (Auto) 1.70 K/uL (1.20-3.40) 09/02/23 19:15 Carter # (Auto) 0.66 K/uL (0.11-0.59) H 09/02/23 19:15 Eos # (Auto) 0.17 K/uL (0.00-0.50) 09/02/23 19:15 Baso # (Auto) 0.02 K/uL (0.00-0.20) 09/02/23 19:15 Immature Gran # (Auto) 0.06 K/uL (0.01-0.20) 09/02/23 19:15 Sodium 140 mmol/L (136-145) 09/02/23 19:15 Potassium 4.5 mmol/L (3.5-5.1) 09/02/23 19:15 Chloride 104 mmol/L (98-107) 09/02/23 19:15 Carbon Dioxide 22 mmol/L (21-32) 09/02/23 19:15 Anion Gap 14 (3-11) H 09/02/23 19:15 BUN 24 mg/dl (6-23) H 09/02/23 19:15 Creatinine 1.41 mg/dl (0.6-1.2) H 09/02/23 19:15 Est Cr Clr Drug Dosing Not Reportable 09/02/23 19:15 Est GFR ( Amer) 39.5 ml/min 09/02/23 19:15 Est GFR (Non-Af Amer) 34.1 ml/min 09/02/23 19:15 BUN/Creatinine Ratio 17.0 (10-20) 09/02/23 19:15 Glucose 131 mg/dl (70-99(Fasting)) H 09/02/23 19:15 POC Glucose 130 mg/dl (70-99) H 09/02/23 23:11 Calcium 10.7 mg/dl (8.6-10.3) H 09/02/23 19:15 Total Bilirubin 0.9 mg/dl (0.2-1.0) 09/02/23 19:15 AST 18 U/L (13-39) 09/02/23 19:15 ALT 31 U/L (7-52) 09/02/23 19:15 Alkaline Phosphatase 79 U/L (34-104) 09/02/23 19:15 Total Protein 6.5 gm/dl (6.0-8.3) 09/02/23 19:15 Albumin 3.7 gm/dl (3.4-5.0) 09/02/23 19:15 Globulin 2.8 gm/dl (2.5-4.0) 09/02/23 19:15 Albumin/Globulin Ratio 1.3 (0.9-2) 09/02/23 19:15 Code Status & VTE Plan VTE Prophylaxis Plan VTE Prophylaxis will be ordered: Yes PG Care Time/CCT Total # of Minutes Spent Total Time Spent with Patient: Total time spent is greater than 50% in coordination of care (as documented) at patient's floor/unit and/or counseling patient: Coding Level of Care Code 19199 INT INP/OBS CARE 2/55MIN Diagnoses Ambulatory dysfunction R26.2 Lumbosacral radiculopathy M54.17
[2023-09-02] MEDS ORDERED: GLUCOSE 10 TAB/TUBE PO PRN (23:09)
[2023-09-02] MEDS ORDERED: DEXTROSE 50% 50 ML SYRINGE IV PRN (23:09)
[2023-09-02] MEDS ORDERED: ACETAMINOPHEN 325 MG TAB PO PRN (23:09)
[2023-09-02] MEDS ORDERED: CARBOHYDRATES FOR HYPOGLYCEMIA PO PRN (23:09)
[2023-09-02] MEDS ORDERED: GLUCAGON FOR INJ 1 MG VIAL SQ PRN (23:09)
[2023-09-02] MEDS ORDERED: GLUCOSE 40% GEL 15 GM TUBE PO PRN (23:09)
--- NOTE | 2023-09-03 01:01 | Emergency Department Note ---
History of Present Illness General Chief complaint: Back Injury/Pain Time Seen by Provider: 09/02/23 20:32 History of Present Illness Provider complaint: Back pain Maximum Pain Intensity: 10 83-year-old female presents emergency department for back pain. Patient states she was recently released from rehab facility for back pain. She states she got home and her back pain is too much and she states she needs to be admitted to go back to rehab facility. Patient denies any recent falls or traumas since being home. She denies any bowel or bladder incontinence. No numbness. Patient states she did not take any of her medications tonight. No chest pain or difficulty breathing. No abdominal pain. Home Medications Medication Instructions Recorded Confirmed Type metformin 500 mg tablet 1,000 mg (2 x 500 mg) PO BID #400 06/19/22 09/02/23 Rx tabs magnesium oxide 200 mg PO BID 90 days #180 tabs 10/08/22 09/02/23 Rx hydralazine 50 mg tablet 50 mg PO BID #180 tabs 02/09/23 09/02/23 Rx cholecalciferol (vitamin D3) 25 25 mcg PO DAILY 05/03/23 09/02/23 History mcg (1,000 unit) tablet (Vitamin D3) glipizide 2.5 mg tablet, extended 2.5 mg PO DAILY #90 tabs 06/17/23 09/02/23 Rx release 24 hr blood-glucose sensor (Dexcom G7 #1 ea 06/18/23 08/16/23 Rx Sensor device) cyclobenzaprine 5 mg tablet 5 mg PO BID PRN muscle spasm #90 06/26/23 09/02/23 Rx tabs atorvastatin 20 mg tablet 20 mg PO HS #100 tabs 07/28/23 09/02/23 Rx apixaban 2.5 mg tablet 2.5 mg PO BID #180 tabs 08/05/23 09/02/23 Rx metoprolol tartrate 25 mg tablet 25 mg PO BID #180 tabs 08/05/23 09/02/23 Rx lisinopril 20 mg tablet 40 mg PO DAILY 08/16/23 09/02/23 History oxycodone 5 mg tablet 2.5 mg (1/2 x 5 mg) PO Q6H PRN 08/19/23 09/02/23 Rx pain #10 tabs acetaminophen 325 mg tablet 650 mg PO Q6H PRN PAIN/FEVER 09/02/23 09/02/23 History (Tylenol) lidocaine 4 % topical patch 2 patch topical DAILY 09/02/23 09/02/23 History Allergies Allergy/AdvReac Type Severity Reaction Status Date / Time No Known Allergies Allergy Verified 09/02/23 21:26 Past Med/Surg History Problem List (Updated 09/03/23 @ 01:01 by Jadiel Perry MD) Atrial fibrillation with RVR (Acute) Back pain (Acute) Acute kidney injury superimposed on CKD Acute on chronic renal insufficiency (Acute) Ambulatory dysfunction (Acute) Lumbosacral radiculopathy (Acute) Weakness (Acute) Ambulatory dysfunction Hallucinations Diabetes mellitus with hypoglycemia Macular degeneration, wet Left sided sciatica UTI (urinary tract infection) Pulmonary hypertension Mitral regurgitation Fall Hypomagnesemia (Acute) Vitamin D deficiency Multiple pulmonary nodules determined by computed tomography of lung Premature supraventricular beats Abnormal ECG Paroxysmal atrial fibrillation On ECG 02/11/20 when admitted with Covid-19. Spontaneous conversion to NSR. 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 Hyperlipidemia (Chronic) Hypertension (Chronic) Medical History Hypomagnesemia Headache Lipoma of back s/p removal Syncope and collapse COVID-19 (02/11/20) required hospitalization [facility] x 3 weeks History of basal cell carcinoma (11/2018) Morbid obesity Nontoxic multinodular goiter Osteopenia Hypertension Hyperlipidemia Surgical History Hx laparoscopic cholecystectomy History of salpingectomy History of Salpingectomy for ectopic Family History Father , age 69 Coronary heart disease Myocardial infarction Mother , age 92 Tobacco use Lung cancer suspected just prior to her Daughter Melanoma Grandmother (Paternal) Stroke Denies family history of Ovarian cancer Prostate cancer Breast cancer FH: brain aneurysm Colorectal cancer Social History Smoking Status: Never smoker Tobacco Type: Cigarettes Second Hand Exposure: No; Do You Dip or Chew Tobacco: No; Hx Alcohol Use: No Hx Substance Use: No Preferred Language: Bolivian Communication Ability: Effective Visual Impairment: No Limitations Hearing Ability: Normal Playground Supervisor Required: No Beliefs That Will Affect Care: None marital status: Current Living Situation: Family Current Living Situation Comment: LIVES WITH DAUGHTER JOSE current occupational status: retired 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 [employer] How many Children do You have: 3 Feels Safe at Home: Yes Diet: regular caffeine: Yes Dental Care, Regularly: Yes Physical Activity Frequency: Does not Exercise Seatbelt Use: always Assistive Devices: Cane and Walker Physical Exam Vital Signs Vital Signs - 24 hr 09/02/23 18:42 09/02/23 20:30 09/02/23 20:35 Temperature 36.5 C Temperature Source Temporal Artery Scan Pulse Rate 102 H 167 H Pulse Rate [Right Finger] 94 H Respiratory Rate 18 22 Respiratory Effort / Characteristics Non-Labored Spontaneous Respiratory Depth Normal Blood Pressure 122/81 Blood Pressure [Left Arm] 85/38 L Blood Pressure Mean 94 Blood Pressure Mean [Left Arm] 53 Blood Pressure Position Sitting Pulse Oximetry 98 97 Oxygen Delivery Method Room Air Sepsis Recent Fever Within 48 Hours No Sepsis New/Unexplained Change in Mental Status N/A Sepsis Action Taken by Nursing No Action Required 09/02/23 20:40 09/02/23 21:03 Temperature Temperature Source Pulse Rate 172 H 100 H Pulse Rate [Right Finger] Respiratory Rate Respiratory Effort / Characteristics Respiratory Depth Blood Pressure 152/85 H Blood Pressure [Left Arm] Blood Pressure Mean Blood Pressure Mean [Left Arm] Blood Pressure Position Pulse Oximetry Oxygen Delivery Method Sepsis Recent Fever Within 48 Hours Sepsis New/Unexplained Change in Mental Status Sepsis Action Taken by Nursing Physical Exam GENERAL: oriented to person, place, and time. appears well-developed and well- nourished. HENT: Exam performed. - Head: Normocephalic and atraumatic. EYES: Conjunctivae and EOM are normal. Right eye exhibits no discharge. Left eye exhibits no discharge. No scleral icterus. NECK: Normal range of motion. Neck supple. No JVD present. CV: Tachycardic rate, irregular rhythm, normal heart sounds and intact distal pulses. There is no peripheral edema. Palpable radial pulses bue. PULM/CHEST: Effort normal and breath sounds normal. No respiratory distress. No stridor. no wheezes. no rales. ABD: The abdomen is soft. There is no tenderness. NEURO: Motor and sensation grossly intact. SKIN: Skin is warm and dry. He is not diaphoretic. PSYCH: normal mood and affect. Behavior is normal. Judgment and thought content normal. Course Course 2031: The patient was evaluated in room A4. A complete history and physical exam was performed Cardiac monitoring: An order was placed for continuous cardiac monitoring. The monitor shows a rate of 150-190 with atrial fibrilation rhythm interpreted by me Patient in A-fib RVR. Patient states she did not take her evening dose of metoprolol. 5 mg IV metoprolol bolus given to the patient patient will be given home dose of p.o. metoprolol. 2114: Patient's heart rate is improved status post metoprolol bolus. Patient be admitted to the medicine team for placement. Dr. Kat aware of patient. Administered Medications Discontinued Medications Metoprolol Tartrate (Metoprolol Tartrate 1 Mg/Ml Vial) 5 mg IV NOW STA Stop: 09/02/23 20:38 Last Admin: 09/02/23 20:40 Dose: 5 mg Documented By: MARLENI Metoprolol Tartrate (Metoprolol Tartrate 25 Mg Tab) 25 mg PO NOW STA Stop: 09/02/23 20:44 Last Admin: 09/02/23 20:51 Dose: 25 mg Documented By: MARLENI Morphine Sulfate (Morphine Sulfate 4 Mg/Ml 1 Ml Carp\Vial) 4 mg IV NOW STA Stop: 09/02/23 20:45 Last Admin: 09/02/23 20:51 Dose: 4 mg Documented By: MARLENI Critical Care Time Critical Care Time: Yes Total Critical Care Time: 45 I have personally spent greater than 45 minutes of critical care time in the direct management of this patient. This includes bedside care, interpretation of diagnostic studies, and testing, discussion with consultants, patient, and family members, and other required patient management activities. This 45 minutes is in excess of all separately billable procedures. Medical Decision Making Medical Records Attestation: I reviewed the patient's medical records. External medical records reviewed. There is a note from Dr. Sinclair the patient's PCP stating that there is a call from the patient's daughter Jose. They state that when the patient got home from rehab the patient was to weak and was unable to get up and walk by herself. Daughter reported that the patient cannot take care of her breast self and stated that she does not think she can care for her mother Laboratory Data Attestation: I reviewed the patient's lab results. 09/02/23 19:15 09/02/23 19:15 Lab Results 09/02/23 Range/Units 19:15 WBC 9.29 (4.8-10.8) K/ul RBC 4.53 (4.20-5.40) M/uL Hgb 13.0 (12.0-16.0) g/dl Hct 40.3 (37.0-47.0) % MCV 89.0 (80.0-100.0) fL MCH 28.7 (25.0-34.0) pg MCHC 32.3 (32.0-36.0) g/dL RDW Std Deviation 49.0 H (36.4-46.3) fL RDW Coeff of Charlene 15.0 H (11.5-14.5) % Plt Count 171 (130-400) K/uL MPV 11.7 (9.4-12.4) fL Immature Gran % (Auto) 0.6 % Neut % (Auto) 72.0 % Lymph % (Auto) 18.3 % [place] % (Auto) 7.1 % Eos % (Auto) 1.8 % Baso % (Auto) 0.2 % Neut # (Auto) 6.68 H (1.40-6.50) K/uL Lymph # (Auto) 1.70 (1.20-3.40) K/uL [place] # (Auto) 0.66 H (0.11-0.59) K/uL Eos # (Auto) 0.17 (0.00-0.50) K/uL Baso # (Auto) 0.02 (0.00-0.20) K/uL Immature Gran # (Auto) 0.06 (0.01-0.20) K/uL Sodium 140 (136-145) mmol/L Potassium 4.5 (3.5-5.1) mmol/L Chloride 104 (98-107) mmol/L Carbon Dioxide 22 (21-32) mmol/L Anion Gap 14 H (3-11) BUN 24 H (6-23) mg/dl Creatinine 1.41 H (0.6-1.2) mg/dl Est Cr Clr Drug Dosing Not Reportable Est GFR ( Amer) 39.5 ml/min Est GFR (Non-Af Amer) 34.1 ml/min BUN/Creatinine Ratio 17.0 (10-20) Glucose 131 H (70-99(Fasting)) mg/dl Calcium 10.7 H (8.6-10.3) mg/dl Total Bilirubin 0.9 (0.2-1.0) mg/dl AST 18 (13-39) U/L ALT 31 (7-52) U/L Alkaline Phosphatase 79 (34-104) U/L Total Protein 6.5 (6.0-8.3) gm/dl Albumin 3.7 (3.4-5.0) gm/dl Globulin 2.8 (2.5-4.0) gm/dl Albumin/Globulin Ratio 1.3 (0.9-2) ECG Data Attestation: I personally reviewed and interpreted this ECG as follows: Rate (beats per minute): 155 Rhythm: + atrial fibrillation ECG Intervals/blocks: + Normal QT-c ECG ST segments: + Normal ST segments Additional Comments: QRS 76 MDM Narrative 2031: The patient was evaluated in room A4. A complete history and physical exam was performed Cardiac monitoring: An order was placed for continuous cardiac monitoring. The monitor shows a rate of 150-190 with atrial fibrilation rhythm interpreted by me Patient in A-fib RVR. Patient states she did not take her evening dose of metoprolol. 5 mg IV metoprolol bolus given to the patient patient will be given home dose of p.o. metoprolol. 2114: Patient's heart rate is improved status post metoprolol bolus. Patient be admitted to the medicine team for placement. Dr. Kat aware of patient. Impression & Plan Back pain, Atrial fibrillation with RVR Discharge Plan Visit Data Chief Complaint: Back Injury/Pain ED Provider: Jadiel Perry Discharge Problem: Back pain, Atrial fibrillation with RVR Patient Disposition: Admitted As Inpatient Discharge Instructions Interventions: ED Discharge Assessment Last Done: 09/02/23 22:30
[2023-09-03] MEDS: ACETAMINOPHEN 500 MG TAB PO SCH (03:14)
--- NOTE | 2023-09-03 07:13 | XRay Report ---
XR lumbar spine 2-3V CLINICAL HISTORY: bilateral leg weakness, recent falls TECHNIQUE: 3 views of the lumbar spine were obtained. Comparison: Comparison is made to lumbar spine radiograph 01/31/2016 FINDINGS: There is no evidence of an acute fracture. Degenerative changes are seen in the lumbar spine with ost eophyte formation and disc space narrowing. The alignment is normal. Vascular calcifications are note d. IMPRESSION: Degenerative changes as above without acute fracture or subluxation. ACT 112: Negative or not required by law. Electronically signed by: Vj Villatoro M.D. 09/03/2023 7:12 AM
[2023-09-03] MEDS: lisinopril 40 MG TAB PO SCH (08:14)
[2023-09-03] MEDS: hydrALAZINE TAB 50 MG TAB PO SCH (08:14)
[2023-09-03] MEDS: METOPROLOL TARTRATE 25 MG TAB PO SCH (08:14)
[2023-09-03] MEDS: LIDOCAINE 5% 1 PATCH TD SCH (08:15)
[2023-09-03] MEDS: APIXABAN 2.5 MG TAB PO SCH (08:15)
[2023-09-03] MEDS: INSULIN ASPART PER UNIT CHARGE SC SCH (08:17)
[2023-09-03] MEDS: oxyCODONE HCL IR 5 MG TAB (IMMEDIATE RELEASE) PO PRN (09:43)
--- NOTE | 2023-09-03 11:30 | Hospitalist Progress Note ---
Date of Service September 03, 2023 Assessment & Plan (1) Ambulatory dysfunction: Plan: 83yo female with longstanding history of ambulatory dysfunction secondary to chronic back pain, lumbosacral radiculopathy. Patient reports worsening bilateral LE weakness and inability to walk up her step into her home. She was discharged from [facility] 09/01 and then returned to ER when she couldn't get comfortable and move well at home. Difficult disposition - patient would ideally wish to return home with PT services but feels that she is not strong enough to safely do so at this time. No worsening back pain - chronic. No bowel or bladder complaints -Will obtain repeat lumbar x-rays - patient did fall several times and reports worsening weakness. No neurologic deficits noted on exam -Scheduled Tylenol 1gm PO TID -Lidoderm patches -Oxycodone and flexeril PRN -pain management consulted to discuss injections -PT/OT consulted, pending - CM following - pt reports family has been looking into [facility] (2) Lumbosacral radiculopathy: Plan: Management as above - pain is left sided Plan Chronic Medical Conditions * Paroxysmal atrial fibrillation - rate controlled. Continue Eliquis and Metoprolol * Hypertension - blood pressure acceptable. Continue Metoprolol, Lisinopril, Hydralazine * Hyperlipidemia - Continue Atorvastatin * Diabetes - chronic -ISS Dispo: continued inpatient stay awaiting PT/OT evals DVT Proh: Elqiuis Admission and Anticipated Discharge Date Admission Date: September 02, 2023 Supervising Physician Co-Signing Physician Notes PA Supervision Note: I did not personally see or examine the patient today, but I verified all ocampo points of MARY Cheung's assessment and plan with the following exceptions/additions: None Subjective Patient seen sitting up in the chair. Pain is more well controlled. States she lives with her daughter but daughter works outside the home. Did not think to take pain medication at home when she couldnt get comfortable before she came to the hospital. Reports family has been looking in to [facility] has been able to ambulate into the bathroom Is agreeable to try injections Review of Systems Review of Systems: All systems reviewed & are unremarkable except as noted in Subjective Physical Exam Physical Exam: General: NAD, VS as above Resp: normal respiratory effort, lungs clear to auscultation CV: RRR, no murmur, Abd: soft non tender, no hepatosplenomegaly Extremities: Moves all extremities, non pitting LE edema, b/l LE strength 5/5 Neuro: A&O x3, Results & Data Results & Data Vital Signs (Past 12 Hours) Vital Signs Temp Pulse Resp BP BP Pulse Ox O2 Del Method 09/03/23 07:18 36.4 C L 84 16 122/77 97 Room Air 09/03/23 01:20 36.8 C 81 16 126/78 91 Room Air Laboratory Results cbc and chemsitry reviewed Diagnostic Findings lumbar spine xray reviewed PG Care Time/CCT Total # of Minutes Spent Total Time Spent with Patient: Total time spent is greater than 50% in coordination of care (as documented) at patient's floor/unit and/or counseling patient: Coding Level of Care Code 22412 SUB INP/OBS CARE 3/50MIN Diagnoses Ambulatory dysfunction R26.2 Lumbosacral radiculopathy M54.17
[2023-09-03] MEDS: ATORVASTATIN 20 MG TAB PO SCH (21:08)
--- NOTE | 2023-09-04 14:14 | Hospitalist Progress Note ---
Date of Service September 04, 2023 Assessment & Plan (1) Ambulatory dysfunction: Plan: 83yo female with longstanding history of ambulatory dysfunction secondary to chronic back pain, lumbosacral radiculopathy. Patient reports worsening bilateral LE weakness and inability to walk up her step into her home. She was discharged from [facility] 09/01 and then returned to ER when she couldn't get comfortable and move well at home. Difficult disposition - patient would ideally wish to return home with PT services but feels that she is not strong enough to safely do so at this time. No worsening back pain - chronic. No bowel or bladder complaints -repeat lumbar x-rays - degenerative changes without acute fracture or subluxation -Scheduled Tylenol 1gm PO TID -Lidoderm patches -Oxycodone and flexeril PRN -pain management consulted to discuss injections - MRI lumbar spine to determine injection type - hold Eliquis for possible injection 09/07. Transition to SQ heparin q12 (to be held 24 hours prior to injection) - consider gabapentin - discuss with pharmacy have not tried previously, will discuss with patient to potentially start 100mg qPM -PT/OT consulted, pending - CM following, referrals made for SNF rehab (2) Lumbosacral radiculopathy: Plan: Management as above - pain is left sided Plan Chronic Medical Conditions * Paroxysmal atrial fibrillation - rate controlled. Continue Metoprolol. Eliquis held as above * Hypertension - blood pressure acceptable. Continue Metoprolol, Lisinopril, Hydralazine * Hyperlipidemia - Continue Atorvastatin * Diabetes - chronic -ISS Dispo: continued inpatient stay awaiting SNF referral DVT Proh: SQ heparin with Eliquis on hold Discussed with [facility] pain management MARY Discussed with pharmacy Admission and Anticipated Discharge Date Admission Date: September 04, 2023 Supervising Physician Co-Signing Physician Notes PA Supervision Note: I did not personally see or examine the patient today, but I verified all ocampo points of MARY Cheung's assessment and plan with the following exceptions/additions: None Subjective patient states that she was having back pain from sitting up too long, improved with laying down in bed. States that her legs buckled twice while she was working with occupational therapy. Does not want to go home and would like to go to rehab. No other acute complaints Review of Systems Review of Systems: All systems reviewed & are unremarkable except as noted in Subjective Physical Exam Physical Exam: General: NAD, VS as above Resp: normal respiratory effort, lungs clear to auscultation CV: RRR, no murmur, Abd: soft non tender, no hepatosplenomegaly Extremities: Moves all extremities, non pitting LE edema, Neuro: A&O x3, Results & Data Results & Data Vital Signs (Past 12 Hours) Vital Signs Temp Pulse Resp BP Pulse Ox O2 Del Method 09/04/23 07:35 36.6 C 83 16 118/78 96 Room Air PG Care Time/CCT Total # of Minutes Spent Total Time Spent with Patient: Total time spent is greater than 50% in coordination of care (as documented) at patient's floor/unit and/or counseling patient: Coding Level of Care Code 88284 SUB INP/OBS CARE 2/35MIN Diagnoses Ambulatory dysfunction R26.2 Lumbosacral radiculopathy M54.17
--- NOTE | 2023-09-04 15:43 | Pain Management Consultation ---
Date of Consultation September 04, 2023 Assessment & Plan (1) Back pain: Back pain location: low back pain Chronicity: chronic Back pain laterality: left Sciatica presence: with sciatica Sciatica laterality: s ciatica of left side Qualified Code(s): M54.42 - Lumbago with sciatica, left side; G89.29 - Other chronic pain (2) Lumbosacral radiculopathy: (3) Weakness: (4) Ambulatory dysfunction: (5) Left sided sciatica: (6) Spinal stenosis of lumbar region: Neurogenic claudication status: unspecified Qualified Code(s): M 48.061 - Spinal stenosis, lumbar region without neurogenic claudication Plan 1. The patient is suffering from left-sided superolateral gluteal/posterolateral hip pain associated w/ radiation into the left lower extremity in a predominant S1 distribution pattern, with seemingly 100% radicular component symptoms. She does demonstrate weakness in the left L2 and L3 nerve distribution pathways, as she does have significant weakness on exam to hip flexion and knee extension. * Patient may possibly be recommended to undergo a lumbar interlaminar versus transforaminal COLE. However, she does need further workup with a lumbar spinal MRI to more properly diagnose specific locations of pathology, and for procedural planning purposes. * Any injection would likely be facilitated as an outpatient at the pain management clinic. If the patient is again transferred to a rehab facility, arrangements could be made for bringing her to the clinic for the procedure. * Of note, the patient will need to be off of her Eliquis anticoagulation for 3 days prior to any pain management neuraxial procedure. With her having the last administration of Eliquis this morning, 09/03, the earliest she would be able to have a procedure at the pain clinic would be Thursday, 09/07. 2. To address neuropathic component of pain, may consider adding low-dose gabapentin, 100 mg, and titrate up to TID. 3. May also consider oral methylprednisolone steroid taper vs. IV Solu-Medrol. 4. Patient was educated in detail on the potential development of cauda equina syndrome red flag symptoms (i.e. severe back pain, bilateral sciatica pain and altered sensation in the legs, bowel/bladder dysfunction, saddle anesthesia, sexual problems), and to inform her provider/caregivers if these arise. 5. Recommend lumbar spine MRI without contrast to evaluate in more detail for nerve root impingement, central/foraminal stenosis, and herniated disc. * Has already failed activity modification, rest, PT, OT, rehab facility, oral opiates, muscle relaxers, acetaminophen, and lidocaine patches. * Ordered Valium for periprocedural anxiolysis. 6. Pain management service will continue to follow. History of Present Illness Reason for Consultation: discuss injections, lumbar radiculopathy Requesting Physician: Mariaa Cheung PA-C Attending Physician: Claudia Brewer MD History of Present Illness Patient is a pleasant 83-year-old female who has presented to the [facility] ED, with subsequent admissions, on multiple occasions now (I believe 3) since just June of this year. She has been coming for her similar/same issues, which are that of left-sided low back pain and associated radiating pain down the left leg, as well as a feeling of significant weakness to her left lower extremity, specifically her left knee and hip. She says that the weakness has caused her to almost fall on multiple occasions. She was just discharged from the hospital a short time ago, about 2 weeks ago, and then was at [facility] rehab for a couple of weeks after that. She says that [facility] her home, but apparently she was not really ready to return home, as she was still having significant pain and weakness, and her daughter was really unable to help her at home, so they returned back to the [facility] last night, on 09/02/2023. Patient states she has seen a chiropractor in the past for this, as well as her PCP. Patient states she was placed on steroids previously and that did seem to help with the pain however she continued with weakness in her lower extremities. Patient stated at her initial most recent visit in June that she could ambulate the way that she normally would, but she felt like she had no strength in her legs. Patient's daughter was stating that the patient was having mobility issues over the past several weeks prior to that first admission to the point where she was not able to get around the house very well at all. As the patient was having to return multiple times for the same issue, she requested admission again so that she could return to rehab. Today, she is localizing pain to her left lumbosacral region, with radiation into her left buttocks and posterior lateral hip. She also has pain/paresthesia traveling down her posterior thigh and posterior lower leg calf region. She says that her foot/toes do not seem to be affected. Again, her left knee feels very weak and wants to "give out on her". She has had a lumbar spine CT scan that demonstrates suspected moderate to severe central canal stenosis at L2-3, as well as probable moderate central stenosis at L3-4. There is also note of severe facet arthrosis within the lumbar spine. Patient rates her pain currently a 3/10, but says that this is likely due to her taking pain medicines since she has been here. She received IV morphine while in the ED, and says that was very effective, but then the oxycodone she is now taking has been quite helpful at relieving pain. Case discussed with Dr. Schulte. Allergies Allergy/AdvReac Type Severity Reaction Status Date / Time No Known Allergies Allergy Verified 09/02/23 21:26 Home Medications Medication Instructions Recorded Confirmed Type metformin 500 mg tablet 1,000 mg (2 x 500 mg) PO BID #400 06/19/22 09/02/23 Rx tabs magnesium oxide 200 mg PO BID 90 days #180 tabs 10/08/22 09/02/23 Rx hydralazine 50 mg tablet 50 mg PO BID #180 tabs 02/09/23 09/02/23 Rx cholecalciferol (vitamin D3) 25 25 mcg PO DAILY 05/03/23 09/02/23 History mcg (1,000 unit) tablet (Vitamin D3) glipizide 2.5 mg tablet, extended 2.5 mg PO DAILY #90 tabs 06/17/23 09/02/23 Rx release 24 hr blood-glucose sensor (Dexcom G7 #1 ea 06/18/23 08/16/23 Rx Sensor device) cyclobenzaprine 5 mg tablet 5 mg PO BID PRN muscle spasm #90 06/26/23 09/02/23 Rx tabs atorvastatin 20 mg tablet 20 mg PO HS #100 tabs 07/28/23 09/02/23 Rx apixaban 2.5 mg tablet 2.5 mg PO BID #180 tabs 08/05/23 09/02/23 Rx metoprolol tartrate 25 mg tablet 25 mg PO BID #180 tabs 08/05/23 09/02/23 Rx lisinopril 20 mg tablet 40 mg PO DAILY 08/16/23 09/02/23 History oxycodone 5 mg tablet 2.5 mg (1/2 x 5 mg) PO Q6H PRN 08/19/23 09/02/23 Rx pain #10 tabs acetaminophen 325 mg tablet 650 mg PO Q6H PRN PAIN/FEVER 09/02/23 09/02/23 History (Tylenol) lidocaine 4 % topical patch 2 patch topical DAILY 09/02/23 09/02/23 History Pain History Pain Location Full Body Front + Back: 2 1. 2. 3. 4. weakness 5. weakness Patient History Medical History Hypomagnesemia Headache Lipoma of back s/p removal Syncope and collapse COVID-19 (02/11/20) required hospitalization [facility] x 3 weeks History of basal cell carcinoma (11/2018) Morbid obesity Nontoxic multinodular goiter Osteopenia Hypertension Hyperlipidemia Surgical History Hx laparoscopic cholecystectomy History of salpingectomy History of Salpingectomy for ectopic Family History Father , age 69 Coronary heart disease Myocardial infarction Mother , age 92 Tobacco use Lung cancer suspected just prior to her Daughter Melanoma Grandmother (Paternal) Stroke Denies family history of Ovarian cancer Prostate cancer Breast cancer FH: brain aneurysm Colorectal cancer Social History Smoking Status: Never smoker Tobacco Type: Cigarettes Second Hand Exposure: No; Do You Dip or Chew Tobacco: No; Hx Alcohol Use: No Hx Substance Use: No Preferred Language: Armenian Communication Ability: Effective Visual Impairment: No Limitations Hearing Ability: Normal Welfare Investigator Required: No Beliefs That Will Affect Care: None marital status: Current Living Situation: Family Current Living Situation Comment: LIVES WITH DAUGHTER JOSE current occupational status: retired 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 Mood and affect is appropriate. Does not appear in acute distress. Sitting in bedside chair, appears comfortable.Able to transfer from bedside chair to sitting on EOB with assistance. HEAD: Normocephalic; atraumatic. NECK: Trachea is midline. CHEST: Regular chest respiration and excursion. EXTREMITIES: Distal sensation and pulses intact bilaterally. BACK: Diminished ROM.No midline or SI joint tenderness. + left lumbosacral tenderness. + left superolateral gluteal and posterolateral hip tenderness. NEURO: CN II-XII grossly intact with no focal deficits noted. Awake, alert, and oriented x 3. Patellar Reflex R traceL absent SKIN: No lesions, erythema, or rashes noted. LOWER EXTREMITIES: Negative straight leg raise. R Hip flexion 5/5; hip extension 5/5; knee extension 5/5; knee flexion 5/5; ankle dorsiflexion 5/5; ankle plantar flexion 5/5; EHL 5/5 L Hip flexion 4-/5; hip extension 4+/5; knee extension 3+/5; knee flexion 4+/5; ankle dorsiflexion 4+/5; ankle plantar flexion 5/5; EHL 4/5 Results (Pain Clinic) Diagnostic Review CT Findings: Lumbar Spine X-Ray 09/02/23 23:09 XR lumbar spine 2-3V CLINICAL HISTORY: bilateral leg weakness, recent falls TECHNIQUE: 3 views of the lumbar spine were obtained. Comparison: Comparison is made to lumbar spine radiograph 01/31/2016 FINDINGS: There is no evidence of an acute fracture. Degenerative changes are seen in the lumbar spine with osteophyte formation and disc space narrowing. The alignment is normal. Vascular calcifications are noted. IMPRESSION: Degenerative changes as above without acute fracture or subluxation. ACT 112: Negative or not required by law. Electronically signed by: Vj Villatoro M.D. 09/03/2023 7:[address] OF THE LUMBAR SPINE CLINICAL HISTORY: Left lower back pain. COMPARISON STUDY: Lumbar spine radiographs January 31, 2016. CT of the abdomen and pelvis February 01, 2016. TECHNIQUE: Helical axial images of the lumbar spine were obtained. Sagittal and coronal reconstructions were viewed. Automated exposure control was utilized for the study. A dose lowering technique was utilized adhering to the principles of ALARA. FINDINGS: For purposes of numbering on this exam, the L5-S1 disc space is assigned to axial image 329 of 395. There is mild lumbar spine levoscoliosis. Slight anterolisthesis of L4 and L5 is due to facet arthrosis. There are no lumbar spine fractures. No osseous lesions are present. Severe multilevel facet arthrosis is present. Moderate disc space narrowing and osteophytosis with vacuum disc phenomenon at L2-L3 is present. The central canal and neural foramen are suboptimally assessed given CT technique. Suspected moderate to severe central canal stenosis at L2-L3. There is probable moderate central canal stenosis at L3-L4. Paravertebral soft tissues are unremarkable. IMPRESSION: 1. No acute lumbar spine fracture or subluxation. 2. Moderate degenerative disc disease and severe facet arthrosis within the lumbar spine. Suboptimal evaluation of the central canal and neural foramen given CT technique. Suspected moderate to severe central canal stenosis at L2-L3 and moderate central canal stenosis at L3-L4. ACT 112: Negative or not required by law. Electronically signed by: Parker Sinclair M.D. 07/22/2023 7:05 PM Dictated: 07/22/231899 Transcribed: 07/22/231899
[2023-09-04] MEDS ORDERED: Nursing to Pharmacy Communication SCH (16:30)
[2023-09-04] MEDS: diazePAM 5 MG TABLET PO ONE (16:38)
[2023-09-04] MEDS: diazePAM 5 MG TABLET PO PRN (17:52)
--- NOTE | 2023-09-04 19:00 | Magnetic Resonance Report ---
LUMBAR SPINE MRI HISTORY: LLE radiculopathy, weakness, near falls TECHNIQUE: Multiplanar multisequence MRI of the lumbar spine was performed without the use of contras t. COMPARISON: CT lumbar spine 07/22/2023. FINDINGS: For the purpose of the report the L5-S1 disc space will be located on axial image 23 of 25. Mild levoscoliosis of the lumbar spine. No fracture or subluxation within the lumbar spine. There is marrow edema and surrounding soft tissue edema at the distal sacrum near the sacrococcygeal junction where there appears to be a nondisplaced fracture. This is best seen on sagittal image 8. Lumbar subc utaneous edema is noted. The conus terminates at the L1 level. There is moderate disc space narrowing at L2-L3 and mild disc space narrowing at L3-L4. Moderate to severe facet degenerative changes withi n the lumbar spine most pronounced at the L4-5 level. L1-L2: Small broad-based posterior disc bulge without significant central canal or neural foraminal n arrowing. L2-L3: Broad-based posterior disc bulge with an 8 x 6 mm right paracentral focal disc protrusion demo nstrating mild superior subligamentous migration. This abuts and displaces the transiting right L3 ne rve roots. In conjunction with the ligamentum and facet hypertrophy there is moderate to severe centr al canal narrowing with an AP diameter of 6.5 mm. There is also severe narrowing of the lateral reces ses and severe right-sided neural foraminal narrowing. There is mild to moderate left-sided neural fo raminal narrowing. L3-L4: Broad-based posterior disc bulge with significant ligamentum and facet hypertrophy resulting i n moderate central canal narrowing. There is moderate to severe bilateral neural foraminal narrowing most pronounced on the left. There is also a 3 mm left foraminal/extraforaminal focal disc protrusion which abuts and displaces the exiting left L3 nerve root at this level. This is best seen on sagitta l image 16 and axial image 13. L4-L5: Broad-based posterior disc bulge asymmetric to the right with ligamentum and facet hypertrophy . This results in moderate central canal and moderate bilateral neural foraminal narrowing. L5-S1: Broad-based posterior disc bulge with a tiny focal central annular tear. This results in mild central canal and mild bilateral neural foraminal narrowing. IMPRESSION: 1. An acute fracture within the distal sacrum near the sacrococcygeal junction. No significant displa cement. 2. No acute fracture or subluxation within the lumbar spine. 3. Levoscoliosis. 4. Multilevel degenerative changes as described above most pronounced at the L2-L3 and L3-L4 levels. 5. Small focal disc protrusions at L2-L3 and L3-L4 as described above. ACT 112: Negative or not required by law. Electronically signed by: Erik Starks M.D. 09/04/2023 6:58 PM
[2023-09-04] MEDS: HEPARIN SOD 5,000 UNIT/0.5 ML VIAL SQ SCH (21:04)
--- NOTE | 2023-09-04 22:08 | Electrocardiogram Report ---
Test Reason : Blood Pressure : / mmHG Vent. Rate : 155 BPM Atrial Rate : 000 BPM P-R Int : 000 ms QRS Dur : 076 ms QT Int : 252 ms P-R-T Axes : 000 -06 170 degrees QTc Int : 404 ms Atrial fibrillation with rapid ventricular response Cannot rule out Anterior infarct (cited on or before 03-MAY-2023) Abnormal ECG When compared with ECG of 22-JUL-2023 15:04, Vent. rate has increased BY 76 BPM Criteria for Inferior infarct are no longer Present ST now depressed in Anterolateral leads T wave inversion now evident in Lateral leads Confirmed by Yahir Wray ([id number]) on 09/04/2023 10:08:34 PM Referred By: Nayely Sinclair Confirmed By:Yahir Wray
--- NOTE | 2023-09-05 15:51 | Hospitalist Progress Note ---
Date of Service September 05, 2023 Assessment & Plan (1) Ambulatory dysfunction: Plan: 83yo female with longstanding history of ambulatory dysfunction secondary to chronic back pain, lumbosacral radiculopathy. Patient reports worsening bilateral LE weakness and inability to walk up her step into her home. She was discharged from [facility] 09/01 and then returned to ER when she couldn't get comfortable and move well at home. Difficult disposition - patient would ideally wish to return home with PT services but feels that she is not strong enough to safely do so at this time. No worsening back pain - chronic. No bowel or bladder complaints -repeat lumbar x-rays - degenerative changes without acute fracture or subluxation -Scheduled Tylenol 1gm PO TID, Lidoderm patches -Oxycodone and flexeril PRN. added gabapentin 100 mg prn qhs -pain management consulted to discuss injections - MRI lumbar spine to determine injection type - hold Eliquis for possible injection 09/07. Transition to SQ heparin q12 (to be held 24 hours prior to injection) - consider gabapentin B12 level checked last admission, bordeline low and not replaced - B12 IM - AM B12 level -PT/OT consulted, pending - CM following, referrals made for SNF rehab (2) Lumbosacral radiculopathy: Plan: Management as above - pain is left sided Plan Chronic Medical Conditions * Paroxysmal atrial fibrillation - rate controlled. Continue Metoprolol. Eliquis held as above * Hypertension - blood pressure acceptable. Continue Metoprolol, Lisinopril, Hydralazine * Hyperlipidemia - Continue Atorvastatin * Diabetes - chronic -ISS Dispo: continued inpatient stay awaiting SNF referral DVT Proh: SQ heparin with Eliquis on hold Admission and Anticipated Discharge Date Admission Date: September 02, 2023 Supervising Physician Co-Signing Physician Notes PA Supervision Note: I did not personally see or examine the patient today, but I verified all ocampo points of MARY Cheung's assessment and plan with the following exceptions/additions: None Subjective patient seen lying in bed. States that her pain is improving and that is more of an ache now, rather than sharp shooting pain. States the pain is mainly located in her back and not radiating down her leg. Is ambulating to the bathroom but does not feel that she would be safe to go home Review of Systems Review of Systems: All systems reviewed & are unremarkable except as noted in Subjective Physical Exam Physical Exam: General: NAD, VS as above Resp: normal respiratory effort, lungs clear to auscultation CV: RRR, no murmur, Abd: soft non tender, no hepatosplenomegaly Extremities: Moves all extremities, non pitting LE edema. Pain elicited with left straight leg raise Neuro: A&O x3, Results & Data Results & Data Vital Signs (Past 12 Hours) Vital Signs Temp Pulse Resp BP Pulse Ox O2 Del Method 09/05/23 15:44 36.6 C 82 19 138/83 95 Room Air 09/05/23 07:16 36.5 C 86 19 128/77 97 Room Air Laboratory Results [id number] blood glucose reviewed PG Care Time/CCT Total # of Minutes Spent Total Time Spent with Patient: Total time spent is greater than 50% in coordination of care (as documented) at patient's floor/unit and/or counseling patient: Coding Level of Care Code 55428 SUB INP/OBS CARE 2/35MIN Diagnoses Ambulatory dysfunction R26.2 Lumbosacral radiculopathy M54.17
[2023-09-05] MEDS: CYANOCOBALAMIN 1000 MCG/ML VIAL IM SCH (16:30)
[2023-09-05] MEDS: CYCLOBENZAPRINE HCL 5 MG TAB PO PRN (16:31)
--- NOTE | 2023-09-06 14:57 | Hospitalist Progress Note ---
Date of Service September 06, 2023 Assessment & Plan (1) Ambulatory dysfunction: Plan: 83yo female with longstanding history of ambulatory dysfunction secondary to chronic back pain, lumbosacral radiculopathy. Patient reports worsening bilateral LE weakness and inability to walk up her step into her home. She was discharged from [facility] 09/01 and then returned to ER when she couldn't get comfortable and move well at home. No worsening back pain - chronic. No bowel or bladder complaints -repeat lumbar x-rays - degenerative changes without acute fracture or subluxation -Scheduled Tylenol 1gm PO TID, Lidoderm patches -Oxycodone and flexeril PRN. added gabapentin 100 mg prn qhs - can make gabapentin scheduled if patient uses this and feels that is helpful however pain has been controlled and do not want to add another medication if not needed. -pain management consulted to discuss injections - MRI lumbar spine to determine injection type-showed acute fracture in the distal sacrum near the sacrococcygeal junction without displacement, levoscoliosis, multilevel degenerative changes most pronounced at L2-L3 and L3- L4, small focal disc protrusions at L2-L3 and L3-L4 - hold Eliquis for possible injection 09/07. Transition to SQ heparin q12 (to be held 24 hours prior to injection) - consider gabapentin B12 level checked last admission, borderline low and not replaced - B12 IM given x 2 - B12 level - Drawn after injection so likely falsely elevated -PT/OT consulted, pending - CM following, referrals made for SNF rehab (2) Lumbosacral radiculopathy: Plan: Management as above - pain is left sided Plan Chronic Medical Conditions * Paroxysmal atrial fibrillation - rate controlled. Continue Metoprolol. Eliquis held as above * Hypertension - blood pressure acceptable. Continue Metoprolol, Lisinopril, Hydralazine * Hyperlipidemia - Continue Atorvastatin * Diabetes - chronic -ISS Dispo: continued inpatient stay awaiting SNF referral DVT Proh: SQ heparin with Eliquis on hold Admission and Anticipated Discharge Date Admission Date: September 02, 2023 Supervising Physician Co-Signing Physician Notes PA Supervision Note: I did not personally see or examine the patient today, but I verified all ocampo points of MARY Cheung's assessment and plan with the following exceptions/additions: None Subjective Patient sitting up to the chair. Friend present at bedside. Patient states that she is feeling better, pain is no longer sharp. I reiterated that she has gabapentin available as needed I just did not want to make this scheduled if she was not having pain. Good appetite. Is moving her bowels. Review of Systems Review of Systems: All systems reviewed & are unremarkable except as noted in Subjective Physical Exam Physical Exam: General: NAD, VS as above Resp: normal respiratory effort, lungs clear to auscultation CV: RRR, no murmur, Abd: soft non tender, no hepatosplenomegaly Extremities: Moves all extremities, non pitting LE edema. Neuro: A&O x3, Results & Data Results & Data Vital Signs (Past 12 Hours) Vital Signs Temp Pulse Resp BP Pulse Ox O2 Del Method 09/06/23 14:18 36.8 C 95 H 17 116/79 99 Room Air 09/06/23 07:08 36.6 C 89 16 135/82 98 Room Air Laboratory Results Vitamin B12 level and [id number]-[id number] glucose reviewed PG Care Time/CCT Total # of Minutes Spent Total Time Spent with Patient: Total time spent is greater than 50% in coordination of care (as documented) at patient's floor/unit and/or counseling patient: Coding Level of Care Code 02013 SUB INP/OBS CARE 2/35MIN Diagnoses Ambulatory dysfunction R26.2 Lumbosacral radiculopathy M54.17
[2023-09-06] MEDS: GABAPENTIN 100 MG CAP PO PRN (21:14)
[2023-09-07 06:42] LABS: Hematocrit (blood only) 32.3 % (37.0-47.0); Hemoglobin 10.2 g/dl (12.0-16.0); Mean Corpuscular Hemoglobin 28.7 pg (25.0-34.0); Mean Corpuscular Hgb Conc 31.6 g/dL (32.0-36.0); Mean Corpuscular Volume 90.7 fL (80.0-100.0); Mean Platelet Volume 10.7 fL (9.4-12.4); Platelet Count 120 K/uL (130-400); RDW Coefficient of Variation 15.2 % (11.5-14.5); RDW Standard Deviation 49.8 fL (36.4-46.3); Red Blood Count 3.56 M/uL (4.20-5.40); White Blood Count 3.94 K/ul (4.8-10.8)
[2023-09-07 06:58] LABS: Albumin Globulin Ratio 1.3 (0.9-2); Bilirubin,Total 0.4 mg/dl (0.2-1.0); Calcium 8.8 mg/dl (8.6-10.3); Creatinine Clr Calc Pharmacy 26.1 ml/min; Est GFR (African American) 33.4 ml/min; Est GFR (Non-African American) 28.8 ml/min; Globulin 2.3 gm/dl (2.5-4.0); Magnesium 1.4 mg/dl (1.7-2.4); Total Protein 5.3 gm/dl (6.0-8.3)
[2023-09-07] MEDS: ONDANSETRON INJ 2 MG/ML 2 ML VIAL IV PRN (07:44)
[2023-09-07] MEDS: MAGNESIUM SULFATE / D5W 1 GM/100 ML BAG IV SCH (08:55)
--- NOTE | 2023-09-07 09:25 | Pain Management Progress Note ---
Date of Service September 07, 2023 Assessment & Plan (1) Spinal stenosis of lumbar region: Neurogenic claudication status: unspecified Qualified Code(s): M48.061 - Spinal stenosis, lumbar region without neurogenic claudication (2) Ambulatory dysfunction: (3) Atrial fibrillation with RVR: (4) Morbid obesity with BMI of 40.0-44.9, adult: (5) 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: Plan 1. Patient's MRI was reviewed with her in detail this morning. Recommend L3-4 interlaminar epidural steroid injection to be performed tomorrow in the OR. Patient will be n.p.o. after midnight. May resume Eliquis 24 hours after procedure. Discussed the risk, benefits, expectations with the patient and she agrees to proceed. Consent was signed this morning. Will plan to see her approximately 2 weeks postinjection in the office for further outpatient management. 2. Recommend continuation of oxycodone, Flexeril, gabapentin as needed. 3. Patient wishes to discuss her post discharge living situation with hospitalist and more thorough detail. Recommend she speak with the hospitalist for further assistance. 4. Will see the patient tomorrow a.m. for procedure. Admission and Anticipated Discharge Date Admission Date: September 02, 2023 Subjective 83-year-old female with moderate to severe lumbar spinal stenosis at L2-3 and L3-4 as noted on MRI from 09/04/2023. She reports left L2 and 3 radicular symptoms as well as bilateral leg weakness. She reports a fall this morning but did not hit her head. She was assessed by nursing and hospitalist. She reports pain ranges between 5-8 out of 10 sharp shooting but more so bothered by the we akness accompanying the pain. She reports that up until this morning she had been ambulating with her rolling walker fairly well but felt" her leg buckled and she went down." She denies any bowel or bladder incontinence foot drop fever chills night sweats. Previous interventions include oral steroids, oxycodone, as needed gabapentin, rehabilitation and center care, manager progressive care. She reports improvement with oxycodone and as needed gabapentin. She denies significant side effects from her medications. She reports concern over her living situation postdischarge and wishes to discuss this more thoroughly with the hospital staff. Physical Exam Physical Exam: Constitutional: Well-developed, well-nourished, healthy-appearing, obese Psych: Awake, alert, and oriented 3 with normal affect and mood. Recent memory appears grossly intact Eyes: Pupils are equally round and reactive to light with normal size pupils, eyelids appear normal Ear, nose, mouth, and throat: Moist nasal and oral membranes, lips and tongues appear normal, no external ear abnormalities are noted Neck: The trachea is midline without deviation and no thyromegaly is noted Respiratory: Normal respiratory effort without distress, no audible wheezes or rhonchi CV: Normal S1 and S2, warm distal extremities Chest: Deferred GI/abdomen: Non-tender without guarding, no masses noted Musculoskeletal: Head is normocephalic and atraumatic, gait not observed but utilizes a rolling walker for assistance with ambulation. Left midfoot has some bruising status post fall Cervical: Strength: Strength is grossly equal bilaterally with 5 out of 5 strength in all planes Sensation of upper extremities: Intact bilaterally Lumbar: Lordotic curve: Loss of lumbar lordosis Range of motion is decreased in all planes Tenderness: Mild to moderately tender over the axial midline Facet provocation: Positive bilaterally Straight leg raise: Negative bilaterally Step-off injuries: None Strength: Strength is equal bilaterally with 5 out of 5 strength in all planes with the exception of left quadricep 4 out of 5 Sensation of lower extremities: Intact bilaterally Deep tendon reflexes: Rated at 1+ in bilateral L4 and S1 Myofascial spasm: No appreciable spasm. No discrete trigger points noted Greater trochanters: Nontender bilaterally Sacroiliac joints: Nontender bilaterally Pathologic reflexes noted: None Skin: No rashes, lesions, ulcers, or induration noted Neuro: No nystagmus noted, the tongue is midline, the patient is able to rotate their head bilaterally : Deferred Results (Pain Clinic) Laboratory Review Laboratory results: personally reviewed by me and no pertinent findings (PLT 120 this AM) Diagnostic Review MRI: non enhanced, reports reviewed, images reviewed and findings discussed with patient MRI Findings: 09/04/23 LUMBAR SPINE MRI HISTORY: LLE radiculopathy, weakness, near falls TECHNIQUE: Multiplanar multisequence MRI of the lumbar spine was performed without the use of contrast. COMPARISON: CT lumbar spine 07/22/2023. FINDINGS: For the purpose of the report the L5-S1 disc space will be located on axial image 23 of 25. Mild levoscoliosis of the lumbar spine. No fracture or subluxation within the lumbar spine. There is marrow edema and surrounding soft tissue edema at the distal sacrum near the sacrococcygeal junction where there appears to be a nondisplaced fracture. This is best seen on sagittal image 8. Lumbar subcutaneous edema is noted. The conus terminates at the L1 level. There is moderate disc space narrowing at L2-L3 and mild disc space narrowing at L3-L4. Moderate to severe facet degenerative changes within the lumbar spine most pronounced at the L4-5 level. L1-L2: Small broad-based posterior disc bulge without significant central canal or neural foraminal narrowing. L2-L3: Broad-based posterior disc bulge with an 8 x 6 mm right paracentral focal disc protrusion demonstrating mild superior subligamentous migration. This abuts and displaces the transiting right L3 nerve roots. In conjunction with the ligamentum and facet hypertrophy there is moderate to severe central canal narrowing with an AP diameter of 6.5 mm. There is also severe narrowing of the lateral recesses and severe right-sided neural foraminal narrowing. There is mild to moderate left-sided neural foraminal narrowing. L3-L4: Broad-based posterior disc bulge with significant ligamentum and facet hypertrophy resulting in moderate central canal narrowing. There is moderate to severe bilateral neural foraminal narrowing most pronounced on the left. There is also a 3 mm left foraminal/extraforaminal focal disc protrusion which abuts and displaces the exiting left L3 nerve root at this level. This is best seen on sagittal image 16 and axial image 13. L4-L5: Broad-based posterior disc bulge asymmetric to the right with ligamentum and facet hypertrophy. This results in moderate central canal and moderate bilateral neural foraminal narrowing. L5-S1: Broad-based posterior disc bulge with a tiny focal central annular tear. This results in mild central canal and mild bilateral neural foraminal narrowing. IMPRESSION: 1. An acute fracture within the distal sacrum near the sacrococcygeal junction. No significant displacement. 2. No acute fracture or subluxation within the lumbar spine. 3. Levoscoliosis. 4. Multilevel degenerative changes as described above most pronounced at the L2- L3 and L3-L4 levels. 5. Small focal disc protrusions at L2-L3 and L3-L4 as described above.
--- NOTE | 2023-09-07 10:20 | Hospitalist Progress Note ---
Date of Service September 07, 2023 Assessment & Plan (1) Ambulatory dysfunction: Plan: Patient recently at [facility] for rehab and was discharged home 09/01. Upon return home, she was unable to walk up her step into her home and was experiencing b/l LE weakness. She then reported to the ED on 09/01 when she could not get comfortable at home. Her back pain is not worsened. She has no bowel or bladder complaints. -lumbar spine x-ray 09/01: no acute fracture or subluxation -lumbar MRI 09/03: acute fracture within distal sacrum near sacrococcygeal junction, no significant displacement. Levoscoliosis. multilevel degenerative changes most pronounced L2-L3 and L3-L4. small focal disc protrustions at L2-L3 and L3-L4 -Pain management consulted, reviewed recommendations 09/06: -Injection planned for 09/07 -Eliquis on hold, heparin to be stopped at midnight -NPO after midnight -aPTT ordered in AM -Continue Tylenol 1gm PO TID and Lidoderm patches -Continue oxycodone, Flexeril, gabapentin prn -if patient benefits from gabapentin, can consider making this scheduled. B12 level checked last admission, borderline low and not replaced - B12 IM given x 2 - B12 level - Drawn after injection so likely falsely elevated -PT/OT consulted, reviewed recommendations 09/06 -rehab - CM following, referrals made for SNF rehab AM CBC, BMP, aPTT (2) Lumbosacral radiculopathy: Plan: Management as above - pain is left sided (3) Hypomagnesemia: Plan: -magnesium level reviewed 09/06: 1.4 -Replaced with 2 bags mag AM mag Plan Chronic Medical Conditions * Paroxysmal atrial fibrillation - rate controlled. Continue Metoprolol. Eliquis held as above * Hypertension - blood pressure acceptable. Continue Metoprolol, Lisinopril, Hydralazine * Hyperlipidemia - Continue Atorvastatin * Diabetes - chronic -ISS Dispo: continued inpatient stay awaiting SNF referral DVT Proh: SQ heparin with Eliquis on hold Code status: DNR/DNI Admission and Anticipated Discharge Date Admission Date: September 02, 2023 Subjective Patient seen and examined this morning at bedside. Patient reports to be in minimal pain from her fall around 6AM today. She denies hitting her head. She states her legs are sore. No bruising. She denied feeling dizzy or lightheaded prior to falling. She states when she stood up her knees buckled. She denies CP, SOB, N/V, abdominal pain. She states she is urinating and defecating okay. Physical Exam Constitutional: WD/WN, vitals as above Eyes: PERRL, conjunctivae normal, anicteric sclerae Respiratory: normal respiratory effort, lungs clear to auscultation Cardiovascular: RRR, no murmur, no edema Psychiatric: A+Ox3, euthymic affect Results & Data Results & Data Vital Signs (Past 12 Hours) Vital Signs Temp Pulse Resp BP BP Pulse Ox O2 Del Method 09/07/23 07:21 36.6 C 81 18 136/83 97 Room Air 09/07/23 06:20 36.4 C L 85 18 136/81 97 Room Air 09/07/23 05:40 117 H 18 201/116 H 98 Room Air PG Care Time/CCT Total # of Minutes Spent Total Time Spent with Patient: Total time spent is greater than 50% in coordination of care (as documented) at patient's floor/unit and/or counseling patient: Coding Level of Care Code 11112 SUB INP/OBS CARE 2/35MIN Diagnoses Ambulatory dysfunction R26.2 Lumbosacral radiculopathy M54.17 Hypomagnesemia E83.42
[2023-09-07 11:18] LABS: Hematocrit (blood only) 36.9 % (37.0-47.0); Hemoglobin 11.8 g/dl (12.0-16.0); Mean Corpuscular Hemoglobin 28.9 pg (25.0-34.0); Mean Corpuscular Volume 90.4 fL (80.0-100.0); Mean Platelet Volume 11.3 fL (9.4-12.4); Platelet Count 138 K/uL (130-400); RDW Coefficient of Variation 15.4 % (11.5-14.5); RDW Standard Deviation 50.5 fL (36.4-46.3); Red Blood Count 4.08 M/uL (4.20-5.40)
[2023-09-08] MEDS ORDERED: Nursing to Pharmacy Communication SCH ×2 (00:15→13:15)
[2023-09-08] MEDS: INSULIN ASPART PER UNIT CHARGE SC SCH ×2 (05:58→14:07)
[2023-09-08 06:58] LABS: Hematocrit (blood only) 33.5 % (37.0-47.0); Hemoglobin 10.3 g/dl (12.0-16.0); Mean Corpuscular Hemoglobin 28.2 pg (25.0-34.0); Mean Corpuscular Hgb Conc 30.7 g/dL (32.0-36.0); Mean Corpuscular Volume 91.8 fL (80.0-100.0); Mean Platelet Volume 10.7 fL (9.4-12.4); Platelet Count 140 K/uL (130-400); RDW Coefficient of Variation 15.4 % (11.5-14.5); RDW Standard Deviation 51.4 fL (36.4-46.3); Red Blood Count 3.65 M/uL (4.20-5.40); White Blood Count 4.27 K/ul (4.8-10.8)
[2023-09-08 07:27] LABS: Partial Thromboplastin Ratio 0.9; Partial Thromboplastin Time 24 Seconds (21-31)
[2023-09-08 07:36] LABS: Calcium 9.1 mg/dl (8.6-10.3); Creatinine Clr Calc Pharmacy 22.9 ml/min; Est GFR (African American) 28.7 ml/min; Est GFR (Non-African American) 24.7 ml/min; Potassium 4.2 mmol/L (3.5-5.1)
[2023-09-08 08:57] LABS: Magnesium 1.8 mg/dl (1.7-2.4)
--- NOTE | 2023-09-08 11:53 | Anesthesiology Consultation ---
Date of Service September 08, 2023 History Surgery Operation Date: 09/08/23 12:20 Proposed Procedures p L3-L4 Innerlaminal Epidural Injection - Alina Jimenez, Height/Weight Height: 5 ft 2 in Weight: 84.5 kg Allergies Allergy/AdvReac Type Severity Reaction Status Date / Time No Known Allergies Allergy Verified 09/02/23 21:26 Medications Home Medications Medication Instructions Recorded Confirmed Last Taken metformin 500 mg tablet 1,000 mg (2 x 500 mg) PO BID #400 06/19/22 09/02/23 09/02/23 08:00 tabs magnesium oxide 200 mg PO BID 90 days #180 tabs 10/08/22 09/02/23 09/02/23 08:00 hydralazine 50 mg tablet 50 mg PO BID #180 tabs 02/09/23 09/02/23 09/02/23 08:00 cholecalciferol (vitamin D3) 25 25 mcg PO DAILY 05/03/23 09/02/23 09/02/23 mcg (1,000 unit) tablet (Vitamin D3) glipizide 2.5 mg tablet, extended 2.5 mg PO DAILY #90 tabs 06/17/23 09/02/23 09/02/23 release 24 hr blood-glucose sensor (Dexcom G7 #1 ea 06/18/23 08/16/23 Unknown Sensor device) cyclobenzaprine 5 mg tablet 5 mg PO BID PRN muscle spasm #90 06/26/23 09/02/23 Unknown tabs atorvastatin 20 mg tablet 20 mg PO HS #100 tabs 07/28/23 09/02/23 09/01/23 apixaban 2.5 mg tablet 2.5 mg PO BID #180 tabs 08/05/23 09/02/23 09/02/23 08:00 metoprolol tartrate 25 mg tablet 25 mg PO BID #180 tabs 08/05/23 09/02/23 09/02/23 08:00 lisinopril 20 mg tablet 40 mg PO DAILY 08/16/23 09/02/23 09/02/23 oxycodone 5 mg tablet 2.5 mg (1/2 x 5 mg) PO Q6H PRN 08/19/23 09/02/23 Unknown pain #10 tabs acetaminophen 325 mg tablet 650 mg PO Q6H PRN PAIN/FEVER 09/02/23 09/02/23 Unknown (Tylenol) lidocaine 4 % topical patch 2 patch topical DAILY 09/02/23 09/02/23 Unknown Active Medications Generic Name Dose Route Start Last Admin Trade Name Alondra PRN Reason Stop Dose Admin Acetaminophen 1,000 mg 09/03/23 02:30 09/08/23 05:58 Acetaminophen 500 Mg Tab PO 10/03/23 02:29 1,000 mg Q8 SINCERE Administration Apixaban 2.5 mg 09/03/23 09:00 09/04/23 08:53 Apixaban 2.5 Mg Tab PO 10/03/23 08:59 2.5 mg BID SINCERE Administration Atorvastatin Calcium 20 mg 09/03/23 21:00 09/07/23 20:56 Atorvastatin 20 Mg Tab PO 10/03/23 20:59 20 mg HS SINCERE Administration Cyclobenzaprine HCl 5 mg 09/03/23 02:03 09/05/23 16:31 Cyclobenzaprine Hcl 5 Mg Tab PO 10/03/23 02:02 5 mg BID PRN Administration muscle spasm Gabapentin 100 mg 09/05/23 14:44 09/06/23 21:14 Gabapentin 100 Mg Cap PO 10/05/23 20:59 100 mg QPM PRN Administration Pain Heparin Sodium (Porcine) 5,000 units 09/04/23 21:00 09/07/23 07:54 Heparin Sod 5,000 Unit/0.5 Ml Vial SQ 10/04/23 20:59 5,000 units Q12 SINCERE Administration Hydralazine HCl 50 mg 09/03/23 09:00 09/08/23 08:01 Hydralazine Tab 50 Mg Tab PO 10/03/23 08:59 50 mg BID SINCERE Administration Insulin Aspart 0 units 09/08/23 06:00 09/08/23 05:58 Insulin Aspart Per Unit Charge SC 10/08/23 05:59 1 units Q6 SINCERE Administration Lidocaine 1 patch 09/03/23 09:00 09/08/23 08:02 Lidocaine 5% 1 Patch TD 10/03/23 08:59 Not Given QAM SINCERE Lisinopril 40 mg 09/03/23 09:00 09/08/23 08:00 Lisinopril 40 Mg Tab PO 10/03/23 08:59 40 mg DAILY SINCERE Administration Metoprolol Tartrate 25 mg 09/03/23 09:00 09/08/23 08:00 Metoprolol Tartrate 25 Mg Tab PO 10/03/23 08:59 25 mg BID SINCERE Administration Miscellaneous 1 each 09/03/23 21:00 09/07/23 20:56 Remove Lidoderm Patch N/A 10/03/23 20:59 1 each DAILY@2100 SINCERE Administration Ondansetron HCl 4 mg 09/02/23 23:09 09/07/23 07:44 Ondansetron Inj 2 Mg/Ml 2 Ml Vial IV 10/02/23 23:08 4 mg Q6H PRN Administration Nausea And Vomiting Oxycodone HCl 2.5 mg 09/03/23 02:03 09/07/23 22:39 Oxycodone Hcl Ir 5 Mg Tab (Immediate Release) PO 09/17/23 02:02 2.5 mg Q6H PRN Administration pain Past Medical History Medical History Hypomagnesemia Headache Lipoma of back s/p removal Syncope and collapse COVID-19 (02/11/20) required hospitalization [facility] x 3 weeks History of basal cell carcinoma (11/2018) Morbid obesity Nontoxic multinodular goiter Osteopenia Hypertension Hyperlipidemia Past Family History Family History Father , age 69 Coronary heart disease Myocardial infarction Mother , age 92 Tobacco use Lung cancer suspected just prior to her Daughter Melanoma Grandmother (Paternal) Stroke Denies family history of Ovarian cancer Prostate cancer Breast cancer FH: brain aneurysm Colorectal cancer Past Surgical History Surgical History Hx laparoscopic cholecystectomy History of salpingectomy History of Salpingectomy for ectopic Social History Smoking Status: Never smoker Do You Dip or Chew Tobacco: No Hx Alcohol Use: No Hx Substance Use: No substance use type: does not use Physical Exam Vital Signs Last Vital Signs Temp 36.8 C 09/08/23 07:38 Pulse 86 09/08/23 07:38 Resp 16 09/08/23 07:38 BP 134/82 09/08/23 07:38 Pulse Ox 97 09/08/23 07:38 O2 Del Method Room Air 09/08/23 07:38 Testing Laboratory Results 09/08/23 06:26 09/08/23 06:26 APTT 24 Seconds (21-31) 09/08/23 06:26 09/08/23 05:51 POC Glucose 174 H
--- NOTE | 2023-09-08 11:56 | History & Physical Bridge Note ---
Date of Service September 08, 2023 History & Physical Bridge Note I have examined the patient, reviewed the History & Physical and in the interval since the performance of the History & Physical I have noted the following changes of clinical significance: no changes noted
[2023-09-08] MEDS ORDERED: ATROPINE SULFATE 0.1 MG/ML 10ML SYR IV PRN (12:05)
[2023-09-08] MEDS ORDERED: fentaNYL citrate PF 100 MCG/2 ML VIAL IV PRN (12:05)
[2023-09-08] MEDS ORDERED: ONDANSETRON INJ 2 MG/ML 2 ML VIAL IV PRN (12:05)
[2023-09-08] MEDS ORDERED: ePHEDrine sulfate 50 MG/ML AMP IV PRN (12:05)
[2023-09-08] MEDS ORDERED: ONDANSETRON INJ 2 MG/ML 2 ML VIAL ONE (12:05)
[2023-09-08] MEDS ORDERED: fentaNYL citrate PF 100 MCG/2 ML VIAL ONE (12:06)
[2023-09-08] MEDS: IOPAMIDOL INJ 61% 15 ML VIAL INJ ONE (12:35)
[2023-09-08] MEDS: methylPREDNISolone acetate 80 MG/ML VIAL IA ONE (12:35)
[2023-09-08] MEDS: SODIUM CHLORIDE 0.9% PF INJ 10 ML VIAL IR ONE (12:35)
[2023-09-08] MEDS: LIDOCAINE 1% LOCAL 20 ML VIAL INJ ONE (12:35)
--- NOTE | 2023-09-08 12:45 | Operative Report ---
Post Operative Report Pre & Post Diagnosis Operation Date: 09/08/23 12:20 Pre-Op Diagnosis: Lumbar Spinal stenosis with acute LBP Post-Op Diagnosis: Lumbar Spinal stenosis with acute LBP I identified the patient and participated in the time-out.: Yes Procedure Operation Date: 09/08/23 12:20 Actual Procedures p L3-L4 Innerlaminal Epidural Injection(Not Applicable) - Alina Jimenez DO Surgeon Alina Jimenez DO Skein Yarn Dyer none Estimated Blood Loss 0 Findings Consistent with Post-Op Diagnosis Specimens none Drains none Anesthesia Type MAC Complications none Disposition Accompanied Patient To Recovery: No Disposition: Recovery Room Indications lumbar spinal stenosis with acute low back pain Description of Procedure LUMBAR EPIDURAL STEROID INJECTION INTERLAMINAR Diagnosis: Lumbar Radiculitis, Inter-vertebral disc disease, Lumbar Spinal Stenosis, Acute LBP Procedure performed by: Dr. Alina Jimenez Level injected: L3-4 Anesthesia: local Material forwarded to lab: none Complications: None Medications used: 1% Lidocaine 3ml PF 0.9% NSS 3ml Depomedrol 0.75ml (80mg/ml)=60mg Isovue 300 2ml Prior to starting, the Patients diagnosis, allergies, medication list, and the procedure were reviewed with the patient in detail. Potential risks including infection, bleeding, nerve injury, reaction to any one of the medications used for the procedure, persistent pain at the injection site and persistent symptoms discussed with the patient. Diagnostic and therapeutic nature of the procedure also discussed with the patient. Alternatives to the specific procedure was also discussed with the patient. Patient's questions were answered. Patient gives informed consent to proceed. The patient was brought to the OR and placed in prone position on the table. Immediately prior to starting the procedure, a time out was conducted with the staff and the patient where the Patient was identified, proposed procedure was verified, consent was reviewed and the proper site for the planned procedure was identified. Fluoroscopy was utilized in performing the procedure to assist in placement of the needle, to evaluate the final position on the needle prior to injection and to avoid intravascular injection. Monitors used included intermittent blood pressure with an automated device, continuous pulse oximetry and level of consciousness. Patient was given intravenous sedation per anesthetic records and constant verbal contact was maintained throughout the procedure. The lumbosacral spine area was prepped with duraprep and Betadine solution. After the application three minutes time elapsed prior to the start of the procedure to reduce risk of fire. Sterile drapes were applied. 1% lidocaine, 3ml, was infiltrated in the skin and subcutaneous tissues using a 27 gauge needle. A 20 gauge, 3.5 inch Tuohy needle was then inserted through the anesthetized area and advanced under bi planar fluoroscopy through the ligamentum flavum into the epidural space via midline approach with [id number] technique with saline. Upon entering the epidural space the patient did not experience pain or paresthesia. Bevel of the needle was directed in the cephalad direction. 6 inch micro bore tubing was attached to the needle and aspiration via the needle demonstrated no CSF or blood. In a lateral view, nonionic Isovue contrast was injected via the needle under live fluoroscopy. The contrast was noted to be in the dorsal epidural space. No subarachnoid spread of contrast was noted. Finally, an AP view was then checked and additional contrast was injected under live fluoroscopy. Neither subdural or subarachnoid spread nor intravascular uptake was noted on plain fluoroscopy. No vascular uptake was noted. Next, a solution containing depomedrol and preservation free 0.9% saline (to flush needle) was injected via the epidural needle gradually. Patient did not experience any pain, paresthesia or discomfort throughout the injection period. Needle was withdrawn. Adequate hemostasis was noted. A sterile Band-Aid was applied at the injection site. Patient was then placed in sitting position. Patient was taken to the PACU without any issue. I attest to the content of the Intraoperative Record and any orders documented therein. Any exceptions are noted below.
--- NOTE | 2023-09-08 13:08 | Anesthesiology Progress Note ---
Date of Service September 08, 2023 Anesthesia Post Procedure Vital Signs Vital Signs: Temp Pulse Pulse Resp BP BP Pulse Ox 09/08/23 13:05 37.4 C 89 17 132/67 96 09/08/23 12:55 85 14 126/64 92 09/08/23 12:45 37.4 C 81 19 156/70 H 98 09/08/23 12:01 36.8 C 76 20 99 09/08/23 07:38 36.8 C 86 16 134/82 97 09/07/23 19:19 36.6 C 78 18 121/84 98 09/07/23 17:50 36.2 C L 88 16 113/88 96 O2 Del Method 09/08/23 13:05 Room Air 09/08/23 12:55 Room Air 09/08/23 12:45 Room Air 09/08/23 12:01 Room Air 09/08/23 07:38 Room Air 09/07/23 19:19 Room Air 09/07/23 17:50 Room Air Pain Intensity Left Lower Back: Pain Intensity: 5 Transfer of Care Handoff Completed per policy Notes Mental Status: alert / awake / arousable and participated in evaluation Nausea / Vomiting: adequately controlled Pain: adequately controlled Airway Patency, RR, SpO2: stable & adequate BP & HR: stable & adequate Hydration State: stable & adequate Anesthetic Complications: no major complications apparent and Pt Satisfied with anesthetic care
--- NOTE | 2023-09-08 13:36 | Hospitalist Progress Note ---
Date of Service September 08, 2023 Assessment & Plan (1) Ambulatory dysfunction: Plan: Patient recently at [facility] for rehab and was discharged home 09/01. Upon return home, she was unable to walk up her step into her home and was experiencing b/l LE weakness. She then reported to the ED on 09/01 when she could not get comfortable at home. Her back pain is not worsened. She has no bowel or bladder complaints. -lumbar spine x-ray 09/01: no acute fracture or subluxation -lumbar MRI 09/03: acute fracture within distal sacrum near sacrococcygeal junction, no significant displacement. Levoscoliosis. multilevel degenerative changes most pronounced L2-L3 and L3-L4. small focal disc protrustions at L2-L3 and L3-L4 -Pain management consulted, reviewed recommendations 09/06: -s/p lumbar injection 09/07 -Eliquis can be resumed 24 hours following injection. (evening of 09/08) -Continue Tylenol 1gm PO TID and Lidoderm patches -Continue oxycodone, Flexeril, gabapentin prn -if patient benefits from gabapentin, can consider making this scheduled. B12 level checked last admission, borderline low and not replaced - B12 IM given x 2 - B12 level - Drawn after injection so likely falsely elevated -PT/OT consulted, reviewed recommendations 09/06 -rehab - CM following, referrals made for SNF rehab -Reviewed CBC 09/07: hgb 10.3, WBC 4.27 -Reviewed BMP 09/07: creatinine 1.84, BUN 22. AM CBC, BMP (2) Lumbosacral radiculopathy: Plan: Management as above - pain is left sided Plan Chronic Medical Conditions * Paroxysmal atrial fibrillation - rate controlled. Continue Metoprolol. Eliquis held as above * Hypertension - blood pressure acceptable. Continue Metoprolol, Lisinopril, Hydralazine * Hyperlipidemia - Continue Atorvastatin * Diabetes - chronic -ISS Dispo: continued inpatient stay. Auth submitted for SNF. DVT Proh: SQ heparin with Eliquis on hold Code status: DNR/DNI Admission and Anticipated Discharge Date Admission Date: September 02, 2023 Subjective Patient seen and examined this afternoon following her procedure. She reports a small amount of back pain following procedure but was otherwise doing well. She denied any chest pain or shortness of breath. Physical Exam 2 Constitutional: WD/WN, vitals as above Eyes: PERRL, conjunctivae normal, anicteric sclerae Respiratory: normal respiratory effort, lungs clear to auscultation Cardiovascular: RRR, no murmur, no edema Skin: no rashes, warm and dry Psychiatric: A+Ox3, euthymic affect Results & Data Results & Data Vital Signs (Past 12 Hours) Vital Signs Temp Pulse Pulse Pulse Resp BP Pulse Ox 09/08/23 13:15 37.2 C 88 16 121/79 100 09/08/23 13:05 37.4 C 89 17 132/67 96 09/08/23 12:55 85 14 126/64 92 09/08/23 12:45 37.4 C 81 19 156/70 H 98 09/08/23 12:01 36.8 C 76 20 99 09/08/23 07:38 36.8 C 86 16 134/82 97 O2 Del Method 09/08/23 13:15 Room Air 09/08/23 13:05 Room Air 09/08/23 12:55 Room Air 09/08/23 12:45 Room Air 09/08/23 12:01 Room Air 09/08/23 07:38 Room Air Laboratory Results 09/08/23 06:26 09/08/23 06:26 PG Care Time/CCT Total # of Minutes Spent Total Time Spent with Patient: Total time spent is greater than 50% in coordination of care (as documented) at patient's floor/unit and/or counseling patient: Coding Level of Care Code 48611 SUB INP/OBS CARE 2/35MIN Diagnoses Ambulatory dysfunction R26.2 Lumbosacral radiculopathy M54.17
[2023-09-08] MEDS: POLYETHYLENE (MIRALAX) 17 GM PACK PO PRN (19:50)
[2023-09-09 07:51] LABS: Hematocrit (blood only) 36.3 % (37.0-47.0); Hemoglobin 11.5 g/dl (12.0-16.0); Mean Corpuscular Hemoglobin 28.5 pg (25.0-34.0); Mean Corpuscular Hgb Conc 31.7 g/dL (32.0-36.0); Mean Corpuscular Volume 90.1 fL (80.0-100.0); Platelet Count 172 K/uL (130-400); RDW Coefficient of Variation 15.2 % (11.5-14.5); RDW Standard Deviation 50.7 fL (36.4-46.3); Red Blood Count 4.03 M/uL (4.20-5.40); White Blood Count 6.81 K/ul (4.8-10.8)
[2023-09-09 08:14] LABS: BUN Creatinine Ratio 15.6 (10-20); Calcium 10.1 mg/dl (8.6-10.3); Creatinine Clr Calc Pharmacy 24.4 ml/min; Est GFR (African American) 30.9 ml/min; Est GFR (Non-African American) 26.6 ml/min; Potassium 4.7 mmol/L (3.5-5.1)
--- NOTE | 2023-09-09 09:34 | Pain Management Progress Note ---
Date of Service September 09, 2023 Assessment & Plan (1) Lumbosacral radiculopathy: (2) Weakness: (3) Ambulatory dysfunction: (4) Left sided sciatica: (5) Spinal stenosis of lumbar region: Neurogenic claudication status: unspecified Qualified Code(s): M48.061 - Spinal stenosis, lumbar region without neurogenic claudication Plan 1. Currently pleased with the extent of relief (100%) the patient is experiencing status post L3-4 interlaminar COLE done yesterday. * Expectations for longevity of pain/paresthesia relief were discussed at length and they verbalized understanding. * Should the patient develop symptom recurrence we discussed their potential candidacy for repeat COLE. 2. They understand that this type of injection/procedure (60 mg steroid) can safely be performed up to 4 times a year should they continue to experience adequate and lasting relief with subsequent procedures. 3. Recommend working with PT/OT to get back ambulatory again and condition her spine and lower extremities. 4. She can resume Eliquis 24 hours after the procedure. 5. It seems she is trying to go to [facility] upon discharge so that she can undergo some rehab, and then she can follow-up with the pain clinic in about 3 weeks. Admission and Anticipated Discharge Date Admission Date: September 02, 2023 Subjective Patient is one day s/p L3-4 interlaminar COLE procedure done on 09/08/[address] Jimenez. They are noting 100% relief of pain symptoms that were previously present in her left buttock/hip and left lower extremity. She reports no discomfort or side effects from the procedure itself. She has not had to use the oxycodone pain medication since the procedure was performed. She denies bowel or bladder incontinence and saddle anesthesia. She is pleased with the relief thus far and has no further constitutional complaints. Case discussed with Dr. Jimenez. Physical Exam Physical Exam: GENERAL: WN/WD, AA&Ox3, NAD. HEAD/FACE: Normocephalic and atraumatic. RESPIRATORY: Patient with unlabored breathing. No signs of respiratory distress. BACK: Moves without difficulty. No evidence of erythema, drainage, or abnormal warmth to the injection site. SKIN: [place], warm and dry. No rash noted. MS/EXTREMITY: No swelling, no deformities. Moving extremities appropriately. NEURO: Alert and appears oriented. Speech is fluent. Cranial Nerves are grossly intact. PSYCH: Alert, pleasant, affect is calm.
--- NOTE | 2023-09-09 12:33 | Hospitalist Progress Note ---
Date of Service September 09, 2023 Assessment & Plan (1) Ambulatory dysfunction: Plan: Patient recently at [facility] for rehab and was discharged home 09/01. Upon return home, she was unable to walk up her step into her home and was experiencing b/l LE weakness. She then reported to the ED on 09/01 when she could not get comfortable at home. Her back pain is not worsened. She has no bowel or bladder complaints. -lumbar spine x-ray 09/01: no acute fracture or subluxation -lumbar MRI 09/03: acute fracture within distal sacrum near sacrococcygeal junction, no significant displacement. Levoscoliosis. multilevel degenerative changes most pronounced L2-L3 and L3-L4. small focal disc protrustions at L2-L3 and L3-L4 -Pain management consulted, reviewed recommendations 09/06: -s/p lumbar injection 09/07 -Eliquis resumed 09/08 PM -PT/OT -Follow up pain clinic 3 weeks. -Continue Tylenol 1gm PO TID and Lidoderm patches -Continue oxycodone, Flexeril, gabapentin prn -if patient benefits from gabapentin, can consider making this scheduled. B12 level checked last admission, borderline low and not replaced - B12 IM given x 2 - B12 level - Drawn after injection so likely falsely elevated -PT/OT consulted, reviewed recommendations 09/06 -rehab - CM following, referrals made for SNF rehab -Reviewed CBC 09/08: hgb 11.5, WBC 6.81 -Reviewed BMP 09/08: creatinine 1.73, BUN 27. AM CBC, BMP (2) Lumbosacral radiculopathy: Plan: Management as above - pain is left sided Plan Chronic Medical Conditions * Paroxysmal atrial fibrillation - rate controlled. Continue Metoprolol. Eliquis resumed * Hypertension - blood pressure acceptable. Continue Metoprolol, Lisinopril, Hydralazine * Hyperlipidemia - Continue Atorvastatin * Diabetes - chronic -ISS Dispo: continued inpatient stay. Auth submitted for SNF. One approved, patient is medically stable for discharge. DVT Proh: Eliquis Code status: DNR/DNI Admission and Anticipated Discharge Date Admission Date: September 02, 2023 Subjective Patient seen and examined this morning at bedside. Patient reports to be feeling well today. She denied any back pain. She feels that the injection has helped her. She does admit to sore legs but attributes this to her fall she had a few days ago. Physical Exam 2 Constitutional: WD/WN, vitals as above Eyes: PERRL, conjunctivae normal, anicteric sclerae Respiratory: normal respiratory effort, lungs clear to auscultation Cardiovascular: RRR, no murmur, no edema Skin: no rashes, warm and dry Psychiatric: A+Ox3, euthymic affect Results & Data Results & Data Vital Signs (Past 12 Hours) Vital Signs Temp Pulse Pulse Resp BP Pulse Ox O2 Del Method 09/09/23 08:07 36.8 C 83 16 140/81 99 Room Air 09/09/23 06:23 36.5 C 78 17 138/80 98 Room Air 09/09/23 03:35 36.6 C 89 18 140/80 96 Room Air Laboratory Results 09/09/23 07:12 09/09/23 07:12 PG Care Time/CCT Total # of Minutes Spent Total Time Spent with Patient: Total time spent is greater than 50% in coordination of care (as documented) at patient's floor/unit and/or counseling patient: Coding Level of Care Code 04890 SUB INP/OBS CARE 2/35MIN Diagnoses Ambulatory dysfunction R26.2 Lumbosacral radiculopathy M54.17
[2023-09-10 06:11] LABS: Hematocrit (blood only) 32.9 % (37.0-47.0); Hemoglobin 10.2 g/dl (12.0-16.0); Mean Corpuscular Hemoglobin 28.5 pg (25.0-34.0); Mean Corpuscular Volume 91.9 fL (80.0-100.0); Mean Platelet Volume 10.5 fL (9.4-12.4); Platelet Count 158 K/uL (130-400); RDW Coefficient of Variation 15.3 % (11.5-14.5); RDW Standard Deviation 51.2 fL (36.4-46.3); Red Blood Count 3.58 M/uL (4.20-5.40); White Blood Count 4.64 K/ul (4.8-10.8)
[2023-09-10] MEDS ORDERED: Nursing to Pharmacy Communication SCH (06:15)
[2023-09-10 06:29] LABS: Calcium 9.6 mg/dl (8.6-10.3); Potassium 4.6 mmol/L (3.5-5.1)
[2023-09-10 06:34] LABS: BUN Creatinine Ratio 19.4 (10-20); Creatinine Clr Calc Pharmacy 26.4 ml/min; Est GFR (African American) 33.9 ml/min; Est GFR (Non-African American) 29.3 ml/min
[2023-09-10] MEDS: ACETAMINOPHEN 500 MG TAB PO SCH (09:38)
--- NOTE | 2023-09-10 12:01 | Hospitalist Progress Note ---
Date of Service September 10, 2023 Assessment & Plan (1) Ambulatory dysfunction: Plan: Patient recently at [facility] for rehab and was discharged home 09/01. Upon return home, she was unable to walk up her step into her home and was experiencing b/l LE weakness. She then reported to the ED on 09/01 when she could not get comfortable at home. Her back pain is not worsened. She has no bowel or bladder complaints. -lumbar spine x-ray 09/01: no acute fracture or subluxation -lumbar MRI 09/03: acute fracture within distal sacrum near sacrococcygeal junction, no significant displacement. Levoscoliosis. multilevel degenerative changes most pronounced L2-L3 and L3-L4. small focal disc protrusions at L2-L3 and L3-L4 -Pain management consulted, reviewed recommendations 09/06: -s/p lumbar injection 09/07 -Eliquis resumed 09/08 PM -PT/OT -Follow up pain clinic 3 weeks. -Continue Tylenol 1gm PO TID and Lidoderm patches -Continue oxycodone, Flexeril, gabapentin prn -if patient benefits from gabapentin, can consider making this scheduled. B12 level checked last admission, borderline low and not replaced - B12 IM given x 2 - B12 level - Drawn after injection so likely falsely elevated -PT/OT consulted, reviewed recommendations 09/06 -rehab - CM following, referrals made for SNF rehab -Reviewed CBC 09/09: hgb 10.2, WBC 4.64 -Reviewed BMP 09/09: creatinine 1.60, BUN 31. AM CBC, BMP (2) Lumbosacral radiculopathy: Plan: Management as above - pain is left sided Plan Chronic Medical Conditions * Paroxysmal atrial fibrillation - rate controlled. Continue Metoprolol. Eliquis resumed * Hypertension - blood pressure acceptable. Continue Metoprolol, Lisinopril, Hydralazine * Hyperlipidemia - Continue Atorvastatin * Diabetes - chronic -ISS Dispo: continued inpatient stay. Approved for rehab. Awaiting bed placement. Once bed placement found, patient stable for discharge. DVT Proh: Eliquis Code status: DNR/DNI Admission and Anticipated Discharge Date Admission Date: September 02, 2023 Subjective Patient seen and examined this morning at bedside. Patient reports to be doing well today. She denied any back pain. She is experiencing left foot pain and does have ecchymosis on the left foot from falling. She can still fully weight bear on foot and move her toes. Denies any other areas of bruising since her fall that she has noticed. Physical Exam 2 Constitutional: WD/WN, vitals as above Eyes: PERRL, conjunctivae normal, anicteric sclerae Respiratory: normal respiratory effort, lungs clear to auscultation Cardiovascular: RRR, no murmur, no edema Skin: ecchymosis on lateral aspect of left foot. tender to palpation. not warm. no bleeding visualized. remainder of extremities appear without ecchymosis. Psychiatric: A+Ox3, euthymic affect Results & Data Results & Data Vital Signs (Past 12 Hours) Vital Signs Temp Pulse Resp BP Pulse Ox O2 Del Method 09/10/23 07:16 36.5 C 77 16 142/84 H 96 Room Air Laboratory Results 09/10/23 05:41 09/10/23 05:41 PG Care Time/CCT Total # of Minutes Spent Total Time Spent with Patient: Total time spent is greater than 50% in coordination of care (as documented) at patient's floor/unit and/or counseling patient: Coding Level of Care Code 52593 SUB INP/OBS CARE 2/35MIN Diagnoses Ambulatory dysfunction R26.2 Lumbosacral radiculopathy M54.17
[2023-09-10 19:54] VITALS: RESP 16
[2023-09-11 07:14] VITALS: BP 149/77; TEMP 97.7; O2SAT 98
[2023-09-11 07:58] LABS: Hematocrit (blood only) 33.3 % (37.0-47.0); Hemoglobin 10.6 g/dl (12.0-16.0); Mean Corpuscular Hgb Conc 31.8 g/dL (32.0-36.0); Mean Platelet Volume 10.6 fL (9.4-12.4); Platelet Count 165 K/uL (130-400); RDW Coefficient of Variation 15.4 % (11.5-14.5); RDW Standard Deviation 50.8 fL (36.4-46.3); Red Blood Count 3.66 M/uL (4.20-5.40)
[2023-09-11 08:21] LABS: Calcium 9.5 mg/dl (8.6-10.3); Creatinine Clr Calc Pharmacy 27.6 ml/min; Est GFR (African American) 35.8 ml/min; Est GFR (Non-African American) 30.9 ml/min; Potassium 4.5 mmol/L (3.5-5.1)
--- NOTE | 2023-09-11 13:00 | Discharge Summary ---
Date of Service September 11, 2023 Admission HPI Per Admitting Provider Melany Macias is an 83yo female with history of HTN, HLP, DM, PAF and CKD presenting from home with bilateral LE weakness and ongoing back pain. Patient with chronic back pain secondary to lumbosacral radiculopathy. She has had multiple admissions for back pain. Most recently admitted to [facility] 08/15 - 08/19/23 with worsening back pain and inability to care for herself. She was treated with steroids, IV pain medications, muscle relaxers and lidocaine patch. She was ultimately discharged to [facility] on 08/19/23 where she remained until today 09/02/23. She was discharged home. Patient's daughter states that she was so weak that she was unable to walk up her single step to get into her home. Patient is to have home services start in a couple of days but patient's daughter and patient do not feel safe to be at home due to her profound weakness and gait instabilty. Patient had several falls while at [facility]. She also reports she was sitting in a wheelchair for a prolonged period of time which severely exacerbated her back pain. She does feel that her lower extremities are weaker. Her back pain is near baseline. She denies any bowel or bladder complaints or focal numbness/tingling/weakness or radicular symptoms at present. Patient in atrial fibrillation upon arrival with RVR Administered 5mg IV Metoprolol and her evening dose of PO metoprolol with improvement in HR. HR=93 during my encounter ER Course: Morphine Metoprolol PO Metoprolol IV Principal Diagnosis ambulatory dysfunction Discharge Exam Constitutional WD/WN, vitals as above Eyes PERRL, conjunctivae normal, anicteric sclerae Respiratory normal respiratory effort, lungs clear to auscultation Cardiovascular RRR, no murmur, no edema Skin no rashes, warm and dry Psychiatric A+Ox3, euthymic affect Discharge Data Allergies Allergy/AdvReac Type Severity Reaction Status Date / Time No Known Allergies Allergy Verified 09/02/23 21:26 Consultations 09/02/23 20:45 ED Decision to Admit Stat 09/03/23 09:51 Consult Pain Management Routine Procedures Performed Operation Date: 09/08/23 12:20 Actual Procedures p L3-L4 Innerlaminal Epidural Injection(Not Applicable) - Alina Jimenez DO Ordered Studies 09/11/23 07:19 09/11/23 07:19 Vital Signs Temp 36.5 C 09/11/23 13:02 Pulse 76 09/11/23 13:02 Resp 16 09/11/23 13:02 BP 149/77 H 09/11/23 07:13 Pulse Ox 98 09/11/23 13:02 O2 Del Method Room Air 09/11/23 07:13 Lumbar Spine X-Ray 09/02/23 23:09 IMPRESSION: Degenerative changes as above without acute fracture or subluxation. Electronically signed by: Vj Villatoro M.D. 09/03/2023 7:12 AM Lumbar Spine MRI 09/04/23 14:59 IMPRESSION: 1. An acute fracture within the distal sacrum near the sacrococcygeal junction. No significant displacement. 2. No acute fracture or subluxation within the lumbar spine. 3. Levoscoliosis. 4. Multilevel degenerative changes as described above most pronounced at the L2- L3 and L3-L4 levels. 5. Small focal disc protrusions at L2-L3 and L3-L4 as described above. Electronically signed by: Erik Starks M.D. 09/04/2023 6:58 PM Hospital Course (1) Ambulatory dysfunction: Patient recently at [facility] for rehab and was discharged home 09/01. Upon return home, she was unable to walk up her step into her home and was experiencing b/l LE weakness. She then reported to the ED on 09/01 when she could not get comfortable at home. Her back pain is not worsened. She has no bowel or bladder complaints. She had lumbar spine x-ray that was negative for fracture or subluxation. Her lumbar MRI on 09/03 revealed an acute fracture within the distal sacrum near the sacrococcygeal junction, no significant displacement. Levoscoliosis. Multi-level degenerative changes most pronounced at L2-L3 & L3- L4. small focus disc protrusions at L2-L3 & L3-L4. Pain management was consulted and patient underwent lumbar injection on 09/07. Following injection she was without back pain. She did sustain a fall on 09/06. She did not hit head or lose consciousness. She did have bruising on her left foot but could still weight bear. Patient uses tylenol and oxycodone as needed for pain. CBC/BMP stable day of discharge. (2) Lumbosacral radiculopathy: Management as above - pain is left sided Plan Chronic Medical Conditions * Paroxysmal atrial fibrillation - rate controlled. Continue Metoprolol. Eliquis resumed * Hypertension - blood pressure acceptable. Continue Metoprolol, Lisinopril, Hydralazine * Hyperlipidemia - Continue Atorvastatin * Diabetes - chronic -resume outpatient medications Total Time Total Time Spent Total Time Spent (In Minutes): 40 Total Time Includes: Examination of the Patient, Discharge Planning and Medication Reconciliation Discharge Plan Discharge Items Patient Disposition: Transfer Inpatient Rehab Fac Reason For Visit: WEAKNESS, AMBULATORY DYSFUNCTION Discharge Diagnosis: ambulatory dysfunction Activity: Resume your previous activity Non-emergency contact: Primary Care Provider Call non-emergency contact if: you have any medication questions and your symptoms worsen Follow-up/Referrals: Alina Jimenez DO [Physician] - 10/01/23 10:15 am (f/u appt. w/ Venu Spencer PA-C) Mello Elena DO [Primary Care Provider] - Diet: Carb Consistent or DM2 Addtl Attending Provider Instructions: Ms. Macias, You were recently hospitalized for increasing amount of weakness following your discharge from [facility]. You will be now going to [facility] for continued rehab. Please see recommendations below regarding your discharge. 1. Please continue your previous medications as prescribed. 2. Your follow up in Dr. Jimenez's office is on 09/30. 3. Please use tylenol as needed for pain. Please follow up with your PCP within 1-2 weeks of discharge. If you develop any chest pain, shortness of breath, dizziness, or weakness please report back to the ER. Sincerely, Berna Shin PA-C Pending Studies at Discharge: No Stand-Alone Forms: My [facility] Skilled Items Patient informed of condition?: Yes DNR: Yes Discharge Level of Care: Acute rehab Communicable Disease: No Discharge Prognosis: Improving Lines: None Urinary Catheter: No Medications and DC Order Prescriptions: Continued metformin 500 mg tablet 1,000 mg PO BID Qty: 400 3RF hydralazine 50 mg tablet 50 mg PO BID Qty: 180 3RF cyclobenzaprine 5 mg tablet 5 mg PO BID PRN (Reason: muscle spasm) Qty: 90 0RF atorvastatin 20 mg tablet 20 mg PO HS Qty: 100 3RF magnesium oxide 200 mg magnesium tablet 200 mg PO BID 90 Days Qty: 180 2RF metoprolol tartrate 25 mg tablet 25 mg PO BID Qty: 180 3RF apixaban 2.5 mg tablet 2.5 mg PO BID Qty: 180 3RF glipizide 2.5 mg tablet extended release 24hr 2.5 mg PO DAILY Qty: 90 2RF cholecalciferol (vitamin D3) [Vitamin D3] 25 mcg (1,000 unit) Tablet 25 mcg PO DAILY acetaminophen [Tylenol] 325 mg Tablet 650 mg PO Q6H PRN (Reason: PAIN/FEVER) lidocaine 4 % Adhesive Patch,Medicated 2 patch TOPICAL DAILY Rx Instructions: ON QAM, OFF QPM. lisinopril 20 mg tablet 40 mg PO DAILY oxycodone 5 mg tablet 2.5 mg PO Q6H PRN (Reason: pain) Qty: 10 0RF No Action (DME) Dexcom G7 Sensor Device See Rx Instructions .Route Qty: 1 0RF Rx Instructions: continuous glucose monitoring Discharge Orders: Discharge Order (Routine); Ordered 09/11/23 Ordered By: Berna Shin Admission Data Admit Date/Time: 09/02/23 21:31 Attending Provider: Hemant Hyde Admit Provider: Beatriz Kat Primary Care Provider: Mello Elena Other Providers: Beatriz Kat; Alina Jimenez; Rekha Osorio Other Interventions: Discharge Summary Assessment (RN) Last Done: 09/11/23 13:02 Supervising Physician Co-Signing Physician Notes During face to face encounter, I obtained a brief physical examination, discussed hospital stay with patient and discharge instructions with patient. I discussed discharge plan of care with ERIC Shin. I reviewed above note and agree with it except for the following: Patient was evaluated for ambulatory dysfunction. Patient no longer with back pain after lumbar injection. Patient was discharged to rehab. Coding Level of Care Code 89167 INP/OBS DISCH >30 MIN Diagnoses Ambulatory dysfunction R26.2 Lumbosacral radiculopathy M54.17
[2023-09-11 13:06] VITALS: PULSE 76
== END 2023-09-11 14:11 | DRG 552 ==
LOC: ED 18:37 → 2N 18:37 → SUATTDRO 21:31 → 2N 22:30 → 3E 09-03 01:20

== ENCOUNTER 2024-03-02 02:03 | Observation (INO) ==
[2024-03-02] MEDS: SODIUM CHLORIDE 0.9% 500 ML IV ONE ×2 (02:34→10:50)
[2024-03-02] MEDS: ONDANSETRON INJ 2 MG/ML 2 ML VIAL IV STA ×2 (02:34→11:33)
[2024-03-02 02:42] LABS: Basophils # (auto) 0.02 K/uL (0.00-0.20); Basophils % (auto) 0.3 %; Eosinophils # (auto) 0.13 K/uL (0.00-0.50); Hematocrit (blood only) 41.5 % (37.0-47.0); Hemoglobin 13.4 g/dl (12.0-16.0); Immature Granulocytes # (auto) 0.01 K/uL (0.01-0.20); Immature Granulocytes % (auto) 0.2 %; Lymphocytes # (auto) 0.79 K/uL (1.20-3.40); Mean Corpuscular Hgb Conc 32.3 g/dL (32.0-36.0); Mean Corpuscular Volume 86.6 fL (80.0-100.0); Mean Platelet Volume 10.3 fL (9.4-12.4); Monocytes # (auto) 0.36 K/uL (0.11-0.59); Monocytes % (auto) 5.5 %; Neutrophils # (auto) 5.25 K/uL (1.40-6.50); Platelet Count 154 K/uL (130-400); Red Blood Count 4.79 M/uL (4.20-5.40); White Blood Count 6.56 K/ul (4.8-10.8)
--- NOTE | 2024-03-02 02:44 | Emergency Department Note ---
Impression & Plan Diarrhea, Nausea ED Provider Note CHIEF COMPLAINT: Nausea, diarrhea x 4 days HISTORY OF PRESENT ILLNESS: This 84-year-old female patient presents to the emergency department via ambulance for evaluation of nausea and diarrhea for about 4 days. Patient states that her symptoms seem to worsen over the past 1 to 2 days. She states she is able to tolerate some p.o. foods and fluids, but is having persistent diarrhea anytime she eats. She states that the diarrhea is liquidy. She denies any blood in the stool. Pt. denies vomiting or vomiting blood. No fever. She lives at [facility] and states the "stomach flu" has been going around the residents there. Pt. states she feels fatigued. No falls or trauma. No abdominal pain, but has had some cramping. No dysuria, urinary frequency or hesitancy. Pt. has taken no medications for her symptoms. History provided by: patient REVIEW OF SYSTEMS: A 10 system review of systems was performed with positives and pertinent negatives listed in the history of present illness. All other systems were reviewed and are negative. ALLERGIES: NKDA PHYSICAL EXAM: VITALS: Vitals are noted on the nurse's note and reviewed by myself. GENERAL: This is an 84 year old female, in no acute distress, nondiaphoretic, well-developed well-nourished. SKIN: The skin was without rashes, erythema, edema, or bruising. There is no tenting of the skin. Capillary refill less than 2 seconds. HEAD: Normocephalic atraumatic. EYES: Conjunctivae without injection, sclerae without icterus. MOUTH: Mucous membranes moist. Tonsils are not enlarged. Pharynx without erythema or exudate. Uvula midline. Airway patent. Tongue does not deviate. NECK: Supple without nuchal rigidity. No lymphadenopathy. Cervical spine is nontender. No JVD. HEART: Regular rate and rhythm without murmurs gallops or rubs. LUNGS: Clear to auscultation bilaterally without wheezes, rales or rhonchi. No retractions or accessory muscle use. ABDOMEN: Positive bowel sounds x 4. Soft, nontender, without masses or organomegaly. No guarding or rebound tenderness. No CVA tenderness bilaterally. MUSCULOSKELETAL: No muscle atrophy, erythema, or edema noted. Full range of motion without joint tenderness in all extremities. No tenderness to palpation. Normal gait. Strength 5/5 throughout. NEURO: Patient was alert and oriented to person place and time. No focal neurological deficits. An order was placed for continuous manager cardiac. The monitor showed an irregularly irregular rhythm at a ventricular rate of 90 bpm, per my interpretation. EKG was reviewed by myself and found to be atrial fibrillation at a rate of 80 beats per minute and per my interpretation reveals no ST elevation or depression. No T wave inversion. No significant change when compared to EKG completed on 02/24/2024. EMERGENCY DEPARTMENT COURSE: The patient was seen and evaluated as above. The patient presents to the emergency department for nausea and diarrhea. Symptoms been ongoing for about 4 days. The patient feels that she has not been able to keep down any food or fluids because it "runs right through me". The patient denies any vomiting. IV access was obtained, labs are drawn. Patient was hydrated with IV fluids. She was medicated with Zofran. Labs reviewed. Per my interpretation, no leukocytosis or anemia. No thrombocytopenia. Renal, hepatic function and electrolytes without significant abnormality. Creatinine is mildly elevated at 1.33. This is consistent with the patient's baseline. Troponin 12.2. Lipase 27. Pt. reassessed. She is able to tolerate PO fluids without difficulty. She has been unable to provide a stool sample. No further diarrhea episodes. Patient states she does not feel that she needs to go to the bathroom and is refusing to get out of bed. I was advised by nursing staff that while the patient was sleeping, she did desat and was placed on Oxygen. Of note, the patient does have a history of DESTINEY and does not currently use a CPAP. O2 saturation immediately came back up when the patient was woken up and sat more upright. Purewick was applied by nursing staff at the patient's request. The patient was able to provide a urine sample. Case was discussed with the attending physician. She did evaluate the patient at bedside. Pt. signed out to Abdi Cochran PA-C pending urinalysis. Plan to d/c patient back to [facility] given improvement in diarrhea and ability to tolerate PO intake. Please see his dictation regarding final disposition and plan after UA reviewed. I attest that I have personally reviewed the patient medication list. I attest that I have reviewed the patient's blood pressure and it was found to be elevated. GCS: 15 In the evaluation and treatment of this patient the following differential diagnoses were entertained: Gastroenteritis, food borne illness, infections, appendicitis, diverticulitis, inflammatory bowel disease, obstruction, GI bleed, biliary pathology, volvulus, as well as other pathologies. The chart was completed utilizing [employer] Speech voice recognition software. Grammatical errors, random word insertions, pronoun errors, and incomplete sentences are an occasional consequence of this system due to software limitations, ambient noise, and hardware issues. Any formal questions or concerns about the content, text, or information contained within the body of this dictation should be directly addressed to the provider for clarification. Past Med/Surg History Problem List (Updated 03/02/24 @ 09:56 by Rosina Grove PA-C) Type 2 diabetes mellitus Nausea (Acute) Diarrhea (Acute) Abdominal pain, acute (Acute) Bilateral lower extremity edema (Acute) Chronic anticoagulation Spinal stenosis of lumbar region Back pain (Acute) Acute on chronic renal insufficiency (Acute) Lumbosacral radiculopathy (Acute) Weakness (Acute) Ambulatory dysfunction Hallucinations Diabetes mellitus with hypoglycemia Macular degeneration, wet Left sided sciatica Pulmonary hypertension Mitral regurgitation Fall Hypomagnesemia (Acute) Vitamin D deficiency Multiple pulmonary nodules determined by computed tomography of lung Premature supraventricular beats Abnormal ECG Paroxysmal atrial fibrillation On ECG 02/11/20 when admitted with Covid-19. Spontaneous conversion to NSR. 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 Hyperlipidemia (Chronic) Hypertension (Chronic) Medical History Atrial fibrillation with RVR Acute kidney injury superimposed on CKD Ambulatory dysfunction UTI (urinary tract infection) Headache Lipoma of back s/p removal Syncope and collapse COVID-19 (02/11/20) required hospitalization [facility] x 3 weeks History of basal cell carcinoma (11/2018) Morbid obesity Nontoxic multinodular goiter Osteopenia Hypertension Hyperlipidemia Surgical History Hx laparoscopic cholecystectomy History of salpingectomy Family History Father Coronary heart disease Myocardial infarction Mother Tobacco use Lung cancer Daughter Melanoma Grandmother (Paternal) Stroke Denies family history of Ovarian cancer Prostate cancer Breast cancer FH: brain aneurysm Colorectal cancer Social History Smoking Status: Never smoker Tobacco Type: Cigarettes Second Hand Exposure: No; Do You Dip or Chew Tobacco: No; Hx Alcohol Use: No Hx Substance Use: No Preferred Language: Setswana Communication Ability: Effective Visual Impairment: No Limitations Hearing Ability: Normal Pump Tender Required: No Beliefs That Will Affect Care: None marital status: Current Living Situation: Family Current Living Situation Comment: LIVES WITH DAUGHTER JOSE current occupational status: retired current occupation: [employer] How many Children do You have: 3 Feels Safe at Home: Yes Diet: regular caffeine: Yes Dental Care, Regularly: Yes Physical Activity Frequency: Does not Exercise Seatbelt Use: always Assistive Devices: Walker Allergies Allergies Allergy/AdvReac Type Severity Reaction Status Date / Time No Known Allergies Allergy Verified 03/02/24 09:23 Home Meds Home Medications Medication Instructions Recorded Confirmed lidocaine 4 % topical patch 1 patch topical DAILY 09/02/23 03/02/24 Preservision Ocuvite Areds 1 tab PO BID 10/08/23 03/02/24 acetaminophen 500 mg tablet 500 mg PO Q6H PRN Pain 10/08/23 03/02/24 carboxymethylcellulose 0.5 1 drp ophthalmic (eye) UD PRN 10/08/23 03/02/24 %-glycerin 0.9 % eye drops iritation after injections (Refresh Optive) docusate sodium 100 mg capsule 100 mg PO QAM PRN Constipation 10/08/23 03/02/24 metoprolol tartrate 25 mg tablet 25 mg PO DAILY 03/02/24 03/02/24 Previous Rx's Medication Instructions Recorded magnesium oxide 200 mg PO BID 90 days #180 tabs 10/12/23 apixaban 2.5 mg tablet 2.5 mg PO BID #180 tabs 11/18/23 atorvastatin 20 mg tablet 20 mg PO HS #100 tabs 11/18/23 cholecalciferol (vitamin D3) 25 25 mcg PO DAILY #90 tabs 11/18/23 mcg (1,000 unit) tablet (Vitamin D3) glipizide 2.5 mg tablet, extended 2.5 mg PO DAILY #90 tabs 11/18/23 release 24 hr lisinopril 20 mg tablet 20 mg PO DAILY #90 tabs 11/18/23 hydralazine 50 mg tablet 50 mg PO BID 90 days #180 tabs 11/19/23 Results & Data (ED) Vital Signs Vital Signs - 24 hr 03/02/24 02:13 03/02/24 02:21 03/02/24 02:36 Temperature 36.8 C Temperature Source Oral Pulse Rate 92 H 76 86 Pulse Rate from SpO2 Sensor Respiratory Rate 24 22 Respiratory Effort / Characteristics Non-Labored Respiratory Depth Normal Respiratory Pattern Regular Blood Pressure 159/79 H 151/96 H Blood Pressure Mean 105 123 Pulse Oximetry 98 100 Oxygen Delivery Method Room Air Room Air Oxygen Flow Rate Sepsis Recent Fever Within 48 Hours No Sepsis New/Unexplained Change in Mental Status No Sepsis Action Taken by Nursing No Action Required 03/02/24 03:29 03/02/24 03:58 03/02/24 05:01 Temperature Temperature Source Pulse Rate 82 74 76 Pulse Rate from SpO2 Sensor Respiratory Rate 19 20 22 Respiratory Effort / Characteristics Respiratory Depth Respiratory Pattern Blood Pressure 161/79 H 155/75 H Blood Pressure Mean 123 99 Pulse Oximetry 97 77 L 99 Oxygen Delivery Method Room Air Nasal Cannula Nasal Cannula Oxygen Flow Rate 2 2 Sepsis Recent Fever Within 48 Hours Sepsis New/Unexplained Change in Mental Status Sepsis Action Taken by Nursing 03/02/24 06:00 03/02/24 06:05 03/02/24 07:00 Temperature Temperature Source Pulse Rate 90 84 84 Pulse Rate from SpO2 Sensor Respiratory Rate 22 18 Respiratory Effort / Characteristics Respiratory Depth Respiratory Pattern Blood Pressure 152/68 H 146/82 H Blood Pressure Mean 116 113 Pulse Oximetry 96 94 Oxygen Delivery Method Room Air Room Air Oxygen Flow Rate Sepsis Recent Fever Within 48 Hours Sepsis New/Unexplained Change in Mental Status Sepsis Action Taken by Nursing 03/02/24 07:21 03/02/24 07:30 03/02/24 07:45 Temperature Temperature Source Pulse Rate 81 80 Pulse Rate from SpO2 Sensor 88 Respiratory Rate Respiratory Effort / Characteristics Respiratory Depth Respiratory Pattern Blood Pressure 138/71 Blood Pressure Mean 75 Pulse Oximetry Oxygen Delivery Method Oxygen Flow Rate Sepsis Recent Fever Within 48 Hours Sepsis New/Unexplained Change in Mental Status Sepsis Action Taken by Nursing 03/02/24 08:00 03/02/24 08:00 03/02/24 08:12 Temperature Temperature Source Pulse Rate 86 93 H Pulse Rate from SpO2 Sensor Respiratory Rate 23 24 Respiratory Effort / Characteristics Respiratory Depth Respiratory Pattern Blood Pressure 137/53 L Blood Pressure Mean 94 Pulse Oximetry Oxygen Delivery Method Oxygen Flow Rate Sepsis Recent Fever Within 48 Hours Sepsis New/Unexplained Change in Mental Status Sepsis Action Taken by Nursing 03/02/24 08:27 03/02/24 08:30 03/02/24 08:30 Temperature Temperature Source Pulse Rate 80 Pulse Rate from SpO2 Sensor Respiratory Rate 16 Respiratory Effort / Characteristics Respiratory Depth Respiratory Pattern Blood Pressure 146/78 H 146/78 H Blood Pressure Mean 91 91 Pulse Oximetry Oxygen Delivery Method Oxygen Flow Rate Sepsis Recent Fever Within 48 Hours Sepsis New/Unexplained Change in Mental Status Sepsis Action Taken by Nursing 03/02/24 08:30 03/02/24 08:51 03/02/24 09:00 Temperature Temperature Source Pulse Rate 87 87 Pulse Rate from SpO2 Sensor Respiratory Rate 13 Respiratory Effort / Characteristics Respiratory Depth Respiratory Pattern Blood Pressure 150/62 H Blood Pressure Mean 96 Pulse Oximetry Oxygen Delivery Method Oxygen Flow Rate Sepsis Recent Fever Within 48 Hours Sepsis New/Unexplained Change in Mental Status Sepsis Action Taken by Nursing 03/02/24 09:00 03/02/24 09:00 03/02/24 09:00 Temperature Temperature Source Pulse Rate Pulse Rate from SpO2 Sensor Respiratory Rate Respiratory Effort / Characteristics Respiratory Depth Respiratory Pattern Blood Pressure 150/62 H 150/62 H 150/62 H Blood Pressure Mean 96 96 96 Pulse Oximetry Oxygen Delivery Method Oxygen Flow Rate Sepsis Recent Fever Within 48 Hours Sepsis New/Unexplained Change in Mental Status Sepsis Action Taken by Nursing 03/02/24 09:00 03/02/24 09:24 03/02/24 09:30 Temperature Temperature Source Pulse Rate 84 91 H Pulse Rate from SpO2 Sensor 80 92 H Respiratory Rate 16 Respiratory Effort / Characteristics Respiratory Depth Respiratory Pattern Blood Pressure 134/67 Blood Pressure Mean 78 Pulse Oximetry 94 93 Oxygen Delivery Method Oxygen Flow Rate Sepsis Recent Fever Within 48 Hours Sepsis New/Unexplained Change in Mental Status Sepsis Action Taken by Nursing 03/02/24 09:30 03/02/24 09:33 03/02/24 09:57 Temperature Temperature Source Pulse Rate 87 108 H Pulse Rate from SpO2 Sensor 85 Respiratory Rate 22 19 Respiratory Effort / Characteristics Respiratory Depth Respiratory Pattern Blood Pressure 134/67 Blood Pressure Mean 78 Pulse Oximetry 90 Oxygen Delivery Method Oxygen Flow Rate Sepsis Recent Fever Within 48 Hours Sepsis New/Unexplained Change in Mental Status Sepsis Action Taken by Nursing 03/02/24 10:09 03/02/24 10:11 03/02/24 10:20 Temperature Temperature Source Pulse Rate 80 86 Pulse Rate from SpO2 Sensor Respiratory Rate Respiratory Effort / Characteristics Respiratory Depth Respiratory Pattern Blood Pressure Blood Pressure Mean Pulse Oximetry 93 Oxygen Delivery Method Room Air Oxygen Flow Rate Sepsis Recent Fever Within 48 Hours Sepsis New/Unexplained Change in Mental Status Sepsis Action Taken by Nursing Laboratory Data 03/02/24 02:20 03/02/24 02:20 Lab Results 03/02/24 03/02/24 03/02/24 Range/Units 02:20 06:35 10:13 WBC 6.56 (4.8-10.8) K/ul RBC 4.79 (4.20-5.40) M/uL Hgb 13.4 (12.0-16.0) g/dl Hct 41.5 (37.0-47.0) % MCV 86.6 (80.0-100.0) fL MCH 28.0 (25.0-34.0) pg MCHC 32.3 (32.0-36.0) g/dL RDW Std Deviation 45.0 (36.4-46.3) fL RDW Coeff of Charlene 14.0 (11.5-14.5) % Plt Count 154 (130-400) K/uL MPV 10.3 (9.4-12.4) fL Immature Gran % (Auto) 0.2 % Neut % (Auto) 80.0 % Lymph % (Auto) 12.0 % [place] % (Auto) 5.5 % Eos % (Auto) 2.0 % Baso % (Auto) 0.3 % Neut # (Auto) 5.25 (1.40-6.50) K/uL Lymph # (Auto) 0.79 L (1.20-3.40) K/uL [place] # (Auto) 0.36 (0.11-0.59) K/uL Eos # (Auto) 0.13 (0.00-0.50) K/uL Baso # (Auto) 0.02 (0.00-0.20) K/uL Immature Gran # (Auto) 0.01 (0.01-0.20) K/uL Sodium 140 (136-145) mmol/L Potassium 4.0 (3.5-5.1) mmol/L Chloride 106 (98-107) mmol/L Carbon Dioxide 24 (21-32) mmol/L Anion Gap 10 (3-11) BUN 22 (6-23) mg/dl Creatinine 1.33 H (0.6-1.2) mg/dl Est Cr Clr Drug Dosing 31.9 ml/min eGFR 39.21 BUN/Creatinine Ratio 16.5 (10-20) Glucose 172 H (70-99(Fasting)) mg/dl Calcium 10.7 H (8.6-10.3) mg/dl Total Bilirubin 0.8 (0.2-1.0) mg/dl AST 40 H (13-39) U/L ALT 40 (7-52) U/L Alkaline Phosphatase 105 H (34-104) U/L Troponin I High Sens 12.2 (0-14) pg/ml Total Protein 7.5 (6.0-8.3) gm/dl Albumin 4.4 (3.4-5.0) gm/dl Globulin 3.1 (2.5-4.0) gm/dl Albumin/Globulin Ratio 1.4 (0.9-2) Lipase 27 (11-82) U/L Urine Color Yellow Urine Appearance Clear (Clear) Urine pH 5.5 (4.5-7.5) Ur Specific [place] 1.025 (1.000-1.030) Urine Protein Negative (Negative) Urine Glucose (UA) Negative (Negative) Urine Ketones Trace H (Negative) Urine Blood Negative (Negative) Urine Nitrite Negative (Negative) Urine Bilirubin Negative (Negative) Urine Urobilinogen Negative (Negative) Ur Leukocyte Esterase 1+ H (Negative) Urine RBC 0-2 (0-2) /hpf Urine WBC 6-10 H (0-5) /hpf Ur Epithelial Cells 3-5 H (0-2) /hpf Urine Bacteria 1+ H (None Seen) Adenovirus (PCR) Not Detected (NotDetected) B. pertussis DNA (PCR) Not Detected (NotDetected) B.parapertussis DNA PCR Not Detected (NotDetected) C. pneumoniae DNA (PCR) Not Detected (NotDetected) Coronavirus OC43 (PCR) Not Detected (NotDetected) Coronavirus HKU1 (PCR) Not Detected (NotDetected) Coronavirus 229E (PCR) Not Detected (NotDetected) SARS-CoV-2 (PCR) Not Detected (NotDetected) Coronavirus NL63 (PCR) Not Detected (NotDetected) Human Metapneumovir PCR Not Detected (NotDetected) Influenza Type A (PCR) Not Detected (NotDetected) Influenza Type B (PCR) Not Detected (NotDetected) M. pneumoniae (PCR) Not Detected (NotDetected) Parainfluenza 1 (PCR) Not Detected (NotDetected) Parainfluenza 2 (PCR) Not Detected (NotDetected) Parainfluenza 3 (PCR) Not Detected (NotDetected) Parainfluenza 4 (PCR) Not Detected (NotDetected) RSV (PCR) Not Detected (NotDetected) Entero/Rhino (PCR) Not Detected (NotDetected) Administered Medications Hydralazine HCl (Hydralazine Tab 50 Mg Tab) 50 mg PO BID SINCERE Stop: 04/01/24 11:59 Last Admin: 03/02/24 14:25 Dose: 50 mg Documented By: RAMYA Insulin Aspart (Insulin Aspart Per Unit Charge) 0 units SC ACHS SINCERE Stop: 04/01/24 11:54 Last Admin: 03/02/24 18:20 Dose: Not Given Documented By: Admin: 03/02/24 14:22 Dose: Not Given Documented By: RAMYA Co-signed By: Lisinopril (Lisinopril 20 Mg Tab) 20 mg PO DAILY SINCERE Stop: 04/01/24 11:59 Last Admin: 03/02/24 14:25 Dose: 20 mg Documented By: RAMYA Metoprolol Tartrate (Metoprolol Tartrate 25 Mg Tab) 25 mg PO DAILY SINCERE Stop: 04/01/24 11:59 Last Admin: 03/02/24 14:25 Dose: 25 mg Documented By: RAMYA Discontinued Medications Acetaminophen (Acetaminophen 325 Mg Tab) 650 mg PO NOW STA Stop: 03/02/24 10:20 Last Admin: 03/02/24 10:32 Dose: 650 mg Documented By: RAMYA Apixaban (Apixaban 2.5 Mg Tab) 2.5 mg PO ONE STA Stop: 03/02/24 10:58 Last Admin: 03/02/24 11:33 Dose: 2.5 mg Documented By: RAMYA Sodium Chloride (Nss) 500 mls @ 999 mls/hr IV .Q31M ONE Stop: 03/02/24 02:51 Last Infusion: 03/02/24 03:15 Dose: Infused Documented By: Admin: 03/02/24 02:34 Dose: 999 mls/hr Documented By: ELLA Sodium Chloride (Nss) 500 mls @ 999 mls/hr IV .Q31M ONE Stop: 03/02/24 11:06 Last Infusion: 03/02/24 11:21 Dose: Infused Documented By: Admin: 03/02/24 10:50 Dose: 999 mls/hr Documented By: RAMYA Magnesium Oxide (Magnesium Oxide 400 Mg Tab) 200 mg PO BID SINCERE Stop: 04/01/24 20:59 Last Admin: 03/02/24 21:30 Dose: Not Given Documented By: ISA Ondansetron HCl (Ondansetron Inj 2 Mg/Ml 2 Ml Vial) 4 mg IV NOW STA Stop: 03/02/24 02:22 Last Admin: 03/02/24 02:34 Dose: 4 mg Documented By: ELLA Ondansetron HCl (Ondansetron Inj 2 Mg/Ml 2 Ml Vial) 4 mg IV NOW STA Stop: 03/02/24 11:19 Last Admin: 03/02/24 11:33 Dose: 4 mg Documented By: ARMYA Imaging Data Radiologist's Impression: Chest X-Ray 03/02/24 09:46 XR chest 1V portable CLINICAL HISTORY: diarrhea, weakness, abd cramping, hypoxia COMPARISON STUDY: Chest CT June 19, 2023. Chest radiograph February 24, 2024. FINDINGS: A peripherally calcified right lobe thyroid nodule is incidentally noted. Cardiomegaly is unchanged. Mediastinal contours are stable. There is no pneumothorax or pleural effusion. Opacity along the left heart border is due to epicardial fat pad. Opacity projecting over the lower chest is likely related to overlying soft tissues. There is no evidence for pulmonary edema. IMPRESSION: No acute cardiopulmonary findings. No change in appearance of the chest. ACT 112: Negative or not required by law. Electronically signed by: Parker Sinclair M.D. 03/02/2024 10:05 AM Discharge Plan Visit Data Chief Complaint: GI Assessment Stated Complaint: DIARRHEA, NAUSEA, VOMITING SINCE THURSDAY ED Provider: [facility] ED Midlevel Provider: Abdi Cochran Discharge Problem: Diarrhea, Nausea Patient Disposition: Admitted As Inpatient Condition: Good Discharge Instructions Interventions: ED Discharge Assessment Last Done: 03/02/24 11:56
[2024-03-02 02:58] LABS: Albumin Globulin Ratio 1.4 (0.9-2); Albumin Level 4.4 gm/dl (3.4-5.0); BUN Creatinine Ratio 16.5 (10-20); Bilirubin,Total 0.8 mg/dl (0.2-1.0); Calcium 10.7 mg/dl (8.6-10.3); Creatinine Clr Calc Pharmacy 31.9 ml/min; Globulin 3.1 gm/dl (2.5-4.0); Total Protein 7.5 gm/dl (6.0-8.3)
[2024-03-02 05:59] LABS: Troponin I High Sensitivity 12.2 pg/ml (0-14)
--- NOTE | 2024-03-02 06:56 | Emergency Department Note ---
ED Visit Note I was consulted by the Advanced Practice Provider. I personally made/approved the management plan and take responsibility for the patient management. I performed a substantive portion of the visit. This includes the aspects of: Personally seeing the patient -MDM .
[2024-03-02 07:35] LABS: Appearance Urine Clear (Clear); Bilirubin Urine Negative (Negative); Blood Urine Negative (Negative); Color Urine Yellow; Glucose Urine UA Negative (Negative); Ketones Urine Trace (Negative); Leukocyte Esterase Urine 1+ (Negative); Nitrite Urine Negative (Negative); Protein Urine Negative (Negative); Specific Gravity Urine 1.025 (1.000-1.030); Urobilinogen Urine Negative (Negative); pH Urine 5.5 (4.5-7.5)
[2024-03-02 07:47] LABS: RBC Urine 0-2 /hpf (0-2)
[2024-03-02 07:48] LABS: Bacteria Urine 1+ (None Seen)
--- NOTE | 2024-03-02 08:07 | Emergency Department Note ---
ED Visit Note Patient case signed out to me at 0700 hrs. on 03/02/2024 for this was pending urinalysis. Patient seen for nausea and diarrhea x 4 days. Patient notes several other residents at her facility have same symptoms. On my assessment the patient is well-appearing and nontoxic. She has a benign abdominal exam. She has been able to tolerate the oral fluids here without issue. No further diarrhea since she has been here. I reviewed her laboratory studies. Urinalysis did result which was pending at time of signout and the urinalysis does show 1+ leukocytes, 6-10 white blood cells, 3-5 epithelial cells and 1+ bacteria. Nitrite negative. No fevers. Patient has had UTIs before, and she denies any similar symptoms today. We will allow this to go to culture. At this time the patient is felt safe and stable for discharge to follow-up in the outpatient setting. Patient happy with this plan and also feels safe for discharge. I did offer to discuss today's findings and plan of care with family and she respectfully declined. Patient prefers I do not reach out to family and would like to go back via wheelchair van to her residence. I discussed this with our case management service to coordinate transportation back to her residence. Upon repeat assessment patient was eating some food here without issue. No further diarrhea. Patient feeling well at this time. Patient then noted that she would appreciated if I was able to reach out to her daughter to see if she had any questions. I then attempted to call her daughter Jocelyne at 858 am. She did not answer but call back just a few minutes later. I spoke with her on speaker phone at the bedside with the patient. Patient does now prefer inpatient management and does not feel comfortable returning home today. She notes overall feeling weak from the recent illness. At 9:40 AM I spoke with the hospitalist. Patient was on pulse ox monitoring at that time and was noted to be 87% with good waveform, I suspect the patient was sleeping at that time. I will note that in the EMR there is a diagnosis of DESTINEY noted. Will add chest x- ray to be thorough. Per my interpretation this was negative for acute process. Please refer to further documentation regarding her stay .
--- NOTE | 2024-03-02 09:45 | History & Physical Report ---
<Statement entered by Maribell Andrade MD - 03/02/24 11:17> I have reviewed vital signs, chart notes, labs and imaging. I have personally seen, evaluated and examined the patient. I have also discussed the management of the patient with the SHANTANU and I agree with the exam findings documented in the history and physical examination and the documented assessment and plan unless otherwise stated below. 84-year-old woman with history of atrial fibrillation admitted with acute gastroenteritis likely viral which is going around at [facility] where she lives, currently feels too weak to return home most likely discharge tomorrow after some IV fluids. she was also found to be hypoxic while sleeping only consistent with obstructive sleep apnea. Obtaining nocturnal oximetry study may need to discharge on nocturnal oxygen and referral to sleep medicine. Date of Service March 02, 2024 Assessment & Plan (1) Ambulatory dysfunction: Plan: Uses walker at baseline; resides at [facility] independent [facility] feels weak with acute illness biofire negative UA negative/ contaminated, asymptomatic - follow urine cultures recent TSH 02/24/24 WNL PT/OT consulted fall and aspiration precautions anticipate to improve with hydration with acute illness (2) Diarrhea: Plan: patient with Nausea and Diarrhea x 4 days ED: Zofran and 500 mL NSS electrolytes WNL additional 500 mL NSS on admission and promote oral hydration clears - advance diet as tolerated stool cultures ordered biofire ordered Zofran and Tylenol prn (3) DESTINEY (obstructive sleep apnea): Plan: Patient found to be hypoxic numerous times in ED, 84% on RA while sleeping hypoxia resolves when patient is awoken and repositioned biofire ordered CXR ordered - negative continuous pulse ox overnight pulse oximetry ordered (4) Type 2 diabetes mellitus: Plan: Controlled on glipizide at home Most recent A1C 7.1 hold glipizide SSI with target BSG range 110-140mg/dL, CF 40, carb ratio 15 Plan Patient is an 84-year-old female who presents from [facility] at [facility] with nausea and diarrhea x 4 days. She has been admitted for weakness and ambulatory dysfunction, will provide supportive care for symptoms and PT/OT to [facility]. Patient would not like to go to inpatient rehab facility but would consider PT/OT at [facility]. thyroid nodule - seen on CXR (Peripherally opacified right lobe thyroid nodule), follow up with PCP LE edema - chronic venous stasis, previously on chlorthalidone bc dc due to dehydration/presyncope - renal function stable, no signs of pulm vasc congestion, teds ordered + promote leg elevation Chronic stable diagnoses: a fib - continue Eliquis and metoprolol, in a fib on admission EKG HTN - continue lisinopril and hydralazine HLD - continue statin CKD stage 3 - Cr 1.33, baseline renal function VTE ppx: Eliquis Diet: t2dm Dispo: med surg with continuous pulse oximetry Admission and Anticipated Discharge Date Admission Date: 03/02/24 History of Present Illness Chief Complaint: weakness Primary Care Provider: Mello Elena DO Patient is an 84-year-old female with past medical history of A-fib on Eliquis, hypertension, hyperlipidemia, type II DM. She presents today for nausea and diarrhea x 4 days. When she was evaluated by the ER she was able to tolerate p.o. fluids and solids and decided that she would like to go back to [facility]. After transport was set up for discharge, patient talked with her daughter, Jose. Patient then changed her mind and said she felt too weak to go back to independent living at [facility]. Upon examination patient stated that she has had nausea and diarrhea for the past 4 days. She stated that lots of other people at [facility] also have diarrhea. She stated that she has had episodes of diarrhea every 10 minutes for the past few day. She also noted dry cough for the past 4 days. She feels like her abdomen is sore with the diarrhea and it is intermittent. She has felt weak since the symptoms began and she uses a walker at baseline. She has independent living at [facility]. She is concerned about getting around with the weakness and being independent. She also noted that she has had bilateral lower extremity edema since last week, she was seen in the ER for this and discharged home with JOSE EDUARDO stockings. She stated that edema has been improving. Patient denies fever, chills, headache, dizziness, lightheadedness, rhinorrhea, sore throat, sputum production, dyspnea, dyspnea on exertion, chest pain, vomiting, dysuria, hematuria, numbness, tingling, blood in stool. She does not use oxygen at baseline, has never been diagnosed with DESTINEY. She did not take her home medications this morning. She is DNR/DNI status. Allergies Allergy/AdvReac Type Severity Reaction Status Date / Time No Known Allergies Allergy Verified 03/02/24 09:23 Home Medications Medication Instructions Recorded Confirmed Type lidocaine 4 % topical patch 1 patch topical DAILY 09/02/23 03/02/24 History Preservision Ocuvite Areds 1 tab PO BID 10/08/23 03/02/24 History acetaminophen 500 mg tablet 500 mg PO Q6H PRN Pain 10/08/23 03/02/24 History carboxymethylcellulose 0.5 1 drp ophthalmic (eye) UD PRN 10/08/23 03/02/24 History %-glycerin 0.9 % eye drops iritation after injections (Refresh Optive) docusate sodium 100 mg capsule 100 mg PO QAM PRN Constipation 10/08/23 03/02/24 History magnesium oxide 200 mg PO BID 90 days #180 tabs 10/12/23 03/02/24 Rx apixaban 2.5 mg tablet 2.5 mg PO BID #180 tabs 11/18/23 03/02/24 Rx atorvastatin 20 mg tablet 20 mg PO HS #100 tabs 11/18/23 03/02/24 Rx cholecalciferol (vitamin D3) 25 25 mcg PO DAILY #90 tabs 11/18/23 03/02/24 Rx mcg (1,000 unit) tablet (Vitamin D3) glipizide 2.5 mg tablet, extended 2.5 mg PO DAILY #90 tabs 11/18/23 03/02/24 Rx release 24 hr lisinopril 20 mg tablet 20 mg PO DAILY #90 tabs 11/18/23 03/02/24 Rx hydralazine 50 mg tablet 50 mg PO BID 90 days #180 tabs 11/19/23 03/02/24 Rx metoprolol tartrate 25 mg tablet 25 mg PO DAILY 03/02/24 03/02/24 History Past Med/Surg History Problem List (Updated 03/02/24 @ 09:56 by Rosina Grove PA-C) Type 2 diabetes mellitus Nausea (Acute) Diarrhea (Acute) Abdominal pain, acute (Acute) Bilateral lower extremity edema (Acute) Chronic anticoagulation Spinal stenosis of lumbar region Back pain (Acute) Acute on chronic renal insufficiency (Acute) Lumbosacral radiculopathy (Acute) Weakness (Acute) Ambulatory dysfunction Hallucinations Diabetes mellitus with hypoglycemia Macular degeneration, wet Left sided sciatica Pulmonary hypertension Mitral regurgitation Fall Hypomagnesemia (Acute) Vitamin D deficiency Multiple pulmonary nodules determined by computed tomography of lung Premature supraventricular beats Abnormal ECG Paroxysmal atrial fibrillation On ECG 02/11/20 when admitted with Covid-19. Spontaneous conversion to NSR. 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 Hyperlipidemia (Chronic) Hypertension (Chronic) Medical History Atrial fibrillation with RVR Acute kidney injury superimposed on CKD Ambulatory dysfunction UTI (urinary tract infection) Headache Lipoma of back s/p removal Syncope and collapse COVID-19 (02/11/20) required hospitalization [facility] x 3 weeks History of basal cell carcinoma (11/2018) Morbid obesity Nontoxic multinodular goiter Osteopenia Hypertension Hyperlipidemia Surgical History Hx laparoscopic cholecystectomy History of salpingectomy Family History Father Coronary heart disease Myocardial infarction Mother Tobacco use Lung cancer Daughter Melanoma Grandmother (Paternal) Stroke Denies family history of Ovarian cancer Prostate cancer Breast cancer FH: brain aneurysm Colorectal cancer Social History Smoking Status: Never smoker Tobacco Type: Cigarettes Second Hand Exposure: No; Do You Dip or Chew Tobacco: No; Hx Alcohol Use: No Hx Substance Use: No Preferred Language: Uzbek Communication Ability: Effective Visual Impairment: No Limitations Hearing Ability: Normal Carbide Die Maker Required: No Beliefs That Will Affect Care: None marital status: Current Living Situation: Family Current Living Situation Comment: LIVES WITH DAUGHTER JOSE current occupational status: retired 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 Non-toxic appearing. HEENT- EOMI, mucous membranes dry. Hearing grossly intact. Heart-normal S1 and S2. No murmurs, rubs or gallops. Lungs-clear bilaterally, no respiratory distress, no accessory muscle use. Abdomen-normal bowel sounds and soft. No ascites noted. Non-tender. Extremities- no clubbing, cyanosis. +1 pitting edema BL LE Rheumatologic-decreased range of motion. Psychiatric-normal affect. Results & Data Results & Data Vital Signs (Past 12 Hours) Vital Signs Temp Pulse Resp BP Pulse Ox O2 Del Method O2 Flow Rate 03/02/24 07:45 80 03/02/24 07:30 138/71 03/02/24 07:21 81 03/02/24 07:00 84 18 146/82 H 94 Room Air 03/02/24 06:05 84 03/02/24 06:00 90 22 152/68 H 96 Room Air 03/02/24 05:01 76 22 155/75 H 99 Nasal Cannula 2 03/02/24 03:58 74 20 77 L Nasal Cannula 2 03/02/24 03:29 82 19 161/79 H 97 Room Air 03/02/24 02:36 86 22 151/96 H 100 Room Air 03/02/24 02:21 36.8 C 76 24 159/79 H 98 Room Air 03/02/24 02:13 92 H Laboratory Results Reviewed CBC, CMP, UA Medications Administered ED: 4mg IV Zofran, 500 mL NSS ECG Additional Comments: a fib, rate 80 Code Status & VTE Plan Code Status dnr/dni VTE Prophylaxis Plan VTE Prophylaxis will be ordered: Yes PG Care Time/CCT Total # of Minutes Spent Total Time Spent with Patient: Total time spent is greater than 50% in coordination of care (as documented) at patient's floor/unit and/or counseling patient: Coding Level of Care Code 27132 INT INP/OBS CARE 3/75MIN Diagnoses Ambulatory dysfunction R26.2 Diarrhea R19.7 DESTINEY (obstructive sleep apnea) G47.33 Type 2 diabetes mellitus E11.9
--- NOTE | 2024-03-02 10:06 | XRay Report ---
XR chest 1V portable CLINICAL HISTORY: diarrhea, weakness, abd cramping, hypoxia COMPARISON STUDY: Chest CT June 19, 2023. Chest radiograph February 24, 2024. FINDINGS: A peripherally calcified right lobe thyroid nodule is incidentally noted. Cardiomegaly is u nchanged. Mediastinal contours are stable. There is no pneumothorax or pleural effusion. Opacity harry g the left heart border is due to epicardial fat pad. Opacity projecting over the lower chest is like ly related to overlying soft tissues. There is no evidence for pulmonary edema. IMPRESSION: No acute cardiopulmonary findings. No change in appearance of the chest. ACT 112: Negative or not required by law. Electronically signed by: Parker Sinclair M.D. 03/02/2024 10:05 AM
[2024-03-02] MEDS: ACETAMINOPHEN 325 MG TAB PO STA (10:32)
[2024-03-02 11:09] LABS: Adenovirus PCR Not Detected (NotDetected); Bordetella parapertussis PCR Not Detected (NotDetected); Bordetella pertussis PCR Not Detected (NotDetected); Chlamydia pneumoniae PCR Not Detected (NotDetected); Coronavirus 229E PCR Not Detected (NotDetected); Coronavirus CoV-2 (COVID19)PCR Not Detected (NotDetected); Coronavirus HKU1 PCR Not Detected (NotDetected); Coronavirus NL63 PCR Not Detected (NotDetected); Coronavirus OC43PCR Not Detected (NotDetected); Human Metapneumovirus PCR Not Detected (NotDetected); Influenza A PCR Not Detected (NotDetected); Influenza B PCR Not Detected (NotDetected); Mycoplasma pneumoniae PCR Not Detected (NotDetected); Parainfluenza Virus 1 PCR Not Detected (NotDetected); Parainfluenza Virus 2 PCR Not Detected (NotDetected); Parainfluenza Virus 3 PCR Not Detected (NotDetected); Parainfluenza Virus 4 PCR Not Detected (NotDetected); Respiratory Syncytial VirusPCR Not Detected (NotDetected); Rhinovirus/Enterovirus PCR Not Detected (NotDetected)
[2024-03-02] MEDS: APIXABAN 2.5 MG TAB PO STA (11:33)
[2024-03-02] MEDS ORDERED: DEXTROSE 50% 50 ML SYRINGE IV PRN (11:55)
[2024-03-02] MEDS ORDERED: GLUCAGON FOR INJ 1 MG VIAL SQ PRN (11:55)
[2024-03-02] MEDS ORDERED: GLUCOSE 40% GEL 15 GM TUBE PO PRN (11:55)
[2024-03-02] MEDS ORDERED: GLUCOSE 10 TAB/TUBE PO PRN (11:55)
[2024-03-02] MEDS ORDERED: CARBOHYDRATES FOR HYPOGLYCEMIA PO PRN (11:55)
[2024-03-02] MEDS: INSULIN ASPART PER UNIT CHARGE SC SCH (14:22)
[2024-03-02] MEDS: METOPROLOL TARTRATE 25 MG TAB PO SCH (14:25)
[2024-03-02] MEDS: hydrALAZINE TAB 50 MG TAB PO SCH (14:25)
[2024-03-02] MEDS: lisinopril 20 MG TAB PO SCH (14:25)
[2024-03-02 19:24] LABS: Cdiff Toxin B Gene (2yr or >) Positive Cdiff Gene (Neg)
[2024-03-02 19:31] LABS: Adenovirus F 40/41 PCR Not Detected (NotDetected); Astrovirus PCR Not Detected (NotDetected); Campylobacter PCR Not Detected (NotDetected); Cryptosporidium PCR Not Detected (NotDetected); Cyclospora cayetanensis PCR Not Detected (NotDetected); Entamoeba histolytica PCR Not Detected (NotDetected); Enteroaggregative E.coli(EAEC) Not Detected (NotDetected); Enteropathogenic E.coli (EPEC) Not Detected (NotDetected); Enterotoxigenic E.coli (ETEC) Not Detected (NotDetected); Giardia lamblia PCR Not Detected (NotDetected); Plesiomonas shigelloides PCR Not Detected (NotDetected); Rotavirus A PCR Not Detected (NotDetected); Salmonella PCR Not Detected (NotDetected); Sapovirus PCR Not Detected (NotDetected); Shiga-like Toxin E.coli (STEC) Not Detected (NotDetected); Shigella/Enteroinvasive E.coli Not Detected (NotDetected); Vibrio cholerae PCR Not Detected (NotDetected); Vibrio species PCR Not Detected (NotDetected); Yersinia enterocolitica PCR Not Detected (NotDetected)
[2024-03-02 19:46] LABS: Cdiff Toxin A+B Negative Cdiff Toxin (Negative)
[2024-03-02 19:47] LABS: Cdiff Antigen Positive
[2024-03-02 19:48] LABS: Norovirus GI/GII PCR DETECTED (NotDetected)
--- NOTE | 2024-03-02 21:25 | Communication Note ---
Date of Service: March 02, 2024 C. diff positive gene negative toxin Not currently on treatment for C. diff. Diarrhea seemed to have been resolving If ongoing significant diarrhea or fever/leukocytosis/abdominal pain consider treating for C. diff
[2024-03-02] MEDS: MAGNESIUM OXIDE 400 MG TAB PO SCH (21:30)
--- NOTE | 2024-03-02 21:45 | Electrocardiogram Report ---
Test Reason : Blood Pressure : */* mmHG Vent. Rate : 80 BPM Atrial Rate : * BPM P-R Int : * ms QRS Dur : 80 ms QT Int : 356 ms P-R-T Axes : * -12 66 degrees QTcB Int : 410 ms Atrial fibrillation Poor R wave progression, consider anterior IL vs. lead placement vs. LVH Nonspecific ST abnormality Abnormal ECG When compared with ECG of 24-Feb-2024 04:43, No significant change Confirmed by Yahir Wray ([id number]) on 03/02/2024 9:44:37 PM Referred By: REFERRED SELF Confirmed By: Yahir Wray
[2024-03-02] MEDS: APIXABAN 2.5 MG TAB PO SCH (22:29)
[2024-03-02] MEDS: ATORVASTATIN 20 MG TAB PO SCH (22:30)
[2024-03-02] MEDS: ONDANSETRON INJ 2 MG/ML 2 ML VIAL IV PRN (22:33)
[2024-03-03 07:00] LABS: Basophils # (auto) 0.02 K/uL (0.00-0.20); Basophils % (auto) 0.6 %; Eosinophils # (auto) 0.09 K/uL (0.00-0.50); Eosinophils % (auto) 2.5 %; Hematocrit (blood only) 34.3 % (37.0-47.0); Hemoglobin 10.8 g/dl (12.0-16.0); Lymphocytes # (auto) 1.22 K/uL (1.20-3.40); Lymphocytes % (auto) 34.2 %; Mean Corpuscular Hemoglobin 27.8 pg (25.0-34.0); Mean Corpuscular Hgb Conc 31.5 g/dL (32.0-36.0); Mean Corpuscular Volume 88.2 fL (80.0-100.0); Mean Platelet Volume 10.2 fL (9.4-12.4); Monocytes % (auto) 16.8 %; Neutrophils # (auto) 1.64 K/uL (1.40-6.50); Neutrophils % (auto) 45.9 %; Platelet Count 130 K/uL (130-400); RDW Coefficient of Variation 14.5 % (11.5-14.5); RDW Standard Deviation 45.8 fL (36.4-46.3); Red Blood Count 3.89 M/uL (4.20-5.40); White Blood Count 3.57 K/ul (4.8-10.8)
[2024-03-03 07:39] LABS: BUN Creatinine Ratio 14.6 (10-20); Calcium 9.1 mg/dl (8.6-10.3); Creatinine Clr Calc Pharmacy 32.3 ml/min; Magnesium 1.6 mg/dl (1.7-2.4); Potassium 3.8 mmol/L (3.5-5.1)
--- NOTE | 2024-03-03 16:29 | Hospitalist Progress Note ---
Date of Service March 03, 2024 Assessment & Plan (1) Ambulatory dysfunction: Plan: Diarrhea, suspect C. difficile versus viral Patient with 5 to 6 days of severe 5-6 bowel movements a day liquid diarrhea. Initially no respiratory symptoms otherwise a slight sore throat 1/2. Respiratory bio fire is negative. Stool bio fire was positive for C. difficile gene, negative otherwise and was negative for C. difficile toxin Patient was initially observed as she was toxin negative however other viral testing is negative and she has worsening symptoms with hypomagnesemia. Given this and gene positive C. difficile reasonable to treat at this point Vancomycin 125 4 times daily ordered Ambulatory dysfunction/weakness Worsened with volume contraction and acute illness. Will treat C. difficile as above and follow-up PT/OT once patient is improving DESTINEY While sleeping, chest x-ray is clear Overnight pulse ox is with frequent desaturations consistent with suspected sleep apnea. Will continue CPAP at bedtime, will need outpatient follow-up for a sleep study and temporary nighttime oxygen on discharge Differential does include viral however suspect this is less likely due to nocturnal hypoxia and clear x-ray, and negative BioFire Type II DM Adequate control SSI Target [id number], CF 40, carb ratio 15 Glipizide held Chronic stable diagnoses: a fib - continue Eliquis and metoprolol, in a fib on admission EKG HTN - continue lisinopril and hydralazine HLD - continue statin CKD stage 3 - Cr 1.33, baseline renal function VTE ppx: Eliquis Diet: t2dm Dispo: med surg with continuous pulse oximetry (2) Diarrhea: (3) DESTINEY (obstructive sleep apnea): (4) Type 2 diabetes mellitus: Admission and Anticipated Discharge Date Admission Date: March 02, 2024 John Mosley is seen at the bedside. She reports that she is not any fevers chills chest pain chest pressure shortness of breath or abdominal pain but she has continued to have diarrhea 5-6 bowel movements a day which are completely liquid, very cramping which feels worse from yesterday. She denies a cough. Although notes a very slight sore throat today. Physical Exam Physical Exam: General: A&Ox3. NAD. Cooperative. HEENT: Atraumatic, normocephalic. Pulm: CTAB A&P. -wheezes, -rales, -rhonchi. Symmetrical chest rise. No increased work of breathing. No respiratory distress. Cardiac: RRR, -mrg. Radial pulses intact and symmetrical. Abdominal: Nontender, nondistended, soft. BS present. Ext: Mild lower extremity pitting edema Results & Data Results & Data Vital Signs (Past 12 Hours) Vital Signs Temp Pulse Resp BP Pulse Ox O2 Del Method 03/03/24 14:27 36.6 C 72 18 166/78 H 96 Room Air 03/03/24 07:37 36.7 C 72 18 145/79 H 94 Room Air PG Care Time/CCT Total # of Minutes Spent Total Time Spent with Patient: Total time spent is greater than 50% in coordination of care (as documented) at patient's floor/unit and/or counseling patient: Coding Level of Care Code 84735 SUB INP/OBS CARE 3/50MIN Diagnoses Ambulatory dysfunction R26.2 Diarrhea R19.7 DESTINEY (obstructive sleep apnea) G47.33 Type 2 diabetes mellitus E11.9
[2024-03-03] MEDS: MAGNESIUM SULFATE / D5W 1 GM/100 ML BAG IV ONE (17:40)
[2024-03-03] MEDS: VANCOMYCIN HCL 125 MG/2.5ML SOLN PO SCH (17:43)
[2024-03-03] MEDS: CHERRY SYRUP 5 ML UDP PO SCH (17:43)
[2024-03-03] MEDS: ACETAMINOPHEN 325 MG TAB PO PRN (17:47)
[2024-03-04 08:56] LABS: Basophils # (auto) 0.01 K/uL (0.00-0.20); Basophils % (auto) 0.3 %; Eosinophils # (auto) 0.13 K/uL (0.00-0.50); Eosinophils % (auto) 3.6 %; Hematocrit (blood only) 35.7 % (37.0-47.0); Hemoglobin 11.4 g/dl (12.0-16.0); Immature Granulocytes # (auto) 0.01 K/uL (0.01-0.20); Immature Granulocytes % (auto) 0.3 %; Lymphocytes # (auto) 1.55 K/uL (1.20-3.40); Lymphocytes % (auto) 42.9 %; Mean Corpuscular Hemoglobin 27.9 pg (25.0-34.0); Mean Corpuscular Hgb Conc 31.9 g/dL (32.0-36.0); Mean Corpuscular Volume 87.3 fL (80.0-100.0); Mean Platelet Volume 10.9 fL (9.4-12.4); Monocytes # (auto) 0.48 K/uL (0.11-0.59); Monocytes % (auto) 13.3 %; Neutrophils # (auto) 1.43 K/uL (1.40-6.50); Neutrophils % (auto) 39.6 %; Platelet Count 137 K/uL (130-400); RDW Coefficient of Variation 14.1 % (11.5-14.5); RDW Standard Deviation 45.4 fL (36.4-46.3); Red Blood Count 4.09 M/uL (4.20-5.40); White Blood Count 3.61 K/ul (4.8-10.8)
[2024-03-04 09:20] LABS: BUN Creatinine Ratio 13.4 (10-20); Calcium 9.1 mg/dl (8.6-10.3); Creatinine Clr Calc Pharmacy 31.3 ml/min; Magnesium 1.8 mg/dl (1.7-2.4); Potassium 3.8 mmol/L (3.5-5.1)
--- NOTE | 2024-03-04 12:20 | Hospitalist Progress Note ---
Date of Service March 04, 2024 Assessment & Plan (1) Ambulatory dysfunction: Plan: Diarrhea, suspect C. difficile versus viral Patient with 5 to 6 days of severe 5-6 bowel movements a day liquid diarrhea. Initially no respiratory symptoms otherwise a slight sore throat 03/03. Respiratory bio fire is negative. Stool bio fire was positive for C. difficile gene, negative otherwise and was negative for C. difficile toxin Patient was initially observed as she was toxin negative however other viral testing is negative and had progressive symptoms beyond 5 days, given this with positive C. difficile gene was treated with vancomycin 4 times daily Continue vancomycin, continue supportive care, additional fluids given 1/3 Ambulatory dysfunction/weakness Worsened with volume contraction and acute illness. Patient had mild dizziness 03/03/2024, feels her dizziness is worse 03/04. Orthostatics did not show significant hypotension, blood pressure 140s during dizziness. This does not have a spinning/vertiginous quality is more lightheaded. Magnesium is slightly low, potassium is within the lower range of normal. Does appear slightly volume contracted and has not been eating/drinking well although does have some venous stasis as well. She did have some tingling in her arms and legs this morning which began overnight, she has no strength deficits on exam and no cranial nerve deficits. Low suspicion for CVA, and symptoms have been present since the middle of the night. Suspect more likely electrolyte derangements and acute infectious etiology however if symptoms persist or she develops focal deficits then will follow-up with CT versus MRI at that time. She is on Eliquis at baseline. DESTINEY While sleeping, chest x-ray is clear Overnight pulse ox is with frequent desaturations consistent with suspected sleep apnea. Will continue CPAP at bedtime, will need outpatient follow-up for a sleep study and temporary nighttime oxygen on discharge Differential does include viral however suspect this is less likely due to nocturnal hypoxia and clear x-ray, and negative BioFire Type II DM Adequate control SSI Target [id number], CF 40, carb ratio 15 Glipizide held Chronic stable diagnoses: a fib - continue Eliquis and metoprolol, in a fib on admission EKG HTN - continue lisinopril and hydralazine HLD - continue statin CKD stage 3creatinine is at baseline patient does have some venous stasis edema, but otherwise appears slightly volume contracted 03/04. 500 cc LR given VTE ppx: Eliquis Diet: t2dm Dispo: med surg with continuous pulse oximetry (2) Diarrhea: (3) DESTINEY (obstructive sleep apnea): (4) Type 2 diabetes mellitus: Admission and Anticipated Discharge Date Admission Date: March 02, 2024 Subjective Patient reports that she did not have fevers or chills overnight, but continues to feel poorly. Low appetite and has difficulty tolerating foods. Continues to have diarrhea has not yet noticed a change. Sore throat again of the day yesterday seems to have improved.. Denies abdominal pain. Denies chest pain, chest pressure. Does feel lightheaded when she sits up or stands. Was not able to tolerate breakfast today. Updated by nursing in the afternoon that she has had some more lightheadedness. This does not have a spinning/vertiginous quality. Extremity strength is intact and orthostatics with therapy were normal. Physical Exam Physical Exam: General: A&Ox3. NAD. Cooperative. HEENT: Atraumatic, normocephalic. Mucous membranes are dry/tacky Pulm: CTAB A&P. -wheezes, -rales, -rhonchi. Symmetrical chest rise. No increased work of breathing. No respiratory distress. Cardiac: RRR, -mrg. Radial pulses intact and symmetrical. Abdominal: Nontender, nondistended, soft. BS present. Ext: Mild lower extremity pitting edema CRANIAL NERVES: II: Pupils equal and reactive, no relative afferent pupillary defect, no VF cuts III, IV, : EOM intact, no gaze preference or deviation, no nystagmus. V: normal sensation in V1, V2, and V3 segments bilaterally VII: no asymmetry, no nasolabial fold flattening VIII: normal hearing to speech IX, X: normal palatal elevation, no uvular deviation XI: 5/5 head turn and 5/5 shoulder shrug bilaterally XII: midline tongue protrusion MOTOR: RUE: 5/5 Shoulder internal rotation, external rotation, flexion, extension, abduction, adduction 5/5 Elbow flexion/extension, wrist flexi on/extension 5/5 deckhand engineer strength, finger flexion/extens ion, interosseus LUE: 5/5 Shoulder internal rotation, external rotation, flexion, extension, abduction, adduction 5/5 Elbow flexion/extension, wrist flexi on/extension 5/5 deckhand engineer strength, finger flexion/extens ion, interosseus RLE: 5/5 to hip flexion, knee flexion/extensi on, ankle dorsiflexion/plantarflexion LLE: 5/5 to hip flexion, knee flexion/extensi on, ankle dorsiflexion/plantarflexion SENSORY: Sensation of soft touch is intact in hands and feet bilaterally without deficit or asymmetry. Does endorse some tingling/paresthesias in the distal hands and distal feet Results & Data Results & Data Vital Signs (Past 12 Hours) Vital Signs Temp Pulse Resp BP Pulse Ox O2 Del Method 03/04/24 07:42 36.3 C L 62 14 176/77 H 98 Room Air PG Care Time/CCT Total # of Minutes Spent Total Time Spent with Patient: Total time spent is greater than 50% in coordination of care (as documented) at patient's floor/unit and/or counseling patient: Coding Level of Care Code 81522 SUB INP/OBS CARE 3/50MIN Diagnoses Ambulatory dysfunction R26.2 Diarrhea R19.7 DESTINEY (obstructive sleep apnea) G47.33 Type 2 diabetes mellitus E11.9
[2024-03-04] MEDS: D5W AND LACTATED RINGERS 500 ML IV SCH (12:53)
[2024-03-04] MEDS: MAGNESIUM SULFATE / D5W 1 GM/100 ML BAG IV ONE (12:53)
[2024-03-05 07:13] LABS: Basophils # (auto) 0.02 K/uL (0.00-0.20); Basophils % (auto) 0.5 %; Eosinophils # (auto) 0.18 K/uL (0.00-0.50); Eosinophils % (auto) 4.9 %; Hematocrit (blood only) 34.7 % (37.0-47.0); Hemoglobin 11.4 g/dl (12.0-16.0); Immature Granulocytes # (auto) 0.01 K/uL (0.01-0.20); Immature Granulocytes % (auto) 0.3 %; Lymphocytes # (auto) 1.44 K/uL (1.20-3.40); Lymphocytes % (auto) 39.5 %; Mean Corpuscular Hemoglobin 28.2 pg (25.0-34.0); Mean Corpuscular Hgb Conc 32.9 g/dL (32.0-36.0); Mean Corpuscular Volume 85.9 fL (80.0-100.0); Mean Platelet Volume 10.5 fL (9.4-12.4); Monocytes # (auto) 0.38 K/uL (0.11-0.59); Monocytes % (auto) 10.4 %; Neutrophils # (auto) 1.62 K/uL (1.40-6.50); Neutrophils % (auto) 44.4 %; Platelet Count 146 K/uL (130-400); RDW Coefficient of Variation 13.9 % (11.5-14.5); RDW Standard Deviation 43.5 fL (36.4-46.3); Red Blood Count 4.04 M/uL (4.20-5.40); White Blood Count 3.65 K/ul (4.8-10.8)
[2024-03-05 08:22] LABS: BUN Creatinine Ratio 11.9 (10-20); Calcium 9.2 mg/dl (8.6-10.3); Creatinine Clr Calc Pharmacy 33.3 ml/min; Potassium 3.5 mmol/L (3.5-5.1)
[2024-03-05] MEDS ORDERED: CYANOCOBALAMIN 1000 MCG/ML VIAL IM SCH (09:00)
[2024-03-05] MEDS: CYANOCOBALAMIN 1000 MCG/ML VIAL IM ONE (09:32)
--- NOTE | 2024-03-05 12:51 | Hospitalist Progress Note ---
Date of Service March 05, 2024 Assessment & Plan (1) Ambulatory dysfunction: Plan: Diarrhea, suspect C. difficile versus viral Patient with 5 to 6 days of severe 5-6 bowel movements a day liquid diarrhea. Initially no respiratory symptoms otherwise a slight sore throat 1/2. Respiratory bio fire is negative. Stool bio fire was positive for C. difficile gene, negative otherwise and was negative for C. difficile toxin Patient was initially observed as she was toxin negative however other viral testing is negative and had progressive symptoms beyond 5 days, given this with positive C. difficile gene was treated with vancomycin 4 times daily Continue vancomycin, continue supportive care, additional fluids given /3 Patient is progressing 03/05. Still feels weak and is in aquatic p.o. intake but is starting to improve. Ambulatory dysfunction/weakness Worsened with volume contraction and acute illness. Dizziness improved with volume resuscitation, improving diarrhea, and B12 supplementation PT/OT consulted. DESTINEY While sleeping, chest x-ray is clear Overnight pulse ox is with frequent desaturations consistent with suspected sleep apnea. Will continue CPAP at bedtime, will need outpatient follow-up for a sleep study and temporary nighttime oxygen on discharge Differential does include viral however suspect this is less likely due to nocturnal hypoxia and clear x-ray, and negative BioFire Type II DM Adequate control SSI Target [id number], CF 40, carb ratio 15 Glipizide held Chronic stable diagnoses: a fib - continue Eliquis and metoprolol, in a fib on admission EKG HTN - continue lisinopril and hydralazine HLD - continue statin CKD stage 3creatinine is at baseline patient does have some venous stasis edema, but otherwise appears slightly volume contracted /. 500 cc LR given VTE ppx: Eliquis Diet: t2dm Dispo: med surg with continuous pulse oximetry (2) Diarrhea: (3) DESTINEY (obstructive sleep apnea): (4) Type 2 diabetes mellitus: Admission and Anticipated Discharge Date Admission Date: March 02, 2024 Subjective Diet progressing. Diarrhea starting to improve. Patient still feels weak but improved from yesterday numbness/tingling has improved. He is willing to work with PT today. PT/OT consulted, Physical Exam Physical Exam: General: A&Ox3. NAD. Cooperative. HEENT: Atraumatic, normocephalic. Mucous membranes are lightly tacky but improved from prior Pulm: CTAB A&P. -wheezes, -rales, -rhonchi. Symmetrical chest rise. No increased work of breathing. No respiratory distress. Cardiac: RRR, -mrg. Radial pulses intact and symmetrical. Abdominal: Nontender, nondistended, soft. BS present. Results & Data Results & Data Vital Signs (Past 12 Hours) Vital Signs Temp Pulse Resp BP Pulse Ox O2 Del Method 03/05/24 07:47 36.4 C L 61 16 153/94 H 97 Room Air PG Care Time/CCT Total # of Minutes Spent Total Time Spent with Patient: Total time spent is greater than 50% in coordination of care (as documented) at patient's floor/unit and/or counseling patient: Coding Level of Care Code 30658 SUB INP/OBS CARE 2/35MIN Diagnoses Ambulatory dysfunction R26.2 Diarrhea R19.7 DESTINEY (obstructive sleep apnea) G47.33 Type 2 diabetes mellitus E11.9
[2024-03-06 06:49] LABS: Basophils # (auto) 0.02 K/uL (0.00-0.20); Basophils % (auto) 0.5 %; Eosinophils # (auto) 0.19 K/uL (0.00-0.50); Eosinophils % (auto) 4.3 %; Hemoglobin 11.6 g/dl (12.0-16.0); Immature Granulocytes # (auto) 0.01 K/uL (0.01-0.20); Immature Granulocytes % (auto) 0.2 %; Lymphocytes # (auto) 1.51 K/uL (1.20-3.40); Lymphocytes % (auto) 34.6 %; Mean Corpuscular Hgb Conc 32.2 g/dL (32.0-36.0); Mean Corpuscular Volume 86.7 fL (80.0-100.0); Mean Platelet Volume 10.5 fL (9.4-12.4); Monocytes # (auto) 0.39 K/uL (0.11-0.59); Monocytes % (auto) 8.9 %; Neutrophils # (auto) 2.25 K/uL (1.40-6.50); Neutrophils % (auto) 51.5 %; Platelet Count 144 K/uL (130-400); RDW Standard Deviation 44.6 fL (36.4-46.3); Red Blood Count 4.15 M/uL (4.20-5.40); White Blood Count 4.37 K/ul (4.8-10.8)
[2024-03-06 07:10] LABS: BUN Creatinine Ratio 11.2 (10-20); Calcium 9.3 mg/dl (8.6-10.3); Creatinine Clr Calc Pharmacy 36.2 ml/min; Potassium 3.5 mmol/L (3.5-5.1)
[2024-03-06] MEDS: CYANOCOBALAMIN (B-12) 100 MCG TABLET PO SCH (08:56)
--- NOTE | 2024-03-06 12:09 | Hospitalist Progress Note ---
Date of Service March 06, 2024 Assessment & Plan (1) Ambulatory dysfunction: Plan: Diarrhea, suspect C. difficile versus viral Patient with 5 to 6 days of severe 5-6 bowel movements a day liquid diarrhea. Initially no respiratory symptoms otherwise a slight sore throat 1/2. Respiratory bio fire is negative. Stool bio fire was positive for C. difficile gene, negative otherwise and was negative for C. difficile toxin Patient was initially observed as she was toxin negative however other viral testing is negative and had progressive symptoms beyond 5 days, given this with positive C. difficile gene was treated with vancomycin 4 times daily Continue vancomycin, continue supportive care, additional fluids given / Progressed well 03/06. Electrolytes stable/wnl. Is medically stable for discharge to complete a course of vancomycin Discussed with case management. Is a bed hold, [facility] not able to accept patients back over the weekend and will likely be able to be accept 03/07 Ambulatory dysfunction/weakness Worsened with volume contraction and acute illness. Dizziness improved with volume resuscitation, improving diarrhea, and B12 supplementation PT/OT consulted. Dissipate discharge back with [facility] DESTINEY While sleeping, chest x-ray is clear Overnight pulse ox is with frequent desaturations consistent with suspected sleep apnea. Will continue CPAP at bedtime, will need outpatient follow-up for a sleep study and temporary nighttime oxygen on discharge Differential does include viral however suspect this is less likely due to nocturnal hypoxia and clear x-ray, and negative BioFire Type II DM Adequate control SSI Target [id number], CF 40, carb ratio 15 Glipizide held Chronic stable diagnoses: a fib - continue Eliquis and metoprolol, in a fib on admission EKG HTN - continue lisinopril and hydralazine HLD - continue statin CKD stage 3creatinine is at baseline patient does have some venous stasis edema, but otherwise appears slightly volume contracted 1/3. 500 cc LR given VTE ppx: Eliquis Diet: t2dm Dispo: med surg with continuous pulse oximetry (2) Diarrhea: (3) DESTINEY (obstructive sleep apnea): (4) Type 2 diabetes mellitus: Admission and Anticipated Discharge Date Admission Date: March 02, 2024 Subjective Continues to do well. Bowel movements are not completely normal that are not liquid and starting to firm up. Numbness and tingling is resolved. Patient feels better and 8085 back to her baseline. Is very concerned about cont agiousness of potential C. difficile. Discussed handwashing and Physical Exam Physical Exam: General: A&Ox3. NAD. Cooperative. HEENT: Atraumatic, normocephalic. Mucous membranes are lightly tacky but improved from prior Pulm: CTAB A&P. -wheezes, -rales, -rhonchi. Symmetrical chest rise. No increased work of breathing. No respiratory distress. Cardiac: RRR, -mrg. Radial pulses intact and symmetrical. Abdominal: Nontender, nondistended, soft. BS present. Results & Data Results & Data Vital Signs (Past 12 Hours) Vital Signs Temp Pulse Resp BP Pulse Ox O2 Del Method 03/06/24 07:45 36.4 C L 63 18 158/81 H 96 Room Air PG Care Time/CCT Total # of Minutes Spent Total Time Spent with Patient: Total time spent is greater than 50% in coordination of care (as documented) at patient's floor/unit and/or counseling patient: Coding Level of Care Code 98847 SUB INP/OBS CARE 03/26MIN Diagnoses Ambulatory dysfunction R26.2 Diarrhea R19.7 DESTINEY (obstructive sleep apnea) G47.33 Type 2 diabetes mellitus E11.9
[2024-03-06] MEDS: POTASSIUM CHLORIDE CRTAB 20 MEQ TABCR PO SCH (12:52)
[2024-03-07 07:24] VITALS: PULSE 55; RESP 16; TEMP 97.7; O2SAT 97
--- NOTE | 2024-03-07 08:14 | Discharge Summary ---
Discharge Summary Date of Service March 07, 2024 Principal Dx & Hospital Course #1 = Principal Diagnosis (1) Ambulatory dysfunction: Admitted for diarrhea, ambulatory dysfunction, weakness suspected due to viral illness versus C. difficile. Patient was C. difficile gene positive but toxin negative and essentially observed for improvement however had persistent complete liquid diarrhea up to 5 days without signs of improvement. Given this was treated for C. difficile and subsequently had progressive improvement. She was seen by physical therapy and was recommended for return to [facility]. Patient was discharged to complete a 10-day course of antibiotics with vancomycin 4 times daily. Handwashing and contact precautions were discussed with patient. To do as outpatient: 1. Complete 10-day course of vancomycin 125 mg 4 times daily last date 03/13/2024 2. Follow-up to PCP 3. Continued rehab at [facility] 4. Patient with nighttime desaturations intermittently suspicious for sleep apnea. Recommended for outpatient follow-up for sleep study and supplemental oxygen at bedtime as needed at discharge 5. Continue vitamin B12 daily supplementation Diarrhea, suspect C. difficile versus viral Patient with 5 to 6 days of severe 5-6 bowel movements a day liquid diarrhea. Initially no respiratory symptoms otherwise a slight sore throat 1/. Respiratory bio fire is negative. Stool bio fire was positive for C. difficile gene, negative otherwise and was negative for C. difficile toxin Patient was initially observed as she was toxin negative however other viral testing is negative and had progressive symptoms beyond 5 days, given this with positive C. difficile gene was treated with vancomycin 4 times daily Continue vancomycin, continue supportive care, additional fluids given 03/04 Progressed well 03/06. Electrolytes stable/wnl. Is medically stable for discharge to complete a course of vancomycin Placement is available 03/07, patient discharged as noted Ambulatory dysfunction/weakness Worsened with volume contraction and acute illness. Dizziness improved with volume resuscitation, improving diarrhea, and B12 supplementation DESTINEY Desats on overnight pulseox, chest x-ray is clear. No daytime req Overnight pulse ox is with frequent desaturations consistent with suspected sleep apnea. Will continue CPAP at bedtime, will need outpatient follow-up for a sleep study and use oxygen at bedtime 2L while at SNF (2) Diarrhea: (3) DESTINEY (obstructive sleep apnea): (4) Type 2 diabetes mellitus: Admission HPI Per Admitting Provider Patient is an 84-year-old female with past medical history of A-fib on Eliquis, hypertension, hyperlipidemia, type II DM. She presents today for nausea and diarrhea x 4 days. When she was evaluated by the ER she was able to tolerate p.o. fluids and solids and decided that she would like to go back to [facility]. After transport was set up for discharge, patient talked with her daughter, Jocelyne. Patient then changed her mind and said she felt too weak to go back to independent living at [facility]. Upon examination patient stated that she has had nausea and diarrhea for the past 4 days. She stated that lots of other people at [facility] also have diarrhea. She stated that she has had episodes of diarrhea every 10 minutes for the past few day. She also noted dry cough for the past 4 days. She feels like her abdomen is sore with the diarrhea and it is intermittent. She has felt weak since the symptoms began and she uses a walker at baseline. She has independent living at [facility]. She is concerned about getting around with the weakness and being independent. She also noted that she has had bilateral lower extremity edema since last week, she was seen in the ER for this and discharged home with JOSE [employer]UARDO stockings. She stated that edema has been improving. Patient denies fever, chills, headache, dizziness, lightheadedness, rhinorrhea, sore throat, sputum production, dyspnea, dyspnea on exertion, chest pain, vomiting, dysuria, hematuria, numbness, tingling, blood in stool. She does not use oxygen at baseline, has never been diagnosed with DESTINEY. She did not take her home medications this morning. She is DNR/DNI status. Discharge Exam General: A&Ox3. NAD. Cooperative. HEENT: Atraumatic, normocephalic. Mucous membranes are lightly tacky but improved from prior Pulm: CTAB A&P. -wheezes, -rales, -rhonchi. Symmetrical chest rise. No increased work of breathing. No respiratory distress. Cardiac: RRR, -mrg. Radial pulses intact and symmetrical. Abdominal: Nontender, nondistended, soft. BS present. Discharge Plan Discharge Items Patient Disposition: Transfer [facility] Reason For Visit: AMBULATORY DYSFUNCTION,DIARRHEA Discharge Diagnosis: Ambulatory dysfunction, diarrhea. C. difficile Condition on Discharge: Good Activity: Per Instructions section Non-emergency contact: Primary Care Provider Call non-emergency contact if: you have any medication questions, your symptoms worsen and your pain is not controlled Follow-up/Referrals: Mello Elena, [Primary Care Provider] - 03/14/24 1:00 pm Diet: Heart Healthy and Low Fat Addtl Attending Provider Instructions: You are seen in the hospital for weakness and diarrhea. You were C. difficile gene positive. You have been prescribed an antibiotic, vancomycin for treatment of C. difficile. Please take vancomycin 125 mg every 6 hours (4 times daily) to complete a 10-day course on 03/13/2024. C. difficile is a potentially infectious disease, the most important component of preventing the spread of C. difficile is handwashing hygiene. Your nighttime oxygen levels dropped and were suspicious for sleep apnea. Is recommended to follow-up with an outpatient sleep study with your primary care provider. Until that time you have been provided with oxygen to be used at nighttime as needed, 2 L to maintain saturations above 90%. If you develop any new or worsening symptoms including fever, chills, sweats, chest pain, chest pressure, difficulty breathing, uncontrolled nausea/vomiting, rash, wheezing, passing out or nearly passing out, bleeding, black/bloody bowel movements, or other new or concerning symptoms please call your primary care physician, or call 911 for re-evaluation in the emergency department if you are very concerned. Pending Studies at Discharge: No Stand-Alone Forms: My [facility] Skilled Items Patient informed of condition?: Yes DNR: Yes Discharge Level of Care: Skilled Communicable Disease: Yes Discharge Prognosis: Stable Lines: None Urinary Catheter: No Medications and DC Order Prescriptions: New vancomycin 125 mg capsule 125 mg PO Q6H 6 Days Qty: 24 0RF cyanocobalamin (vitamin B-12) 1,000 mcg capsule 1,000 mcg PO DAILY Qty: 30 0RF Continued apixaban 2.5 mg tablet 2.5 mg PO BID Qty: 180 3RF atorvastatin 20 mg tablet 20 mg PO HS Qty: 100 3RF glipizide 2.5 mg tablet extended release 24hr 2.5 mg PO DAILY Qty: 90 2RF lisinopril 20 mg tablet 20 mg PO DAILY Qty: 90 3RF cholecalciferol (vitamin D3) [Vitamin D3] 25 mcg (1,000 unit) tablet 25 mcg PO DAILY Qty: 90 0RF hydralazine 50 mg tablet 50 mg PO BID 90 Days Qty: 180 2RF magnesium oxide 200 mg magnesium tablet 200 mg PO BID 90 Days Qty: 180 2RF lidocaine 4 % Adhesive Patch,Medicated 1 patch TOPICAL DAILY Rx Instructions: ON QAM, OFF QPM. metoprolol tartrate 25 mg tablet 25 mg PO DAILY Rx Instructions: hold for HR<60 or SBP<100 docusate sodium 100 mg Capsule 100 mg PO QAM PRN (Reason: Constipation) acetaminophen 500 mg Tablet 500 mg PO Q6H PRN (Reason: Pain) Preservision Ocuvite Areds 1 tab PO BID Refresh Optive 0.5-0.9 % Drops 1 drp OPHTHALMIC (EYE) UD PRN (Reason: iritation after injections) Discharge Orders: Discharge Order (Routine); Ordered 03/07/24 Ordered By: Anselmo Pena/Other Patient Handouts: ED Diet, Low Fat Admission Data Admit Date/Time: 03/06/24 12:10 Attending Provider: Anselmo Painter Admit Provider: Maribell Andrade Primary Care Provider: Mello Elena Other Providers: Maribell Andrade Other Interventions: Discharge Summary Assessment (RN) Last Done: 03/07/24 11:50 Hospital Stay Data Consultations 03/02/24 09:43 ED Decision to Admit Stat Discharge Instructions Given to Patient (Per Discharging Provider) You are seen in the hospital for weakness and diarrhea. You were C. difficile gene positive. You have been prescribed an antibiotic, vancomycin for treatment of C. difficile. Please take vancomycin 125 mg every 6 hours (4 times daily) to complete a 10-day course on 03/13/2024. C. difficile is a potentially infectious disease, the most important component of preventing the spread of C. difficile is handwashing hygiene. Your nighttime oxygen levels dropped and were suspicious for sleep apnea. Is recommended to follow-up with an outpatient sleep study with your primary care provider. Until that time you have been provided with oxygen to be used at nighttime as needed, 2 L to maintain saturations above 90%. If you develop any new or worsening symptoms including fever, chills, sweats, chest pain, chest pressure, difficulty breathing, uncontrolled nausea/vomiting, rash, wheezing, passing out or nearly passing out, bleeding, black/bloody bowel movements, or other new or concerning symptoms please call your primary care physician, or call 911 for re-evaluation in the emergency department if you are very concerned. Total Time Total Time Spent Total Time Spent (In Minutes): Time spend day of discharge 45 minutes including direct patient care, documentation, review of labs and images, and coordination of care. Coding Level of Care Code 11355 INP/OBS DISCH >30 MIN Diagnoses Ambulatory dysfunction R26.2 Diarrhea R19.7 DESTINEY (obstructive sleep apnea) G47.33 Type 2 diabetes mellitus E11.9
[2024-03-07 11:51] VITALS: BP 148/73
== END 2024-03-07 12:19 | disposition home or self-care (01) | DRG 373 ==
LOC: EDINP 02:03 → ED 02:03 → SUATTDRO 10:25 → EDINP 11:56 → 3W 21:28